=== PATIENT | female | born 1935 | race Hispanic/Latino ===

== ENCOUNTER 2017-01-29 15:10 | Inpatient (IN) | payer MEDICARE, MEDICAID ==
[2017-01-29 15:16] VITALS: BMI 22.9
--- NOTE | 2017-01-29 16:17 | ED PDOC ---
HPI: Seizure Time Seen by Provider: 01/29/17 15:24 Chief Complaint (Nursing): Altered Mental Status Chief Complaint (Provider): Altered Mental Status History Per: Family (Daughter) History/Exam Limitations: no limitations Additional Complaint(s): 81 y/o female with a past medical history of dementia and Alzheimer's who presents to the emergency department accompanied by daughter with a complaint of seizure like activity described as shaking, unresponsive, and incontinence of urine that lasted less than a minute according to granddaughter half an hour prior to arrival. As per history from daughter, patient was at a normal state of health walking, laughing, eating, and sitting at the table. Patient is currently back to baseline and states that she is hungry. Denies headache, weakness, numbness, or tingling. PMD: Dr. Slim Marino MD NIHSS Stroke Scale - How Severe is the Stroke Level of Consciousness: 0=Alert Best Gaze: 0=Normal Visual: 0=No visual loss Facial: 0=Normal Motor Arm - Left: 0=No drift Motor Arm - Right: 0=No drift Motor Leg - Left: 0=No drift Motor Leg - Right: 0=No drift Limb Ataxia: 0=Absent Sensory: 0=Normal Best Language: 0=No aphasia Dysarthia: 0=Normal articulation Extinction & Inattention (Neglect): 0=Normal, no object Past Medical History Reviewed: Historical Data, Nursing Documentation, Vital Signs Vital Signs: Last Vital Signs Temp 98.2 F 01/29/17 15:13 Pulse 64 01/29/17 15:37 Resp 16 01/29/17 15:37 BP 162/53 H 01/29/17 15:37 Pulse Ox 100 01/29/17 16:35 - Medical History PMH: Anemia, Arthritis, Asthma, CAD (with stents), CHF, Dementia, Depression, Diabetes, HTN, Hypercholesterolemia, Peripheral Edema, Pneumonia, Pulmonary Embolism, Chronic Kidney Disease Denies: HIV - Surgical History Surgical History: Appendectomy, Cholecystectomy, Coronary Stent (7 stents as per the daughter) Other surgeries: cataract surgery - Family History Family History: States: Unknown Family Hx - Social History Current smoker - smoking cessation education provided: No Alcohol: None Drugs: Denies - Home Medications Home Medications: Ambulatory Orders Medication Instructions Recorded Atorvastatin [Lipitor] 1 tab PO HS 07/26/16 Carvedilol [Coreg] 1 tab PO HS 07/26/16 Clopidogrel [Plavix] 1 tab PO DAILY 07/26/16 Dicyclomine [Bentyl] 1 tab PO DAILY 07/26/16 Donepezil HCl [Aricept] 1 tab PO HS 07/26/16 Famotidine [Pepcid] 1 tab PO DAILY 07/26/16 Furosemide [Lasix] 1 tab PO DAILY 07/26/16 Glimepiride 1 tab PO DAILY 07/26/16 Lubiprostone [Amitiza] 1 tab PO DAILY 07/26/16 Memantine [Namenda] 1 tab PO DAILY 07/26/16 Montelukast [Singulair] 1 tab PO HS 07/26/16 Ranolazine [Ranexa] 1 tab PO Q12 07/26/16 Divalproex [Depakote DR(*BID*)] 500 mg PO BID 01/29/17 Valsartan [Diovan] 320 mg PO DAILY 01/29/17 amLODIPine [Norvasc] 10 mg PO DAILY 01/29/17 - Allergies Allergies/Adverse Reactions: Allergies Allergy/AdvReac Type Severity Reaction Status Date / Time No Known Allergies Allergy Verified 07/26/16 18:17 Review of Systems ROS Statement: Except As Marked, All Systems Reviewed And Found Negative Constitutional: Positive for: Other (Shaking and unresponsiveness (had resolved since)). Negative for: Weakness Genitourinary Female: Positive for: Incontinence Neurological: Negative for: Numbness, Headache, Other (tingling) Physical Exam - Reviewed Nursing Documentation Reviewed: Yes Vital Signs Reviewed: Yes - Physical Exam Appears: Positive for: Non-toxic, No Acute Distress Head Exam: Positive for: ATRAUMATIC, NORMOCEPHALIC Skin: Positive for: Normal Color, Warm, Dry Eye Exam: Negative for: Normal appearance (Left pupil is pinpoint. Right pupil is scarred by cataract surgery) ENT: Positive for: Normal ENT Inspection. Negative for: Pharyngeal Erythema Neck: Positive for: Normal, Supple Cardiovascular/Chest: Positive for: Regular Rate, Rhythm. Negative for: Murmur Respiratory: Positive for: Normal Breath Sounds. Negative for: Respiratory Distress Gastrointestinal/Abdominal: Positive for: Normal Exam, Soft. Negative for: Tenderness Extremity: Positive for: Normal ROM. Negative for: Tenderness, Pedal Edema Neurologic/Psych: Positive for: Alert, methods and procedures analyst II-XII, Oriented. Negative for: Motor/Sensory Deficits, Mood/Affect, Cerebellar Tests, Gait, Aphasia, Facial Droop - Laboratory Results Result Diagrams: 01/29/17 16:28 01/29/17 16:28 - ECG O2 Sat by Pulse Oximetry: 100 (RA) Pulse Ox Interpretation: Normal Medical Decision Making Medical Decision Making: Time: 15:24 Initial impression: First time Seizure Initial plan: --Head w/o contrast CT --Electrocardiogram Stat --Alcohol Serum Stat --Basic Metabolic Panel --Drug Screen, Urine --Lact Acid, Plasma --Troponin I stat --ED Urine Dipstick (POC) --EKD-ED (EDNURTX) Stat --CBC w/ differential --Chest One View (RAD) --Urinalysis Stat --Revaluation 6PM: PT. seen and evaluated by Dr. Stokes of neurology, recommendations made. Will admit for seizure workup. Pt. remains alert, no seizure activity in E.D. Scribe Attestation: Documented by Ghazala Santamaria, acting as a scribe for Andrew Delacruz MD. Provider Scribe Attestation: All medical record entries made by the Scribe were at my direction and personally dictated by me. I have reviewed the chart and agree that the record accurately reflects my personal performance of the history, physical exam, medical decision making, and the department course for this patient. I have also personally directed, reviewed, and agree with the discharge instructions and disposition. Disposition - Clinical Impression Clinical Impression: Seizure - Patient ED Disposition Is Patient to be Admitted: Yes - Disposition Disposition Time: 18:00 Condition: STABLE
[2017-01-29 16:36] LABS: BASO # 0.1 K/uL (0.0-0.2); BASO % 1.2 % (0.0-2.0); EOS # 0.1 K/uL (0.0-0.7); EOS % 1.1 % (0.0-4.0); HEMATOCRIT 30.4 % (34.0-47.0); LYMPH # 1.3 K/uL (1.0-4.3); LYMPH % 17.3 % (20.0-40.0); MEAN CELL VOLUME 103.3 fl (81.0-99.0); MEAN CORPUSCULAR HEMOGLOBIN 33.7 pg (27.0-31.0); MEAN CORPUSCULAR HGB CONC 32.6 g/dL (33.0-37.0); MEAN PLATELET VOLUME 10.1 fl (7.2-11.7); MONO # 0.6 K/uL (0.0-0.8); MONO % 8.5 % (0.0-10.0); NEUT # 5.4 K/uL (1.8-7.0); NEUT % 71.9 % (50.0-75.0); RED CELL DISTRIBUTION WIDTH 13.6 % (11.5-14.5); WHITE BLOOD COUNT 7.6 K/uL (4.8-10.8)
[2017-01-29 16:41] LABS: ALCOHOL SERUM < 10 mg/dl (0-10); BLOOD UREA NITROGEN 21 mg/dl (7-17); CALCIUM 8.3 mg/dL (8.4-10.2); CARBON DIOXIDE 27 mmol/L (22-30); CHLORIDE 105 mmol/L (98-107); GFR AFRICAN-AMERICAN 52; GLUCOSE,RANDOM 191 mg/dL (65-105); POTASSIUM 4.4 MMOL/L (3.6-5.0); SODIUM 142 mmol/l (132-148)
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
--- NOTE | 2017-01-29 17:15 | CT ---
PROCEDURE: CT HEAD WITHOUT CONTRAST. HISTORY: seizure COMPARISON: 03/24/2016. TECHNIQUE: Axial computed tomography images were obtained through the head/brain without intravenous contrast. Coronal and sagittal reconstructed images. Radiation dose: Total exam DLP = 825.86 mGy-cm. This CT exam was performed using one or more of the following dose reduction techniques: Automated exposure control, adjustment of the mA and/or kV according to patient size, and/or use of iterative reconstruction technique. FINDINGS: HEMORRHAGE: No intracranial hemorrhage. BRAIN: No mass effect or edema. Cortical atrophy, periventricular small vessel disease VENTRICLES: Unremarkable. No hydrocephalus. CALVARIUM: Unremarkable. PARANASAL SINUSES: Unremarkable as visualized. No significant inflammatory changes. MASTOID AIR CELLS: Chronic right mastoid air cell disease. OTHER FINDINGS: None. IMPRESSION: No acute intracranial abnormalities. No significant findings to account for the clinical presentation. No significant interval change compared to the prior examination(s).
--- NOTE | 2017-01-29 17:22 | RAD ---
PROCEDURE: CHEST RADIOGRAPH, 1 VIEW. Portable study 16:37. HISTORY: SEIZURE COMPARISON: 07/28/2016. FINDINGS: LUNGS: Clear. PLEURA: No pneumothorax or pleural fluid seen. CARDIOVASCULAR: Normal. OSSEOUS STRUCTURES: No significant abnormalities. VISUALIZED UPPER ABDOMEN: Normal. OTHER FINDINGS: None. IMPRESSION: No active disease. No acute/significant interval changes.
[2017-01-29 18:13] LABS: URINE BACTERIA RARE (<OCC); URINE BILIRUBIN NEGATIVE (NEGATIVE); URINE BLOOD NEGATIVE (NEGATIVE); URINE COLOR STRAW (YELLOW); URINE GLUCOSE (UA) NEG (Normal); URINE KETONE NEGATIVE (NEGATIVE); URINE LEUKOCYTE ESTERASE NEG Leu/uL (Negative); URINE PROTEIN 30 mg/dL (NEGATIVE); URINE UROBILINOGEN 0.2-1.0 mg/dL (0.2-1.0); WBC URINE 1 /hpf (0-5)
--- NOTE | 2017-01-29 19:48 | CP.PCM.HP ---
History of Present Illness - History of Present Illness History of Present Illness: 81 yo female with history of DMII, HTN, HLD, Ischemic Bowel x 2 (2006, 2007), CAD, Dementia and Valvular Heart Disease brought in after she was witnessed with generalized convulsions associated with urinary incontinence followed with LOC for about 10 minutes. Patient was known to take Depakote but family didn't know what it was for. Patient chest pain, SOB. Present on Admission - Present on Admission Any Indicators Present on Admission: No History of DVT/PE: No History of Uncontrolled Diabetes: No Urinary Catheter: No Decubitus Ulcer Present: No Review of Systems - Review of Systems Systems not reviewed;Unavailable: Dementia Past Patient History - Infectious Disease Hx of Infectious Diseases: None - Tetanus Immunizations Tetanus Immunization: Unknown - Past Medical History & Family History Past Medical History?: Yes - Past Social History Smoking Status: Never Smoked Chewing Tobacco Use: No Cigar Use: No Alcohol: None Drugs: Denies - CARDIAC Hx Congestive Heart Failure: Yes Hx Hypercholesterolemia: Yes Hx Hypertension: Yes Hx Peripheral Edema: Yes Other/Comment: Valvular Heart Disease - PULMONARY Hx Asthma: Yes Hx Pneumonia: Yes - NEUROLOGICAL Hx Dementia: Yes - HEENT Hx HEENT Problems: Yes Hx Glaucoma: Yes - RENAL Hx Chronic Kidney Disease: Yes - ENDOCRINE/METABOLIC Hx Endocrine Disorders: Yes Hx Diabetes Mellitus Type 2: Yes - HEMATOLOGICAL/ONCOLOGICAL Hx Anemia: Yes Hx Human Immunodeficiency Virus (HIV): No - INTEGUMENTARY Hx Dermatological Problems: No - MUSCULOSKELETAL/RHEUMATOLOGICAL Hx Arthritis: Yes - GASTROINTESTINAL Hx Gastrointestinal Disorders: Yes 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, 2006 and 2007) Hx Constipation: Yes Other/Comment: Ventral hernia - GENITOURINARY/GYNECOLOGICAL Hx Genitourinary Disorders: No - PSYCHIATRIC Hx Depression: Yes - SURGICAL HISTORY Hx Appendectomy: Yes Hx Cholecystectomy: Yes Hx Coronary Stent: Yes (7 stents as per the daughter) - ANESTHESIA Hx Anesthesia: Yes Hx Anesthesia Reactions: Yes (hard to wake up) Hx Malignant Hyperthermia: No Meds Allergies/Adverse Reactions: Allergies Allergy/AdvReac Type Severity Reaction Status Date / Time No Known Allergies Allergy Verified 07/26/16 18:17 Physical Exam - Constitutional Appears: No Acute Distress - Head Exam Head Exam: ATRAUMATIC - Eye Exam Eye Exam: absent: PERRL (right pupil distorted and barely reactive to light ( post cataract surgery)) - ENT Exam ENT Exam: Mucous Membranes Moist - Neck Exam Neck exam: Negative for: Meningismus - Respiratory Exam Respiratory Exam: absent: Rhonchi, Wheezes, Respiratory Distress - Cardiovascular Exam Cardiovascular Exam: REGULAR RHYTHM, +S1, +S2 - GI/Abdominal Exam GI & Abdominal Exam: Soft. absent: Tenderness - Rectal Exam Rectal Exam: Deferred - Extremities Exam Extremities exam: Negative for: pedal edema - Neurological Exam Neurological exam: Altered - Psychiatric Exam Psychiatric exam: Flat Affect - Skin Skin Exam: Dry, Intact Results - Vital Signs Recent Vital Signs: Last Vital Signs Temp 98.2 F 01/29/17 15:13 Pulse 64 01/29/17 15:37 Resp 16 01/29/17 15:37 BP 162/53 H 01/29/17 15:37 Pulse Ox 100 01/29/17 16:35 - Labs Result Diagrams: 01/29/17 16:28 01/29/17 16:28 Assessment & Plan (1) Seizure Status: Acute Priority: High Comment: place on observation in Telemetry. MRI of brain without contrast. EEG. neuro consult with Dr Stokes. Depakote 500mg PO BID (2) Coronary artery disease Status: Chronic Priority: Medium Comment: denied chest pain or SOB. continue Lipitor, Coreg, Plavix, ASA, Ranexa (3) Hypertension Status: Acute Comment: BP slightly elevated. continue Coreg, Valsartan, Amlodipine and Lasix (4) DMII (diabetes mellitus, type 2) Status: Acute Comment: BS relatively controlled. continue Glimepiride (5) DVT prophylaxis Status: Acute Comment: venodyne boots while in bed. high risk to anti-coagulate because of seizure
[2017-01-29] MEDS ORDERED: RANOLAZINE PO SCH (21:00)
[2017-01-30 05:17] LABS: BASO # 0.1 K/uL (0.0-0.2); BASO % 1.4 % (0.0-2.0); EOS # 0.1 K/uL (0.0-0.7); EOS % 1.5 % (0.0-4.0); HEMATOCRIT 29.8 % (34.0-47.0); LYMPH # 1.6 K/uL (1.0-4.3); LYMPH % 20.2 % (20.0-40.0); MEAN CORPUSCULAR HEMOGLOBIN 34.7 pg (27.0-31.0); MEAN CORPUSCULAR HGB CONC 33.6 g/dL (33.0-37.0); MEAN PLATELET VOLUME 10.1 fl (7.2-11.7); MONO # 0.9 K/uL (0.0-0.8); MONO % 11.4 % (0.0-10.0); NEUT # 5.3 K/uL (1.8-7.0); NEUT % 65.5 % (50.0-75.0); RED CELL DISTRIBUTION WIDTH 14.1 % (11.5-14.5)
[2017-01-30 05:25] LABS: CALCIUM 8.5 mg/dL (8.4-10.2); POTASSIUM 3.8 MMOL/L (3.6-5.0)
[2017-01-30] MEDS ORDERED: GLIMEPIRIDE PO SCH (09:00)
[2017-01-30] MEDS ORDERED: LUBIPROSTONE PO SCH (09:00)
[2017-01-30] MEDS: Divalproex 500 mg DR(BID formulation) PO SCH ×2 (10:07→17:23)
[2017-01-30] MEDS: GlipiZIDE 5 mg SR Tab PO SCH (10:08)
[2017-01-30] MEDS: Pantoprazole 40 mg EC Tab PO SCH (10:08)
--- NOTE | 2017-01-30 14:20 | MRI ---
PROCEDURE: MRI BRAIN WITHOUT CONTRAST HISTORY: seizure COMPARISON: Comparison is made to the previous study dated 03/25/2016 TECHNIQUE: Multiplanar, multisequence MR images of the brain were obtained without intravenous contrast enhancement. FINDINGS: HEMORRHAGE: None DWI: No evidence of an acute or early subacute infarction. BRAIN PARENCHYMA: No mass effect or edema. Again seen is mild atrophy and mild chronic microvascular white matter ischemic disease. VENTRICLES: Unremarkable. No hydrocephalus. CRANIUM: Unremarkable. ORBITS: Grossly unremarkable. PARANASAL SINUSES/MASTOIDS: Partial opacification of the right mastoid is again noted. No evidence of acute sinusitis. VASCULAR SYSTEM: Skull base flow voids intact. OTHER FINDINGS: None. IMPRESSION: No evidence of acute pathology. No significant interval change since the previous exam. Mild atrophy and mild chronic microvascular ischemic disease. Partial opacification of the right mastoid again noted.
--- NOTE | 2017-01-30 16:05 | CARD ---
APPROVED REPORT EKG Measurement Heart [id number] MD [id number] <Conclusion> Normal sinus rhythm Nonspecific T wave abnormality Abnormal ECG
--- NOTE | 2017-01-30 19:16 | CP.PCM.PCO ---
Physician Communication Note - Physician Communication Note Physician Communication Note: Dr Marino now back from vacation,office notified regarding pt's admission
[2017-01-30] MEDS ORDERED: guaiFENesin DM 200 mg-20 mg/10 ml UD PO PRN (22:17)
[2017-01-30] MEDS ORDERED: Albuterol 0.083% Inhal Sol (2.5 mg/3 mL) UD INH PRN (22:30)
[2017-01-31 07:45] LABS: BASO # 0.1 K/uL (0.0-0.2); BASO % 1.2 % (0.0-2.0); EOS # 0.2 K/uL (0.0-0.7); EOS % 2.7 % (0.0-4.0); HEMATOCRIT 31.5 % (34.0-47.0); LYMPH # 2.2 K/uL (1.0-4.3); MEAN CELL VOLUME 102.9 fl (81.0-99.0); MEAN CORPUSCULAR HEMOGLOBIN 34.2 pg (27.0-31.0); MEAN CORPUSCULAR HGB CONC 33.2 g/dL (33.0-37.0); MONO # 0.8 K/uL (0.0-0.8); NEUT # 3.3 K/uL (1.8-7.0); NEUT % 51.1 % (50.0-75.0); NRBC % 0.1 % (0.0-0.0); RED CELL DISTRIBUTION WIDTH 13.5 % (11.5-14.5); WHITE BLOOD COUNT 6.5 K/uL (4.8-10.8)
[2017-01-31 07:53] LABS: ALB/GLOB RATIO 0.8 (1.0-2.1); BILIRUBIN,TOTAL 0.3 mg/dl (0.2-1.3); CALCIUM 8.7 mg/dL (8.4-10.2); POTASSIUM 3.6 MMOL/L (3.6-5.0); TOTAL PROTEIN 6.3 G/DL (6.3-8.2)
[2017-01-31 08:22] LABS: THYROID STIMULATING HORMONE 1.55 mIU/ML (0.46-4.68)
--- NOTE | 2017-01-31 08:44 | PQF CHF ---
This form is a permanent part of the medical record 01/31/17 Dr. Marino, Would you please clarify the TYPE of CHF under the physician response on this sheet or in the EMR in your progress note. Documentation of a history of CHF in the ER MD note. Treated with Coreg and Lasix. Echocardiogram from last year March 2016 with an EF of 60-65% . Clarification of your documentation is requested to better reflect the severity of illness and intensity of treatment of your patient. Indicators present [x] Diagnosis of history of CHF [x] BNP > 200 [] Imaging Finding of Pulmonary Edema /Pleural Effusions [] Fluid/Volume Overload [] Pitting edema [] Ejection Fraction < 40% (Indicative of Systolic Heart Failure) [x] Ejection Fraction > 40% (Indicative of Diastolic Heart Failure) OLD ECHO March 2016 in EMR [] Dyspnea / Orthopenea / Paroxysmal Nocturnal Dyspnea [] Other: Location in the medical record that reflects the above clinical findings: [] Treatment Provided: [] PHYSICIAN'S RESPONSE Based on your medical judgment of the clinical indicators outlined above, are you treating this patient for a known or suspected: [] Acute CHF [] Systolic [] Diastolic [] Combined [] Chronic CHF [] Systolic [] Diastolic [] Combined [] Acute on Chronic CHF []Systolic [] Diastolic [] Combined [] CHF due hypertension [] Acute systolic []Chronic systolic [] Acute/ chronic systolic [] Other, please indicate: [] [] If Unable to Determine, please check the box, sign and date. Present On Admission (POA) Indicator: [] Present at the time of admission [] Not present at the time of admission [] Clinically Undetermined In responding to this query, please exercise your independent professional judgment. The fact that a question is asked does not imply that any particular answer is desired or expected. Thank you for your clarification on this documentation. If you have any questions please call:[phone] * Thank you, Ann-Marie Hart RN, CD[facility]
[2017-01-31] MEDS: Divalproex 500 mg DR(BID formulation) PO SCH ×2 (09:12→16:45)
[2017-01-31] MEDS: GlipiZIDE 5 mg SR Tab PO SCH (09:12)
[2017-01-31] MEDS: Pantoprazole 40 mg EC Tab PO SCH (09:13)
--- NOTE | 2017-01-31 11:00 | PN ---
DATE: 01/30/2017 HISTORY OF PRESENT ILLNESS: The patient was admitted 01/30/2016, yesterday from the Emergency Room b ecmelany the patient was diminish with dementia and CHF and CAD and the COPD. The patient was brought to the Emergency Room because the patient had a seizure-like activity like the patient was shaking an d also had urinary incontinence. So, the patient was evaluated in the Emergency Room and was admitte d. Now, the patient was scheduled to my service today. This patient is under my service for many yea rs and, so, for patient circumstance of preceding the seizure-like symptoms activity and ____. Now, the patient is complaining of some congestive cough and had been having some palpitations at times, b ut denied any chest pain. PHYSICAL EXAMINATION: VITAL SIGNS: The patient's blood pressure is 147/68, pulse 64, respirations 18, temperature 98.7. NECK: Normocephalic. LUNGS: There are some rales bilaterally. HEART: Regular rate and rhythm but, also, there is a aortic area. ABDOMEN: Soft and nontender. No palpable mass. EXTREMITY: There is no edema noted. LABORATORY DATA: The patient's blood work done today was wbc 8, hemoglobin 10, hematocrit 29.8 and p latelet is 184. Chemistry: Sodium is 143, potassium 3.8, chloride 103, bicarbonate 27, BUN 22, crea tinine 1.4 and the glucose was 41. Lactic acid is 1 and calcium 8.5. IMPRESSION: The patient was admitted with a diagnosis of seizure and the patient has also chronic ob structive pulmonary disease, coronary artery disease, congestive heart failure, aortic stenosis, sol ntia. PLAN: So, the patient had a neurologic consult and also patient will have a cardiology consult with . Today, the patient had MRI of the brain that has shown no evidence of acute pathology and the patient has never changed since the previous exam. There is mild atrophy and moderate chronic microvascular ischemic disease. So, lab is ordered for tomorrow. 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 Slim Marino MD cc: [id number] TT: 01/31/2017 00:31:47 Confirmation # [id number] Dictation # [id number] mn 01/31/2017 09:59:37
[2017-02-01 06:53] LABS: BASO # 0.1 K/uL (0.0-0.2); EOS # 0.2 K/uL (0.0-0.7); EOS % 2.6 % (0.0-4.0); HEMATOCRIT 30.4 % (34.0-47.0); LYMPH # 2.3 K/uL (1.0-4.3); LYMPH % 35.3 % (20.0-40.0); MEAN CELL VOLUME 102.7 fl (81.0-99.0); MEAN CORPUSCULAR HEMOGLOBIN 34.1 pg (27.0-31.0); MEAN CORPUSCULAR HGB CONC 33.2 g/dL (33.0-37.0); MEAN PLATELET VOLUME 10.1 fl (7.2-11.7); MONO # 0.8 K/uL (0.0-0.8); MONO % 11.3 % (0.0-10.0); NEUT # 3.3 K/uL (1.8-7.0); NEUT % 49.8 % (50.0-75.0); RED CELL DISTRIBUTION WIDTH 13.6 % (11.5-14.5); WHITE BLOOD COUNT 6.7 K/uL (4.8-10.8)
--- NOTE | 2017-02-01 06:57 | PN ---
DATE: 01/31/2017 SUBJECTIVE: Today, the patient is more alert and awake and complaining of some of the lower ex tremity when walking. PHYSICAL EXAMINATION: VITAL SIGNS: The patient has a blood pressure of 150/66, pulse 72, respirations 20, and blood pressure 166/69. NECK: Supple. No JVD. LUNGS: They have some rhonchi noted and also some rales at the bases. HEART: Tachycardic. ABDOMEN: Soft and nontender. No palpable mass. Positive bowel sounds. EXTREMITIES: There is no edema. There were unsteady gait. LABORATORY DATA: The blood work done today showed WBC 6.5, hemoglobin 10.5, hematocrit 31.5 and plat elet is 178. PLAN: We are going to continue the current treatment and consult with as ordered and, also , we are going to consider also physical therapy since she . Slim Marino MD cc: [id number] TT: 02/01/2017 01:55:04 Confirmation # [id number] Dictation # [id number] mn
[2017-02-01 07:03] LABS: ALB/GLOB RATIO 0.8 (1.0-2.1); BILIRUBIN,TOTAL 0.3 mg/dl (0.2-1.3); CALCIUM 8.4 mg/dL (8.4-10.2); POTASSIUM 3.8 MMOL/L (3.6-5.0); TOTAL PROTEIN 6.1 G/DL (6.3-8.2)
[2017-02-01] MEDS: GlipiZIDE 5 mg SR Tab PO SCH (09:36)
[2017-02-01] MEDS: Divalproex 500 mg DR(BID formulation) PO SCH ×2 (09:36→17:03)
[2017-02-01] MEDS: Pantoprazole 40 mg EC Tab PO SCH (09:37)
--- NOTE | 2017-02-01 19:57 | CP.PCM.CON ---
History of Present Illness - History of Present Illness History of Present Illness: CC: Syncope. HPI: This is a pleasant 81 year old female who is accompanied by her daughter who provides the history since the patient has dementia. The patient was in her usual state of health having dinner on the day of her admission when her family noted that she was not responding to verbal commands and slumpped over for several minutes. She suffered urinary and fecal incontinence and when she was arousable, the patient was not coherent and was confused for several minutes. The daughter denies any chest pain, dyspnea or palpitations. EMS was summoned and the patient was brought to [facility] for further evaluation. A blood glucose was 110 and an ECG did not reveal any acute findings. The daughter states that her mother had a poor appetite and her blood glucose at home was 70 and BP was in the low 100's. This was the patient's first seizure as per the daughter. A CT of the head and an MRI did not reveal any acute abnormalities, only atrophy. An ECG revealed NST, no acute abnormalities and a chest Xray was unremarkable. Review of Systems - Review of Systems Systems not reviewed;Unavailable: Dementia, Altered Mental Status - Constitutional Constitutional: Lethargy, Weakness - Cardiovascular Additional comments: Negative. - Respiratory Additional comments: Negative. - Gastrointestinal Additional comments: Negative. - Musculoskeletal Musculoskeletal: Muscle Weakness - Integumentary Integumentary: Swelling - Neurological Neurological: Confusion, Memory Loss Past Patient History - Infectious Disease Hx of Infectious Diseases: None - Tetanus Immunizations Tetanus Immunization: Unknown - Past Medical History & Family History Past Medical History?: Yes - Past Social History Smoking Status: Former Smoker Alcohol: None Home Situation {Lives}: With Family - CARDIAC Hx Cardiac Disorders: Yes Hx Circulatory Problems: Yes Hx Congestive Heart Failure: Yes Hx Hypercholesterolemia: Yes Hx Hypertension: Yes Hx Peripheral Edema: Yes Other/Comment: Valvular Heart Disease - PULMONARY Hx Respiratory Disorders: Yes Hx Asthma: Yes Hx Pneumonia: Yes - NEUROLOGICAL Hx Neurological Disorder: Yes Hx Alzheimer's Disease: Yes Hx Dementia: Yes - HEENT Hx HEENT Problems: Yes Hx Cataracts: Yes (surgery) - RENAL Hx Chronic Kidney Disease: Yes - ENDOCRINE/METABOLIC Hx Endocrine Disorders: Yes Hx Diabetes Mellitus Type 2: Yes - HEMATOLOGICAL/ONCOLOGICAL Hx Blood Disorders: Yes Hx Anemia: Yes Hx Human Immunodeficiency Virus (HIV): No - INTEGUMENTARY Hx Dermatological Problems: No - MUSCULOSKELETAL/RHEUMATOLOGICAL Hx Musculoskeletal Disorders: Yes Hx Arthritis: Yes Hx Falls: No - GASTROINTESTINAL Hx Gastrointestinal Disorders: Yes 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, 2006 and 2007) Hx Constipation: Yes Other/Comment: Ventral hernia - GENITOURINARY/GYNECOLOGICAL Hx Genitourinary Disorders: No - PSYCHIATRIC Hx Psychophysiologic Disorder: Yes Hx Depression: Yes Hx Substance Use: No - SURGICAL HISTORY Hx Surgeries: Yes Hx Appendectomy: Yes Hx Cataract Extraction: Yes Hx Cholecystectomy: Yes Hx Coronary Stent: Yes (7 stents as per the daughter) - ANESTHESIA Hx Anesthesia: Yes Hx Anesthesia Reactions: Yes (hard to wake up) Hx Malignant Hyperthermia: No Meds Allergies/Adverse Reactions: Allergies Allergy/AdvReac Type Severity Reaction Status Date / Time No Known Allergies Allergy Verified 07/26/16 18:17 - Medications Medications: Current Medications Albuterol Sulfate (Albuterol 0.083% Inhal Blessing (2.5 Mg/3 Ml) Ud) 2.5 mg INH RQ6 PRN PRN Reason: Shortness of Breath Atorvastatin Calcium (Lipitor) 10 mg PO HS [facility] Last Admin: 01/31/17 21:11 Dose: 10 mg Carvedilol (Coreg) 12.5 mg PO HS [facility] Last Admin: 01/31/17 21:11 Dose: 12.5 mg Clopidogrel Bisulfate (Plavix) 75 mg PO DAILY [facility] Last Admin: 02/01/17 09:36 Dose: 75 mg Dicyclomine HCl (Bentyl) 10 mg PO DAILY [facility] Last Admin: 02/01/17 09:36 Dose: 10 mg Divalproex Sodium (Depakote Dr(*Bid*)) 500 mg PO BID [facility] Last Admin: 02/01/17 17:03 Dose: 500 mg Donepezil HCl (Aricept) 5 mg PO HS [facility] Last Admin: 01/31/17 21:11 Dose: 5 mg Furosemide (Lasix) 20 mg PO DAILY [facility] Last Admin: 02/01/17 09:36 Dose: 20 mg Glipizide (Glucotrol Xl) 5 mg PO BRK [facility] Last Admin: 02/01/17 09:36 Dose: 5 mg Guaifenesin/Dextromethorphan (Robitussin Dm) 10 ml PO Q6 PRN PRN Reason: Cough Home Med (Lubiprostone [Amitiza]) 1 tab PO DAILY [facility] Home Med (Ranolazine [Ranexa]) 1 tab PO Q12 [facility] Memantine (Namenda) 5 mg PO DAILY [facility] Last Admin: 02/01/17 09:36 Dose: 5 mg Montelukast Sodium (Singulair) 10 mg PO HS [facility] Last Admin: 01/31/17 21:11 Dose: 10 mg Pantoprazole Sodium (Protonix Ec Tab) 40 mg PO DAILY [facility] Last Admin: 02/01/17 09:37 Dose: 40 mg Physical Exam - Constitutional Appears: Well, Non-toxic, No Acute Distress, Chronically Ill - Head Exam Head Exam: ATRAUMATIC, NORMAL INSPECTION - Eye Exam Eye Exam: Normal appearance Pupil Exam: PERRL - ENT Exam ENT Exam: Mucous Membranes Moist, Normal Exam - Neck Exam Neck exam: Positive for: Full Rom - Respiratory Exam Respiratory Exam: Clear to Auscultation Bilateral, NORMAL BREATHING PATTERN - Cardiovascular Exam Cardiovascular Exam: REGULAR RHYTHM, RRR, +S1, Systolic Murmur Additional comments: S2 markedly diminished. - GI/Abdominal Exam GI & Abdominal Exam: Soft - Rectal Exam Rectal Exam: Deferred - Extremities Exam Extremities exam: Positive for: normal inspection - Back Exam Back exam: NORMAL INSPECTION - Neurological Exam Neurological exam: Altered - Psychiatric Exam Psychiatric exam: Flat Affect - Skin Skin Exam: Dry, Normal Color, Warm Results - Vital Signs Recent Vital Signs: Last Vital Signs Temp 97.7 F 02/01/17 19:38 Pulse 95 H 02/01/17 19:38 Resp 18 02/01/17 19:38 BP 120/64 02/01/17 19:38 Pulse Ox 100 02/01/17 19:38 - Labs Result Diagrams: 02/01/17 04:45 02/01/17 04:45 Labs: Laboratory Results - last 24 hr 01/31/17 02/01/17 02/01/17 21:08 04:45 06:01 WBC 6.7 RBC 2.96 L Hgb 10.1 L Hct 30.4 L MCV 102.7 H MCH 34.1 H MCHC 33.2 RDW 13.6 Plt Count 177 MPV 10.1 Neut % (Auto) 49.8 L Lymph % (Auto) 35.3 [place] % (Auto) 11.3 H Eos % (Auto) 2.6 Baso % (Auto) 1.0 Neut # 3.3 Lymph # 2.3 [place] # 0.8 Eos # 0.2 Baso # 0.1 Sodium 143 Potassium 3.8 Chloride 103 Carbon Dioxide 29 Anion Gap 14 BUN 20 H Creatinine 1.4 H Est GFR ( Amer) 44 Est GFR (Non-Af Amer) 36 POC Glucose (mg/dL) 98 46 L Random Glucose 44 L Calcium 8.4 Total Bilirubin 0.3 AST 19 ALT 18 Alkaline Phosphatase 56 Total Protein 6.1 L Albumin 2.8 L Globulin 3.3 Albumin/Globulin Ratio 0.8 L Valproic Acid 65.7 02/01/17 02/01/17 02/01/17 06:36 07:06 09:20 WBC RBC Hgb Hct MCV MCH MCHC RDW Plt Count MPV Neut % (Auto) Lymph % (Auto) [place] % (Auto) Eos % (Auto) Baso % (Auto) Neut # Lymph # [place] # Eos # Baso # Sodium Potassium Chloride Carbon Dioxide Anion Gap BUN Creatinine Est GFR ( Amer) Est GFR (Non-Af Amer) POC Glucose (mg/dL) 62 L 89 145 H Random Glucose Calcium Total Bilirubin AST ALT Alkaline Phosphatase Total Protein Albumin Globulin Albumin/Globulin Ratio Valproic Acid 02/01/17 02/01/17 11:19 15:52 WBC RBC Hgb Hct MCV MCH MCHC RDW Plt Count MPV Neut % (Auto) Lymph % (Auto) [place] % (Auto) Eos % (Auto) Baso % (Auto) Neut # Lymph # [place] # Eos # Baso # Sodium Potassium Chloride Carbon Dioxide Anion Gap BUN Creatinine Est GFR ( Amer) Est GFR (Non-Af Amer) POC Glucose (mg/dL) 138 H 152 H Random Glucose Calcium Total Bilirubin AST ALT Alkaline Phosphatase Total Protein Albumin Globulin Albumin/Globulin Ratio Valproic Acid - EKG Data EKG Interpreted by: Myself EKG shows normal: Sinus rhythm - EKG Data EKG comments: 75 BPM, NSSTT Abn Assessment & Plan - Assessment and Plan (Free Text) Assessment: Seizure. Syncope. CAD, stable. CHF, stable. Hypertension. Diabetes. Dementia. Aortic stenosis. Plan: Monitor telemetry. Seizure precautions. Neurology follow up. Stable cardiology reddy, will follow up as an outpatient. Thank you. - Date & Time Date: 02/01/17 Time: 20:05
[2017-02-01 23:57] VITALS: RESP 20
--- NOTE | 2017-02-01 23:57 | PN ---
DATE: 02/01/2017 HISTORY OF PRESENT ILLNESS: Today, the patient is alert and awake, gets shortness of breath at rest, negative chest pain. PHYSICAL EXAMINATION: VITAL SIGNS: The patient has a blood pressure of 120/64, pulse of 95, respirations 18, temperature is 97.7. NECK: Supple and no JVD. LUNGS: There are some rales at the bases and some rhonchi noted. HEART: Regular rate and rhythm. Positive murmur. ABDOMEN: Soft, mildly obese. EXTREMITIES: There is no edema. LABORATORY DATA: Blood tests done. The WBC is 6.7, hemoglobin 10.1, hematocrit 30.4 and platelet is 177. The patient's chemistry showed the glucose is 167. ASSESSMENT AND PLAN: The patient has a consult with Dr. Pierre, who is the middle school special education teacher, and I feel the patient is now fairly stable cardiac-reddy and also the patient has no mass effect or edema and the patient had a seizure yesterday. the valproic acid is 65.7, which is normal. The plan i s that we are going to continue the physical therapy and possible discharge tomorrow in the morning. Slim Marino MD cc: [id number] TT: 02/01/2017 23:57:05 Confirmation # [id number] Dictation # [id number] ln
[2017-02-02 05:33] LABS: BASO # 0.1 K/uL (0.0-0.2); BASO % 1.1 % (0.0-2.0); EOS # 0.2 K/uL (0.0-0.7); EOS % 2.6 % (0.0-4.0); HEMATOCRIT 29.2 % (34.0-47.0); LYMPH # 2.6 K/uL (1.0-4.3); LYMPH % 32.9 % (20.0-40.0); MEAN CELL VOLUME 102.8 fl (81.0-99.0); MEAN CORPUSCULAR HEMOGLOBIN 33.5 pg (27.0-31.0); MEAN CORPUSCULAR HGB CONC 32.6 g/dL (33.0-37.0); MEAN PLATELET VOLUME 10.3 fl (7.2-11.7); MONO # 0.9 K/uL (0.0-0.8); MONO % 11.5 % (0.0-10.0); NEUT % 51.9 % (50.0-75.0); NRBC % 0.1 % (0.0-0.0); RED CELL DISTRIBUTION WIDTH 13.5 % (11.5-14.5); WHITE BLOOD COUNT 7.8 K/uL (4.8-10.8)
[2017-02-02 05:49] LABS: ALB/GLOB RATIO 0.8 (1.0-2.1); BILIRUBIN,TOTAL 0.2 mg/dl (0.2-1.3); CALCIUM 7.9 mg/dL (8.4-10.2)
--- NOTE | 2017-02-02 09:58 | PQF CHF ---
This form is a permanent part of the medical record 02/02/17 Dr. Pierre, Please specify the type and acuity of heart failure in your progress notes. Documentation of a history of CHF. Treated with Coreg and Lasix. Echocardiogram from last year March 2016 with an EF of 60-65% . Clarification of your documentation is requested to better reflect the severity of illness and intensity of treatment of your patient. Indicators present [x] Diagnosis of a history of CHF [x] BNP > 200 [] Imaging Finding of Pulmonary Edema /Pleural Effusions [] Fluid/Volume Overload [] Pitting edema [] Ejection Fraction < 40% (Indicative of Systolic Heart Failure) [x] Ejection Fraction > 40% (Indicative of Diastolic Heart Failure) Echo March 2016 in EMR [] Dyspnea / Orthopenea / Paroxysmal Nocturnal Dyspnea [] Other: Location in the medical record that reflects the above clinical findings: [] Treatment Provided: [x] PHYSICIAN'S RESPONSE Based on your medical judgment of the clinical indicators outlined above, are you treating this patient for a known or suspected: [] Acute CHF [] Systolic [] Diastolic [] Combined [] Chronic CHF [] Systolic [] Diastolic [] Combined [] Acute on Chronic CHF [] Systolic [] Diastolic [] Combined [] CHF due hypertension [] Acute systolic []Chronic systolic [] Acute/ chronic systolic [] Other, please indicate: [] [] If Unable to Determine, please check the box, sign and date. Present On Admission (POA) Indicator: [] Present at the time of admission [] Not present at the time of admission [] Clinically Undetermined In responding to this query, please exercise your independent professional judgment. The fact that a question is asked does not imply that any particular answer is desired or expected. Thank you for your clarification on this documentation. If you have any questions please call:extension [phone] * Thank you, Ann-Marie Hart RN CDMP MTDD
[2017-02-02] MEDS: Divalproex 500 mg DR(BID formulation) PO SCH (10:12)
[2017-02-02] MEDS: Pantoprazole 40 mg EC Tab PO SCH (10:13)
[2017-02-02] MEDS: GlipiZIDE 5 mg SR Tab PO SCH (10:15)
[2017-02-02 13:01] VITALS: BP 146/71; PULSE 65; TEMP 98; O2SAT 96
--- NOTE | 2017-02-06 05:50 | DS ---
Admit: 01/30/17 Discharge: 02/02/17 SUMMARY: The patient is an 81-year-old gentleman with history of diabetes, hypertension and a histor y of disease, coronary artery disease and also dementia and also aortic valve stenosis. The pat nikki was brought to the Emergency Room because the patient was found to have general with urina ry incontinence, followed by about 10 minutes. The patient was noted to be on Depakote. So, t he patient was admitted and had a neurology consult with and also Dr. Roni Stokes and also c ardiology. PHYSICAL EXAMINATION: LUNGS: Clear. HEART: Regular, but with murmur. LABORATORY DATA: The patient was found to have blood result was the . Also the patient h as tests done including MRI of the brain that showed no mass effect or edema and there is very mild a trophy and mild chronic microvascular ischemic disease and no evidence of acute active disease, no significant interval change since the patient was examined. PLAN: During the course of hospitalization, the patient was well, did not have any seizure and the p atient was cleared by a [employer] manager and neurologist for patient to be going home on medications and also will have a home health aide. Slim Marino MD cc: [id number] TT: 02/03/2017 01:18:06 nj 02/06/2017 04:50:00
--- NOTE | 2017-02-06 05:51 | PN ---
DATE: 02/02/2017 SUBJECTIVE: The patient was seen earlier this morning and the patient was alert and awake and denies any shortness of breath and is sitting in the chair. The patient denies any chest pain or palpitati ons. No . The patient has been having good bowel movements. PHYSICAL EXAMINATION: VITALS: The patient has blood pressure of 129/63, pulse 69, respirations 20, temperature 98.2. NECK : Supple. Positive JVD. LUNGS: There are some rales at the bases, which is chronic. HEART: Regular rate and rhythm. ABDOMEN: Soft and nontender. Positive bowel sounds. EXTREMITIES: There is no edema. LABORATORY DATA: The patient's blood work has shown that the WBC is 7.8, hemoglobin 9.5, hematocrit 29.2 and platelets is 164. Chemistry showed a sodium of 141, potassium , bicarb 28, BUN 36, cre atinine 1.3, glucose 103, albumin 2.6, 2.3. PLAN: The patient was seen by , who cleared the patient cardiology-reddy. . So, today , the patient may be able to be discharged home and will consider discharging patient home on Depakot e and other medications. Slim Marino MD cc: [id number] TT: 02/02/2017 23:31:10 Confirmation # [id number] Dictation # [id number] mn
--- NOTE | 2017-02-09 10:49 | EEG ---
DATE: 01/30/2017 The record is obtained for a history of seizure disorder with exacerbation of generalized tonic-cloni c seizures. The record was obtained while patient was awake. The record was symmetrically equal on both sides with velocity of 6 cycles per second. The waves were fairly formed, fairly organized with a posterior distribution, moderate in amplitude, reactive to eye opening by attenuation. There was cerebral dysrhythmia that was generalized and seen on different occasions, during which slowing up to 3 cycles per second was seen and this was followed by slow waves and this occurred a few times durin g the record and each time lasted a few seconds. The record did not show any periods of drowsiness o r any periods of sleep. There are eye movement effect artifact, electrode artifact, and muscle movem ent artifacts and EKG artifacts. Photic stimulation was performed and did not produce any changes. Hyperventilation was omitted. SUMMARY: This is an abnormal record, significant for generalized slowing and significant also for ge neralized cerebral dysrhythmia that was seen on different occasions. This might be consistent with a seizure disorder. Clinical correlation is recommended. Uriel Goldman MD cc: [id number] TT: 02/09/2017 08:01:56 Confirmation # [id number] Dictation # [id number]
== END 2017-02-02 15:10 | disposition home health service (06) | DRG 101 ==
LOC: H.ER 15:10 → SUPCPDRO 15:10 → H.ERHOLD 18:41 → H.TEL 21:58 → INTOOBSV 01-30 15:22 → OBSVTOIN 01-30 15:22 → H.TEL 01-31 21:11
PROVIDERS: ADMIT Specialist; ATTEND Specialist
DX: R56.9 Unspecified convulsions (principal); I13.0 Hypertensive heart and chronic kidney disease with heart failure and stage 1 through stage 4 chronic kidney disease, or unspecified chronic kidney disease; I50.32 Chronic diastolic (congestive) heart failure; E11.22 Type 2 diabetes mellitus with diabetic chronic kidney disease; G30.9 Alzheimer's disease, unspecified; F02.80 Dementia in other diseases classified elsewhere, unspecified severity, without behavioral disturbance, psychotic disturbance, mood disturbance, and anxiety; I35.0 Nonrheumatic aortic (valve) stenosis; I25.10 Atherosclerotic heart disease of native coronary artery without angina pectoris; N18.9 Chronic kidney disease, unspecified; E78.00 Pure hypercholesterolemia, unspecified; D64.9 Anemia, unspecified; M19.90 Unspecified osteoarthritis, unspecified site; J45.909 Unspecified asthma, uncomplicated; E78.5 Hyperlipidemia, unspecified; J44.9 Chronic obstructive pulmonary disease, unspecified; R32 Unspecified urinary incontinence; Z95.5 Presence of coronary angioplasty implant and graft; Z87.891 Personal history of nicotine dependence; Z86.711 Personal history of pulmonary embolism; Z87.01 Personal history of pneumonia (recurrent)

== ENCOUNTER 2017-04-30 15:13 | Inpatient (IN) | payer MEDICARE, MEDICAID ==
[2017-04-30 15:13] VITALS: BMI 22.9
[2017-04-30] MEDS ORDERED: Sodium Chloride 0.9% 500 ML IV STA (16:05)
--- NOTE | 2017-04-30 16:08 | ED PDOC ---
HPI: Seizure Time Seen by Provider: 04/30/17 15:19 Chief Complaint (Nursing): Weakness/Neurological Deficit Chief Complaint (Provider): Seizure History Per: Patient, Family (Daughter) History/Exam Limitations: no limitations Number Of Seizures: One Length Of Seizures (Duration): Minutes (2 minutes) Precipitating Factor(s): None Additional Complaint(s): 81 y/o female with a past medical history of seizure, alzheimer's disease, dementia, hypertension, diabetes, and hyperchloesterolemia who presents to the emergency department accompanied by daughter after experiencing a seizure episode just prior to arrival. Associated with a mild headache (not new) and generalized weakness. As per history from daughter, patient was eating lunch and began to shake which lasted about 2 minutes although patient was out for about 5 minutes. Denies head injury, nausea, vomiting, diarrhea, cough, numbness or tinging. No dyspnea. Did not fall and hit head. Of note, patient takes Divaplorex Acid for seizures and Plavix (blood thinner). PMD: Dr. Slim Marino MD Past Medical History Reviewed: Historical Data, Nursing Documentation, Vital Signs Vital Signs: Last Vital Signs Temp 98.2 F 04/30/17 15:14 Pulse 78 04/30/17 15:14 Resp 17 04/30/17 15:14 BP 118/52 L 04/30/17 15:14 Pulse Ox 97 04/30/17 17:21 - Medical History PMH: Alzheimer's Disease, Anemia, Arthritis, Asthma, CAD (stents x7), CHF, Dementia, Depression, Diabetes, HTN, Hypercholesterolemia, Peripheral Edema, Pneumonia, Chronic Kidney Disease, Seizures Denies: HIV - Surgical History Surgical History: Appendectomy, Cholecystectomy, Coronary Stent (7 stents as per the daughter) - Family History Family History: States: Unknown Family Hx - Living Arrangements Living Arrangements: With Family (Daughter (art teacher)) - Social History Current smoker - smoking cessation education provided: No Alcohol: None Drugs: Denies - Home Medications Home Medications: Ambulatory Orders Medication Instructions Recorded Atorvastatin [Lipitor] 1 tab PO HS 07/26/16 Carvedilol [Coreg] 1 tab PO HS 07/26/16 Clopidogrel [Plavix] 1 tab PO DAILY 07/26/16 Dicyclomine [Bentyl] 1 tab PO DAILY 07/26/16 Donepezil HCl [Aricept] 1 tab PO HS 07/26/16 Famotidine [Pepcid] 1 tab PO DAILY 07/26/16 Furosemide [Lasix] 1 tab PO DAILY 07/26/16 Glimepiride 1 tab PO DAILY 07/26/16 Lubiprostone [Amitiza] 1 tab PO DAILY 07/26/16 Memantine [Namenda] 1 tab PO DAILY 07/26/16 Montelukast [Singulair] 1 tab PO HS 07/26/16 Ranolazine [Ranexa] 1 tab PO Q12 07/26/16 Divalproex [Depakote DR(*BID*)] 500 mg PO BID 01/29/17 Valsartan [Diovan] 320 mg PO DAILY 01/29/17 amLODIPine [Norvasc] 10 mg PO DAILY 01/29/17 - Allergies Allergies/Adverse Reactions: Allergies Allergy/AdvReac Type Severity Reaction Status Date / Time No Known Allergies Allergy Verified 04/30/17 15:30 Review of Systems ROS Statement: Except As Marked, All Systems Reviewed And Found Negative Constitutional: Positive for: Weakness (Generalized) Respiratory: Negative for: Cough Gastrointestinal: Negative for: Nausea, Vomiting, Diarrhea Neurological: Positive for: Seizures (1 episode; lasted 2 minutes but was out for 5 minutes in total.), Headache (Mild (not new)). Negative for: Numbness ( tingling), Other (Head injury) Physical Exam - Reviewed Nursing Documentation Reviewed: Yes Vital Signs Reviewed: Yes - Physical Exam Appears: Positive for: Non-toxic, No Acute Distress Head Exam: Positive for: ATRAUMATIC, NORMAL INSPECTION, NORMOCEPHALIC Skin: Positive for: Normal Color, Warm, Dry Eye Exam: Positive for: EOMI, Other (Right amorphous pupil that is non reactive (not new). Left is normal. ). Negative for: Periorbital swelling ENT: Positive for: Normal ENT Inspection. Negative for: Pharyngeal Erythema Neck: Positive for: Normal, Supple, Trachea Midline Cardiovascular/Chest: Positive for: Regular Rate, Rhythm. Negative for: Murmur Respiratory: Positive for: Normal Breath Sounds. Negative for: Accessory Muscle Use, Respiratory Distress Gastrointestinal/Abdominal: Positive for: Normal Exam, Soft. Negative for: Tenderness Back: Positive for: Normal Inspection. Negative for: L CVA Tenderness, R CVA Tenderness Extremity: Positive for: Normal ROM. Negative for: Tenderness, Pedal Edema Neurologic/Psych: Positive for: Alert, courtesy driver II-XII, Oriented. Negative for: Motor/Sensory Deficits, Facial Droop - Laboratory Results Result Diagrams: 04/30/17 16:19 04/30/17 16:19 Interpretation Of Abn Labs: 30/1.6 worsening - ECG ECG: Positive for: Interpreted By Me, Viewed By Me ECG Rhythm: Positive for: Normal QRS, Sinus Rhythm, Nonspecific Changes (st) O2 Sat by Pulse Oximetry: 97 (RA) Pulse Ox Interpretation: Normal - Radiology X-Ray: Read By Radiologist X-Ray Interpretation: No Acute Disease - CT Scan/US ct head Other Rad Studies (CT/US): Read By Radiologist Other Rad Interpretation: no acute - Progress ED Course And Treament: 1821: Stable. AAOx3. Dr. Fairchild spoken to and will admit. Will give further orders when pt. reaches floor. Medical Decision Making Medical Decision Making: Time: 15:26 Initial impression: Seizure episode Initial plan: --Swallow Eval & Treamtent for post ictal and alzheimers --Head CT --EKG --COMP metabolic Panel --Troponin I --Valproic Acid --Urine DIP --CBC w/ differential --PTT --Prothrombin Time --Chest X-ray (RAD) --Sodium Chloride 500 ml IV 100 mls/hr --Reevaluation Time: 16:48 --Head CT FINDINGS: HEMORRHAGE: No intracranial hemorrhage. BRAIN: Diffuse atrophy with prominence of the ventricles and sulci noted. No mass effect or edema. Scattered periventricular and subcortical white matter hypodensities, which are nonspecific, but often seen with chronic microvascular ischemic disease. Please note that MRI with diffusion imaging is more sensitive in the detection of acute ischemic event. 4 mm hyperdensity is re-identified along the left posterior falx. VENTRICLES: No hydrocephalus. CALVARIUM: Unremarkable. PARANASAL SINUSES: Unremarkable as visualized. No significant inflammatory changes. MASTOID AIR CELLS: Partial opacification of the right mastoid air cells. The left mastoid air cells appear clear. OTHER FINDINGS: None. IMPRESSION: Generalized atrophy. Nonspecific white matter changes. Again seen is partial opacification of the right mastoid air cells. Correlate clinically for possibility of mastoiditis. Time: 17:10 --Chest X-ray FINDINGS: Examination limited by habitus. LUNGS: No focal consolidation. Please note that chest x-ray has limited sensitivity for the detection of pulmonary masses. PLEURA: No significant pleural effusion identified. No definite pneumothorax . CARDIOVASCULAR: Heart size appears within normal limits. Atherosclerotic calcifications of the aorta. OSSEOUS STRUCTURES: Degenerative changes. VISUALIZED UPPER ABDOMEN: Unremarkable. OTHER FINDINGS: None. IMPRESSION: No focal consolidation, significant pleural effusion, or definite pneumothorax identified. Scribe Attestation: Documented by Ghazala Santamaria, acting as a scribe for Ramirez White MD. Provider Scribe Attestation: All medical record entries made by the Scribe were at my direction and personally dictated by me. I have reviewed the chart and agree that the record accurately reflects my personal performance of the history, physical exam, medical decision making, and the department course for this patient. I have also personally directed, reviewed, and agree with the discharge instructions and disposition. Disposition - Clinical Impression Clinical Impression: Seizure, Acute on chronic renal insufficiency - Patient ED Disposition Is Patient to be Admitted: Yes Counseled Patient/Family Regarding: Studies Performed, Diagnosis - Disposition Disposition Time: 18:25 Condition: FAIR - Pt Status Changed To: Hospital Disposition Of: Observation - POA Present On Arrival: None
[2017-04-30 16:43] LABS: BASO # 0.1 K/uL (0.0-0.2); BASO % 0.7 % (0.0-2.0); EOS # 0.1 K/uL (0.0-0.7); EOS % 0.7 % (0.0-4.0); HEMOGLOBIN 10.7 g/dL (12.0-16.0); LYMPH # 2.3 K/uL (1.0-4.3); LYMPH % 27.1 % (20.0-40.0); MEAN CORPUSCULAR HEMOGLOBIN 35.1 pg (27.0-31.0); MEAN CORPUSCULAR HGB CONC 33.1 g/dL (33.0-37.0); MEAN PLATELET VOLUME 10.8 fl (7.2-11.7); MONO # 0.8 K/uL (0.0-0.8); MONO % 9.6 % (0.0-10.0); NEUT # 5.2 K/uL (1.8-7.0); NEUT % 61.9 % (50.0-75.0); RBC 3.05 Mil/uL (3.80-5.20); RED CELL DISTRIBUTION WIDTH 13.8 % (11.5-14.5); WHITE BLOOD COUNT 8.4 K/uL (4.8-10.8)
[2017-04-30 16:51] LABS: ALB/GLOB RATIO 0.8 (1.0-2.1); ALBUMIN 3.2 g/dL (3.5-5.0); ALT/SGPT 19 U/L (9-52); AST/SGOT 24 U/L (14-36); BLOOD UREA NITROGEN 30 mg/dl (7-17); CALCIUM 8.6 mg/dL (8.4-10.2); GFR AFRICAN-AMERICAN 37; GFR NON-AFRICAN AMERICAN 31
--- NOTE | 2017-04-30 17:02 | CT ---
PROCEDURE: CT HEAD WITHOUT CONTRAST. HISTORY: headache COMPARISON: CT head without contrast performed 01/29/17, MR brain without contrast performed 01/30/17 TECHNIQUE: Axial computed tomography images were obtained through the head/brain without intravenous contrast. Radiation dose: Total exam DLP = 914.42 mGy-cm. This CT exam was performed using one or more of the following dose reduction techniques: Automated exposure control, adjustment of the mA and/or kV according to patient size, and/or use of iterative reconstruction technique. FINDINGS: HEMORRHAGE: No intracranial hemorrhage. BRAIN: Diffuse atrophy with prominence of the ventricles and sulci noted. No mass effect or edema. Scattered periventricular and subcortical white matter hypodensities, which are nonspecific, but often seen with chronic microvascular ischemic disease. Please note that MRI with diffusion imaging is more sensitive in the detection of acute ischemic event. 4 mm hyperdensity is re-identified along the left posterior falx. VENTRICLES: No hydrocephalus. CALVARIUM: Unremarkable. PARANASAL SINUSES: Unremarkable as visualized. No significant inflammatory changes. MASTOID AIR CELLS: Partial opacification of the right mastoid air cells. The left mastoid air cells appear clear. OTHER FINDINGS: None. IMPRESSION: Generalized atrophy. Nonspecific white matter changes. Again seen is partial opacification of the right mastoid air cells. Correlate clinically for possibility of mastoiditis.
--- NOTE | 2017-04-30 17:12 | RAD ---
HISTORY: seizure COMPARISON: Chest x-ray performed 01/29/17 TECHNIQUE: Chest, one view. FINDINGS: Examination limited by habitus. LUNGS: No focal consolidation. Please note that chest x-ray has limited sensitivity for the detection of pulmonary masses. PLEURA: No significant pleural effusion identified. No definite pneumothorax . CARDIOVASCULAR: Heart size appears within normal limits. Atherosclerotic calcifications of the aorta. OSSEOUS STRUCTURES: Degenerative changes. VISUALIZED UPPER ABDOMEN: Unremarkable. OTHER FINDINGS: None. IMPRESSION: No focal consolidation, significant pleural effusion, or definite pneumothorax identified.
[2017-04-30 17:25] LABS: PROTHROMBIN TIME 11.8 Seconds (9.8-13.1)
[2017-05-01] MEDS: Divalproex 500 mg DR(BID formulation) PO SCH ×2 (08:09→17:57)
[2017-05-01] MEDS: Enoxaparin 30 mg Syringe SC SCH (08:12)
[2017-05-01] MEDS ORDERED: FAMOTIDINE PO SCH (09:00)
[2017-05-01] MEDS ORDERED: LUBIPROSTONE PO SCH (09:00)
[2017-05-01] MEDS ORDERED: GLIMEPIRIDE PO SCH (09:00)
[2017-05-01] MEDS ORDERED: RANOLAZINE PO SCH (09:00)
[2017-05-01] MEDS: GlipiZIDE 10 mg SR Tab PO SCH (12:37)
[2017-05-01] MEDS ORDERED: DONEPEZIL HCL PO SCH (22:00)
--- NOTE | 2017-05-01 23:39 | CARD ---
APPROVED REPORT EKG Measurement Heart [id number] <Conclusion> Normal sinus rhythm Nonspecific T wave abnormality Abnormal ECG
[2017-05-02] MEDS: Docusate-Senna 50 mg-8.6 mg Tab PO SCH ×3 (00:23→16:01)
--- NOTE | 2017-05-02 05:19 | HP ---
CHIEF COMPLAINT: Generalized weakness and seizures. HISTORY OF PRESENT ILLNESS: This is an 81-year-old female, known case of seizure disorder, dementia, hypertension, diabetes, elevated cholesterol, who had an episode of seizure associated with mild headache and altered mental status, followed by generalized weakness, so the patient's daughter brought the patient to the emergency room and was admitted for further monitoring. The patient herself is a very poor historian. PAST MEDICAL HISTORY: Significant for dementia, anemia, hypertension, seizure disorder, coronary artery disease, congestive heart failure, depression, hypertension, elevated cholesterol, renal insufficiency, and seizures. PAST SURGICAL HISTORY: Remarkable for cholecystectomy, coronary artery disease leading to 7 stents, and appendectomy. PERSONAL HISTORY: The patient is currently a nonsmoker and nondrinker. No substance abuse. MEDICATIONS: The patient is on multiple medications, which are as per reconciliation sheet, which was reviewed and ordered. Medications include Lipitor, Coreg, Plavix, Bentyl, Aricept, Pepcid, Lasix, Amaryl, Amitiza, Namenda, Singulair, Ranexa, Depakote, Diovan, and Norvasc. ALLERGIES: THE PATIENT IS NOT ALLERGIC TO ANY MEDICATION. FAMILY HISTORY: Noncontributory. REVIEW OF SYSTEMS: Positive for seizure, generalized weakness. Review of systems otherwise is negative for headache, dizziness, syncope, loss of consciousness, chest pain, shortness of breath, nausea, vomiting, diarrhea, constipation, any knee joint or extremity pain. Review of systems of all other organ systems is unremarkable. PHYSICAL EXAMINATION GENERAL: Well-developed, well-nourished, overweight female, in no acute distress. VITAL SIGNS: Temperature 98.7, pulse 73, respirations 20, and blood pressure 157/62. HEENT: Pupils are reacting to light. No nystagmus. Normocephalic and atraumatic scalp. NECK: No JVD. No thyromegaly. No lymphadenopathy. HEART: S1 and S2 normal and regular. No significant murmur, gallop, or rub is heard. LUNGS: Show good bilateral air entry. No rales or rhonchi. ABDOMEN: Soft and nontender. No organomegaly. No fluid. Bowel sounds are positive. EXTREMITIES: No edema. No calf swelling or tenderness. No acute ischemia. ENGINEER PROCESS: Essentially unchanged. DIAGNOSTIC DATA: Available diagnostic data reviewed. Telemetry monitoring does not reveal significant arrhythmias. WBC 8.4, hemoglobin 10.7, hematocrit 32.3, and platelets 156. Sodium 138, potassium 4.5, chloride 103, bicarbonate 24, BUN 30, and creatinine 1.6. SMA-12 is unremarkable. Accu-Chek are 192, 149, and 108. TSH level is 1.69. Vitamin B12 is 974. CAT scan of the head is unremarkable. Chest x-ray is clear. EKG shows normal sinus rhythm without any acute ST-T changes. Depakote level is 59.3. ADMITTING IMPRESSION: 1. Uncontrolled seizures. 2. Type 2 diabetes with hyperglycemia. 3. Hypertension. 4. Elevated cholesterol. 5. Dementia. 6. Renal insufficiency. 7. Dehydration. 8. Bronchial asthma. 9. Anemia. PLAN: As ordered. Case and plan were discussed with the patient. Akira Fairchild MD
[2017-05-02 06:55] LABS: ALB/GLOB RATIO 0.9 (1.0-2.1); ALBUMIN 2.9 g/dL (3.5-5.0); CALCIUM 8.4 mg/dL (8.4-10.2)
[2017-05-02 06:58] LABS: HEMOGLOBIN 10.6 g/dL (12.0-16.0); MEAN CELL VOLUME 106.4 fl (81.0-99.0); MEAN CORPUSCULAR HEMOGLOBIN 34.8 pg (27.0-31.0); MEAN CORPUSCULAR HGB CONC 32.7 g/dL (33.0-37.0); RBC 3.05 Mil/uL (3.80-5.20); RED CELL DISTRIBUTION WIDTH 13.8 % (11.5-14.5); WHITE BLOOD COUNT 9.9 K/uL (4.8-10.8)
--- NOTE | 2017-05-02 08:29 | CON ---
NEUROLOGY CONSULTATION DATE: 05/01/2017 CHIEF COMPLAINT: Seizures. HISTORY OF PRESENT ILLNESS: This is an 81-year-old woman with past medical history of Alzheimer's type dementia, seizure disorder on Depakote, hypertension, diabetes type-2, hypercholesterolemia presented for breakthrough seizure at the alf where her daughter was present. The patient was eating lunch, and she began to shake that lasted about 2 minutes and the postictal period for about 5 minutes. She was also dehydrated. No head injury, or nausea, vomiting. The patient is following simple commands. She is alert, oriented to person and place,not much on month or year. Recall is 0/3. She was recently here in January 2017 when she had MRI of the brain, which showed no acute intracranial abnormality. An EEG shows diffuse slowing throughout with no epileptiform activity. Currently, no further seizures while she stayed in hospital. Electrolytes have been currently managed. She had an elevated BUN and creatinine. She is on Plavix for stroke prevention and Aricept for cognitive impairment. PAST MEDICAL HISTORY: 1. History of Alzheimer's type dementia. 2. Hypertension. 3. Hypercholesterolemia. 4. Type 2 diabetes. 5. Seizures. MEDICATIONS: Medications reviewed by nurse practitioner. REVIEW OF SYSTEMS: A 14-point of review of systems negative except for HPI. ALLERGIES: NO KNOWN DRUG ALLERGIES. FAMILY HISTORY: Noncontributory. PHYSICAL EXAMINATION GENERAL: The patient is drowsy, no acute distress. VITAL SIGNS: Temperature 98.2, pulse rate 74, blood pressure 148/68, respiratory rate of 18, oxygen saturation 99% via nasal cannula. HEENT: Head is atraumatic and normocephalic. PERRLA. Extraocular muscles are intact. NECK: Supple. No JVD, no adenopathy. HEART: S1 and S2, normal rate and rhythm. No murmurs, rubs, or gallops. LUNGS: Clear to auscultation. No adventitious sounds. ABDOMEN: Soft, nontender, nondistended. Bowel sounds are present. EXTREMITIES: No clubbing, no cyanosis. Peripheral pulses are 2+ felt bilaterally. NEUROLOGICAL: The patient is alert and oriented to person and place, not much to month or year. Recall is -0/3. *------*. Cranial nerves II through XII intact. Motor exam *------*. Moves all extremities equally. No pronator drift seen. Sensory exam, withdraws *------* noxious stimulus. DTRs are 1+ throughout and absent in the ankles. Coordination and gait deferred for now. LABORATORY DATA: Sodium is 138, potassium 4.5, chloride of 102, carbon dioxide of 24, BUN of 30, creatinine 1.6, random glucose of 160. ASSESSMENT: This is an 81-year-old woman with history of type 2 diabetes, hypertension, dyslipidemia, Alzheimer's type dementia, she is on Depakote, had a breakthrough seizure, found to have elevated BUN and creatinine, *------* likely from the dehydration causing the breakthrough seizure. Her Depakote level is therapeutic. At this time, I recommend 1. To continue with her Depakote 500 mg p.o. b.i.d. for her seizure prophylaxis. 2. Continue with Namenda and Aricept for underlying congenitive impairment. 3. Continue with Plavix 75 mg and Lipitor one tablet p.o. daily for stroke prevention. 4. Continue with comprehensive medical management. She is neurologically stable from my standpoint. Thank you for this consult. Tomer De Anda MD
[2017-05-02] MEDS: Enoxaparin 30 mg Syringe SC SCH (09:46)
[2017-05-02] MEDS: GlipiZIDE 10 mg SR Tab PO SCH (09:46)
--- NOTE | 2017-05-02 13:32 | US ---
PROCEDURE: Carotid vertebral duplex sonography HISTORY: seizure COMPARISON: 09/06/2009. TECHNIQUE: Grayscale, color Doppler and spectral Doppler assessment of the carotid system bilaterally. This includes common carotid, internal carotid arteries Vertebral artery assessment with respect to direction of flow (antegrade or retrograde) FINDINGS: RIGHT carotid system: Assessment of plaque: Heterogeneous plaque formation. This is prominent in the carotid bulb region, calcified plaque noted. Peak systolic ICA velocity: 67 cm/sec End-diastolic velocity: 3.5 cm/sec ICA/CCA ratio: 1.3 Vertebral artery flow: Antegrade LEFT carotid system: Assessment of plaque: Heterogeneous plaque formation. tortuous ICA left ICA Peak systolic ICA velocity: 66 cm/sec End-diastolic velocity: 6.5 cm/sec ICA/CCA ratio: 1.3 Vertebral artery flow: Antegrade IMPRESSION: No significant interval change compared to the prior examination(s). Right ICA degree of stenosis: Less than 50% Left ICA degree of stenosis: Less than 50% Reference Internal Carotid Artery (ICA) Peak Systolic Velocity (PSV) for above: 1. Less than 50% stenosis less than 125 cm/s peak systolic velocity 2. 50-69% stenosis 125-230cm/s peak systolic velocity 3. Greater than 70% but less than near occlusion greater than 230 cm/s peak systolic velocity
[2017-05-02 18:36] VITALS: RESP 18
--- NOTE | 2017-05-03 00:53 | PN ---
SUBJECTIVE: Today, the patient was seen earlier and is more alert and awake and was still complaining of generalized weakness. The patient denied any chest pain or shortness of breath, no palpitations. The patient is complaining of anorexia. PHYSICAL EXAMINATION: VITAL SIGNS: Blood pressure 147/66, pulse 86, respirations 18, and temperature 98.9. NECK: Supple. No JVD. LUNGS: Clear. HEART: Regular rate and rhythm without murmur. ABDOMEN: Soft, nontender, no palpable mass. EXTREMITIES: No edema noted, and the muscles of the lower extremities are weak. LABORATORY DATA: The patient's blood work is showing that the WBC is 9.9, hemoglobin 10.6, hematocrit 32.4, and platelets are 163. Chemistry: Sodium 139, potassium 4.2, chloride 103, bicarb 26, BUN *------*, and creatinine 1.4, glucose 88, calcium is 8.4. The BNP is 3340 and total bilirubin 6.3, albumin 2.9, globulin 3.4. Today, tests are ordered including an EEG and also a swallowing evaluation is supposed to be done today. PLAN: The case was reviewed and discussed with the nurse practitioner earlier. The plan is that, we will going to restart the patient on physical therapy and possible discharge if the patient remains stable. Slim Marino MD
[2017-05-03 05:13] VITALS: O2SAT 98
[2017-05-03] MEDS ORDERED: Dextrose 50% SYRINGE Inj (50 ml) IVP ONE (05:57)
[2017-05-03 07:36] LABS: ALB/GLOB RATIO 0.9 (1.0-2.1); ALBUMIN 3.1 g/dL (3.5-5.0); CALCIUM 8.4 mg/dL (8.4-10.2)
--- NOTE | 2017-05-03 09:29 | PQF CHF ---
This form is a permanent part of the medical record 05/03/17 Dr. Marino, Please clarify the type of CHF in your notes. Documentation of a history of CHF.BNP 3340. CXR: No focal consolidation, significant pleural effusion, or definite pneumothorax identified. ECHO from : EF 60-65% , TR, Pulmonary HTN.(report in EMR). Medication includes: Lasix , Coreg, Diovan. Clarification of your documentation is requested to better reflect the severity of illness and intensity of treatment of your patient. Indicators present [x] Diagnosis of CHF and/or history of CHF [x] BNP > 200 [] Imaging Finding of Pulmonary Edema /Pleural Effusions [] Fluid/Volume Overload [] Pitting edema [] Ejection Fraction < 40% (Indicative of Systolic Heart Failure) [x] Ejection Fraction > 40% (Indicative of Diastolic Heart Failure) [] Dyspnea / Orthopenea / Paroxysmal Nocturnal Dyspnea [] Other: Location in the medical record that reflects the above clinical findings: [] Treatment Provided: [x] PHYSICIAN'S RESPONSE Based on your medical judgment of the clinical indicators outlined above, are you treating this patient for a known or suspected: [] Acute CHF [] Systolic [] Diastolic [] Combined [] Chronic CHF [] Systolic [] Diastolic [] Combined [] Acute on Chronic CHF []Systolic [] Diastolic [] Combined [] CHF due hypertension [] Acute systolic []Chronic systolic [] Acute/ chronic systolic [] Other, please indicate: [] [] If Unable to Determine, please check the box, sign and date. Present On Admission (POA) Indicator: [] Present at the time of admission [] Not present at the time of admission [] Clinically Undetermined In responding to this query, please exercise your independent professional judgment. The fact that a question is asked does not imply that any particular answer is desired or expected. Thank you for your clarification on this documentation. If you have any questions please call:[phone] * Thank you, Ann-Marie Hart RN CDMP [facility]
[2017-05-03] MEDS: Docusate-Senna 50 mg-8.6 mg Tab PO SCH (10:15)
[2017-05-03] MEDS: GlipiZIDE 10 mg SR Tab PO SCH (10:16)
[2017-05-03] MEDS: Enoxaparin 30 mg Syringe SC SCH (10:17)
--- NOTE | 2017-05-03 15:42 | CP.PCM.PCO ---
Assessment/Plan - Assessment/Plan Assessment (Free Text): I have evaluated mrs Ginette Man on 05/02/2017,. Due to patient's diagnosis of advanced congestive heart failure, severe aortic stenosis and seizure disorder patient requires the head of the bed to be elevated more than 30 degrees most of the time. Furthermore, patient requires positioning of the body in ways not feasible with an ordinary bed. - Problems Patient Problems: Problem List (Active/Current) Problem Status Onset Code Acute on chronic renal insufficiency Acute N28.9, N18.9 Seizure Acute R56.9
[2017-05-03 16:56] VITALS: BP 116/64; PULSE 64; TEMP 97.2
--- NOTE | 2017-05-04 00:31 | PN ---
DATE: 05/03/2017 SUBJECTIVE: Today the patient is alert and awake. Responding well to questions. Negative shortness of breath. Negative chest pain. However, the patient state he is weak. PHYSICAL EXAMINATION VITAL SIGNS: The patient has a blood pressure of 160/64, pulse is 64, respirations 18, temperature of 97.2. HEENT: The head is normocephalic. NECK: Supple. LUNGS: There are some rales at the bases which is *------*. HEART: Regular rate and rhythm. Positive murmur. ABDOMEN: Soft, nontender. No palpable mass. EXTREMITIES: There is no edema. There is less of muscle mass to the lower extremities. PLAN: The patient may be able to go home today and case was discussed with the nurse practitioner. Slim Marino MD
--- NOTE | 2017-05-04 11:23 | HP ---
HISTORY OF PRESENT ILLNESS: The patient is an 81-year-old female with history of CHF, coronary artery disease, aortic stenosis, hyperlipidemia, diabetes, dementia, and Alzheimer disease. The patient was brought to the emergency room because daughter found the patient was having an episode of seizure. The daughter described that the patient somewhat started shaking her head, plus progressively shaking the whole body, and became crispy. The patient also had urinary incontinence. At this time, the patient's daughter called the EMS and the patient came to the hospital. The daughter stated also that the patient had total loss of consciousness for about 5 minutes and progressively, the patient became more lethargic. ALLERGIES: THE PATIENT HAS NO KNOWN ALLERGIES. PAST MEDICAL HISTORY: As I mentioned, history of dementia, hypertension, diabetes, coronary artery disease, history of aortic stenosis, Alzheimer, chronic constipation, and GERD. SOCIAL HISTORY: The patient lives with daughter. No smoking or alcohol abuse. REVIEW OF SYSTEMS: CONSTITUTIONAL: The patient is not in distress. RESPIRATORY: No shortness of breath. CARDIOVASCULAR: There is no chest pain. GI: As per daughter, the patient has constipation. : There is some urinary incontinence at times. NEUROLOGIC: The patient is lethargic. In fact, as per daughter, the patient is most of the time sleeping, but at this point now, she is somewhat sleeping more and more lethargic. PHYSICAL EXAMINATION: GENERAL: The patient is easily arousable and responding to simple question. VITAL SIGNS: Blood pressure 122/69, pulse 69, respirations 20, temperature 98.1. HEENT: Head is normocephalic. NECK: Supple. HEART: Regular rate and rhythm, but there is a large murmur, more audible to the aortic side area. LUNGS: There is a poor inspiratory effort, but no rales noted. ABDOMEN: Soft and nontender. No palpable mass. EXTREMITIES: No edema; however, there is wasting of the muscle of the lower extremities. NEUROLOGIC: The patient is responding to questions, but is somewhat lethargic and is able to squeeze hand equally with both hands. LABORATORY DATA: The patient has some tests done in the emergency room. WBC 8.4, hemoglobin 10.7, hematocrit 32.3, and platelet is 166. Coagulation, PT is 11.8, INR is 1, PTT is 30. Chemistry, sodium is 138, potassium 4.5, chloride 103, bicarbonate 24, BUN 30, creatinine 1.6, glucose 149, calcium 8.6, AST 24, ALT 19, alkaline phosphatase 69, albumin 3.2, bilirubin 3.8, total protein 6.9. The vitamin B12 is 974 and TSH is 1.69. The valproic acid is 69.3. Also, the patient had a CT of the head done that showed no intracranial hemorrhage. A chest x-ray showed degenerative changes and no focal consolidation, significant pleural effusion, or definite pneumothorax identified. Also, the patient had an EKG done. The EKG showed normal sinus rhythm, but a nonspecific ST-T changes as far as read by Dr. Ramirez White. IMPRESSION: So the patient has been admitted with the diagnoses of: 1. Witnessed seizure. 2. Diabetes. 3. Slight dehydration. 4. Coronary artery disease. 5. Aortic stenosis. 6. Dementia, Alzheimer. 7. Debility. PLAN: The patient is admitted to Neurology. Neurology consult is ordered and also will have Cardiology consult with Dr. Huff. We are going to change some medications including the Depakote which will be replaced by the Topamax. For the chronic constipation, the patient will be on senna and Provigil will be also ordered because of the patient being lethargic most of the time, almost narcoleptic. Slim Marino MD
--- NOTE | 2017-05-04 11:39 | DS ---
The patient is an 82-year-old female with history of seizure, diabetes, hypertension, CHF, dementia, and Alzheimer. The patient was at home, and there could be some tonic seizure as per daughter and the patient had loss of consciousness for at least 5 minutes as per daughter, and the patient was brought to the emergency room and was evaluated. At that time, the patient was somewhat postictal for few hours and started waking up progressively. The patient was admitted to the telemetry and had a consult with Dr. De Anda, who is a neurologist. The patient pursued blood work, has shown that the valproic acid was therapeutic, 68 to 69, and also the WBC 8.4, hemoglobin 10.3, hematocrit 32.3 and platelet was 66. Sodium 138, potassium 4.5, chloride 103, bicarb 24, BUN 30 and creatinine 1.6 and glucose of 160. So, the patient was admitted with diagnoses of breakthrough seizure, dehydration, dementia, Alzheimer, hypertension and diabetes. Also, the patient has a history of CVA. The patient was somewhat lethargic, not easily arousable. The patient was put on the current medications and also was put on Provigil. The patient became more awake. Had no seizure. The patient was cleared by neurologist. So, the patient will be discharged to home on physical therapy and the case was discussed with the nurse practitioner. Slim Marino MD
== END 2017-05-03 16:20 | disposition home health service (06) | DRG 101 ==
LOC: H.ER 15:13 → H.ERHOLD 18:19 → H.TEL 21:14 → OBSVTOIN 05-02 00:20
PROVIDERS: ADMIT Specialist; ATTEND Specialist
DX: G40.802 Other epilepsy, not intractable, without status epilepticus (principal); I13.0 Hypertensive heart and chronic kidney disease with heart failure and stage 1 through stage 4 chronic kidney disease, or unspecified chronic kidney disease; I50.42 Chronic combined systolic (congestive) and diastolic (congestive) heart failure; E11.22 Type 2 diabetes mellitus with diabetic chronic kidney disease; E11.65 Type 2 diabetes mellitus with hyperglycemia; G30.9 Alzheimer's disease, unspecified; F02.80 Dementia in other diseases classified elsewhere, unspecified severity, without behavioral disturbance, psychotic disturbance, mood disturbance, and anxiety; E86.0 Dehydration; N18.9 Chronic kidney disease, unspecified; E78.5 Hyperlipidemia, unspecified; E78.00 Pure hypercholesterolemia, unspecified; I25.10 Atherosclerotic heart disease of native coronary artery without angina pectoris; D64.9 Anemia, unspecified; I35.0 Nonrheumatic aortic (valve) stenosis; J45.909 Unspecified asthma, uncomplicated; M19.90 Unspecified osteoarthritis, unspecified site; K21.9 Gastro-esophageal reflux disease without esophagitis; F32.9 Major depressive disorder, single episode, unspecified; Z95.5 Presence of coronary angioplasty implant and graft; Z86.73 Personal history of transient ischemic attack (TIA), and cerebral infarction without residual deficits

== ENCOUNTER 2017-08-04 16:52 | Inpatient (IN) | payer MEDICARE, MEDICAID ==
[2017-08-04 16:52] VITALS: BMI 22.9
[2017-08-04] MEDS ORDERED: Sodium Chloride 0.9% 250 ML IV STA (17:26)
[2017-08-04 17:43] LABS: BASO % 0.3 % (0.0-2.0); EOS # 0.1 K/uL (0.0-0.7); EOS % 1.3 % (0.0-4.0); HEMATOCRIT 35.2 % (34.0-47.0); MEAN CELL VOLUME 105.6 fl (81.0-99.0); MEAN CORPUSCULAR HEMOGLOBIN 34.5 pg (27.0-31.0); MEAN CORPUSCULAR HGB CONC 32.7 g/dL (33.0-37.0); MEAN PLATELET VOLUME 11.1 fl (7.2-11.7); MONO # 0.4 K/uL (0.0-0.8); MONO % 5.6 % (0.0-10.0); NEUT % 66.8 % (50.0-75.0); NRBC % 0.1 % (0.0-0.0); RED CELL DISTRIBUTION WIDTH 13.3 % (11.5-14.5); WHITE BLOOD COUNT 7.5 K/uL (4.8-10.8)
--- NOTE | 2017-08-04 17:58 | ED PDOC ---
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 History is given by her home health aid. She reports that the patient was sitting preparing to eat when the seizure occurred. This occurred while the home health aid was checking the patient's BP, which was low. Patient is complaint with her meds. Patient had a recent increase in Topamax for her seizures. Prior to seizure event the patient had a normal state of health. S/p seizure the patient complained of headache and neck pain, notes now being currently asymptomatic. No focal weakness, tongue bitting, urinary incontinence, or head injury. Patient notes having a hx of Alzheimer; hx taken from patient may be unreliable. PMD: Dr. Marino Past Medical History Reviewed: Historical Data, Nursing Documentation, Vital Signs Vital Signs: Last Vital Signs Temp 98.6 F 08/07/17 13:00 Pulse 73 08/07/17 13:00 Resp 20 08/07/17 13:00 BP 104/59 L 08/07/17 13:00 Pulse Ox 98 08/07/17 13:00 - Medical History PMH: Alzheimer's Disease, Anemia, Arthritis, Asthma, CAD (stents x7), CHF, Dementia, Depression, Diabetes, HTN, Hypercholesterolemia, Peripheral Edema, Pneumonia, Pulmonary Embolism, Chronic Kidney Disease, Seizures Denies: HIV - Surgical History Surgical History: Appendectomy, Cholecystectomy, Coronary Stent (7 stents as per the daughter) - Family History Family History: States: Unknown Family Hx - Home Medications Home Medications: Ambulatory Orders Medication Instructions Recorded Clopidogrel [Plavix] 75 mg PO DAILY 07/26/16 Famotidine [Pepcid] 40 mg PO DAILY 07/26/16 Lubiprostone [Amitiza] 24 mcg PO DAILY 07/26/16 Montelukast [Singulair] 10 mg PO HS 07/26/16 Ranolazine [Ranexa] 500 mg PO Q12 07/26/16 Atorvastatin [Lipitor] 20 mg PO HS 08/04/17 Carvedilol [Coreg] 6.25 mg PO HS 08/04/17 Glimepiride [amaRYL] 4 mg PO DAILY 08/04/17 Lidocaine 5% 1 appl TOP DAILY PRN 08/04/17 Memantine HCl/Donepezil HCl 1 cap PO QPM 08/04/17 [Namzaric 28 mg-10 mg Capsule] PrednisoLONE 1% [Pred Forte 1% 1 drop RIGHTEYE DAILY 08/04/17 Opht Susp] Valsartan [Diovan] 160 mg PO DAILY 08/04/17 amLODIPine [Norvasc] 5 mg PO DAILY 08/04/17 Ciprofloxacin [Cipro] 500 mg PO Q12 #14 tab 08/07/17 Topiramate [Topamax] 75 mg PO Q8 #90 tab 08/07/17 - Allergies Allergies/Adverse Reactions: Allergies Allergy/AdvReac Type Severity Reaction Status Date / Time No Known Allergies Allergy Verified 04/30/17 15:30 Review of Systems ROS Statement: Except As Marked, All Systems Reviewed And Found Negative Constitutional: Negative for: Other (head injury. Tongue bitting) Genitourinary Female: Negative for: Incontinence Musculoskeletal: Positive for: Neck Pain Neurological: Positive for: Seizures, Headache. Negative for: Weakness (Focal weakness) Physical Exam - Reviewed Nursing Documentation Reviewed: Yes Vital Signs Reviewed: Yes - Physical Exam Appears: Positive for: Non-toxic, No Acute Distress (but tired appearing) Head Exam: Positive for: ATRAUMATIC Skin: Positive for: Warm, Dry, Pallor Eye Exam: Positive for: EOMI (right postsurgical RIGHT pupil), PERRL ENT: Positive for: Pharynx Is (clear), Other (dry mucus membranes) Neck: Positive for: Painless ROM, Supple Cardiovascular/Chest: Positive for: Regular Rate, Rhythm. Negative for: Murmur Respiratory: Positive for: Normal Breath Sounds. Negative for: Respiratory Distress Gastrointestinal/Abdominal: Positive for: Soft. Negative for: Tenderness Back: Positive for: Normal Inspection. Negative for: Muscle Spasm Extremity: Positive for: Normal ROM. Negative for: Deformity Lymphatic: Negative for: Adenopathy Neurologic/Psych: Positive for: Alert, Oriented (x1). Negative for: Motor/ Sensory Deficits - Laboratory Results Result Diagrams: 08/07/17 04:10 08/07/17 04:10 - ECG O2 Sat by Pulse Oximetry: 98 (RA) Pulse Ox Interpretation: Normal Medical Decision Making Medical Decision Making: Impression: * Seizure, Hypotension Plans: * UA * IV fluids * Blood labs * CXR * EKG DDx: * break-through seizure vs electrolyte abnormality and dehydration vs subtherapeutic antiepileptic vs traumatic brain injury vs neck injury Accession No. : [id number] Patient Name / ID : ROCIO JOYCE / [id number] Exam Date : 08/04/2017 17:40:17 ( Approved ) Study Comment : Sex / Age : F / 81Y Creator : Chris Sanchez MD Dictator : Advertising Campaign Manager : Deputy Sheriff Generalist : Chris Sanchez MD Approver2 : Report Date : 08/04/2017 17:57:30 My Comment : PROCEDURE: CT scan of the brain dated 08/04/2017 HISTORY: headache post seizure COMPARISON: The comparison made with the CT scan brain dated 04/30/2017. TECHNIQUE: Axial computed tomography images were obtained through the head/brain without intravenous contrast. Radiation dose: Total exam DLP = 873.69 mGy-cm. This CT exam was performed using one or more of the following dose reduction techniques: Automated exposure control, adjustment of the mA and/or kV according to patient size, and/or use of iterative reconstruction technique. FINDINGS: HEMORRHAGE: No acute parenchymal, subarachnoid or extra-axial hemorrhage. . BRAIN: Mild diffuse/confluent chronic white matter ischemic changes seen extending peripherally into the deep and subcortical white matter both cerebral hemispheres. Additionally, there are a few scattered chronic bilateral basal nuclei lacunar type infarcts. Moderate generalized volume loss. Minor vascular calcifications both carotid siphons VENTRICLES: No obstructive hydrocephalus. CALVARIUM: No acute calvarial fractures. Re- demonstrated is what may represent a bony exostosis arising from the outer table of the left parasagittal mid-superior frontal calvarium PARANASAL SINUSES: Unremarkable as visualized. No significant inflammatory changes. MASTOID AIR CELLS: Re- demonstrated are opacification changes of multiple right-sided mastoid air cells. OTHER FINDINGS: Re- demonstrated are changes of right-sided cataract surgery. . IMPRESSION: No acute intracranial hemorrhage. Mild diffuse/confluent chronic white matter ischemic changes as above. Additionally, chronic appearing bilateral basal nuclei lacunar type infarcts also present. Moderate generalized volume loss. Scribe Attestation: Documented by Nabil silva, acting as a scribe for Deepthi Randolph MD Provider Scribe Attestation: All medical record entries made by the Scribe were at my direction and personally dictated by me. I have reviewed the chart and agree that the record accurately reflects my personal performance of the history, physical exam, medical decision making, and the department course for this patient. I have also personally directed, reviewed, and agree with the discharge instructions and disposition. Disposition - Clinical Impression Clinical Impression: Recurrent seizures, Hypotension Discussed With Dr.: Slim Marino Doctor Will See Patient In The: Hospital Counseled Patient/Family Regarding: Studies Performed, Diagnosis - Disposition Disposition Time: 20:00 Condition: FAIR - Pt Status Changed To: Hospital Disposition Of: Observation - POA Present On Arrival: Falls Or Trauma
--- NOTE | 2017-08-04 18:03 | RAD ---
HISTORY: Seizure. Portable study 17:43. COMPARISON: 04/30/2017 FINDINGS: LUNGS: No active pulmonary disease. PLEURA: No significant pleural effusion identified, no pneumothorax apparent. CARDIOVASCULAR: No radiographic findings to suggest acute or significant cardiovascular disease. OSSEOUS STRUCTURES: No significant abnormalities. VISUALIZED UPPER ABDOMEN: Normal. OTHER FINDINGS: None. IMPRESSION: No active disease. No significant interval change compared to the prior examination(s).
[2017-08-04 18:05] LABS: PARTIAL THROMBOPLASTIN TIME 31.1 Seconds (25.6-37.1)
[2017-08-04 19:18] LABS: VENOUS BLOOD GAS BASE EXCESS -4.2 mmol/L (0.0-2.0); VENOUS BLOOD GAS PCO2 47 mmHg (40-60); VENOUS BLOOD PH 7.29 (7.32-7.43)
[2017-08-04 19:26] LABS: ALKALINE PHOSPHATASE 90 U/L (38-126); ALT/SGPT 18 U/L (9-52); AST/SGOT 14 U/L (14-36); BILIRUBIN,TOTAL 0.2 mg/dl (0.2-1.3); BLOOD UREA NITROGEN 24 mg/dl (7-17); CALCIUM 9.2 mg/dL (8.4-10.2); CARBON DIOXIDE 21 mmol/L (22-30); CHLORIDE 110 mmol/L (98-107); GFR AFRICAN-AMERICAN 35; GLUCOSE,RANDOM 162 mg/dL (65-105); MAGNESIUM 2.2 MG/DL (1.6-2.3); PHOSPHOROUS 3.9 mg/dl (2.5-4.5); POTASSIUM 4.2 MMOL/L (3.6-5.0); SODIUM 143 mmol/l (132-148)
[2017-08-04 20:36] LABS: URINE BACTERIA OCC (<OCC); URINE BILIRUBIN NEGATIVE (NEGATIVE); URINE BLOOD NEGATIVE (NEGATIVE); URINE COLOR YELLOW (YELLOW); URINE GLUCOSE (UA) NEG (Normal); URINE KETONE NEGATIVE (NEGATIVE); URINE LEUKOCYTE ESTERASE MOD Leu/uL (Negative); URINE PROTEIN 30 mg/dL (NEGATIVE); URINE UROBILINOGEN 0.2-1.0 mg/dL (0.2-1.0); WBC URINE 52 /hpf (0-5)
[2017-08-04 20:37] LABS: RBC URINE 3 /hpf (0-3)
[2017-08-04] MEDS ORDERED: cefTRIAXone IV 1 gm in Dextros 50 ML IVPB STA (21:18)
[2017-08-04] MEDS ORDERED: cefTRIAXone IV 1 gm in Dextros 50 ML IVPB ONE (21:20)
[2017-08-05] MEDS ORDERED: Lidocaine 2.5% OINTMENT TOP PRN (06:11)
[2017-08-05] MEDS: Insulin Lispro (humaLOG) 100 Units/ml Inj SC SCH ×4 (06:56→22:05)
[2017-08-05 09:43] LABS: HEMATOCRIT 31.2 % (34.0-47.0); MEAN CELL VOLUME 104.8 fl (81.0-99.0); MEAN CORPUSCULAR HEMOGLOBIN 34.5 pg (27.0-31.0); MEAN CORPUSCULAR HGB CONC 32.9 g/dL (33.0-37.0); RED CELL DISTRIBUTION WIDTH 12.8 % (11.5-14.5); WHITE BLOOD COUNT 6.7 K/uL (4.8-10.8)
[2017-08-05] MEDS: GlipiZIDE 10 mg SR Tab PO SCH (09:51)
[2017-08-05] MEDS: PrednisoLONE 1% OPTH SUSP OU SCH (09:52)
[2017-08-05 09:55] LABS: BILIRUBIN,TOTAL 0.3 mg/dl (0.2-1.3); CALCIUM 8.6 mg/dL (8.4-10.2); POTASSIUM 4.1 MMOL/L (3.6-5.0); TOTAL PROTEIN 6.7 G/DL (6.3-8.2)
[2017-08-05 10:26] LABS: THYROID STIMULATING HORMONE 0.82 mIU/ML (0.46-4.68)
--- NOTE | 2017-08-05 11:54 | CARD ---
APPROVED REPORT EKG Measurement Heart [id number] <Conclusion> Normal sinus rhythm Minimal voltage criteria for LVH, may be normal variant Nonspecific T wave abnormality Abnormal ECG
[2017-08-05] MEDS ORDERED: Promethazine DM 6.25 mg-15 mg/5 ml Syrup PO PRN (15:27)
[2017-08-05] MEDS ORDERED: Albuterol 0.083% Inhal Sol (2.5 mg/3 mL) UD INH PRN (15:30)
--- NOTE | 2017-08-05 17:41 | HP ---
HISTORY OF PRESENT ILLNESS: The patient is an 81-year-old female with history of seizure disorder, CAD, cardiomyopathy, aortic stenosis, COPD. The patient was brought to the emergency room because as per daughter the patient had 2 episodes of seizures of about 2-minute duration. The patient was somewhat postictal, so the daughter has called EMS and came to the emergency room for evaluation. At that time also of the seizure, the patient was found to have a low blood pressure. In the emergency room, the patient was completely awake and has blood pressure in the range of 110 to 118 systolic as per medical attending in the ER. ALLERGY: THE PATIENT HAS NO KNOWN ALLERGY. PAST MEDICAL HISTORY: History of anemia, arthritis, asthma, CAD, and received stents, CHF, depression, diabetes, hypertension, hyperlipidemia, and history of aortic stenosis, and Alzheimer. PAST SURGICAL HISTORY: The patient had appendectomy, cholecystectomy, and an echo and a stent as per the daughter. FAMILY HISTORY: No hereditary disease. SOCIAL HISTORY: The patient lives with her daughter at home. No smoking or alcohol abuse. REVIEW OF SYSTEMS: The patient is not able to give too much information regarding the review of systems, but the patient does not have any stress and denied any chest pain. PHYSICAL EXAMINATION GENERAL: The patient feels weak. VITAL SIGNS: The patient has a blood pressure now is 124/63, pulse 62, respirations 18, temperature 98 degrees Fahrenheit. HEENT: The head is normocephalic. NECK: Supple. LUNGS: Have some rhonchi noted. HEART: Regular rate and rhythm with murmur aortic area. ABDOMEN: Soft. Positive bowel sounds. Positive mild tenderness in the epigastric area. EXTREMITIES: No unsteady gait. No erythema. NEUROLOGIC: The patient has no seizure at this point. LABORATORY DATA: The tests done for this patient showed WBC 7.5, hemoglobin 11.5, hematocrit 35.2, and platelets are 232. Chemistry: Sodium 143, potassium 4.1, chloride 109, bicarb 25, BUN 23, creatinine 1.7 and glucose 166, random glucose 995 and total bilirubin 0.3, AST 22, ALT 21, alkaline phosphatase 73, albumin 3.3 and total protein 6.7, triglyceride is low 73 and cholesterol is 147, LDL is 79 and TSH is 0.82. Also, the patient had a CAT scan in the emergency room, showed no acute parenchymal, subarachnoid or intra-axial hemorrhage. There is mild diffuse confluent chronic white matter ischemic changes seen. The EKG shows normal sinus rhythm and there is minimal evidence of criteria for LVH and nonspecific ST-T changes. Chest x-ray showed no evidence of pleural effusion identified. No pneumothorax apparent. The lungs showed no active pulmonary disease. IMPRESSION: The patient is admitted with the episodes of recurrent seizure, hypertension, diabetes, dementia, arthritis, and eye disturbance. Slim Marino MD
[2017-08-05] MEDS: Patient's Own Med (Memantine Hcl/Donepezil Hcl [Namzaric 28 Mg-10 Mg Capsule] 1 CAP) PO SCH (18:07)
[2017-08-06] MEDS: PrednisoLONE 1% OPTH SUSP OU SCH (09:34)
[2017-08-06] MEDS: GlipiZIDE 10 mg SR Tab PO SCH (09:34)
[2017-08-06] MEDS: Insulin Lispro (humaLOG) 100 Units/ml Inj SC SCH ×4 (09:35→22:46)
--- NOTE | 2017-08-06 12:30 | CON ---
NEUROLOGY CONSULTATION REPORT DATE: REASON FOR CONSULTATION: Seizure. HISTORY OF PRESENT ILLNESS: The patient is an 81-year-old female, who has been asked for evaluation of seizure. The patient has known history of seizures. She was brought to the emergency room after she had 2 episodes of seizure, each lasting about 2 minutes. The patient was slightly confused after the seizure and EMS was called. The patient was also found to have low blood pressure. Since the patient is admitted last night, no further seizures. The patient denies any other complaints. REVIEW OF SYSTEMS: Denies any headache, dizziness, chest pain, shortness of breath, abdominal pain, constipation, diarrhea, dysuria, cough, or sputum production. PAST MEDICAL HISTORY: Includes asthma, arthritis, anemia, coronary artery disease, seizure disorder, depression, diabetes mellitus, hypertension, hyperlipidemia, Alzheimer disease. PAST SURGICAL HISTORY: Includes appendectomy and cholecystectomy. MEDICATIONS: At home include, Namzaric, Coreg, atorvastatin, Norvasc, Diovan, Topamax 50 mg every 12 hours, Singulair, Ranexa, Amitiza, Amaryl, Pepcid, and Plavix. ALLERGIES: NO KNOWN DRUG ALLERGIES. SOCIAL HISTORY: The patient denies smoking, use of alcohol, or illicit drugs. FAMILY HISTORY: Reviewed and noncontributory to the case. PHYSICAL EXAMINATION: GENERAL: The patient is an elderly female, lying on the bed in no acute distress. VITAL SIGNS: Her blood pressure is 145/73, heart rate is 67 per minute, breathing at the rate 16 per minute, and temperature 98.8 degrees Fahrenheit. HEENT: Head is normocephalic and atraumatic. NECK: Supple. There are no carotid bruits. LUNGS: Clear. CARDIOVASCULAR: S1 and S2 audible. No murmurs. ABDOMEN: Soft and nontender. Bowel sounds present. NEUROLOGIC: The patient is awake and alert, oriented to place. She does not know the month or year. She follows simple commands. Cranial nerve examination; pupils are 3 mm bilaterally, reactive to light. Visual khan are full. Extraocular movements are intact. There is no facial asymmetry. Palate is upgoing bilaterally and tongue is midline. Motor examination; tone is normal, power is 4-5/5 bilaterally in all extremities. Reflexes are +1 in the upper extremities and absent in the lower extremities. Plantars are downgoing bilaterally. Sensory examination is intact to soft touch and pinprick. There is decreased vibration in the feet. Gait is deferred at the moment. LABORATORY DATA: Reviewed, shows WBC of 6.7, hemoglobin of 10.3, hematocrit 31.2, and platelets of 190. Sodium is 143, potassium 4.1, chloride 109, carbon dioxide 25, BUN of 23, creatinine 1.7, and glucose of 95. The patient had a CT scan of the head done, which showed no acute intracranial hemorrhage. Mild diffuse confluent chronic white matter ischemic changes. Chronic appearing bilateral basal nuclei lacunar type infarcts also present. IMPRESSION: 1. Breakthrough seizure with history of seizure of disorder. 2. Cerebrovascular disease. 3. Urinary tract infection. RECOMMENDATIONS: 1. The patient's dose of Topamax was increased from 50 mg every 12 hours to 75 mg every 12 hours, to which I agree with. 2. The patient had no further episode of seizure. 3. The patient is on Plavix for her underlying cerebrovascular disease. 4. The patient also on Namzaric for her underlying dementia of Alzheimer's type. 5. The patient's TSH is within normal limits. 6. The patient continue to be on antibiotics for underlying urinary tract infection. 7. Please continue other treatment and supportive care. Thank you for the opportunity to participate in the care of this patient. Edson Gamboa MD
--- NOTE | 2017-08-06 13:16 | CP.PCM.CON ---
History of Present Illness - History of Present Illness History of Present Illness: 81 y/o female is brought in for two, 2 min seizures that occurred [employer]EL [employer]. History is given by her home health aid. She reports that the patient was sitting preparing to eat when the seizure occurred. This occurred while the home health aid was checking the patient's BP, which was low. Patient is complaint with her meds. Patient had a recent increase in Topamax for her seizures. Prior to seizure event the patient had a normal state of health. S/p seizure the patient complained of headache and neck pain, notes now being currently asymptomatic. No focal weakness, tongue bitting, urinary incontinence, or head injury. Patient notes having a hx of Alzheimer; hx taken from patient may be unreliable. ID consulted for recurent UTI - Medical History PMH: Alzheimer's Disease, Anemia, Arthritis, Asthma, CAD (stents x7), CHF, Dementia, Depression, Diabetes, HTN, Hypercholesterolemia, Peripheral Edema, Pneumonia, Pulmonary Embolism, Chronic Kidney Disease, Seizures Denies: HIV Review of Systems - Constitutional Constitutional: As Per HPI - EENT Eyes: absent: As Per HPI, Blind Spots, Blurred Vision, Change in Vision, Decreased Night Vision, Diplopia, Discharge, Dry Eye, Exophthalmos, Floaters, Irritation, Itchy Eyes, Loss of Peripheral Vision, Pain, Photophobia, Requires Corrective Lenses, Sees Flashes, Spots in Vision, Tunnel Vision, Other Visual Disturbances, Loss of Vision, Other Ears: absent: As Per HPI, Decreased Hearing, Ear Discharge, Ear Pain, Tinnitus, Abnormal Hearing, Disequilibrium, Dizziness, Other Nose/Mouth/Throat: absent: As Per HPI, Epistaxis, Nasal Congestion, Nasal Discharge, Nasal Obstruction, Nasal Trauma, Nose Pain, Post Nasal Drip, Sinus Pain, Sinus Pressure, Bleeding Gums, Change in Voice, Dental Pain, Dry Mouth, Dysphagia, Halitosis, Hoarsness, Lip Swelling, Mouth Lesions, Mouth Pain, Odynophagia, Sore Throat, Throat Swelling, Tongue Swelling, Facial Pain, Neck Pain, Neck Mass, Other - Breasts Breasts: absent: As Per HPI, Change in Shape, Mass, Pain, Nipple Discharge, Nipple Inversion, Skin Changes, Swelling, Other - Cardiovascular Cardiovascular: absent: As Per HPI, Acrocyanosis, Chest Pain, Chest Pain at Rest , Chest Pain with Activity, Claudication, Diaphoresis, Dyspnea, Dyspnea on Exertion, Edema, Irregular Heart Rhythm, Pain Radiating to Arm/Neck/Jaw, Leg Edema, Leg Ulcers, Lightheadedness, Orthopnea, Palpitations, Paroxysmal Nocturnal Dyspnea, Pedal Edema, Radiating Pain, Rapid Heart Rate, Slow Heart Rate, Syncope, Other - Respiratory Respiratory: absent: As Per HPI, Cough, Dyspnea, Hemoptysis, Dyspnea on Exertion , Wheezing, Snoring, Stridor, Pain on Inspiration, Chest Congestion, Excessive Mucous Production, Change in Mucous Color, Pain with Coughing, Other - Gastrointestinal Gastrointestinal: absent: As Per HPI, Abdominal Pain, Belching, Bloating, Change in Bowel Habits, Change in Stool Character, Coffee Ground Emesis, Constipation, Cramping, Diarrhea, Dyspepsia, Dysphagia, Early Satiety, Excessive Flatus, Fecal Incontinence, Heartburn, Hematemesis, Hematochezia, Loose Stools, Melena, Nausea, Odynophagia, Temesmus, Vomiting, Other - Genitourinary Genitourinary: As Per HPI - Reproductive: Female Reproductive:Female: absent: As Per HPI, Amenorrhea, Amenorrhea/ Control, Currently Menstual, Cycle <21 Days, Cycle >35 Days, Cycle Variable, Menses 1-7 Days, Menses >/= 8 Days, Menses Variable, Cycle > 4 Weeks Between, No Menses for 6 Months, Heavy Menses, Light Menses, Normal Menses, Spotting Between Cycles , S/P Hysterectomy, Menopausal, Post Menopausal, Premenarche, Abnormal Vaginal Bleeding, Dysmenorrhea, Dyspareunia, Genital Lesions, Genital Pruritis, Pelvic Pain, Prolapse Symptoms, Sexual Dysfunction, Vaginal Discharge, Vaginal Dryness , Vaginal Odor, Vaginal Pruritis, Other - Menstruation Menstruation: absent: As Per HPI, Amenorrhea, Amenorrhea/ Control, Currently Menstual, Cycle <21 Days, Cycle >35 Days, Cycle Variable, Menses 1-7 Days, Menses >/= 8 Days, Menses Variable, Cycle > 4 Weeks Between, No Menses for 6 Months, Heavy Menses, Light Menses, Normal Menses, Spotting Between Cycles , S/P Hysterectomy, Menopausal, Post Menopausal, Premenarche, Abnormal Vaginal Bleeding, Dysmenorrhea, Other - Musculoskeletal Musculoskeletal: As Per HPI - Integumentary Integumentary: absent: As Per HPI, Acne, Alopecia, Bleeding Lesions, Change in Hair, Change in Nails, Change in Pigmentation, Changing Lesions, Dry Skin, Erythema, Furuncle, Hirsutism, Lesions, New Lesions, Non-Healing Lesions, Photosensitivity, Pruritus, Rash, Skin Pain, Skin Ulcer, Sores, Striae, Swelling , Unusual Bruising, Wounds, Jaundice, Other - Neurological Neurological: absent: As Per HPI, Abnormal Gait, Abnormal Hearing, Abnormal Movements, Abnormal Speech, Behavioral Changes, Burning Sensations, Confusion, Convulsions, Disequilibrium, Dizziness, Numbness, Focal Weakness, Frequent Falls , Headaches, Lack of Coordination, Loss of Vision, Memory Loss, Paresthesias, Radicular Pain, Restless Legs, Sensory Deficit, Syncope, Tingling, Tremor, Vertigo, Weakness, Other Visual Disturbances, Other - Psychiatric Psychiatric: absent: As Per HPI, Abnormal Sleep Pattern, Anhedonia, Anxiety, Auditory Hallucinations, Behavioral Changes, Change in Appetite, Change in Libido, Confusion, Depression, Difficulty Concentrating, Hallucinations, Homicidal Ideation, Hopelessness, Irritability, Memory Loss, Mood Swings, Panic Attacks, Paranoia, Suicidal Ideation, Visual Hallucinations, Tactile Hallucinations, Other - Endocrine Endocrine: absent: As Per HPI, Change in Body Appearance, Change in Libido, Cold Intolorance, Deepening of Voice, Excessive Sweating, Fatigue, Flushing, Heat Intolorance, Increase in Ring/Shoe/Hat Size, Palpitations, Polydipsia, Polyphagia, Polyuria, Other - Hematologic/Lymphatic Hematologic: absent: As Per HPI, Easy Bleeding, Easy Bruising, Lymphadenopathy, Other Past Patient History - Infectious Disease Hx of Infectious Diseases: None - Tetanus Immunizations Tetanus Immunization: Unknown - Past Medical History & Family History Past Medical History?: Yes - Past Social History Smoking Status: Former Smoker - CARDIAC Hx Cardiac Disorders: Yes Hx Hypertension: Yes Other/Comment: Aortic stenosis - PULMONARY Hx Respiratory Disorders: Yes Hx Asthma: Yes Hx Pneumonia: Yes Hx Pulmonary Embolism: Yes - NEUROLOGICAL Hx Neurological Disorder: Yes Hx Dementia: Yes - HEENT Hx HEENT Problems: Yes Hx Cataracts: Yes (surgery) - RENAL Hx Chronic Kidney Disease: Yes Other/Comment: Renal Insufficiency - ENDOCRINE/METABOLIC Hx Endocrine Disorders: Yes Hx Diabetes Mellitus Type 2: Yes - HEMATOLOGICAL/ONCOLOGICAL Hx Blood Disorders: Yes Hx Anemia: Yes Hx Human Immunodeficiency Virus (HIV): No - INTEGUMENTARY Hx Dermatological Problems: No - MUSCULOSKELETAL/RHEUMATOLOGICAL Hx Musculoskeletal Disorders: No Hx Falls: No - GASTROINTESTINAL Hx Gastrointestinal Disorders: Yes 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, 2006 and 2007) Hx Constipation: Yes Other/Comment: Ventral hernia - GENITOURINARY/GYNECOLOGICAL Hx Genitourinary Disorders: No - PSYCHIATRIC Hx Psychophysiologic Disorder: No Hx Substance Use: No - SURGICAL HISTORY Hx Surgeries: Yes Hx Appendectomy: Yes Hx Cholecystectomy: Yes Hx Coronary Stent: Yes (7 stents as per the daughter) - ANESTHESIA Hx Anesthesia: Yes Hx Anesthesia Reactions: Yes (hard to wake up) Hx Malignant Hyperthermia: No Meds Allergies/Adverse Reactions: Allergies Allergy/AdvReac Type Severity Reaction Status Date / Time No Known Allergies Allergy Verified 04/30/17 15:30 - Medications Medications: Current Medications Albuterol Sulfate (Albuterol 0.083% Inhal Blessing (2.5 Mg/3 Ml) Ud) 2.5 mg INH RQ6 PRN PRN Reason: Shortness of Breath Amlodipine Besylate (Norvasc) 5 mg PO DAILY [facility] Last Admin: 08/06/17 09:37 Dose: 5 mg Atorvastatin Calcium (Lipitor) 20 mg PO HS [facility] Last Admin: 08/05/17 21:37 Dose: 20 mg Carvedilol (Coreg) 6.25 mg PO HS [facility] Last Admin: 08/05/17 21:37 Dose: 6.25 mg Clopidogrel Bisulfate (Plavix) 75 mg PO DAILY [facility] Last Admin: 08/06/17 09:34 Dose: 75 mg Famotidine (Pepcid) 40 mg PO DAILY [facility] Last Admin: 08/06/17 09:37 Dose: 40 mg Glipizide (Glucotrol Xl) 10 mg PO DAILY [facility] Last Admin: 08/06/17 09:34 Dose: 10 mg Heparin Sodium (Porcine) (Heparin) 5,000 units SC Q12 [facility] PRN Reason: Protocol Last Admin: 08/06/17 09:35 Dose: 5,000 units Home Med (Lubiprostone [Amitiza]) 24 mcg PO DAILY [facility] Last Admin: 08/06/17 10:46 Dose: 24 mcg Home Med (Memantine Hcl/Donepezil Hcl [Namzaric 28 Mg-10 Mg Capsule]) 1 cap PO QPM [facility] Last Admin: 08/05/17 18:07 Dose: 1 cap Home Med (Ranolazine [Ranexa]) 500 mg PO Q12 [facility] Last Admin: 08/06/17 09:36 Dose: 500 mg Ceftriaxone Sodium 1 gm/ (Sodium Chloride) 100 mls @ 100 mls/hr IVPB DAILY [facility] PRN Reason: Protocol Last Admin: 08/06/17 10:45 Dose: 100 mls/hr Insulin Human Lispro (Humalog) 0 units SC ACHS [facility] PRN Reason: Protocol Last Admin: 08/06/17 13:15 Dose: Not Given Lidocaine (Xylocaine 2.5%) 1 applic TOP DAILY PRN PRN Reason: Pain, Mild (1-3) Montelukast Sodium (Singulair) 10 mg PO HS [facility] Last Admin: 08/05/17 21:37 Dose: 10 mg Prednisolone Acetate (Pred Forte 1% Opht Susp) 1 drop OU DAILY [facility] Last Admin: 08/06/17 09:34 Dose: 1 drop Promethazine HCl/Dextromethorphan (Phenergan Dm Syrup) 5 ml PO Q8 PRN PRN Reason: Cough and congestion Topiramate (Topamax) 75 mg PO Q12H [facility] Last Admin: 08/06/17 06:04 Dose: 75 mg Valsartan (Diovan) 160 mg PO DAILY [facility] Last Admin: 08/06/17 09:34 Dose: 160 mg Physical Exam - Constitutional Appears: Non-toxic, Cachectic, Chronically Ill - Head Exam Head Exam: ATRAUMATIC, NORMAL INSPECTION, NORMOCEPHALIC - Eye Exam Eye Exam: absent: Scleral icterus - ENT Exam ENT Exam: Mucous Membranes Dry, Normal External Ear Exam - Neck Exam Neck exam: Negative for: Lymphadenopathy - Respiratory Exam Respiratory Exam: Decreased Breath Sounds, Rhonchi - Cardiovascular Exam Cardiovascular Exam: REGULAR RHYTHM, +S1, +S2 - GI/Abdominal Exam GI & Abdominal Exam: Diminished Bowel Sounds, Soft. absent: Tenderness - Rectal Exam Rectal Exam: Deferred - Exam Exam: NORMAL INSPECTION - Extremities Exam Extremities exam: Negative for: calf tenderness, pedal edema - Back Exam Back exam: absent: CVA tenderness (L), CVA tenderness (R), paraspinal tenderness - Neurological Exam Neurological exam: Alert, Altered, CN II-XII Intact - Psychiatric Exam Psychiatric exam: Depressed - Skin Skin Exam: Dry, Intact Results - Vital Signs Recent Vital Signs: Last Vital Signs Temp 98.1 F 08/06/17 12:25 Pulse 64 08/06/17 12:25 Resp 18 08/06/17 12:25 BP 158/52 H 08/06/17 12:25 Pulse Ox 100 08/06/17 12:25 - Labs Result Diagrams: 08/05/17 09:30 08/05/17 09:30 Labs: Laboratory Results - last 24 hr 08/05/17 08/05/17 08/06/17 16:23 21:05 04:47 POC Glucose (mg/dL) 125 H 146 H 78 08/06/17 06:10 POC Glucose (mg/dL) 126 H Assessment & Plan (1) UTI (urinary tract infection) Status: Acute (2) UTI (urinary tract infection) Status: Acute (3) Acute on chronic renal insufficiency Status: Acute (4) CAD (coronary artery disease) Status: Acute (5) CHF (congestive heart failure) Status: Acute Priority: High (6) Dementia Status: Acute (7) Leukocytosis Status: Acute - Assessment and Plan (Free Text) Assessment: cont rx as per dr Ned meraz cultures
[2017-08-06] MEDS: Patient's Own Med (Memantine Hcl/Donepezil Hcl [Namzaric 28 Mg-10 Mg Capsule] 1 CAP) PO SCH (17:53)
--- NOTE | 2017-08-06 19:46 | PN ---
DATE: SUBJECTIVE: Today, patient is alert and awake, out of bed to chair. No seizure noted and does complain of constipation as per nurse. PHYSICAL EXAMINATION VITAL SIGNS: Patient has a blood pressure of 123/67, pulse 81, respiration is 18, temperature 98.4. NECK: Supple. LUNGS: Clear. HEART: Regular rate and rhythm. Positive murmur. ABDOMEN: Soft, mild epigastric tenderness. EXTREMITIES: There is no edema. LABORATORY DATA: Showed a WBC of 6.7, hemoglobin 10.3, hematocrit 31.2, and platelet 190. Chemistry showed the sodium of 143, potassium 4.1, chloride 109, bicarb 25, BUN 23, creatinine 1.7, blood glucose is 95, albumin 3.3. The TSH is 0.82, HDL 36, LDL 79. PLAN: I am going to add at night and we are going there for tomorrow and we are going to have a Neuro consult by Dr. Gamboa. Neuro consult was done and the troponin was increased as he said and as per Dr. Edson Gamboa, we have to continue the treatment and supportive care. Slim Marino MD
[2017-08-06] MEDS ORDERED: Docusate-Senna 50 mg-8.6 mg Tab PO SCH (22:00)
--- NOTE | 2017-08-07 00:10 | PN ---
DATE: NEUROLOGY PROGRESS NOTE PHYSICAL EXAMINATION: GENERAL: The patient is lying on the bed, in no acute distress. VITAL SIGNS: Her blood pressure is 160/55, heart rate is 69 per minute, breathing at a rate of 16 per minute, and temperature 98.6 degrees Fahrenheit. HEENT: Normocephalic and atraumatic. NECK: Supple. There are no carotid bruits. LUNGS: Clear. CVS: S1 and S2 audible. No murmurs. ABDOMEN: Soft and nontender. Bowel sounds are present. NEUROLOGIC: Mental status: The patient is awake, alert and oriented to place. She follows simple commands. Cranial nerve: Pupils are 3 mm bilaterally, reactive to light. Visual khan are full. Extraocular movements are intact. There is no fascial asymmetry. She is moving all 4 extremities. Power appears to be 4 to 5/5 all over. Plantars downgoing bilaterally. IMPRESSION: 1. Status post breakthrough seizure with history of seizure disorder. 2. Cerebrovascular accident. 3. Urinary tract infection. RECOMMENDATIONS: 1. The patient had no further seizures. 2. The patient to be continued on Topamax 75 mg every 8 hours. 3. The patient also to be continued on Plavix for underlying cerebrovascular disease. 4. The patient is on Namzaric, which is to be continued. 5. The patient is on antibiotics for urinary tract infection. 6. Please continue all the treatments and supportive care. Thank you for the opportunity to participate in the care of this patient. Edson Gamboa MD
[2017-08-07 05:40] LABS: BASO # 0.1 K/uL (0.0-0.2); BASO % 1.2 % (0.0-2.0); EOS # 0.2 K/uL (0.0-0.7); EOS % 2.2 % (0.0-4.0); HEMATOCRIT 31.6 % (34.0-47.0); LYMPH # 2.7 K/uL (1.0-4.3); LYMPH % 31.8 % (20.0-40.0); MEAN CELL VOLUME 106.1 fl (81.0-99.0); MEAN CORPUSCULAR HEMOGLOBIN 35.2 pg (27.0-31.0); MEAN CORPUSCULAR HGB CONC 33.2 g/dL (33.0-37.0); MEAN PLATELET VOLUME 10.5 fl (7.2-11.7); MONO # 0.7 K/uL (0.0-0.8); MONO % 8.7 % (0.0-10.0); NEUT # 4.8 K/uL (1.8-7.0); NEUT % 56.1 % (50.0-75.0); NRBC % 0.1 % (0.0-0.0); RED CELL DISTRIBUTION WIDTH 12.9 % (11.5-14.5); WHITE BLOOD COUNT 8.6 K/uL (4.8-10.8)
[2017-08-07 05:41] LABS: ALB/GLOB RATIO 0.9 (1.0-2.1); BILIRUBIN,TOTAL 0.4 mg/dl (0.2-1.3); CALCIUM 8.7 mg/dL (8.4-10.2); TOTAL PROTEIN 6.7 G/DL (6.3-8.2)
[2017-08-07] MEDS: Insulin Lispro (humaLOG) 100 Units/ml Inj SC SCH ×2 (09:17→12:38)
[2017-08-07] MEDS: GlipiZIDE 10 mg SR Tab PO SCH (09:17)
[2017-08-07] MEDS: PrednisoLONE 1% OPTH SUSP OU SCH (09:17)
--- NOTE | 2017-08-07 12:00 | CP.PCM.PN ---
Subjective - Date & Time of Evaluation Date of Evaluation: 08/07/17 Time of Evaluation: 09:00 - Subjective Subjective: cultures noted switch to cipro Objective - Vital Signs/Intake and Output Vital Signs (last 24 hours): Temp Pulse Resp BP Pulse Ox 98.2 F 67 18 145/67 100 08/07/17 08:28 08/07/17 09:16 08/07/17 08:28 08/07/17 09:16 08/07/17 08:28 - Medications Medications: Current Medications Albuterol Sulfate (Albuterol 0.083% Inhal Blessing (2.5 Mg/3 Ml) Ud) 2.5 mg INH RQ6 PRN PRN Reason: Shortness of Breath Amlodipine Besylate (Norvasc) 5 mg PO DAILY [facility] Last Admin: 08/07/17 09:16 Dose: 5 mg Atorvastatin Calcium (Lipitor) 20 mg PO HS [facility] Last Admin: 08/06/17 21:24 Dose: 20 mg Carvedilol (Coreg) 6.25 mg PO HS [facility] Last Admin: 08/06/17 21:25 Dose: 6.25 mg Clopidogrel Bisulfate (Plavix) 75 mg PO DAILY [facility] Last Admin: 08/07/17 09:16 Dose: 75 mg Famotidine (Pepcid) 40 mg PO DAILY [facility] Last Admin: 08/07/17 09:14 Dose: 40 mg Glipizide (Glucotrol Xl) 10 mg PO DAILY [facility] Last Admin: 08/07/17 09:17 Dose: 10 mg Heparin Sodium (Porcine) (Heparin) 5,000 units SC Q12 [facility] PRN Reason: Protocol Last Admin: 08/07/17 09:16 Dose: 5,000 units Home Med (Lubiprostone [Amitiza]) 24 mcg PO DAILY [facility] Last Admin: 08/07/17 09:15 Dose: 24 mcg Home Med (Memantine Hcl/Donepezil Hcl [Namzaric 28 Mg-10 Mg Capsule]) 1 cap PO QPM [facility] Last Admin: 08/06/17 17:53 Dose: 1 cap Home Med (Ranolazine [Ranexa]) 500 mg PO Q12 [facility] Last Admin: 08/07/17 09:16 Dose: 500 mg Ceftriaxone Sodium 1 gm/ (Sodium Chloride) 100 mls @ 100 mls/hr IVPB DAILY [facility] PRN Reason: Protocol Last Admin: 08/07/17 09:18 Dose: 100 mls/hr Insulin Human Lispro (Humalog) 0 units SC ACHS [facility] PRN Reason: Protocol Last Admin: 08/07/17 09:17 Dose: Not Given Lidocaine (Xylocaine 2.5%) 1 applic TOP DAILY [facility] PRN Reason: Pain, Mild (1-3) Montelukast Sodium (Singulair) 10 mg PO HS [facility] Last Admin: 08/06/17 21:25 Dose: 10 mg Prednisolone Acetate (Pred Forte 1% Opht Susp) 1 drop OU DAILY [facility] Last Admin: 08/07/17 09:17 Dose: 1 drop Promethazine HCl/Dextromethorphan (Phenergan Dm Syrup) 5 ml PO Q8 [facility] PRN Reason: Cough and congestion Senna/Docusate Sodium (Senokot S 50 Mg-8.6 Mg) 1 tab PO HS [facility] Last Admin: 08/06/17 21:30 Dose: Not Given Topiramate (Topamax) 75 mg PO Q12H [facility] Last Admin: 08/07/17 06:07 Dose: 75 mg Valsartan (Diovan) 160 mg PO DAILY [facility] Last Admin: 08/07/17 09:18 Dose: 160 mg - Labs Labs: 08/07/17 04:10 08/07/17 04:10 PT 11.8 Seconds (9.8-13.1) 08/04/17 17:30 INR 1.0 (0.9-1.2) 08/04/17 17:30 APTT 31.1 Seconds (25.6-37.1) 08/05/17 08:40 Assessment and Plan (1) UTI (urinary tract infection) Status: Acute (2) UTI (urinary tract infection) Status: Acute (3) Acute on chronic renal insufficiency Status: Acute (4) CAD (coronary artery disease) Status: Acute (5) CHF (congestive heart failure) Status: Acute (6) Dementia Status: Acute (7) Leukocytosis Status: Acute
[2017-08-07 12:39] VITALS: BP 104/59; PULSE 73; RESP 20; TEMP 98.6; O2SAT 98
--- NOTE | 2017-08-07 13:17 | PQF CHF ---
This form is a permanent part of the medical record 08/07/17 Dr. Marino, Please clarify the type of CHF if known. Admitted for breakthrough seizure. Documentation of a history of CHF. Medication includes: Coreg and Diovan. Echo from 2016: Systolic function normal, EF 60-65%, severe aortic stenosis, pulmonary HTN ( see full report in EMR) Clarification of your documentation is requested to better reflect the severity of illness and intensity of treatment of your patient. Indicators present [x] Diagnosis of CHF and/or history of CHF [x] BNP > 200 [] Imaging Finding of Pulmonary Edema /Pleural Effusions [] Fluid/Volume Overload [] Pitting edema [] Ejection Fraction < 40% (Indicative of Systolic Heart Failure) [x] Ejection Fraction > 40% (Indicative of Diastolic Heart Failure) ECHO 2016 [] Dyspnea / Orthopenea / Paroxysmal Nocturnal Dyspnea [] Other: Location in the medical record that reflects the above clinical findings: [] Treatment Provided: [x] PHYSICIAN'S RESPONSE Based on your medical judgment of the clinical indicators outlined above, are you treating this patient for a known or suspected: [] Acute CHF [] Systolic [] Diastolic [] Combined [] Chronic CHF [] Systolic [] Diastolic [] Combined [] Acute on Chronic CHF []Systolic [] Diastolic [] Combined [] CHF due hypertension [] Acute systolic []Chronic systolic [] Acute/ chronic systolic [] Other, please indicate: [] [] If Unable to Determine, please check the box, sign and date. Present On Admission (POA) Indicator: [] Present at the time of admission [] Not present at the time of admission [] Clinically Undetermined In responding to this query, please exercise your independent professional judgment. The fact that a question is asked does not imply that any particular answer is desired or expected. Thank you for your clarification on this documentation. If you have any questions please call:[phone] * Thank you, Ann-Marie Hart RN CDMP [facility]
--- NOTE | 2017-08-07 22:20 | PN ---
DATE: SUBJECTIVE: Today, the patient is alert and awake. Denies any abdominal pain. No chest pain, no dizziness, and the patient is weak. PHYSICAL EXAMINATION: VITAL SIGNS: The patient has a blood pressure of 104/69, pulse is 73, respirations 20, temperature is 98.6. HEENT: Head is normocephalic. LUNGS: There are some fine rales at the bases, which is old. HEART: Regular rate and rhythm. Positive murmur, which is old. ABDOMEN: Soft. Positive bowel sounds. Nontender, no palpable mass. EXTREMITIES: There is no edema. LABORATORY DATA: WBC is 8.6, hemoglobin 10.5, hematocrit 31.6, and platelet is 171. Chemistry; sodium 144, potassium 5, chloride 104, bicarb 21, BUN 22, creatinine 1.6, and glucose 83. The pro-BNP is 1880 and . Microbiology showed that the patient has E. coli and the patient was placed on medications. Case was discussed with . The Topamax was increased to 75 mg twice a day and also the patient has seen Dr. Fuentes. The patient was put on antibiotics of ceftriaxone, but now the patient will be discharged home when cleared by Dr. Fuentes. Case was discussed with nurse practitioner. Slim Marino MD
== END 2017-08-07 15:00 | disposition home or self-care (01) | DRG 101 ==
LOC: H.ER 16:52 → H.ERHOLD 21:50 → H.TEL 23:04 → OBSVTOIN 08-06 03:42
PROVIDERS: ADMIT Specialist; ATTEND Specialist
DX: G40.909 Epilepsy, unspecified, not intractable, without status epilepticus (principal); I95.9 Hypotension, unspecified; I13.0 Hypertensive heart and chronic kidney disease with heart failure and stage 1 through stage 4 chronic kidney disease, or unspecified chronic kidney disease; I50.32 Chronic diastolic (congestive) heart failure; I42.9 Cardiomyopathy, unspecified; E11.22 Type 2 diabetes mellitus with diabetic chronic kidney disease; N39.0 Urinary tract infection, site not specified; G30.9 Alzheimer's disease, unspecified; F02.80 Dementia in other diseases classified elsewhere, unspecified severity, without behavioral disturbance, psychotic disturbance, mood disturbance, and anxiety; E78.00 Pure hypercholesterolemia, unspecified; Z87.01 Personal history of pneumonia (recurrent); R60.0 Localized edema; E78.5 Hyperlipidemia, unspecified; I25.10 Atherosclerotic heart disease of native coronary artery without angina pectoris; I27.20 Pulmonary hypertension, unspecified; I35.0 Nonrheumatic aortic (valve) stenosis; J44.9 Chronic obstructive pulmonary disease, unspecified; M19.90 Unspecified osteoarthritis, unspecified site; N18.9 Chronic kidney disease, unspecified; Z79.02 Long term (current) use of antithrombotics/antiplatelets; Z79.899 Other long term (current) drug therapy; Z86.711 Personal history of pulmonary embolism; Z87.891 Personal history of nicotine dependence; Z90.49 Acquired absence of other specified parts of digestive tract; Z95.5 Presence of coronary angioplasty implant and graft; D64.9 Anemia, unspecified; F32.9 Major depressive disorder, single episode, unspecified; H26.9 Unspecified cataract; K43.9 Ventral hernia without obstruction or gangrene; K59.00 Constipation, unspecified; Z79.84 Long term (current) use of oral hypoglycemic drugs; M54.2 Cervicalgia; I67.9 Cerebrovascular disease, unspecified

== ENCOUNTER 2017-11-04 16:59 | Inpatient (IN) | payer MEDICARE, MEDICAID ==
[2017-11-04 17:00] VITALS: BMI 22.9
--- NOTE | 2017-11-04 17:40 | ED PDOC ---
HPI: Seizure Time Seen by Provider: 11/04/17 17:17 Chief Complaint (Nursing): Seizure Chief Complaint (Provider): Seizure History Per: EMS, Family (Daughter) Recent Seizure Activity Began: Just Before Arrival Length Of Seizures (Duration): Minutes (x3) Quality Of Seizure: Generalized Additional Complaint(s): 82 year old female with past medical history of seizure disorder was brought to the emergency department by EMS for a witnessed generalized tonic-clonic seizure. Followed by urinary incontinence during postictal period. As per daughter, the seizure lasted for approximately 3 minutes while in bed. Temperature on arrival noted to be 103. No vomiting or diarrhea. Patient had a cough last week, but nothing recent. PMD: Slim Marino Past Medical History Reviewed: Historical Data, Nursing Documentation, Vital Signs Vital Signs: Last Vital Signs Temp 99.4 F 11/05/17 08:11 Pulse 73 11/05/17 08:11 Resp 18 11/05/17 08:11 BP 126/56 L 11/05/17 08:11 Pulse Ox 100 11/05/17 08:11 - Medical History PMH: Alzheimer's Disease, Anemia, Arthritis, Asthma, CAD (stents x7), CHF, Dementia, Depression, Diabetes, HTN, Hypercholesterolemia, Peripheral Edema, Pneumonia, Pulmonary Embolism, Chronic Kidney Disease, Seizures Denies: HIV - Surgical History Surgical History: Appendectomy, Cholecystectomy, Coronary Stent (7 stents as per the daughter) - Family History Family History: States: Unknown Family Hx - Home Medications Home Medications: Ambulatory Orders Medication Instructions Recorded Clopidogrel [Plavix] 75 mg PO DAILY 07/26/16 Famotidine [Pepcid] 40 mg PO DAILY 07/26/16 Lubiprostone [Amitiza] 24 mcg PO DAILY 07/26/16 Montelukast [Singulair] 10 mg PO HS 07/26/16 Ranolazine [Ranexa] 500 mg PO Q12 07/26/16 Atorvastatin [Lipitor] 20 mg PO HS 08/04/17 Carvedilol [Coreg] 6.25 mg PO HS 08/04/17 Glimepiride [amaRYL] 4 mg PO DAILY 08/04/17 Lidocaine 5% 1 appl TOP DAILY PRN 08/04/17 Memantine HCl/Donepezil HCl 1 cap PO QPM 10/20/17 [Namzaric 28 mg-10 mg Capsule] PrednisoLONE 1% [Pred Forte 1% 1 drop RIGHTEYE DAILY 08/04/17 Opht Susp] Valsartan [Diovan] 160 mg PO DAILY 08/04/17 amLODIPine [Norvasc] 5 mg PO DAILY 08/04/17 Ciprofloxacin [Cipro] 500 mg PO Q12 #14 tab 08/07/17 Topiramate [Topamax] 75 mg PO Q8 #90 tab 08/07/17 - Allergies Allergies/Adverse Reactions: Allergies Allergy/AdvReac Type Severity Reaction Status Date / Time No Known Allergies Allergy Verified 04/30/17 15:30 Review of Systems ROS Statement: Except As Marked, All Systems Reviewed And Found Negative Constitutional: Positive for: Fever Respiratory: Positive for: Cough (Last week but nothing recent) Gastrointestinal: Negative for: Vomiting, Diarrhea Neurological: Positive for: Seizures Physical Exam - Reviewed Nursing Documentation Reviewed: Yes Vital Signs Reviewed: Yes - Physical Exam Appears: Positive for: Non-toxic, No Acute Distress Head Exam: Positive for: ATRAUMATIC, NORMOCEPHALIC Skin: Positive for: Normal Color, Warm, Dry Eye Exam: Positive for: EOMI, Normal appearance, PERRL Neck: Positive for: Normal, Painless ROM, Supple Cardiovascular/Chest: Positive for: Regular Rate, Rhythm. Negative for: Murmur Respiratory: Positive for: Rhonchi (bronchiated bilaterally ). Negative for: Wheezing, Respiratory Distress Gastrointestinal/Abdominal: Positive for: Normal Exam, Bowel Sounds, Soft Back: Positive for: Normal Inspection Extremity: Positive for: Normal ROM. Negative for: Pedal Edema, Calf Tenderness , Swelling Neurologic/Psych: Positive for: Alert (awake, responds to painful stimuli). Negative for: Motor/Sensory Deficits - Laboratory Results Result Diagrams: 11/05/17 06:02 11/05/17 06:02 - ECG O2 Sat by Pulse Oximetry: 99 (RA) Pulse Ox Interpretation: Normal Medical Decision Making Medical Decision Making: Time: 17:24 Initial Plan: VBG Shock Panel EKG CMP CBC with Differential Chest X-Ray Tylenol 650 mg PO Blood Culture Urine Culture Urinalysis Scribe Attestation: Documented by Milagros Song, acting as a scribe for Junaid Capone MD Provider Scribe Attestation: All medical record entries made by the Scribe were at my direction and personally dictated by me. I have reviewed the chart and agree that the record accurately reflects my personal performance of the history, physical exam, medical decision making, and the department course for this patient. I have also personally directed, reviewed, and agree with the discharge instructions and disposition. Disposition - Clinical Impression Clinical Impression: Sepsis, UTI (urinary tract infection), Seizure - Patient ED Disposition Is Patient to be Admitted: Transfer of Care - Disposition Disposition: Transfer of Care Disposition Time: 19:00 Condition: GUARDED Patient Signed Over To: Andrew Delacruz
[2017-11-04 18:05] LABS: BASO # 0.1 K/uL (0.0-0.2); BASO % 0.4 % (0.0-2.0); EOS % 0.1 % (0.0-4.0); HEMOGLOBIN 11.7 g/dL (12.0-16.0); LYMPH # 0.4 K/uL (1.0-4.3); LYMPH % 2.7 % (20.0-40.0); MEAN CELL VOLUME 103.3 fl (81.0-99.0); MEAN CORPUSCULAR HEMOGLOBIN 33.7 pg (27.0-31.0); MEAN CORPUSCULAR HGB CONC 32.6 g/dL (33.0-37.0); MEAN PLATELET VOLUME 10.7 fl (7.2-11.7); MONO # 0.7 K/uL (0.0-0.8); MONO % 5.6 % (0.0-10.0); NEUT # 12.1 K/uL (1.8-7.0); NEUT % 91.2 % (50.0-75.0); PLATELET COUNT 221 K/uL (130-400); RBC 3.47 Mil/uL (3.80-5.20); RED CELL DISTRIBUTION WIDTH 14.1 % (11.5-14.5); WHITE BLOOD COUNT 13.2 K/uL (4.8-10.8)
[2017-11-04 18:17] LABS: CALCIUM 9.3 mg/dL (8.4-10.2)
[2017-11-04 18:20] LABS: ALBUMIN 4.3 g/dL (3.5-5.0)
[2017-11-04] MEDS ORDERED: Sodium Chloride 0.9% 1,000 ML IV STA (19:09)
--- NOTE | 2017-11-04 19:29 | ED PDOC ---
- Laboratory Results Result Diagrams: 11/04/17 17:56 11/04/17 17:56 - ECG O2 Sat by Pulse Oximetry: 99 (RA) Pulse Ox Interpretation: Normal Medical Decision Making Medical Decision Making: Time: 19:00 Patient was endorsed to me at this time from Dr. Junaid Capone. Pending bloodwork, urinalysis, and reevaluation. Labs reviewed: Negative for flu. Urine significant for moderate bacteria. Time: 20:56 Patient will be admitted inpatient for sepsis, UTI, & seizure, under the care of Dr. Slim Marino Scribe Attestation: Documented by Alessandra Lou, acting as a scribe for Andrew Delacruz MD Provider Scribe Attestation: All medical record entries made by the Scribe were at my direction and personally dictated by me. I have reviewed the chart and agree that the record accurately reflects my personal performance of the history, physical exam, medical decision making, and the department course for this patient. I have also personally directed, reviewed, and agree with the discharge instructions and disposition. Disposition - Clinical Impression Clinical Impression: Sepsis, UTI (urinary tract infection), Seizure - POA Present On Arrival: None - Disposition Disposition: Admitted as In-Patient Disposition Time: 20:56 Condition: GUARDED
[2017-11-04] MEDS ORDERED: Vancomycin 1 g Inj ONE (19:30)
[2017-11-04 19:43] LABS: MONOCYTE 7 % (0-10); NEUTROPHIL 93 % (42-75); PLATELET ESTIMATE NORMAL (NORMAL); TOTAL CELLS COUNTED 100
[2017-11-04 19:44] LABS: ANISOCYTOSIS SLIGHT; STOMATOCYTES SLIGHT
[2017-11-04 19:44] LABS: VENOUS BLOOD GAS BASE EXCESS -2.3 mmol/L (0.0-2.0); VENOUS BLOOD GAS PCO2 33 mmHg (40-60); VENOUS BLOOD GAS PO2 56 mm/Hg (30-55); VENOUS BLOOD PH 7.42 (7.32-7.43)
[2017-11-04 19:45] LABS: LARGE PLATELETS PRESENT
[2017-11-04 19:50] LABS: LYMPHOCYTE 0 % (20-50)
[2017-11-04 20:20] LABS: SQUAMOUS EPITHIAL < 1 /hpf (0-5); URINE BACTERIA MOD (<OCC); URINE BILIRUBIN NEGATIVE (NEGATIVE); URINE BLOOD SMALL (NEGATIVE); URINE CLARITY SLIGHTY-CLOUDY (Clear); URINE COLOR YELLOW (YELLOW); URINE GLUCOSE (UA) NEG (Normal); URINE LEUKOCYTE ESTERASE TRACE Leu/uL (Negative); URINE NITRATE NEGATIVE (NEGATIVE); URINE PROTEIN 100 mg/dL (NEGATIVE); URINE UROBILINOGEN 0.2-1.0 mg/dL (0.2-1.0)
[2017-11-04 23:43] LABS: VENOUS BLOOD GAS BASE EXCESS -2.2 mmol/L (0.0-2.0); VENOUS BLOOD GAS PCO2 41 mmHg (40-60); VENOUS BLOOD GAS PO2 35 mm/Hg (30-55); VENOUS BLOOD PH 7.36 (7.32-7.43)
[2017-11-05 07:07] LABS: HEMOGLOBIN 10.4 g/dL (12.0-16.0); MEAN CELL VOLUME 103.5 fl (81.0-99.0); MEAN CORPUSCULAR HEMOGLOBIN 33.5 pg (27.0-31.0); MEAN CORPUSCULAR HGB CONC 32.4 g/dL (33.0-37.0); RBC 3.09 Mil/uL (3.80-5.20); RED CELL DISTRIBUTION WIDTH 13.7 % (11.5-14.5); WHITE BLOOD COUNT 8.8 K/uL (4.8-10.8)
[2017-11-05 07:12] LABS: ALBUMIN 3.5 g/dL (3.5-5.0); CALCIUM 8.8 mg/dL (8.4-10.2)
[2017-11-05] MEDS ORDERED: GlipiZIDE 10 mg SR Tab PO SCH (08:00)
--- NOTE | 2017-11-05 08:38 | RAD ---
HISTORY: cough COMPARISON: No prior. FINDINGS: LUNGS: Limited linear atelectasis in the middle of mid right lung zone laterally versus bony overlap related to the scapula and right ribs. Normal via lower infiltrate bilaterally. PLEURA: No significant pleural effusion identified, no pneumothorax apparent. CARDIOVASCULAR: Stable mild cardiomegaly. No pulmonary vascular derangement appreciated. OSSEOUS STRUCTURES: No significant abnormalities. VISUALIZED UPPER ABDOMEN: Normal. OTHER FINDINGS: None. IMPRESSION: Potential limited linear atelectasis mid right lung zone versus bony overlap as discussed above. No acute infiltrate pleural effusion or pneumothorax. Stable cardiomegaly noted.
[2017-11-05] MEDS ORDERED: Pantoprazole 40 mg EC Tab PO SCH (12:00)
--- NOTE | 2017-11-05 14:08 | CP.PCM.CON ---
History of Present Illness - History of Present Illness History of Present Illness: 82 year old female with past medical history of seizure disorder was brought to the emergency department by EMS for a witnessed generalized tonic-clonic seizure. Followed by urinary incontinence during postictal period. As per daughter, the seizure lasted for approximately 3 minutes while in bed. Temperature on arrival noted to be 103. No vomiting or diarrhea. Patient had a cough last week, but nothing recent. Being treated for possible pneumonia and sepsis IV antibotics ordered - Medical History PMH: Alzheimer's Disease, Anemia, Arthritis, Asthma, CAD (stents x7), CHF, Dementia, Depression, Diabetes, HTN, Hypercholesterolemia, Peripheral Edema, Pneumonia, Pulmonary Embolism, Chronic Kidney Disease, Seizures Denies: HIV Review of Systems - Constitutional Constitutional: As Per HPI, Anorexia, Fever, Malaise - EENT Eyes: absent: As Per HPI, Blind Spots, Blurred Vision, Change in Vision, Decreased Night Vision, Diplopia, Discharge, Dry Eye, Exophthalmos, Floaters, Irritation, Itchy Eyes, Loss of Peripheral Vision, Pain, Photophobia, Requires Corrective Lenses, Sees Flashes, Spots in Vision, Tunnel Vision, Other Visual Disturbances, Loss of Vision, Other Ears: absent: As Per HPI, Decreased Hearing, Ear Discharge, Ear Pain, Tinnitus, Abnormal Hearing, Disequilibrium, Dizziness, Other Nose/Mouth/Throat: absent: As Per HPI, Epistaxis, Nasal Congestion, Nasal Discharge, Nasal Obstruction, Nasal Trauma, Nose Pain, Post Nasal Drip, Sinus Pain, Sinus Pressure, Bleeding Gums, Change in Voice, Dental Pain, Dry Mouth, Dysphagia, Halitosis, Hoarsness, Lip Swelling, Mouth Lesions, Mouth Pain, Odynophagia, Sore Throat, Throat Swelling, Tongue Swelling, Facial Pain, Neck Pain, Neck Mass, Other - Breasts Breasts: absent: As Per HPI, Change in Shape, Mass, Pain, Nipple Discharge, Nipple Inversion, Skin Changes, Swelling, Other - Cardiovascular Cardiovascular: As Per HPI - Respiratory Respiratory: As Per HPI, Cough - Genitourinary Genitourinary: absent: As Per HPI, Change in Urinary Stream, Difficulty Urinating, Dysuria, Flank Pain, Hematuria, Pyuria, Nocturia, Urinary Incontinence, Urinary Frequency, Urinary Hesitance, Urinary Urgency, Voiding Freq/Small Amts, Freq UTI, Hx Renal/Bladder Calculi, Hx /Renal Surgery, Bladder Distension, Other - Reproductive: Female Reproductive:Female: absent: As Per HPI, Amenorrhea, Amenorrhea/ Control, Currently Menstual, Cycle <21 Days, Cycle >35 Days, Cycle Variable, Menses 1-7 Days, Menses >/= 8 Days, Menses Variable, Cycle > 4 Weeks Between, No Menses for 6 Months, Heavy Menses, Light Menses, Normal Menses, Spotting Between Cycles , S/P Hysterectomy, Menopausal, Post Menopausal, Premenarche, Abnormal Vaginal Bleeding, Dysmenorrhea, Dyspareunia, Genital Lesions, Genital Pruritis, Pelvic Pain, Prolapse Symptoms, Sexual Dysfunction, Vaginal Discharge, Vaginal Dryness , Vaginal Odor, Vaginal Pruritis, Other - Menstruation Menstruation: absent: As Per HPI, Amenorrhea, Amenorrhea/ Control, Currently Menstual, Cycle <21 Days, Cycle >35 Days, Cycle Variable, Menses 1-7 Days, Menses >/= 8 Days, Menses Variable, Cycle > 4 Weeks Between, No Menses for 6 Months, Heavy Menses, Light Menses, Normal Menses, Spotting Between Cycles , S/P Hysterectomy, Menopausal, Post Menopausal, Premenarche, Abnormal Vaginal Bleeding, Dysmenorrhea, Other - Musculoskeletal Musculoskeletal: As Per HPI - Integumentary Integumentary: As Per HPI - Neurological Neurological: As Per HPI - Psychiatric Psychiatric: absent: As Per HPI, Abnormal Sleep Pattern, Anhedonia, Anxiety, Auditory Hallucinations, Behavioral Changes, Change in Appetite, Change in Libido, Confusion, Depression, Difficulty Concentrating, Hallucinations, Homicidal Ideation, Hopelessness, Irritability, Memory Loss, Mood Swings, Panic Attacks, Paranoia, Suicidal Ideation, Visual Hallucinations, Tactile Hallucinations, Other - Endocrine Endocrine: absent: As Per HPI, Change in Body Appearance, Change in Libido, Cold Intolorance, Deepening of Voice, Excessive Sweating, Fatigue, Flushing, Heat Intolorance, Increase in Ring/Shoe/Hat Size, Palpitations, Polydipsia, Polyphagia, Polyuria, Other - Hematologic/Lymphatic Hematologic: absent: As Per HPI, Easy Bleeding, Easy Bruising, Lymphadenopathy, Other Past Patient History - Infectious Disease Hx of Infectious Diseases: None - Tetanus Immunizations Tetanus Immunization: Unknown - Past Medical History & Family History Past Medical History?: Yes - Past Social History Smoking Status: Former Smoker - CARDIAC Hx Congestive Heart Failure: Yes Hx Hypercholesterolemia: Yes Hx Hypertension: Yes Hx Peripheral Edema: Yes - PULMONARY Hx Asthma: Yes Hx Pneumonia: Yes Hx Pulmonary Embolism: Yes - NEUROLOGICAL Hx Alzheimer's Disease: Yes Hx Dementia: Yes Hx Seizures: Yes - HEENT Hx HEENT Problems: No - RENAL Hx Chronic Kidney Disease: Yes - ENDOCRINE/METABOLIC Hx Endocrine Disorders: Yes Hx Diabetes Mellitus Type 2: Yes - HEMATOLOGICAL/ONCOLOGICAL Hx Anemia: Yes Hx Human Immunodeficiency Virus (HIV): No - INTEGUMENTARY Hx Dermatological Problems: No - MUSCULOSKELETAL/RHEUMATOLOGICAL Hx Arthritis: Yes - GASTROINTESTINAL Hx Gastrointestinal Disorders: Yes 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, 2006 and 2007) Hx Constipation: Yes Other/Comment: Ventral hernia - GENITOURINARY/GYNECOLOGICAL Hx Genitourinary Disorders: No - PSYCHIATRIC Hx Depression: Yes - SURGICAL HISTORY Hx Appendectomy: Yes Hx Cholecystectomy: Yes Hx Coronary Stent: Yes (7 stents as per the daughter) - ANESTHESIA Hx Anesthesia: Yes Hx Anesthesia Reactions: Yes (hard to wake up) Hx Malignant Hyperthermia: No Meds Allergies/Adverse Reactions: Allergies Allergy/AdvReac Type Severity Reaction Status Date / Time No Known Allergies Allergy Verified 04/30/17 15:30 - Medications Medications: Current Medications Acetaminophen (Tylenol 325mg Tab) 650 mg PO Q8 PRN PRN Reason: Fever 101.0 and above Last Admin: 11/05/17 13:11 Dose: 650 mg Atorvastatin Calcium (Lipitor) 20 mg PO HS [facility] Clopidogrel Bisulfate (Plavix) 75 mg PO DAILY [facility] Last Admin: 11/05/17 09:04 Dose: 75 mg Donepezil HCl (Aricept) 10 mg PO HS [facility] Furosemide (Lasix) 20 mg IVP Q12@0100,1300 [facility] Last Admin: 11/05/17 12:33 Dose: 20 mg Glipizide (Glucotrol Xl) 10 mg PO BRK [facility] Last Admin: 11/05/17 09:04 Dose: 10 mg Heparin Sodium (Porcine) (Heparin) 5,000 units SC Q12@0100,1300 [facility] PRN Reason: Protocol Last Admin: 11/05/17 12:31 Dose: 5,000 units Home Med (Lubiprostone [Amitiza]) 24 mcg PO DAILY [facility] Piperacillin Sod/Tazobactam (Sod 2.25 gm/ Sodium Chloride) 100 mls @ 100 mls/ hr IVPB Q8@0400,1200,2000 [facility] PRN Reason: Protocol Last Admin: 11/05/17 12:29 Dose: 100 mls/hr Memantine (Namenda) 5 mg PO DAILY [facility] Last Admin: 11/05/17 09:04 Dose: 5 mg Montelukast Sodium (Singulair) 10 mg PO [facility] Pantoprazole Sodium (Protonix Ec Tab) 40 mg PO DAILY@1200 [facility] Last Admin: 11/05/17 12:30 Dose: 40 mg Topiramate (Topamax) 75 mg PO BID [facility] Last Admin: 11/05/17 09:04 Dose: 75 mg Valsartan (Diovan) 80 mg PO BID [facility] Last Admin: 11/05/17 09:06 Dose: 80 mg Physical Exam - Constitutional Appears: Non-toxic, Cachectic, Chronically Ill - Head Exam Head Exam: ATRAUMATIC, NORMAL INSPECTION, NORMOCEPHALIC - Eye Exam Eye Exam: PERRL. absent: Scleral icterus - ENT Exam ENT Exam: Mucous Membranes Dry, Normal External Ear Exam, Normal Oropharynx - Neck Exam Neck exam: Negative for: Lymphadenopathy, Thyromegaly - Respiratory Exam Respiratory Exam: Decreased Breath Sounds, Prolonged Expiratory Phase, Rhonchi - Cardiovascular Exam Cardiovascular Exam: REGULAR RHYTHM, +S1, +S2 - GI/Abdominal Exam GI & Abdominal Exam: Diminished Bowel Sounds, Soft. absent: Tenderness - Rectal Exam Rectal Exam: Deferred - Exam Exam: NORMAL INSPECTION - Extremities Exam Extremities exam: Positive for: pedal pulses present. Negative for: calf tenderness, pedal edema, tenderness - Back Exam Back exam: absent: CVA tenderness (L), CVA tenderness (R) - Neurological Exam Neurological exam: Alert, CN II-XII Intact, Oriented x3, Reflexes Normal - Psychiatric Exam Psychiatric exam: Depressed - Skin Skin Exam: Dry Results - Vital Signs Recent Vital Signs: Last Vital Signs Temp 101.0 F H 11/05/17 13:11 Pulse 76 11/05/17 13:03 Resp 20 11/05/17 13:03 BP 125/57 L 11/05/17 13:03 Pulse Ox 99 11/05/17 13:03 - Labs Result Diagrams: 11/05/17 06:02 11/05/17 06:02 Labs: Laboratory Results - last 24 hr 11/04/17 11/04/17 11/04/17 17:30 17:56 17:56 WBC 13.2 H D RBC 3.47 L Hgb 11.7 L Hct 35.8 MCV 103.3 H D MCH 33.7 H MCHC 32.6 L RDW 14.1 Plt Count 221 MPV 10.7 Neut % (Auto) 91.2 H Lymph % (Auto) 2.7 L [place] % (Auto) 5.6 Eos % (Auto) 0.1 Baso % (Auto) 0.4 Neut # 12.1 H Lymph # 0.4 L [place] # 0.7 Eos # 0.0 Baso # 0.1 Neutrophils % (Manual) 93 H Lymphocytes % (Manual) 0 L Monocytes % (Manual) 7 Platelet Estimate Normal Large Platelets Present Anisocytosis (manual) Slight Stomatocytes Slight APTT pO2 56 H VBG pH 7.42 VBG pCO2 33 L VBG HCO3 22.9 VBG Total CO2 22.4 VBG O2 Sat (Calc) 95.7 H VBG Base Excess -2.3 L VBG Potassium 3.8 Sodium 137.0 141 Chloride 111.0 H 109 H Glucose 158 H Lactate 1.0 FiO2 21.0 Potassium 5.3 H Carbon Dioxide 19 L Anion Gap 18 BUN 21 H Creatinine 1.4 H Est GFR ( Amer) 43 Est GFR (Non-Af Amer) 36 POC Glucose (mg/dL) Random Glucose 161 H Calcium 9.3 Total Bilirubin 1.3 AST 32 ALT 16 Alkaline Phosphatase 86 NT-Pro-B Natriuret Pep Total Protein 8.5 H Albumin 4.3 Globulin 4.2 H Albumin/Globulin Ratio 1.0 Triglycerides Cholesterol LDL Cholesterol Direct HDL Cholesterol TSH 3rd Generation Venous Blood Potassium 3.8 Urine Color Urine Clarity Urine pH Ur Specific [place] Urine Protein Urine Glucose (UA) Urine Ketones Urine Blood Urine Nitrate Urine Bilirubin Urine Urobilinogen Ur Leukocyte Esterase Urine RBC (Auto) Urine Microscopic WBC Ur Squamous Epith Cells Urine Bacteria Influenza Typ A,B (EIA) 11/04/17 11/04/17 11/04/17 18:00 19:00 20:00 WBC RBC Hgb Hct MCV MCH MCHC RDW Plt Count MPV Neut % (Auto) Lymph % (Auto) [place] % (Auto) Eos % (Auto) Baso % (Auto) Neut # Lymph # [place] # Eos # Baso # Neutrophils % (Manual) Lymphocytes % (Manual) Monocytes % (Manual) Platelet Estimate Large Platelets Anisocytosis (manual) Stomatocytes APTT pO2 VBG pH VBG pCO2 VBG HCO3 VBG Total CO2 VBG O2 Sat (Calc) VBG Base Excess VBG Potassium Sodium Chloride Glucose Lactate FiO2 Potassium Carbon Dioxide Anion Gap BUN Creatinine Est GFR ( Amer) Est GFR (Non-Af Amer) POC Glucose (mg/dL) 150 H Random Glucose Calcium Total Bilirubin AST ALT Alkaline Phosphatase NT-Pro-B Natriuret Pep Total Protein Albumin Globulin Albumin/Globulin Ratio Triglycerides Cholesterol LDL Cholesterol Direct HDL Cholesterol TSH 3rd Generation Venous Blood Potassium Urine Color Yellow Urine Clarity Slighty-cloudy Urine pH 6.0 Ur Specific [place] 1.011 Urine Protein 100 Urine Glucose (UA) Neg Urine Ketones Negative Urine Blood Small Urine Nitrate Negative Urine Bilirubin Negative Urine Urobilinogen 0.2-1.0 Ur Leukocyte Esterase Trace Urine RBC (Auto) 2 Urine Microscopic WBC 11 H Ur Squamous Epith Cells < 1 Urine Bacteria Mod H Influenza Typ A,B (EIA) Negative for flu a/b 11/04/17 11/05/17 11/05/17 23:35 05:30 06:02 WBC RBC Hgb Hct MCV MCH MCHC RDW Plt Count MPV Neut % (Auto) Lymph % (Auto) [place] % (Auto) Eos % (Auto) Baso % (Auto) Neut # Lymph # [place] # Eos # Baso # Neutrophils % (Manual) Lymphocytes % (Manual) Monocytes % (Manual) Platelet Estimate Large Platelets Anisocytosis (manual) Stomatocytes APTT 33.7 pO2 35 VBG pH 7.36 VBG pCO2 41 VBG HCO3 22.3 VBG Total CO2 24.5 VBG O2 Sat (Calc) 69.7 H VBG Base Excess -2.2 L VBG Potassium 3.1 L Sodium 136.0 Chloride 108.0 H Glucose 124 H Lactate 0.6 L FiO2 21.0 Potassium Carbon Dioxide Anion Gap BUN Creatinine Est GFR ( Amer) Est GFR (Non-Af Amer) POC Glucose (mg/dL) 88 Random Glucose Calcium Total Bilirubin AST ALT Alkaline Phosphatase NT-Pro-B Natriuret Pep Total Protein Albumin Globulin Albumin/Globulin Ratio Triglycerides Cholesterol LDL Cholesterol Direct HDL Cholesterol TSH 3rd Generation Venous Blood Potassium 3.1 L Urine Color Urine Clarity Urine pH Ur Specific [place] Urine Protein Urine Glucose (UA) Urine Ketones Urine Blood Urine Nitrate Urine Bilirubin Urine Urobilinogen Ur Leukocyte Esterase Urine RBC (Auto) Urine Microscopic WBC Ur Squamous Epith Cells Urine Bacteria Influenza Typ A,B (EIA) 11/05/17 11/05/17 11/05/17 06:02 06:02 11:32 WBC 8.8 RBC 3.09 L Hgb 10.4 L Hct 32.0 L MCV 103.5 H MCH 33.5 H MCHC 32.4 L RDW 13.7 Plt Count 171 MPV Neut % (Auto) Lymph % (Auto) [place] % (Auto) Eos % (Auto) Baso % (Auto) Neut # Lymph # [place] # Eos # Baso # Neutrophils % (Manual) Lymphocytes % (Manual) Monocytes % (Manual) Platelet Estimate Large Platelets Anisocytosis (manual) Stomatocytes APTT pO2 VBG pH VBG pCO2 VBG HCO3 VBG Total CO2 VBG O2 Sat (Calc) VBG Base Excess VBG Potassium Sodium 144 Chloride 109 H Glucose Lactate FiO2 Potassium 3.4 L Carbon Dioxide 24 Anion Gap 14 BUN 21 H Creatinine 1.6 H Est GFR ( Amer) 37 Est GFR (Non-Af Amer) 31 POC Glucose (mg/dL) 139 H Random Glucose 97 Calcium 8.8 Total Bilirubin 0.5 AST 18 ALT 24 Alkaline Phosphatase 73 NT-Pro-B Natriuret Pep 21213 H Total Protein 7.0 Albumin 3.5 Globulin 3.5 Albumin/Globulin Ratio 1.0 Triglycerides 39 D Cholesterol 120 LDL Cholesterol Direct 57 HDL Cholesterol 40 TSH 3rd Generation 0.57 Venous Blood Potassium Urine Color Urine Clarity Urine pH Ur Specific [place] Urine Protein Urine Glucose (UA) Urine Ketones Urine Blood Urine Nitrate Urine Bilirubin Urine Urobilinogen Ur Leukocyte Esterase Urine RBC (Auto) Urine Microscopic WBC Ur Squamous Epith Cells Urine Bacteria Influenza Typ A,B (EIA) Assessment & Plan (1) Seizure Status: Acute (2) Sepsis Status: Acute (3) UTI (urinary tract infection) Status: Acute (4) Acute bronchitis Status: Acute Priority: High (5) Acute on chronic renal insufficiency Status: Acute (6) Anemia Status: Acute Priority: Medium (7) CAD (coronary artery disease) Status: Acute (8) CHF (congestive heart failure) Status: Acute Priority: High (9) DMII (diabetes mellitus, type 2) Status: Acute (10) Dementia Status: Acute - Assessment and Plan (Free Text) Assessment: blood c/s so far negative CXR - ? early infiltrate await cultures cont IV antibotics
[2017-11-05] MEDS ORDERED: Albuterol 0.083% Inhal Sol (2.5 mg/3 mL) UD INH PRN (15:02)
--- NOTE | 2017-11-05 17:21 | CARD ---
APPROVED REPORT EKG Measurement Heart [id number] <Conclusion> Sinus tachycardia Nonspecific ST and T wave abnormality Abnormal ECG
--- NOTE | 2017-11-05 19:54 | CP.PCM.CON ---
History of Present Illness - History of Present Illness History of Present Illness: diabetes mellitus Past Patient History - Infectious Disease Hx of Infectious Diseases: None - Tetanus Immunizations Tetanus Immunization: Unknown - Past Medical History & Family History Past Medical History?: Yes - Past Social History Smoking Status: Former Smoker - CARDIAC Hx Congestive Heart Failure: Yes Hx Hypercholesterolemia: Yes Hx Hypertension: Yes Hx Peripheral Edema: Yes - PULMONARY Hx Asthma: Yes Hx Pneumonia: Yes Hx Pulmonary Embolism: Yes - NEUROLOGICAL Hx Alzheimer's Disease: Yes Hx Dementia: Yes Hx Seizures: Yes - HEENT Hx HEENT Problems: No - RENAL Hx Chronic Kidney Disease: Yes - ENDOCRINE/METABOLIC Hx Endocrine Disorders: Yes Hx Diabetes Mellitus Type 2: Yes - HEMATOLOGICAL/ONCOLOGICAL Hx Anemia: Yes Hx Human Immunodeficiency Virus (HIV): No - INTEGUMENTARY Hx Dermatological Problems: No - MUSCULOSKELETAL/RHEUMATOLOGICAL Hx Arthritis: Yes - GASTROINTESTINAL Hx Gastrointestinal Disorders: Yes 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, 2006 and 2007) Hx Constipation: Yes Other/Comment: Ventral hernia - GENITOURINARY/GYNECOLOGICAL Hx Genitourinary Disorders: No - PSYCHIATRIC Hx Depression: Yes - SURGICAL HISTORY Hx Appendectomy: Yes Hx Cholecystectomy: Yes Hx Coronary Stent: Yes (7 stents as per the daughter) - ANESTHESIA Hx Anesthesia: Yes Hx Anesthesia Reactions: Yes (hard to wake up) Hx Malignant Hyperthermia: No Meds Allergies/Adverse Reactions: Allergies Allergy/AdvReac Type Severity Reaction Status Date / Time No Known Allergies Allergy Verified 04/30/17 15:30 - Medications Medications: Current Medications Acetaminophen (Tylenol 325mg Tab) 650 mg PO Q8 PRN PRN Reason: Fever 101.0 and above Last Admin: 11/05/17 13:11 Dose: 650 mg Albuterol Sulfate (Albuterol 0.083% Inhal Blessing (2.5 Mg/3 Ml) Ud) 2.5 mg INH RQ6 PRN PRN Reason: Shortness of Breath Atorvastatin Calcium (Lipitor) 20 mg PO HS [facility] Clopidogrel Bisulfate (Plavix) 75 mg PO DAILY [facility] Last Admin: 11/05/17 09:04 Dose: 75 mg Donepezil HCl (Aricept) 10 mg PO HS [facility] Furosemide (Lasix) 20 mg IVP Q12@0100,1300 [facility] Last Admin: 11/05/17 12:33 Dose: 20 mg Glipizide (Glucotrol Xl) 10 mg PO BRK [facility] Last Admin: 11/05/17 09:04 Dose: 10 mg Heparin Sodium (Porcine) (Heparin) 5,000 units SC Q12@0100,1300 [facility] PRN Reason: Protocol Last Admin: 11/05/17 12:31 Dose: 5,000 units Home Med (Lubiprostone [Amitiza]) 24 mcg PO DAILY [facility] Piperacillin Sod/Tazobactam (Sod 2.25 gm/ Sodium Chloride) 100 mls @ 100 mls/ hr IVPB Q8@0400,1200,2000 [facility] PRN Reason: Protocol Last Admin: 11/05/17 12:29 Dose: 100 mls/hr Memantine (Namenda) 5 mg PO DAILY [facility] Last Admin: 11/05/17 09:04 Dose: 5 mg Montelukast Sodium (Singulair) 10 mg PO HS [facility] Pantoprazole Sodium (Protonix Ec Tab) 40 mg PO DAILY@1200 [facility] Last Admin: 11/05/17 12:30 Dose: 40 mg Topiramate (Topamax) 100 mg PO BID [facility] Last Admin: 11/05/17 17:32 Dose: 100 mg Valsartan (Diovan) 80 mg PO BID [facility] Last Admin: 11/05/17 17:31 Dose: 80 mg Results - Vital Signs Recent Vital Signs: Last Vital Signs Temp 98.5 F 11/05/17 19:23 Pulse 72 11/05/17 19:23 Resp 16 11/05/17 19:23 BP 131/52 L 11/05/17 19:23 Pulse Ox 100 11/05/17 19:23 - Labs Result Diagrams: 11/05/17 06:02 11/05/17 06:02 Labs: Laboratory Results - last 24 hr 11/04/17 11/04/17 11/05/17 20:00 23:35 05:30 WBC RBC Hgb Hct MCV MCH MCHC RDW Plt Count APTT pO2 35 VBG pH 7.36 VBG pCO2 41 VBG HCO3 22.3 VBG Total CO2 24.5 VBG O2 Sat (Calc) 69.7 H VBG Base Excess -2.2 L VBG Potassium 3.1 L Sodium 136.0 Chloride 108.0 H Glucose 124 H Lactate 0.6 L FiO2 21.0 Potassium Carbon Dioxide Anion Gap BUN Creatinine Est GFR ( Amer) Est GFR (Non-Af Amer) POC Glucose (mg/dL) 88 Random Glucose Calcium Total Bilirubin AST ALT Alkaline Phosphatase NT-Pro-B Natriuret Pep Total Protein Albumin Globulin Albumin/Globulin Ratio Triglycerides Cholesterol LDL Cholesterol Direct HDL Cholesterol TSH 3rd Generation Venous Blood Potassium 3.1 L Urine Color Yellow Urine Clarity Slighty-cloudy Urine pH 6.0 Ur Specific Nixon 1.011 Urine Protein 100 Urine Glucose (UA) Neg Urine Ketones Negative Urine Blood Small Urine Nitrate Negative Urine Bilirubin Negative Urine Urobilinogen 0.2-1.0 Ur Leukocyte Esterase Trace Urine RBC (Auto) 2 Urine Microscopic WBC 11 H Ur Squamous Epith Cells < 1 Urine Bacteria Mod H 11/05/17 11/05/17 11/05/17 06:02 06:02 06:02 WBC 8.8 RBC 3.09 L Hgb 10.4 L Hct 32.0 L MCV 103.5 H MCH 33.5 H MCHC 32.4 L RDW 13.7 Plt Count 171 APTT 33.7 pO2 VBG pH VBG pCO2 VBG HCO3 VBG Total CO2 VBG O2 Sat (Calc) VBG Base Excess VBG Potassium Sodium 144 Chloride 109 H Glucose Lactate FiO2 Potassium 3.4 L Carbon Dioxide 24 Anion Gap 14 BUN 21 H Creatinine 1.6 H Est GFR ( Amer) 37 Est GFR (Non-Af Amer) 31 POC Glucose (mg/dL) Random Glucose 97 Calcium 8.8 Total Bilirubin 0.5 AST 18 ALT 24 Alkaline Phosphatase 73 NT-Pro-B Natriuret Pep 52736 H Total Protein 7.0 Albumin 3.5 Globulin 3.5 Albumin/Globulin Ratio 1.0 Triglycerides 39 D Cholesterol 120 LDL Cholesterol Direct 57 HDL Cholesterol 40 TSH 3rd Generation 0.57 Venous Blood Potassium Urine Color Urine Clarity Urine pH Ur Specific Nixon Urine Protein Urine Glucose (UA) Urine Ketones Urine Blood Urine Nitrate Urine Bilirubin Urine Urobilinogen Ur Leukocyte Esterase Urine RBC (Auto) Urine Microscopic WBC Ur Squamous Epith Cells Urine Bacteria 11/05/17 11/05/17 11/05/17 11:32 15:43 18:02 WBC RBC Hgb Hct MCV MCH MCHC RDW Plt Count APTT pO2 VBG pH VBG pCO2 VBG HCO3 VBG Total CO2 VBG O2 Sat (Calc) VBG Base Excess VBG Potassium Sodium Chloride Glucose Lactate FiO2 Potassium Carbon Dioxide Anion Gap BUN Creatinine Est GFR ( Amer) Est GFR (Non-Af Amer) POC Glucose (mg/dL) 139 H 68 66 Random Glucose Calcium Total Bilirubin AST ALT Alkaline Phosphatase NT-Pro-B Natriuret Pep Total Protein Albumin Globulin Albumin/Globulin Ratio Triglycerides Cholesterol LDL Cholesterol Direct HDL Cholesterol TSH 3rd Generation Venous Blood Potassium Urine Color Urine Clarity Urine pH Ur Specific Nixon Urine Protein Urine Glucose (UA) Urine Ketones Urine Blood Urine Nitrate Urine Bilirubin Urine Urobilinogen Ur Leukocyte Esterase Urine RBC (Auto) Urine Microscopic WBC Ur Squamous Epith Cells Urine Bacteria 11/05/17 18:29 WBC RBC Hgb Hct MCV MCH MCHC RDW Plt Count APTT pO2 VBG pH VBG pCO2 VBG HCO3 VBG Total CO2 VBG O2 Sat (Calc) VBG Base Excess VBG Potassium Sodium Chloride Glucose Lactate FiO2 Potassium Carbon Dioxide Anion Gap BUN Creatinine Est GFR ( Amer) Est GFR (Non-Af Amer) POC Glucose (mg/dL) 68 Random Glucose Calcium Total Bilirubin AST ALT Alkaline Phosphatase NT-Pro-B Natriuret Pep Total Protein Albumin Globulin Albumin/Globulin Ratio Triglycerides Cholesterol LDL Cholesterol Direct HDL Cholesterol TSH 3rd Generation Venous Blood Potassium Urine Color Urine Clarity Urine pH Ur Specific Nixon Urine Protein Urine Glucose (UA) Urine Ketones Urine Blood Urine Nitrate Urine Bilirubin Urine Urobilinogen Ur Leukocyte Esterase Urine RBC (Auto) Urine Microscopic WBC Ur Squamous Epith Cells Urine Bacteria Assessment & Plan (1) Hypoglycemia associated with type 2 diabetes mellitus Assessment and Plan: Endocrine consult reason for consult: uncontrolled diabetes Source: chart review Ms. Parker is 82 y/o admitted for seziure /pneumonia /sepsis , fever 103 on antibiotics pt currentely on glipizide xl 10 mg qd , blood glucose log : 130-150 , last glucose 68 Allergy NKDA Past medical history:Dementia , asthma , anemia , CAD , HTN ,hyperlipidemia , pulmonary embolism Past surgical history: cholecystectomy, appendectomy , cadiac cath s/p stents Psychiatry history: (+) psychiatry disorder Social history : no smoking , ETOH use , illicit drug use Family history : irrelevant ROS: Constitutional: (+) fever, tiredness/weakness. HEENT: no earache, change in voice .Respiratory: no cough, sob . CVS :no chest pain, no palpitations . Abdomen: no abdominal pain, no nausea /vomiting, no change bowel movement. 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 Extremities: no edema, no tremors. Skin: no itching, no rash Physical exam Well-developed Aawake & alet to self , frail ,NAD VSS HEENT: norm cephalic, atraumatic, no lid lag , no exophthalmos NECK: supple, no palpable lymphadenopathy THYROID: no palpable thyromegaly, not tender CHEST: fair air entry, bilateral, CVS: S1,S2 ABDOMEN: bowel sound present, benign, obese, no wide purple striae , no bruises EXTREMITIES: no edema, clubbing or cyanosis, no palpable hand tremors Skin: acanthosis nigricans lab: tsh 0.54 , NT-pro RETURN AGENT 51263, tg 39 , ldl 57 , h/h 10.4/32.0 , cr 1.6 , gfr 31 , U/A (+) blood, leukocyte Assessment hypoglycemia uncontrolled DM acute on chronic renal insufficiency /CHF sezuire UTI Dementia plan stop Glipzide start Novoloin R low dose coverage, no 3 am coverage f/u a1c Thank you for allowing me to participate in the care of the patient, we will follow with you. Status: Acute (2) Seizure Status: Acute (3) DMII (diabetes mellitus, type 2) Status: Acute (4) Acute on chronic renal insufficiency Status: Acute (5) UTI (urinary tract infection) Status: Acute (6) Dementia Status: Acute
[2017-11-05] MEDS: Insulin Regular 100 units/ml SC SCH (21:37)
[2017-11-06] MEDS ORDERED: Glucagon Recombinant 1 mg Inj IM PRN (00:55)
--- NOTE | 2017-11-06 00:55 | CP.PCM.PCO ---
Physician Communication Note - Physician Communication Note Physician Communication Note: Pt examined and asymptoatic despite hypoglycemia. Tolerating PO, Alert
[2017-11-06] MEDS: Dextrose 50% SYRINGE Inj (50 ml) IV PRN ×2 (06:09→21:25)
[2017-11-06] MEDS: Insulin Regular 100 units/ml SC SCH ×4 (06:45→21:33)
[2017-11-06] MEDS: Pantoprazole 40 mg EC Tab PO SCH (09:33)
--- NOTE | 2017-11-06 10:05 | HP ---
HISTORY OF PRESENT ILLNESS: This is an 82-year-old with history of Alzheimer's, dementia, diabetes, hypertension, CHF, COPD, and the patient because the patient was noted to have a seizure as per the daughter, and also the patient was found to have a fever of 103, so patient was brought to the emergency room and patient was admitted. ALLERGIES: THE PATIENT HAS NO KNOWN ALLERGIES. PAST MEDICAL HISTORY: As I mentioned, history of hypertension, diabetes, seizure, CHF, aortic stenosis, and CKD. SOCIAL HISTORY: No smoking or alcohol abuse. Patient is living with the daughter. FAMILY HISTORY: No hereditary disease. REVIEW OF SYSTEMS: RESPIRATORY: Congested cough. CARDIOVASCULAR: Patient does not have any chest pain at this time. GI: No nausea or vomiting. No diarrhea or constipation. : No dysuria, but occasional . NEUROLOGIC: Patient is weak. PSYCHIATRIC: Patient is forgetful. PHYSICAL EXAMINATION: GENERAL: Patient is alert and very forgetful. VITAL SIGNS: Blood pressure is 125/67, pulse is 76, respirations 20, temperature is 101 degrees Fahrenheit now. NECK: Supple. LUNGS: There are some rales at the bases. HEART: Regular rate and rhythm. Positive murmur. ABDOMEN: Soft, positive umbilical epigastric hernia and positive bowel sounds. No tenderness noted. EXTREMITIES: There is no edema. LABORATORY DATA: Chest x-ray done in the emergency room showed limited lung atelectasis in the middle of the lung zone bilaterally and no acute infiltrate, pleural effusion, or pneumothorax. The labs showed WBC on admission was 13.2, hemoglobin 11.7, hematocrit 35.8, and platelet is 221. Chemistry showed sodium 144, potassium 3.4, chloride 109, bicarb 24, BUN 21, creatinine 1.6, glucose 139, and calcium 8.8. The proBNP tested 13,300, cholesterol leve is 120, LDL of 67, HDL is 40, and TSH is 0.57. The urine showed that bacteria is moderate and wbc is 11. IMPRESSION: 1. Seizure. 2. Urosepsis. 3. Cardiomyopathy. 4. Congestive heart failure. 5. Chronic obstructive pulmonary disease. 6. Alzheimer's. 7. Diabetes. 8. Chronic kidney disease. PLAN: So patient will have a consult with Dr. Fuentes, ID; also will have a consult with Dr. Sami Goldman. Slim Marino MD
--- NOTE | 2017-11-06 12:51 | CP.PCM.PN ---
Subjective - Date & Time of Evaluation Date of Evaluation: 11/06/17 Time of Evaluation: 08:00 - Subjective Subjective: low grade temps NAD Objective - Vital Signs/Intake and Output Vital Signs (last 24 hours): Temp Pulse Resp BP Pulse Ox 100.1 F H 83 18 118/64 99 11/06/17 08:21 11/06/17 08:21 11/06/17 08:21 11/06/17 08:21 11/06/17 08:21 - Medications Medications: Current Medications Acetaminophen (Tylenol 325mg Tab) 650 mg PO Q8 PRN PRN Reason: Fever 101.0 and above Last Admin: 11/05/17 13:11 Dose: 650 mg Albuterol Sulfate (Albuterol 0.083% Inhal Blessing (2.5 Mg/3 Ml) Ud) 2.5 mg INH RQ6 PRN PRN Reason: Shortness of Breath Atorvastatin Calcium (Lipitor) 20 mg PO HS [facility] Last Admin: 11/05/17 21:36 Dose: 20 mg Clopidogrel Bisulfate (Plavix) 75 mg PO DAILY [facility] Last Admin: 11/06/17 09:35 Dose: 75 mg Dextrose (Dextrose 50% Inj) 0 ml IV STAT PRN; Protocol PRN Reason: Hypoglycemia Protocol Last Admin: 11/06/17 06:09 Dose: 50 ml Dextrose (Glutose 15) 0 gm PO ONCE PRN; Protocol PRN Reason: Hypoglycemia Protocol Last Admin: 11/06/17 01:21 Dose: 15 gm Donepezil HCl (Aricept) 10 mg PO HS [facility] Last Admin: 11/05/17 21:36 Dose: 10 mg Furosemide (Lasix) 20 mg IVP Q12@0100,1300 [facility] Last Admin: 11/06/17 01:18 Dose: 20 mg Glucagon (Glucagen Diagnostic Kit) 0 mg IM STAT PRN; Protocol PRN Reason: Hypoglycemia Protocol Heparin Sodium (Porcine) (Heparin) 5,000 units SC Q12@0100,1300 [facility] PRN Reason: Protocol Last Admin: 11/06/17 01:20 Dose: 5,000 units Home Med (Lubiprostone [Amitiza]) 24 mcg PO DAILY [facility] Piperacillin Sod/Tazobactam (Sod 2.25 gm/ Sodium Chloride) 100 mls @ 100 mls/ hr IVPB Q8@0400,1200,2000 [facility] PRN Reason: Protocol Last Admin: 11/06/17 03:44 Dose: 100 mls/hr Insulin Human Regular (Humulin R) 0 units SC ACHS [facility] PRN Reason: Protocol Last Admin: 11/06/17 06:45 Dose: Not Given Memantine (Namenda) 5 mg PO DAILY [facility] Last Admin: 11/06/17 09:35 Dose: 5 mg Montelukast Sodium (Singulair) 10 mg PO HS [facility] Last Admin: 11/05/17 21:36 Dose: 10 mg Pantoprazole Sodium (Protonix Ec Tab) 40 mg PO DAILY [facility] Last Admin: 11/06/17 09:33 Dose: 40 mg Topiramate (Topamax) 100 mg PO BID [facility] Last Admin: 11/06/17 09:35 Dose: 100 mg Valsartan (Diovan) 80 mg PO BID [facility] Last Admin: 11/06/17 09:34 Dose: 80 mg - Labs Labs: 11/05/17 06:02 11/05/17 06:02 APTT 33.7 Seconds (25.6-37.1) 11/05/17 06:02 - Constitutional Appears: Non-toxic, Chronically Ill - Head Exam Head Exam: NORMOCEPHALIC - Eye Exam Eye Exam: PERRL - ENT Exam ENT Exam: Mucous Membranes Dry - Neck Exam Neck Exam: absent: Lymphadenopathy - Respiratory Exam Respiratory Exam: Decreased Breath Sounds - Cardiovascular Exam Cardiovascular Exam: REGULAR RHYTHM - GI/Abdominal Exam GI & Abdominal Exam: Distended, Soft Assessment and Plan (1) Seizure Status: Acute (2) Sepsis Status: Deleted (3) UTI (urinary tract infection) Status: Acute (4) Acute bronchitis Status: Acute (5) Acute on chronic renal insufficiency Status: Acute (6) Anemia Status: Acute (7) CAD (coronary artery disease) Status: Acute (8) CHF (congestive heart failure) Status: Acute (9) DMII (diabetes mellitus, type 2) Status: Acute (10) Dementia Status: Acute
--- NOTE | 2017-11-06 22:03 | CP.PCM.PN ---
Subjective - Date & Time of Evaluation Date of Evaluation: 11/06/17 Time of Evaluation: 22:00 - Subjective Subjective: diabetes Objective - Vital Signs/Intake and Output Vital Signs (last 24 hours): Temp Pulse Resp BP Pulse Ox 99 F 77 14 155/64 H 99 11/06/17 20:53 11/06/17 20:53 11/06/17 20:53 11/06/17 20:53 11/06/17 20:53 - Medications Medications: Current Medications Acetaminophen (Tylenol 325mg Tab) 650 mg PO Q8 PRN PRN Reason: Fever 101.0 and above Last Admin: 11/05/17 13:11 Dose: 650 mg Albuterol Sulfate (Albuterol 0.083% Inhal Blessing (2.5 Mg/3 Ml) Ud) 2.5 mg INH RQ6 PRN PRN Reason: Shortness of Breath Atorvastatin Calcium (Lipitor) 20 mg PO HS [facility] Last Admin: 11/06/17 21:31 Dose: 20 mg Clopidogrel Bisulfate (Plavix) 75 mg PO DAILY [facility] Last Admin: 11/06/17 09:35 Dose: 75 mg Dextrose (Dextrose 50% Inj) 0 ml IV STAT PRN; Protocol PRN Reason: Hypoglycemia Protocol Last Admin: 11/06/17 21:25 Dose: 50 ml Dextrose (Glutose 15) 0 gm PO ONCE PRN; Protocol PRN Reason: Hypoglycemia Protocol Last Admin: 11/06/17 01:21 Dose: 15 gm Donepezil HCl (Aricept) 10 mg PO HS [facility] Last Admin: 11/06/17 21:31 Dose: 10 mg Furosemide (Lasix) 20 mg IVP Q12@0100,1300 [facility] Last Admin: 11/06/17 14:40 Dose: 20 mg Glucagon (Glucagen Diagnostic Kit) 0 mg IM STAT PRN; Protocol PRN Reason: Hypoglycemia Protocol Heparin Sodium (Porcine) (Heparin) 5,000 units SC Q12@0100,1300 [facility] PRN Reason: Protocol Last Admin: 11/06/17 13:35 Dose: 5,000 units Home Med (Lubiprostone [Amitiza]) 24 mcg PO DAILY [facility] Piperacillin Sod/Tazobactam (Sod 2.25 gm/ Sodium Chloride) 100 mls @ 100 mls/ hr IVPB Q8@0400,1200,2000 [facility] PRN Reason: Protocol Last Admin: 11/06/17 20:24 Dose: 100 mls/hr Insulin Human Regular (Humulin R) 0 units SC ACHS [facility] PRN Reason: Protocol Last Admin: 11/06/17 21:33 Dose: Not Given Memantine (Namenda) 5 mg PO DAILY [facility] Last Admin: 11/06/17 09:35 Dose: 5 mg Montelukast Sodium (Singulair) 10 mg PO HS [facility] Last Admin: 11/06/17 21:31 Dose: 10 mg Pantoprazole Sodium (Protonix Ec Tab) 40 mg PO DAILY [facility] Last Admin: 11/06/17 09:33 Dose: 40 mg Topiramate (Topamax) 100 mg PO BID [facility] Last Admin: 11/06/17 16:30 Dose: 100 mg Valsartan (Diovan) 80 mg PO BID [facility] Last Admin: 11/06/17 19:06 Dose: 80 mg - Labs Labs: 11/05/17 06:02 11/05/17 06:02 APTT 33.7 Seconds (25.6-37.1) 11/05/17 06:02 Assessment and Plan (1) Hypoglycemia associated with type 2 diabetes mellitus Assessment & Plan: 1) Hypoglycemia associated with type 2 diabetes mellitus Assessment and Plan: Endocrine consult reason for consult: uncontrolled diabetes Source: chart review Ms. Parker is 82 y/o admitted for seziure /pneumonia /sepsis , fever 103 on antibiotics pt currentely on glipizide xl 10 mg qd , blood glucose log : 50-60 's on D5 prn , last glucose 31 atfer D5 up to 170 ! Allergy NKDA Past medical history:Dementia , asthma , anemia , CAD , HTN ,hyperlipidemia , pulmonary embolism Past surgical history: cholecystectomy, appendectomy , cadiac cath s/p stents Psychiatry history: (+) psychiatry disorder Social history : no smoking , ETOH use , illicit drug use Family history : irrelevant ROS: Constitutional: (+) fever, tiredness/weakness. HEENT: no earache, change in voice .Respiratory: no cough, sob . CVS :no chest pain, no palpitations . Abdomen: no abdominal pain, no nausea /vomiting, no change bowel movement. 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 Extremities: no edema, no tremors. Skin: no itching, no rash Physical exam Well-developed Aawake & alet to self , frail ,NAD VSS HEENT: norm cephalic, atraumatic, no lid lag , no exophthalmos NECK: supple, no palpable lymphadenopathy THYROID: no palpable thyromegaly, not tender CHEST: fair air entry, bilateral, CVS: S1,S2 ABDOMEN: bowel sound present, benign, obese, no wide purple striae , no bruises EXTREMITIES: no edema, clubbing or cyanosis, no palpable hand tremors Skin: acanthosis nigricans lab: tsh 0.54 , NT-pro [employer]MBRELL[employer] TIPPER MACHINE [address], tg 39 , ldl 57 , h/h 10.4/32.0 , cr 1.6 , gfr 31 , U/A (+) blood, leukocyte Assessment sever hypoglycemia , pt. with seizure ! uncontrolled DM acute on chronic renal insufficiency /CHF sezuire UTI Dementia plan stop insulin coverage off Glipzide strat D 10 @ 80 cc /h f/u a1c plan communicated with nurse in charge Thank you for allowing me to participate in the care of the patient, we will follow with you. Status: Acute (2) Seizure Status: Acute (3) DMII (diabetes mellitus, type 2) Status: Acute (4) Acute on chronic renal insufficiency Status: Acute (5) UTI (urinary tract infection) Status: Acute (6) Dementia Status: Acute
--- NOTE | 2017-11-07 00:23 | PN ---
DATE: 11/06/2017 SUBJECTIVE: Today, patient is alert and awake, but forgetful and at times confused. Denied any abdominal pain. No chest pain. No palpitation. PHYSICAL EXAMINATION: VITAL SIGNS: Patient has blood pressure of 155/64, pulse is 77, respirations 18, temperature 99 degrees Fahrenheit. NECK: Supple. LUNGS: There are some rales bilaterally at the bases. HEART: Regular rate and rhythm. Positive murmur. ABDOMEN: Soft. Positive umbilical and epigastric hernia. No tenderness, however. EXTREMITIES: There is no edema. No tenderness. LABORATORY DATA: Patient has some tests done. Patient's microbiology of urine showed that Gram-negative rods; the sensitivity is pending. Labs showed WBC 8.8, hemoglobin is 10.4, hematocrit 32, and platelet is 171. Chemistry showed that the sugar is low at 65, 57. PLAN: We are going to continue with the antibiotic therapy, and continue the current medications. We will order labs for tomorrow. We are waiting for the sensitivity of the urine culture. Slim Marino MD
[2017-11-07 06:19] LABS: ALB/GLOB RATIO 0.8 (1.0-2.1); CALCIUM 8.5 mg/dL (8.4-10.2)
[2017-11-07 06:26] LABS: BASO % 0.7 % (0.0-2.0); EOS # 0.1 K/uL (0.0-0.7); EOS % 2.6 % (0.0-4.0); LYMPH # 1.2 K/uL (1.0-4.3); LYMPH % 26.2 % (20.0-40.0); MEAN CELL VOLUME 101.7 fl (81.0-99.0); MEAN CORPUSCULAR HEMOGLOBIN 34.4 pg (27.0-31.0); MEAN CORPUSCULAR HGB CONC 33.8 g/dL (33.0-37.0); MEAN PLATELET VOLUME 10.8 fl (7.2-11.7); MONO # 0.4 K/uL (0.0-0.8); NEUT # 2.9 K/uL (1.8-7.0); NEUT % 62.5 % (50.0-75.0); NRBC % 0.1 % (0.0-0.0); RBC 2.91 Mil/uL (3.80-5.20); RED CELL DISTRIBUTION WIDTH 13.5 % (11.5-14.5); WHITE BLOOD COUNT 4.7 K/uL (4.8-10.8)
[2017-11-07] MEDS: Dextrose 50% SYRINGE Inj (50 ml) IV PRN (06:43)
[2017-11-07] MEDS: Pantoprazole 40 mg EC Tab PO SCH (09:23)
--- NOTE | 2017-11-07 10:40 | PQF CHF ---
This form is a permanent part of the medical record 11/07/17 Dr. Marino, Please clarify the Type and Acuity of CHF in your notes. Documentation that the patient has a history of CHF. BNP 13,000. Medication includes Lasix IV . + rales on physical exam. Echocardiogram from March 2016: EF 60-65%, grade II pseudonormal filling dynamics , severe , mild TR, moderate Pulmonary HTN. Clarification of your documentation is requested to better reflect the severity of illness and intensity of treatment of your patient. Indicators present [x] Diagnosis of CHF and/or history of CHF [x] BNP > 200 [] Imaging Finding of Pulmonary Edema /Pleural Effusions [] Fluid/Volume Overload [] Pitting edema [] Ejection Fraction < 40% (Indicative of Systolic Heart Failure) [x] Ejection Fraction > 40% (Indicative of Diastolic Heart Failure) [] Dyspnea / Orthopenea / Paroxysmal Nocturnal Dyspnea [] Other: Location in the medical record that reflects the above clinical findings: [] Treatment Provided: [] PHYSICIAN'S RESPONSE Based on your medical judgment of the clinical indicators outlined above, are you treating this patient for a known or suspected: [] Acute CHF [] Systolic [] Diastolic [] Combined [] Chronic CHF [] Systolic [] Diastolic [] Combined [] Acute on Chronic CHF []Systolic [] Diastolic [] Combined [] CHF due hypertension [] Acute systolic []Chronic systolic [] Acute/ chronic systolic [] Other, please indicate: [] [] If Unable to Determine, please check the box, sign and date. Present On Admission (POA) Indicator: [] Present at the time of admission [] Not present at the time of admission [] Clinically Undetermined In responding to this query, please exercise your independent professional judgment. The fact that a question is asked does not imply that any particular answer is desired or expected. Thank you for your clarification on this documentation. If you have any questions please call:[phone] * Thank you, Ann-Marie Hart RN, CDMP [facility]
--- NOTE | 2017-11-07 10:46 | CP.PCM.PN ---
Subjective - Date & Time of Evaluation Date of Evaluation: 11/07/17 Time of Evaluation: 09:00 - Subjective Subjective: low plts noted ESBL urine IV rx in progress added Cipro Objective - Vital Signs/Intake and Output Vital Signs (last 24 hours): Temp Pulse Resp BP Pulse Ox 97.2 F L 67 18 127/45 L 99 11/07/17 07:58 11/07/17 07:58 11/07/17 07:58 11/07/17 07:58 11/07/17 07:58 - Medications Medications: Current Medications Acetaminophen (Tylenol 325mg Tab) 650 mg PO Q8 PRN PRN Reason: Fever 101.0 and above Last Admin: 11/05/17 13:11 Dose: 650 mg Albuterol Sulfate (Albuterol 0.083% Inhal Blessing (2.5 Mg/3 Ml) Ud) 2.5 mg INH RQ6 PRN PRN Reason: Shortness of Breath Atorvastatin Calcium (Lipitor) 20 mg PO HS [facility] Last Admin: 11/06/17 21:31 Dose: 20 mg Clopidogrel Bisulfate (Plavix) 75 mg PO DAILY [facility] Last Admin: 11/07/17 09:19 Dose: 75 mg Dextrose (Dextrose 50% Inj) 0 ml IV STAT PRN; Protocol PRN Reason: Hypoglycemia Protocol Last Admin: 11/07/17 06:43 Dose: 50 ml Dextrose (Glutose 15) 0 gm PO ONCE PRN; Protocol PRN Reason: Hypoglycemia Protocol Last Admin: 11/06/17 01:21 Dose: 15 gm Donepezil HCl (Aricept) 10 mg PO HS [facility] Last Admin: 11/06/17 21:31 Dose: 10 mg Furosemide (Lasix) 20 mg IVP Q12@0100,1300 [facility] Last Admin: 11/07/17 00:54 Dose: 20 mg Glucagon (Glucagen Diagnostic Kit) 0 mg IM STAT PRN; Protocol PRN Reason: Hypoglycemia Protocol Heparin Sodium (Porcine) (Heparin) 5,000 units SC Q12@0100,1300 [facility] PRN Reason: Protocol Last Admin: 11/07/17 00:48 Dose: 5,000 units Home Med (Lubiprostone [Amitiza]) 24 mcg PO DAILY [facility] Dextrose (Dextrose 10% In Water) 1,000 mls @ 80 mls/hr IV .[id number] [facility] Stop: 11/07/17 22:09 Last Admin: 11/06/17 22:15 Dose: 80 mls/hr Ciprofloxacin (Cipro 200mg/100ml D5w) 100 mls @ 100 mls/hr IVPB Q12 [facility] Memantine (Namenda) 5 mg PO DAILY [facility] Last Admin: 11/07/17 09:23 Dose: 5 mg Montelukast Sodium (Singulair) 10 mg PO HS [facility] Last Admin: 11/06/17 21:31 Dose: 10 mg Pantoprazole Sodium (Protonix Ec Tab) 40 mg PO DAILY [facility] Last Admin: 11/07/17 09:23 Dose: 40 mg Topiramate (Topamax) 100 mg PO BID [facility] Last Admin: 11/07/17 09:22 Dose: 100 mg Valsartan (Diovan) 80 mg PO BID [facility] Last Admin: 11/07/17 09:19 Dose: 80 mg - Labs Labs: 11/07/17 04:25 11/07/17 04:25 APTT 33.7 Seconds (25.6-37.1) 11/05/17 06:02 - Constitutional Appears: Non-toxic, Chronically Ill - Head Exam Head Exam: NORMOCEPHALIC - Eye Exam Eye Exam: PERRL - ENT Exam ENT Exam: Mucous Membranes Dry - Neck Exam Neck Exam: absent: Lymphadenopathy - Respiratory Exam Respiratory Exam: Decreased Breath Sounds - Cardiovascular Exam Cardiovascular Exam: REGULAR RHYTHM - GI/Abdominal Exam GI & Abdominal Exam: Distended - Rectal Exam Rectal Exam: Deferred Assessment and Plan (1) Seizure Status: Acute (2) Sepsis Status: Deleted (3) UTI (urinary tract infection) Status: Acute (4) Acute bronchitis Status: Acute (5) Acute on chronic renal insufficiency Status: Acute (6) Anemia Status: Acute (7) CAD (coronary artery disease) Status: Acute (8) CHF (congestive heart failure) Status: Acute (9) DMII (diabetes mellitus, type 2) Status: Acute (10) Dementia Status: Acute
--- NOTE | 2017-11-07 10:54 | PQF GENQUE ---
This form is a permanent part of the medical record 11/07/17 Dr. Marino, Please clarify the stage of Chronic Kidney Disease. BUN 21, 21, 23 Creatinine 1.4, 1.6, 2.0 GFR ( Non ) 36, 31, 24, GFR ( ) 43, 37, 29 Clarification of your documentation is requested to better reflect the severity of illness and intensity of treatment of your patient. Indicators present [] Specify: [] [] Specify: [] [] Specify: [] [] Specify: [] Location in the medical record that reflects the above clinical findings: [] Treatment Provided: [] PHYSICIAN'S RESPONSE Stages of Chronic Kidney Disease: [] Stage 1 GFR >90 ml/min [] Stage 2 (mild) GFR 60-89 ml/min [] Stage 3 (moderate) GFR 30-59 ml/min [] Stage 4 (severe) GFR 15-29 ml/min [] Stage 5 / ESRD GFR <15 ml/min [] Other (please specify) [] Clinically unable to determine [] Unknown Based on your medical judgment of the clinical indicators outlined above please clarify the following: [] Practitioner response [] If unable to determine, please check the box, sign and date. Present On Admission (POA) Indicator: [] Present at the time of admission [] Not present at the time of admission [] Clinically Undetermined In responding to this query, please exercise your independent professional judgment. The fact that a question is asked does not imply that any particular answer is desired or expected. Thank you for your clarification on this documentation. If you have any questions please call:extension [phone] * Thank you, Ann-Mraie Hart RN CDMP MTDD
--- NOTE | 2017-11-07 11:12 | PQF GENQUE ---
This form is a permanent part of the medical record 11/07/17 Dr. Marino, Please clarify the specific condition indicated by the term " Urosepsis ". There is no ICD-10 code for Urosepsis. ER MD: DX: Sepsis, UTI ID: Dx: Sepsis, UTI Admitted with a witnessed generalized tonic -clonic seizure and a temperature of 103. Had a cough last week. HR 115, WBC 13.2 with a Left shift. Urine CS: Klebsiella Pneumoniae + ESBL. Treated with IVAB. Clarification of your documentation is requested to better reflect the severity of illness and intensity of treatment of your patient. Indicators present [] Specify: [] [] Specify: [] [] Specify: [] [] Specify: [] Location in the medical record that reflects the above clinical findings: [] Treatment Provided: [] PHYSICIAN'S RESPONSE Please specify the condition indicated by the term "Urosepsis". [] Bacteruria [] UTI [] Sepsis due to UTI [] Other ( please specify ) [] Clinically Unable to determine [] Unknown Based on your medical judgment of the clinical indicators outlined above please clarify the following: [] Practitioner response [] If unable to determine, please check the box, sign and date. Present On Admission (POA) Indicator: [] Present at the time of admission [] Not present at the time of admission [] Clinically Undetermined In responding to this query, please exercise your independent professional judgment. The fact that a question is asked does not imply that any particular answer is desired or expected. Thank you for your clarification on this documentation. If you have any questions please call:ext [phone] * Thank you, Ann-Marie Hart RN [facility]
[2017-11-07] MEDS: Ciprofloxacin 200mg/100ml D5W 100 ML IVPB SCH ×2 (12:24→21:53)
--- NOTE | 2017-11-07 15:49 | RAD ---
HISTORY: cough COMPARISON: Chest radiograph dated 11/04/2017. FINDINGS: LUNGS: No active pulmonary disease. PLEURA: No significant pleural effusion identified, no pneumothorax apparent. CARDIOVASCULAR: Atherosclerotic aortic calcifications. Cardiomediastinal silhouette unchanged. OSSEOUS STRUCTURES: Unchanged. VISUALIZED UPPER ABDOMEN: Normal. OTHER FINDINGS: None. IMPRESSION: No active disease.
--- NOTE | 2017-11-07 22:54 | CP.PCM.PN ---
Subjective - Date & Time of Evaluation Date of Evaluation: 11/07/17 Time of Evaluation: 08:15 - Subjective Subjective: uncontrolled DM with hypoglycemia Objective - Vital Signs/Intake and Output Vital Signs (last 24 hours): Temp Pulse Resp BP Pulse Ox 98.8 F 73 14 139/53 L 98 11/07/17 20:24 11/07/17 20:24 11/07/17 20:24 11/07/17 20:24 11/07/17 20:24 - Medications Medications: Current Medications Acetaminophen (Tylenol 325mg Tab) 650 mg PO Q8 PRN PRN Reason: Fever 101.0 and above Last Admin: 11/05/17 13:11 Dose: 650 mg Albuterol Sulfate (Albuterol 0.083% Inhal Blessing (2.5 Mg/3 Ml) Ud) 2.5 mg INH RQ6 PRN PRN Reason: Shortness of Breath Atorvastatin Calcium (Lipitor) 20 mg PO HS [facility] Last Admin: 11/07/17 21:53 Dose: 20 mg Clopidogrel Bisulfate (Plavix) 75 mg PO DAILY [facility] Last Admin: 11/07/17 09:19 Dose: 75 mg Dextrose (Dextrose 50% Inj) 0 ml IV STAT PRN; Protocol PRN Reason: Hypoglycemia Protocol Last Admin: 11/07/17 06:43 Dose: 50 ml Dextrose (Glutose 15) 0 gm PO ONCE PRN; Protocol PRN Reason: Hypoglycemia Protocol Last Admin: 11/06/17 01:21 Dose: 15 gm Donepezil HCl (Aricept) 10 mg PO HS [facility] Last Admin: 11/07/17 21:54 Dose: 10 mg Furosemide (Lasix) 20 mg IVP Q12@0100,1300 [facility] Last Admin: 11/07/17 13:32 Dose: 20 mg Glucagon (Glucagen Diagnostic Kit) 0 mg IM STAT PRN; Protocol PRN Reason: Hypoglycemia Protocol Heparin Sodium (Porcine) (Heparin) 5,000 units SC Q12@0100,1300 [facility] PRN Reason: Protocol Last Admin: 11/07/17 14:26 Dose: 5,000 units Home Med (Lubiprostone [Amitiza]) 24 mcg PO DAILY [facility] Last Admin: 11/07/17 14:26 Dose: 24 mcg Ciprofloxacin (Cipro 200mg/100ml D5w) 100 mls @ 100 mls/hr IVPB Q12 [facility] Last Admin: 11/07/17 21:53 Dose: 100 mls/hr Memantine (Namenda) 5 mg PO DAILY [facility] Last Admin: 11/07/17 09:23 Dose: 5 mg Montelukast Sodium (Singulair) 10 mg PO HS [facility] Last Admin: 11/07/17 21:53 Dose: 10 mg Pantoprazole Sodium (Protonix Ec Tab) 40 mg PO DAILY [facility] Last Admin: 11/07/17 09:23 Dose: 40 mg Topiramate (Topamax) 100 mg PO BID [facility] Last Admin: 11/07/17 18:20 Dose: 100 mg Valsartan (Diovan) 80 mg PO BID [facility] Last Admin: 11/07/17 18:20 Dose: 80 mg - Labs Labs: 11/07/17 04:25 11/07/17 04:25 APTT 33.7 Seconds (25.6-37.1) 11/05/17 06:02 Assessment and Plan (1) Hypoglycemia associated with type 2 diabetes mellitus Assessment & Plan: Endocrine consult reason for consult: uncontrolled diabetes Source: chart review Ms. Parker is 82 y/o admitted for seziure /pneumonia /sepsis , fever 103 on antibiotics blood glucose log : 70's one 31 -140-160 off D 10 for avoiding fluid overload , eating almost 100 % & started on Insure Allergy NKDA Past medical history:Dementia , asthma , anemia , CAD , HTN ,hyperlipidemia , pulmonary embolism Past surgical history: cholecystectomy, appendectomy , cadiac cath s/p stents Psychiatry history: (+) psychiatry disorder Social history : no smoking , ETOH use , illicit drug use Family history : irrelevant ROS: Constitutional: (+) fever, tiredness/weakness. HEENT: no earache, change in voice .Respiratory: no cough, sob . CVS :no chest pain, no palpitations . Abdomen: no abdominal pain, no nausea /vomiting, no change bowel movement. 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 Extremities: no edema, no tremors. 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 with seizure ! uncontrolled DM acute on chronic renal insufficiency /CHF sezuire UTI Dementia plan off insulin coverage off Glipzide s/p D 10 @ 80 cc /h on hypoglycemia protocol plan communicated with nurse in charge we will follow with you. Status: Acute (2) Seizure Status: Acute (3) DMII (diabetes mellitus, type 2) Status: Acute (4) Acute on chronic renal insufficiency Status: Acute (5) UTI (urinary tract infection) Status: Acute (6) Dementia Status: Acute
[2017-11-08 00:06] VITALS: RESP 18
--- NOTE | 2017-11-08 00:27 | PN ---
DATE: 11/07/2017 SUBJECTIVE: Today the patient is alert and awake, but forgetful and confused at time, but also denies any abdominal pain. No chest pain. No palpitation. PHYSICAL EXAMINATION: GENERAL: The patient has a blood pressure of 142/50, pulse is 75, respiration is 16, temperature 98.2. NECK: Supple. No JVD. LUNGS: There are some rales bilaterally. HEART: Regular rate and rhythm. Positive murmur. Positive extrasystole. ABDOMEN: Soft. Positive epigastric hernia. . Positive bowel sounds. EXTREMITIES: There is no edema noted, but some chronic changes of the skin of the lower extremities. LABORATORY DATA: Blood test done to the patient now shows WBC is 4.7, hemoglobin 10, hematocrit 29.6, and platelet is 167. Chemistry showed sodium is 144, potassium is 3.4, chloride 107, bicarb 26, BUN 23, creatinine is 2, and calcium is 8.5. AST is 18 and ALT is 16. Alkaline phosphatase is 52, albumin is 3, globulin 3.5. The chest x-ray done today showed no active pulmonary disease. The patient also had urine culture, showed Klebsiella pneumoniae, sensitive to Zosyn (piperacillin-tazobactam). ASSESSMENT AND PLAN: We will continue with the antibiotic therapy. ID consult was appreciated. Also, the patient was found to be hypoglycemic. We discussed the diabetic diet, and we asked the patient to get Ensure and also heart-healthy diet with no limitation for carbohydrate. Case was discussed with the nurse this morning. Slim Marino MD
[2017-11-08 06:09] LABS: HEMOGLOBIN 10.4 g/dL (12.0-16.0); MEAN CELL VOLUME 102.8 fl (81.0-99.0); MEAN CORPUSCULAR HEMOGLOBIN 33.5 pg (27.0-31.0); MEAN CORPUSCULAR HGB CONC 32.6 g/dL (33.0-37.0); RBC 3.1 Mil/uL (3.80-5.20); RED CELL DISTRIBUTION WIDTH 13.6 % (11.5-14.5); WHITE BLOOD COUNT 4.8 K/uL (4.8-10.8)
[2017-11-08 06:30] LABS: CALCIUM 8.5 mg/dL (8.4-10.2)
[2017-11-08] MEDS: Ciprofloxacin 200mg/100ml D5W 100 ML IVPB SCH (08:44)
[2017-11-08] MEDS: Pantoprazole 40 mg EC Tab PO SCH (08:53)
[2017-11-08 12:41] VITALS: BP 163/52; PULSE 67; TEMP 97.4; O2SAT 99
--- NOTE | 2017-11-09 09:02 | PN ---
DATE: SUBJECTIVE: Patient was seen early this morning and resting in bed. No shortness of breath. No dizziness. Patient's state is somewhat weak, but no palpitation, no abdominal pain. PHYSICAL EXAMINATION: VITAL SIGNS: Patient had blood pressure of 162/52, pulse 67, respirations 18, temperature . NECK: Supple. No JVD. LUNGS: Have some rales at the bases, which is chronic. HEART: Regular rate and rhythm, positive extra systole, positive murmur. ABDOMEN: Soft, nontender. No palpable mass. EXTREMITIES: There is no edema. No tenderness in the calves. LABORATORY DATA: Patient had blood test done, WBC is 4.8, hemoglobin 10.5, hematocrit 31.8, platelet is 174. Chemistry, sodium 142, potassium 3.7, chloride 105, bicarb 25, BUN 24, creatinine 1.8, glucose of 110, and calcium 8.5. PLAN: Patient is comfortable. We are going to consider discharging the patient either home or TCU. The case was discussed with the nurse practitioner at [facility]. Slim Marino MD
--- NOTE | 2017-11-10 09:13 | DS ---
This patient is an 82-year-old female with history of Alzheimer dementia, diabetes, hypertension, CHF, CAD, COPD and aortic insufficiency. The patient was brought to the emergency room because as per the nurse, the patient had an episode of seizure and also, short of breath and also, the patient had a temperature of 103. The patient was admitted to telemetry and had a consult with Dr. Fuentes, ID. Potassium is somewhat 3.7. BUN was 24, creatinine was 0.8. The patient had urine culture. Urine culture was positive for Klebsiella pneumoniae and it was sensitive to Zosyn and Cipro. The patient was receiving Zosyn IV for three days, then it was switched by Dr. Fuentes to Cipro. At this point, the patient may be able to go home. We have suggested the patient to go to physical therapy, but the family preferred the patient to go home, so we discharged the patient home today. The case was discussed with nurse practitioner. Slim Marino MD
== END 2017-11-08 18:12 | disposition home or self-care (01) | DRG 872 ==
LOC: H.ER 16:59 → H.ERHOLD 20:56 → H.TEL 23:51
PROVIDERS: ADMIT Specialist; ATTEND Specialist
DX: A41.9 Sepsis, unspecified organism (principal); E11.22 Type 2 diabetes mellitus with diabetic chronic kidney disease; E11.649 Type 2 diabetes mellitus with hypoglycemia without coma; I13.0 Hypertensive heart and chronic kidney disease with heart failure and stage 1 through stage 4 chronic kidney disease, or unspecified chronic kidney disease; I42.9 Cardiomyopathy, unspecified; N39.0 Urinary tract infection, site not specified; J44.0 Chronic obstructive pulmonary disease with (acute) lower respiratory infection; I50.42 Chronic combined systolic (congestive) and diastolic (congestive) heart failure; G40.409 Other generalized epilepsy and epileptic syndromes, not intractable, without status epilepticus; E11.65 Type 2 diabetes mellitus with hyperglycemia; E78.00 Pure hypercholesterolemia, unspecified; F02.80 Dementia in other diseases classified elsewhere, unspecified severity, without behavioral disturbance, psychotic disturbance, mood disturbance, and anxiety; G30.9 Alzheimer's disease, unspecified; I25.10 Atherosclerotic heart disease of native coronary artery without angina pectoris; Z95.5 Presence of coronary angioplasty implant and graft; F32.9 Major depressive disorder, single episode, unspecified; I35.0 Nonrheumatic aortic (valve) stenosis; R32 Unspecified urinary incontinence; J45.909 Unspecified asthma, uncomplicated; M19.90 Unspecified osteoarthritis, unspecified site; J20.9 Acute bronchitis, unspecified; D64.9 Anemia, unspecified; N18.3 Chronic kidney disease, stage 3 (moderate)

== ENCOUNTER 2018-08-09 15:16 | Inpatient (IN) | payer MEDICARE, MEDICAID ==
[2018-08-09 15:16] VITALS: BMI 22.9
--- NOTE | 2018-08-09 15:35 | ED PDOC ---
HPI: Altered Mental Status Time Seen by Provider: 08/09/18 15:20 Chief Complaint (Nursing): Altered Mental Status Chief Complaint (Provider): Generalized weakness History Per: Family History/Exam Limitations: Clinical Condition, Other (Dementia) Additional Complaint(s): Daughter states patient appears weak since yesterday @ 9 AM, decreased talking, cough and congestion, decreased appetite. Denies fever. Pt demented at baseline and walks minimally with cane but has not been out of bed yesterday. Past Medical History Reviewed: Nursing Documentation, Vital Signs Vital Signs: Last Vital Signs Temp Pulse 86 08/09/18 15:24 Resp 18 08/09/18 15:24 BP 175/56 H 08/09/18 15:24 Pulse Ox 98 08/09/18 15:24 - Medical History PMH: Alzheimer's Disease, Anemia, Arthritis, Asthma, CAD (stents x7), CHF, Dementia, Depression, Diabetes, HTN, Hypercholesterolemia, Peripheral Edema, Pneumonia, Pulmonary Embolism, Chronic Kidney Disease, Seizures Denies: HIV - Surgical History Surgical History: Appendectomy, Cholecystectomy, Coronary Stent (7 stents as per the daughter) - Family History Family History: States: Unknown Family Hx - Social History Current smoker - smoking cessation education provided: No - Home Medications Home Medications: Ambulatory Orders Medication Instructions Recorded Clopidogrel [Plavix] 75 mg PO DAILY 07/26/16 Lubiprostone [Amitiza] 24 mcg PO DAILY 07/26/16 Montelukast [Singulair] 10 mg PO HS 07/26/16 Atorvastatin [Lipitor] 20 mg PO HS 08/04/17 Carvedilol [Coreg] 6.25 mg PO BID 08/04/17 Carvedilol [Coreg] 3.125 mg PO QPM 08/09/18 Donepezil [Aricept] 5 mg PO HS 08/09/18 Famotidine [Pepcid] 20 mg PO BID 08/09/18 Ferrous Sulfate [Feosol] 325 mg PO DAILY 08/09/18 Folic Acid 1 mg PO DAILY 08/09/18 Furosemide [Lasix] 20 mg PO DAILY 08/09/18 Losartan [Cozaar] 100 mg PO DAILY 08/09/18 Multivitamin [Multi-Vitamin Daily] 1 tab PO DAILY 08/09/18 Spironolactone [Aldactone] 25 mg PO DAILY 08/09/18 Topiramate [Topamax] 50 mg PO Q12 08/09/18 - Allergies Allergies/Adverse Reactions: Allergies Allergy/AdvReac Type Severity Reaction Status Date / Time No Known Allergies Allergy Verified 08/09/18 15:22 Review of Systems Review Of Systems: ROS cannot be obtained secondary to pt's inabilty to answer questions. Physical Exam - Reviewed Nursing Documentation Reviewed: Yes Vital Signs Reviewed: Yes - Physical Exam Appears: Positive for: No Acute Distress Skin: Positive for: Normal Color, Warm, Dry Eye Exam: Positive for: Other (OD: abnormal pupil, OS: constricted) Cardiovascular/Chest: Positive for: Regular Rate, Rhythm Respiratory: Positive for: Rales (Bibasilar). 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 Negative for: Alert, Oriented, Facial Droop - Laboratory Results Result Diagrams: 08/09/18 12:35 08/09/18 12:35 - ECG Interpretation Of ECG: NSR @ 79, TWI laterally. O2 Sat by Pulse Oximetry: 98 Pulse Ox Interpretation: Normal - Core Measure Core Measure Indicators: Pneumonia - Critical Care Total Time (In Min): 45 Medical Decision Making Medical Decision Makin yo female with generalized weakness and cough. - labs - EKG - CXR - CT head 16:[address] FINDINGS: HEMORRHAGE: No intracranial hemorrhage. BRAIN: There is a new focal hypodensity at the white matter of the right posterior parietal region suspicious for possible vasogenic edema versus less likely encephalomalacia. Mild atrophy and cjou-fk-lyuiyzxo chronic microvascular white matter ischemic changes are again noted. Again noted is sub centimeter encephalomalacia at the anterior limb of the left internal capsule suggestive of old lacunar infarct. VENTRICLES: Unremarkable. No hydrocephalus. CALVARIUM: Unremarkable. PARANASAL SINUSES: Unremarkable as visualized. No significant inflammatory changes. MASTOID AIR CELLS: Unremarkable as visualized. No inflammatory changes. OTHER FINDINGS: None. IMPRESSION: New focal hypodensity at the white matter of the posterior right parietal lobe best seen on image 33 series 4, may represent vasogenic edema versus less likely encephalomalacia due to old infarct. If clinically warranted and if not contraindicated further assessment by MRI is suggested. No evidence of acute intracranial hemorrhage. 18:[address] Calle, recommends MRI, will consult. MRI: Pending. 19:[address] Marino, agrees with Lasix 40 mg, IVF @ 80 cc/hr, Dr. Huff for Cardio, Dr. Fuentes for ID, admit to tele. Disposition - Clinical Impression Clinical Impression: Dehydration, CHF (congestive heart failure), Pneumonia, UTI (urinary tract infection) - Patient ED Disposition Is Patient to be Admitted: Yes - Disposition Disposition Time: 19:07 Condition: GUARDED Forms: Oink (Libyan) - Pt Status Changed To: Hospital Disposition Of: Inpatient - Admit Certification Admit to Inpatient:: After my assessment, the patient will require hospitalization for at least two midnights. This is because of the severity of symptoms shown, intensity of services needed, and/or the medical risk in this patient being treated as an outpatient. - POA Present On Arrival: Poor Glycemic Control
[2018-08-09 15:47] LABS: VENOUS BLOOD GAS BASE EXCESS -14.9 mmol/L (0.0-2.0); VENOUS BLOOD GAS PCO2 60 mmHg (40-60); VENOUS BLOOD GAS PO2 74 mm/Hg (30-55); VENOUS BLOOD PH 7.04 (7.32-7.43)
[2018-08-09 16:06] LABS: INR 1.3; PROTHROMBIN TIME 15.3 Seconds (9.8-13.1)
[2018-08-09 16:09] LABS: PARTIAL THROMBOPLASTIN TIME 30.3 Seconds (25.6-37.1)
[2018-08-09 16:11] LABS: BASO # 0.1 K/uL (0.0-0.2); BASO % 0.7 % (0.0-2.0); LYMPH # 0.7 K/uL (1.0-4.3); LYMPH % 7.2 % (20.0-40.0); MEAN CORPUSCULAR HEMOGLOBIN 34.7 pg (27.0-31.0); MEAN CORPUSCULAR HGB CONC 32.4 g/dL (33.0-37.0); MEAN PLATELET VOLUME 11.3 fl (7.2-11.7); MONO # 0.6 K/uL (0.0-0.8); MONO % 6.4 % (0.0-10.0); NEUT # 7.9 K/uL (1.8-7.0); NEUT % 85.7 % (50.0-75.0); NRBC % 0.2 % (0.0-0.0); PLATELET COUNT 158 K/uL (130-400); RBC 3.76 Mil/uL (3.80-5.20); RED CELL DISTRIBUTION WIDTH 16.8 % (11.5-14.5); WHITE BLOOD COUNT 9.3 K/uL (4.8-10.8)
[2018-08-09 16:12] LABS: ALB/GLOB RATIO 0.9 (1.0-2.1); ALBUMIN 3.2 g/dL (3.5-5.0)
[2018-08-09 16:24] LABS: TROPONIN I 0.081 ng/mL (0.00-0.120)
--- NOTE | 2018-08-09 16:40 | CT ---
Date of service: 08/09/2018 PROCEDURE: CT HEAD WITHOUT CONTRAST. HISTORY: Generalized weakness COMPARISON: Comparison is made with the previous study dated 08/04/2017 TECHNIQUE: Axial computed tomography images were obtained through the head/brain without intravenous contrast. Radiation dose: Total exam DLP = 788.89 mGy-cm. This CT exam was performed using one or more of the following dose reduction techniques: Automated exposure control, adjustment of the mA and/or kV according to patient size, and/or use of iterative reconstruction technique. FINDINGS: HEMORRHAGE: No intracranial hemorrhage. BRAIN: There is a new focal hypodensity at the white matter of the right posterior parietal region suspicious for possible vasogenic edema versus less likely encephalomalacia. Mild atrophy and [id number] chronic microvascular white matter ischemic changes are again noted. Again noted is sub centimeter encephalomalacia at the anterior limb of the left internal capsule suggestive of old lacunar infarct. VENTRICLES: Unremarkable. No hydrocephalus. CALVARIUM: Unremarkable. PARANASAL SINUSES: Unremarkable as visualized. No significant inflammatory changes. MASTOID AIR CELLS: Unremarkable as visualized. No inflammatory changes. OTHER FINDINGS: None. IMPRESSION: New focal hypodensity at the white matter of the posterior right parietal lobe best seen on image 33 series 4, may represent vasogenic edema versus less likely encephalomalacia due to old infarct. If clinically warranted and if not contraindicated further assessment by MRI is suggested. No evidence of acute intracranial hemorrhage.
[2018-08-09 17:39] LABS: URINE AMORPHOUS SEDIMENT MODERATE /ul (<OCC); URINE BACTERIA MANY (<OCC); URINE BILIRUBIN NEGATIVE (NEGATIVE); URINE BLOOD SMALL (NEGATIVE); URINE CLARITY CLOUDY (Clear); URINE COLOR AMBER (YELLOW); URINE GLUCOSE (UA) NEG (Normal); URINE HYALINE CAST >20 /hpf (0-2); URINE LEUKOCYTE ESTERASE TRACE Leu/uL (Negative); WBC CLUMPS OCC /hpf
[2018-08-09 17:44] LABS: BANDS 2 % (0-2); LYMPHOCYTE 9 % (20-50); MONOCYTE 7 % (0-10); NEUTROPHIL 81 % (42-75); REACTIVE LYMPHOCYTES 1 % (0-0); TOTAL CELLS COUNTED 100
[2018-08-09 17:45] LABS: PLATELET ESTIMATE NORMAL (NORMAL); TOXIC GRANULATION PRESENT
[2018-08-09 17:47] LABS: URINE PROTEIN >=300 mg/dL (NEGATIVE)
[2018-08-09] MEDS ORDERED: Azithromycin 500 MG in Sodium Chloride 0.9% 250 ML IV STA (17:59)
--- NOTE | 2018-08-09 18:55 | RAD ---
HISTORY: Sepsis Patient COMPARISON: Chest x-ray performed 11/07/17 TECHNIQUE: Chest, one view. FINDINGS: LUNGS: Moderate pulmonary venous congestion. Right hilar/infrahilar opacity may reflect consolidation. Probable small iega-dvzvegv-gtxr-right pleural effusions. No definite pneumothorax. Please note that chest x-ray has limited sensitivity for the detection of pulmonary masses. CARDIOVASCULAR: Severe enlargement of the cardiac silhouette. Dense atherosclerotic calcification present. OSSEOUS STRUCTURES: Osseous demineralization. Degenerative changes. VISUALIZED UPPER ABDOMEN: Unremarkable. OTHER FINDINGS: None. IMPRESSION: Moderate pulmonary venous congestion. Right hilar/infrahilar opacity may reflect consolidation. Probable small ojjr-uugltpa-ljog-right pleural effusions. Severe enlargement of the cardiac silhouette; appears increased since prior study performed 11/07/17.
[2018-08-09] MEDS ORDERED: Sodium Chloride 0.9% 1,000 ML IV STA (19:05)
[2018-08-09] MEDS ORDERED: cefTRIAXone (Rocephin) 1 gm Inj ONE (19:18)
[2018-08-09] MEDS ORDERED: Azithromycin 500 MG IV IVPB ONE (20:41)
[2018-08-09 21:25] LABS: VENOUS BLOOD GAS BASE EXCESS -1.7 mmol/L (0.0-2.0); VENOUS BLOOD GAS PCO2 45 mmHg (40-60); VENOUS BLOOD GAS PO2 34 mm/Hg (30-55); VENOUS BLOOD PH 7.34 (7.32-7.43)
[2018-08-10] MEDS: levoFLOXacin 500 mg in D5W 500 MG/100 ML BAG IVPB SCH (09:05)
[2018-08-10] MEDS ORDERED: Azithromycin 500 MG in Sodium Chloride 0.9% 250 ML IVPB SCH (10:45)
[2018-08-10] MEDS: Multivitamin With Minerals Tab PO SCH (11:03)
[2018-08-10] MEDS: guaiFENesin DM 100 mg-10 mg/5 ml UD PO SCH ×3 (11:04→16:16)
--- NOTE | 2018-08-10 11:40 | CARD ---
APPROVED REPORT Date of service: 08/09/2018 EKG Measurement Heart [id number] CT [id number] <Conclusion> Normal sinus rhythm Nonspecific ST changes Abnormal ECG
--- NOTE | 2018-08-10 11:54 | MRI ---
Date of service: 08/09/2018 PROCEDURE: MRI BRAIN WITHOUT CONTRAST HISTORY: Hypodensity on CT COMPARISON: None available. TECHNIQUE: Multiplanar, multisequence MR images of the brain were obtained without intravenous contrast enhancement. FINDINGS: HEMORRHAGE: Signal dephasing is seen in the serpiginous fashion suggestive of cortical hemorrhage at the right parietal lobe local edema at subcortical and deep white matter parenchyma related. Limited intraparenchymal hemorrhage is not excluded. The pattern also involves limited portion of the posterior right temporal lobe and superolateral right occipital lobe. There is borderline loss of sulcation here. DWI: Limited ischemia is difficult to completely exclude at the right temporooccipital distribution affected by apparent cortical hemorrhage or subarachnoid hemorrhage noted above. BRAIN PARENCHYMA: Diffuse cerebral atrophy and chronic microangiopathy are reiterated exclusive of the aforementioned findings the right temporal parietal and occipital lobes. Chronic lacunes are reiterated at the left basal ganglia superiorly with the cerebellum stable unremarkable but limited chronic microangiopathy is seen at the shruthi. VENTRICLES: Unremarkable. No hydrocephalus. CRANIUM: Unremarkable. ORBITS: Grossly unremarkable. PARANASAL SINUSES/MASTOIDS: Clear VASCULAR SYSTEM: Skull base flow voids intact. OTHER FINDINGS: None. IMPRESSION: 1. Cortical hemorrhage is seen at the right parietal lobe with limited involvement of the posterior right temporal and lateral right occipital lobes with related edema as discussed above and borderline mass effect. Potential for local subcortical ischemia is not excluded though diffusion-weighted signal changes deep to the cortex may be artifactual related to hemosiderin. Accordingly, it is possible that there is hemorrhagic conversion of pre-existing ischemic infarct though this is not definite. No suspicious finding at the affected distribution in prior brain MRI 2017. 2. Otherwise stable brain imaging. Findings discussed with Dr. Cheng with written down and read back verification 08/10/2018 11:45 a.m.. Discordant preliminary report from [facility] (Impression No. 1), 08/09/2018.
[2018-08-10] MEDS: Albuterol 0.083% Inhal Sol (2.5 mg/3 mL) UD INH SCH ×2 (13:12→19:33)
--- NOTE | 2018-08-10 13:36 | CP.PCM.CON ---
History of Present Illness - History of Present Illness History of Present Illness: 82 year old female with past medical history of seizure disorder was brought to the emergency department by daughter due to altered mental status and pneumonia Patient has hx of UTI with ESBL + E Coli in the past Patient cant provde details - Medical History PMH: Alzheimer's Disease, Anemia, Arthritis, Asthma, CAD (stents x7), CHF, Dementia, Depression, Diabetes, HTN, Hypercholesterolemia, Peripheral Edema, Pneumonia, Pulmonary Embolism, Chronic Kidney Disease, Seizures Denies: HIV Review of Systems - Constitutional Constitutional: As Per HPI, Anorexia, Fever, Malaise - EENT Eyes: absent: As Per HPI, Blind Spots, Blurred Vision, Change in Vision, Decreased Night Vision, Diplopia, Discharge, Dry Eye, Exophthalmos, Floaters, Irritation, Itchy Eyes, Loss of Peripheral Vision, Pain, Photophobia, Requires Corrective Lenses, Sees Flashes, Spots in Vision, Tunnel Vision, Other Visual Disturbances, Loss of Vision, Other Ears: absent: As Per HPI, Decreased Hearing, Ear Discharge, Ear Pain, Tinnitus, Abnormal Hearing, Disequilibrium, Dizziness, Other Nose/Mouth/Throat: absent: As Per HPI, Epistaxis, Nasal Congestion, Nasal Disc harge, Nasal Obstruction, Nasal Trauma, Nose Pain, Post Nasal Drip, Sinus Pain, Sinus Pressure, Bleeding Gums, Change in Voice, Dental Pain, Dry Mouth, Dysphagia, Halitosis, Hoarsness, Lip Swelling, Mouth Lesions, Mouth Pain, Odynophagia, Sore Throat, Throat Swelling, Tongue Swelling, Facial Pain, Neck Pain, Neck Mass, Other - Breasts Breasts: absent: As Per HPI, Change in Shape, Mass, Pain, Nipple Discharge, Nipple Inversion, Skin Changes, Swelling, Other - Cardiovascular Cardiovascular: As Per HPI - Respiratory Respiratory: As Per HPI, Cough - Genitourinary Genitourinary: absent: As Per HPI, Change in Urinary Stream, Difficulty Urinat ing, Dysuria, Flank Pain, Hematuria, Pyuria, Nocturia, Urinary Incontinence, Urinary Frequency, Urinary Hesitance, Urinary Urgency, Voiding Freq/Small Amts, Freq UTI, Hx Renal/Bladder Calculi, Hx /Renal Surgery, Bladder Distension, Other - Reproductive: Female Reproductive:Female: absent: As Per HPI, Amenorrhea, Amenorrhea/ Control, Currently Menstual, Cycle <21 Days, Cycle >35 Days, Cycle Variable, Menses 1-7 Days, Menses >/= 8 Days, Menses Variable, Cycle > 4 Weeks Between, No Menses for 6 Months, Heavy Menses, Light Menses, Normal Menses, Spotting Between Cycles, S/P Hysterectomy, Menopausal, Post Menopausal, Premenarche, Abnormal Vaginal Bleeding, Dysmenorrhea, Dyspareunia, Genital Lesions, Genital Pruritis, Pelvic Pain, Prolapse Symptoms, Sexual Dysfunction, Vaginal Discharge, Vaginal Dryness, Vaginal Odor, Vaginal Pruritis, Other - Menstruation Menstruation: absent: As Per HPI, Amenorrhea, Amenorrhea/ Control, Currently Menstual, Cycle <21 Days, Cycle >35 Days, Cycle Variable, Menses 1-7 D ays, Menses >/= 8 Days, Menses Variable, Cycle > 4 Weeks Between, No Menses for 6 Months, Heavy Menses, Light Menses, Normal Menses, Spotting Between Cycles, S/P Hysterectomy, Menopausal, Post Menopausal, Premenarche, Abnormal Vaginal Bleeding, Dysmenorrhea, Other - Musculoskeletal Musculoskeletal: As Per HPI - Integumentary Integumentary: As Per HPI - Neurological Neurological: As Per HPI - Psychiatric Psychiatric: absent: As Per HPI, Abnormal Sleep Pattern, Anhedonia, Anxiety, Auditory Hallucinations, Behavioral Changes, Change in Appetite, Change in Libido, Confusion, Depression, Difficulty Concentrating, Hallucinations, Homicidal Ideation, Hopelessness, Irritability, Memory Loss, Mood Swings, Panic Attacks, Paranoia, Suicidal Ideation, Visual Hallucinations, Tactile Hallucinations, Other - Endocrine Endocrine: absent: As Per HPI, Change in Body Appearance, Change in Libido, Cold Intolorance, Deepening of Voice, Excessive Sweating, Fatigue, Flushing, Heat Intolorance, Increase in Ring/Shoe/Hat Size, Palpitations, Polydipsia, Polyphagia, Polyuria, Other - Hematologic/Lymphatic Hematologic: absent: As Per HPI, Easy Bleeding, Easy Bruising, Lymphadenopathy, Other Past Patient History - Infectious Disease Hx of Infectious Diseases: None - Tetanus Immunizations Tetanus Immunization: Unknown - Past Medical History & Family History Past Medical History?: Yes - Past Social History Smoking Status: Former Smoker - CARDIAC Hx Cardiac Disorders: Yes Hx Congestive Heart Failure: Yes Hx Hypercholesterolemia: Yes Hx Hypertension: Yes Hx Peripheral Edema: Yes - PULMONARY Hx Respiratory Disorders: Yes Hx Asthma: Yes Hx Pneumonia: Yes Hx Pulmonary Embolism: Yes - NEUROLOGICAL Hx Neurological Disorder: Yes Hx Alzheimer's Disease: Yes Hx Dementia: Yes Hx Seizures: Yes - HEENT Hx HEENT Problems: No - RENAL Hx Chronic Kidney Disease: Yes - ENDOCRINE/METABOLIC Hx Endocrine Disorders: Yes Hx Diabetes Mellitus Type 2: Yes - HEMATOLOGICAL/ONCOLOGICAL Hx Blood Disorders: Yes Hx Anemia: Yes Hx Human Immunodeficiency Virus (HIV): No - INTEGUMENTARY Hx Dermatological Problems: No - MUSCULOSKELETAL/RHEUMATOLOGICAL Hx Musculoskeletal Disorders: Yes Hx Arthritis: Yes Hx Falls: Yes - GASTROINTESTINAL Hx Gastrointestinal Disorders: Yes 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, 2006 and 2007) Hx Constipation: Yes Other/Comment: Ventral hernia - GENITOURINARY/GYNECOLOGICAL Hx Genitourinary Disorders: No - PSYCHIATRIC Hx Psychophysiologic Disorder: Yes Hx Depression: Yes Hx Substance Use: No - SURGICAL HISTORY Hx Surgeries: Yes Hx Appendectomy: Yes Hx Cholecystectomy: Yes Hx Coronary Stent: Yes (7 stents as per the daughter) - ANESTHESIA Hx Anesthesia: Yes Hx Anesthesia Reactions: Yes (hard to wake up) Hx Malignant Hyperthermia: No Meds Allergies/Adverse Reactions: Allergies Allergy/AdvReac Type Severity Reaction Status Date / Time No Known Allergies Allergy Verified 08/09/18 15:22 - Medications Medications: Current Medications Albuterol Sulfate (Albuterol 0.083% Inhal Blessing (2.5 Mg/3 Ml) Ud) 2.5 mg INH RQ6 [facility] Last Admin: 08/10/18 13:12 Dose: 2.5 mg Atorvastatin Calcium (Lipitor) 20 mg PO HS [facility] Carvedilol (Coreg) 3.125 mg PO Q12 [facility] Last Admin: 08/10/18 11:02 Dose: 3.125 mg Donepezil HCl (Aricept) 5 mg PO HS [facility] Famotidine (Pepcid) 20 mg PO BID [facility] Last Admin: 08/10/18 11:01 Dose: 20 mg Ferrous Sulfate (Feosol) 325 mg PO DAILY [facility] Last Admin: 08/10/18 11:01 Dose: 325 mg Folic Acid (Folic Acid) 1 mg PO DAILY [facility] Last Admin: 08/10/18 11:02 Dose: 1 mg Furosemide (Lasix) 20 mg IVP DAILY [facility] Last Admin: 08/10/18 09:17 Dose: 20 mg Guaifenesin/Dextromethorphan (Robitussin Dm) 5 ml PO TID [facility] Last Admin: 08/10/18 11:04 Dose: 5 ml Home Med (Lubiprostone [Amitiza]) 24 mcg PO DAILY [facility] Levofloxacin/Dextrose (Levaquin 500mg) 500 mg in 100 mls @ 100 mls/hr IVPB DAILY [facility]; Protocol Last Admin: 08/10/18 09:05 Dose: 100 mls/hr Ceftriaxone Sodium 1 gm/ (Sodium Chloride) 100 mls @ 100 mls/hr IVPB DAILY [facility]; Protocol Last Admin: 08/10/18 09:05 Dose: 100 mls/hr Losartan Potassium (Cozaar) 100 mg PO DAILY [facility] Last Admin: 08/10/18 11:02 Dose: 100 mg Megestrol Acetate (Megace) 400 mg PO DAILY [facility] Modafinil (Provigil) 100 mg PO DAILY [facility] Montelukast Sodium (Singulair) 10 mg PO HS [facility] Multivitamins/Minerals (Therapeutic-M Tab) 1 tab PO DAILY [facility] Last Admin: 08/10/18 11:03 Dose: 1 tab Topiramate (Topamax) 50 mg PO Q12 [facility] Last Admin: 08/10/18 11:02 Dose: 50 mg Physical Exam - Constitutional Appears: Confused, Cachectic, Chronically Ill - Head Exam Head Exam: ATRAUMATIC, NORMOCEPHALIC - Eye Exam Eye Exam: PERRL. absent: Scleral icterus - ENT Exam ENT Exam: Mucous Membranes Dry - Neck Exam Neck exam: Negative for: Lymphadenopathy - Respiratory Exam Respiratory Exam: Decreased Breath Sounds, Rhonchi - Cardiovascular Exam Cardiovascular Exam: REGULAR RHYTHM, +S1, +S2 - GI/Abdominal Exam GI & Abdominal Exam: Diminished Bowel Sounds, Soft. absent: Tenderness - Rectal Exam Rectal Exam: Deferred - Exam Exam: NORMAL INSPECTION - Extremities Exam Extremities exam: Negative for: pedal edema - Back Exam Back exam: absent: CVA tenderness (L), CVA tenderness (R) - Neurological Exam Neurological exam: Alert, Altered, CN II-XII Intact - Psychiatric Exam Psychiatric exam: Depressed - Skin Skin Exam: Dry Results - Vital Signs Recent Vital Signs: Last Vital Signs Temp 98.3 F 08/10/18 12:25 Pulse 73 08/10/18 13:12 Resp 18 10/26/18 12:25 BP 159/52 H 10/26/18 12:25 Pulse Ox 100 08/10/18 12:25 - Labs Result Diagrams: 08/09/18 12:35 08/09/18 12:35 Labs: Laboratory Results - last 24 hr 08/09/18 08/09/18 08/09/18 12:35 12:35 12:35 WBC 9.3 D RBC 3.76 L Hgb 13.0 D Hct 40.2 MCV 107.0 H D MCH 34.7 H MCHC 32.4 L RDW 16.8 H Plt Count 158 MPV 11.3 Neut % (Auto) 85.7 H Lymph % (Auto) 7.[address] [place] % (Auto) 6.4 Eos % (Auto) 0.0 Baso % (Auto) 0.7 Neut # (Auto) 7.9 H Lymph # (Auto) 0.[address] [place] # (Auto) 0.6 Eos # (Auto) 0.0 Baso # (Auto) 0.1 Neutrophils % (Manual) 81 H Band Neutrophils % 2 Lymphocytes % (Manual) 9 L Reactive Lymphs % 1 H Monocytes % (Manual) 7 Toxic Granulation Present Platelet Estimate Normal Macrocytosis (manual) Slight PT 15.3 H INR 1.3 APTT 30.3 pO2 VBG pH VBG pCO2 VBG HCO3 VBG Total CO2 VBG O2 Sat (Calc) VBG Base Excess VBG Potassium Glucose Lactate FiO2 Blood Gas Comments Crit Value Called To Crit Value Called By Crit Value Read Back Blood Gas Notified Time Sodium 141 Potassium 4.8 Chloride 108 H Carbon Dioxide 19 L Anion Gap 19 BUN 27 H Creatinine 1.4 H Est GFR ( Amer) 43 Est GFR (Non-Af Amer) 36 POC Glucose (mg/dL) Random Glucose 260 H Calcium 9.0 Phosphorus 4.2 Magnesium 1.9 Total Bilirubin 1.0 AST 54 H D ALT 43 Alkaline Phosphatase 101 Troponin I 0.0810 NT-Pro-B Natriuret Pep 689780 H Total Protein 6.7 Albumin 3.2 L Globulin 3.5 Albumin/Globulin Ratio 0.9 L Venous Blood Potassium Urine Color Urine Clarity Urine pH Ur Specific Warren Urine Protein Urine Glucose (UA) Urine Ketones Urine Blood Urine Nitrate Urine Bilirubin Urine Urobilinogen Ur Leukocyte Esterase Urine RBC (Auto) Urine WBC Clumps (Auto) Urine Microscopic WBC Amorphous Sediment Urine Bacteria Hyaline Casts 08/09/18 08/09/18 08/09/18 15:19 15:41 17:10 WBC RBC Hgb Hct MCV MCH MCHC RDW Plt Count MPV Neut % (Auto) Lymph % (Auto) [place] % (Auto) Eos % (Auto) Baso % (Auto) Neut # (Auto) Lymph # (Auto) [facility] # (Auto) Eos # (Auto) Baso # (Auto) Neutrophils % (Manual) Band Neutrophils % Lymphocytes % (Manual) Reactive Lymphs % Monocytes % (Manual) Toxic Granulation Platelet Estimate Macrocytosis (manual) PT INR APTT pO2 74 H VBG pH 7.04 L* VBG pCO2 60 VBG HCO3 13.0 VBG Total CO2 18.0 L VBG O2 Sat (Calc) 92.2 H VBG Base Excess -14.9 L VBG Potassium Glucose 269 H Lactate 2.0 FiO2 21.0 Blood Gas Comments Lac=2.0 Crit Value Called To mir Caldwell Crit Value Called By 22 Crit Value Read Back Y Blood Gas Notified Time 1547 Sodium 118.0 L* Potassium Chloride 100.0 Carbon Dioxide Anion Gap BUN Creatinine Est GFR ( Amer) Est GFR (Non-Af Amer) POC Glucose (mg/dL) 241 H Random Glucose Calcium Phosphorus Magnesium Total Bilirubin AST ALT Alkaline Phosphatase Troponin I NT-Pro-B Natriuret Pep Total Protein Albumin Globulin Albumin/Globulin Ratio Venous Blood Potassium Urine Color Carmen Urine Clarity Cloudy Urine pH 5.0 Ur Specific Warren 1.028 Urine Protein >=300 Urine Glucose (UA) Neg Urine Ketones Negative Urine Blood Small Urine Nitrate Negative Urine Bilirubin Negative Urine Urobilinogen 4.0 H Ur Leukocyte Esterase Trace Urine RBC (Auto) 7 H Urine WBC Clumps (Auto) Occ H Urine Microscopic WBC 18 H Amorphous Sediment Moderate H Urine Bacteria Many H Hyaline Casts >20 H 08/09/18 08/09/18 08/10/18 21:20 22:06 05:07 WBC RBC Hgb Hct MCV MCH MCHC RDW Plt Count MPV Neut % (Auto) Lymph % (Auto) [facility] % (Auto) Eos % (Auto) Baso % (Auto) Neut # (Auto) Lymph # (Auto) [facility] # (Auto) Eos # (Auto) Baso # (Auto) Neutrophils % (Manual) Band Neutrophils % Lymphocytes % (Manual) Reactive Lymphs % Monocytes % (Manual) Toxic Granulation Platelet Estimate Macrocytosis (manual) PT INR APTT pO2 34 VBG pH 7.34 VBG pCO2 45 VBG HCO3 22.6 VBG Total CO2 25.7 VBG O2 Sat (Calc) 64.8 VBG Base Excess -1.7 L VBG Potassium 4.3 Glucose 256 H Lactate 2.2 H FiO2 21.0 Blood Gas Comments Lac=2.2 Crit Value Called To mir Caldwell Crit Value Called By 22 Crit Value Read Back Y Blood Gas Notified Time 2124 Sodium 138.0 Potassium Chloride 106.0 Carbon Dioxide Anion Gap BUN Creatinine Est GFR ( Amer) Est GFR (Non-Af Amer) POC Glucose (mg/dL) 228 H 198 H Random Glucose Calcium Phosphorus Magnesium Total Bilirubin AST ALT Alkaline Phosphatase Troponin I NT-Pro-B Natriuret Pep Total Protein Albumin Globulin Albumin/Globulin Ratio Venous Blood Potassium 4.3 Urine Color Urine Clarity Urine pH Ur Specific Warren Urine Protein Urine Glucose (UA) Urine Ketones Urine Blood Urine Nitrate Urine Bilirubin Urine Urobilinogen Ur Leukocyte Esterase Urine RBC (Auto) Urine WBC Clumps (Auto) Urine Microscopic WBC Amorphous Sediment Urine Bacteria Hyaline Casts 08/10/18 11:12 WBC RBC Hgb Hct MCV MCH MCHC RDW Plt Count MPV Neut % (Auto) Lymph % (Auto) [facility] % (Auto) Eos % (Auto) Baso % (Auto) Neut # (Auto) Lymph # (Auto) [facility] # (Auto) Eos # (Auto) Baso # (Auto) Neutrophils % (Manual) Band Neutrophils % Lymphocytes % (Manual) Reactive Lymphs % Monocytes % (Manual) Toxic Granulation Platelet Estimate Macrocytosis (manual) PT INR APTT pO2 VBG pH VBG pCO2 VBG HCO3 VBG Total CO2 VBG O2 Sat (Calc) VBG Base Excess VBG Potassium Glucose Lactate FiO2 Blood Gas Comments Crit Value Called To Crit Value Called By Crit Value Read Back Blood Gas Notified Time Sodium Potassium Chloride Carbon Dioxide Anion Gap BUN Creatinine Est GFR ( Amer) Est GFR (Non-Af Amer) POC Glucose (mg/dL) 200 H Random Glucose Calcium Phosphorus Magnesium Total Bilirubin AST ALT Alkaline Phosphatase Troponin I NT-Pro-B Natriuret Pep Total Protein Albumin Globulin Albumin/Globulin Ratio Venous Blood Potassium Urine Color Urine Clarity Urine pH Ur Specific Warren Urine Protein Urine Glucose (UA) Urine Ketones Urine Blood Urine Nitrate Urine Bilirubin Urine Urobilinogen Ur Leukocyte Esterase Urine RBC (Auto) Urine WBC Clumps (Auto) Urine Microscopic WBC Amorphous Sediment Urine Bacteria Hyaline Casts Assessment & Plan (1) CHF (congestive heart failure) Status: Acute Priority: High (2) Dehydration Status: Acute (3) Pneumonia Status: Acute (4) UTI (urinary tract infection) Status: Acute - Assessment and Plan (Free Text) Assessment: Hx ESBL UTI in past d/c rocephin add merrem await cultures
--- NOTE | 2018-08-10 15:22 | CP.PCM.PCO ---
Assessment/Plan - Assessment/Plan Assessment (Free Text): Patient seen and examined this afternoon. VSS, more awake this afternoon, eating with daughter at bedside. Denies chest pain, shortness of breath nausea or vomiting. Labs reviewed, MRI reviewed, + hemorrhagic infarct. Discussed with Dr Calle: plavix , heparin on hold. Echo ordered, pt,ot eval ordered. Cont iv abx for pneumonia, continue iv lasix. All discussed with Dr Marino. - Problems Patient Problems: Problem List (Active/Current) Problem Status Onset Code CHF (congestive heart failure) Acute I50.9 Dehydration Acute E86.0 Pneumonia Acute J18.9 UTI (urinary tract infection) Acute N39.0
--- NOTE | 2018-08-10 16:06 | CARD ---
APPROVED REPORT Date of service: 08/10/2018 EXAM: Two-dimensional and M-mode echocardiogram with Doppler and color Doppler. Other Information Quality : GoodRhythm : NSR INDICATION CVA/TIA 2D DIMENSIONS IVSd1.88 (0.7-1.1cm)LVDd3.64 (3.9-5.9cm) LVOT Diameter1.95 (1.8-2.4cm)PWd1.20 (0.7-1.1cm) IVSs1.56 (0.8-1.2cm)LVDs3.64 (2.5-4.0cm) FS (%) 0.2 %PWs1.44 (0.8-1.2cm) M-Mode DIMENSIONS Left Atrium (MM)5.36 (2.5-4.0cm)IVSd1.65 (0.7-1.1cm) Aortic Root2.98 (2.2-3.7cm)LVDd4.50 (4.0-5.6cm) PWd0.93 (0.7-1.1cm)IVSs1.85 cm FS (%) 19 %LVDs3.64 (2.0-3.8cm) PWs1.32 cm Aortic Valve AoV Peak Rlrurlmf001.9cm/sAoV VTI66.6cmAO Peak GR.39mmHg LVOT Peak Rqtttxbz04.0cm/sLVOT VTI15.80cmAO Mean GR.22mmHg DEVIN (VMAX)0.72np3OWW (VTI)0.95ql9AS P 1/2 [id number] Mitral Valve E/A ratio0.0 TDI E/Lateral E'0.0E/Medial E'0.0 Pulmonary Valve PV Peak Ucuxvbck26.0cm/s Tricuspid Valve TR Peak [id number]/sRAP [id number] Peak Gr.58mmHg [id number] LEFT VENTRICLE The left ventricle is normal size. There is borderline to mild concentric left ventricular hypertrophy. The systolic function is moderately impaired. The estimated ejection fraction is 35-40% There is global hypokinesis of the left ventricle. Transmitral Doppler flow pattern is Grade II diastolic dysfunction. No left ventricle thrombus noted on this study. There is no ventricular septal defect visualized. There is no left ventricular aneurysm. There is no mass noted in the left ventricle. RIGHT VENTRICLE The right ventricle is normal size. There is normal right ventricular wall thickness. The right ventricular systolic function is normal. ATRIA The left atrium is severely dilated. The right atrium size is normal. The interatrial septum is intact with no evidence for an atrial septal defect. AORTIC VALVE The aortic valve is calcified with restricted motion. Moderate to severe aortic regurgitation is present. PHT is < 250 ms, consistent with severe AI. There is moderate to severe aortic valvular stenosis. Peak AV velocity is 3.2 m/sec with mean gradient of 24 mm Hg . Calculated DEVIN is 0.6 cm2. There is no aortic valvular vegetation. MITRAL VALVE The mitral valve is normal in structure. There is no evidence of mitral valve prolapse. There is no mitral valve stenosis. There is mild to moderate mitral valve regurgitation noted. TRICUSPID VALVE The tricuspid valve is normal in structure. There is moderate to severe tricuspid valve regurgitation noted. RVSP is calculated at 73 mm Hg, consistent with severe pulmonary hypertention. There is no tricuspid valve prolapse or vegetation. There is no tricuspid valve stenosis. PULMONIC VALVE The pulmonary valve is normal in structure. There is mild pulmonic valvular regurgitation. There is no pulmonic valvular stenosis. GREAT VESSELS The aortic root is normal in size. The ascending aorta is normal in size. The pulmonary artery is normal. The IVC is normal in size and collapses >50% with inspiration. PERICARDIAL EFFUSION There is no pericardial effusion. There is no pleural effusion. <Conclusion> There is borderline to mild concentric left ventricular hypertrophy. The systolic function is moderately impaired. The estimated ejection fraction is 35-40% Transmitral Doppler flow pattern is Grade II diastolic dysfunction. The left atrium is severely dilated. The aortic valve is calcified with restricted motion. Moderate to severe aortic regurgitation is present. PHT is < 250 ms, consistent with severe AI. There is moderate to severe aortic valvular stenosis. Peak AV velocity is 3.2 m/sec with mean gradient of 24 mm Hg . Calculated DEVIN is 0.6 cm2. There is mild to moderate mitral valve regurgitation noted. There is moderate to severe tricuspid valve regurgitation noted. RVSP is calculated at 73 mm Hg, consistent with severe pulmonary hypertention. Moderate to large left pleural effusion
[2018-08-10] MEDS: Meropenem 500 MG in Sodium Chloride 0.9% 100 ML IVPB SCH (16:15)
--- NOTE | 2018-08-10 22:54 | CP.PCM.CON ---
History of Present Illness - History of Present Illness History of Present Illness: Neurology consult dictated. Miss Man is an 82 yr old woman who has a history of epilepsy and presents with confusion. SHe was found to have what appears to be vasogenic edema in the right parieto occipital lobe, and possibel hemorrhage in the same area. I am quite concerned about an underlying lesion Plan: 1. MRI BRain with alexa 2. Load with keppra 1000 mg IV 3. EEG in am Jeremias levine Past Patient History - Infectious Disease Hx of Infectious Diseases: None - Tetanus Immunizations Tetanus Immunization: Unknown - Past Medical History & Family History Past Medical History?: Yes - Past Social History Smoking Status: Former Smoker - CARDIAC Hx Cardiac Disorders: Yes Hx Congestive Heart Failure: Yes Hx Hypercholesterolemia: Yes Hx Hypertension: Yes Hx Peripheral Edema: Yes - PULMONARY Hx Respiratory Disorders: Yes Hx Asthma: Yes Hx Pneumonia: Yes Hx Pulmonary Embolism: Yes - NEUROLOGICAL Hx Neurological Disorder: Yes Hx Alzheimer's Disease: Yes Hx Dementia: Yes Hx Seizures: Yes - HEENT Hx HEENT Problems: No - RENAL Hx Chronic Kidney Disease: Yes - ENDOCRINE/METABOLIC Hx Endocrine Disorders: Yes Hx Diabetes Mellitus Type 2: Yes - HEMATOLOGICAL/ONCOLOGICAL Hx Blood Disorders: Yes Hx Anemia: Yes Hx Human Immunodeficiency Virus (HIV): No - INTEGUMENTARY Hx Dermatological Problems: No - MUSCULOSKELETAL/RHEUMATOLOGICAL Hx Musculoskeletal Disorders: Yes Hx Arthritis: Yes Hx Falls: Yes - GASTROINTESTINAL Hx Gastrointestinal Disorders: Yes 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, 2006 and 2007) Hx Constipation: Yes Other/Comment: Ventral hernia - GENITOURINARY/GYNECOLOGICAL Hx Genitourinary Disorders: No - PSYCHIATRIC Hx Psychophysiologic Disorder: Yes Hx Depression: Yes Hx Substance Use: No - SURGICAL HISTORY Hx Surgeries: Yes Hx Appendectomy: Yes Hx Cholecystectomy: Yes Hx Coronary Stent: Yes (7 stents as per the daughter) - ANESTHESIA Hx Anesthesia: Yes Hx Anesthesia Reactions: Yes (hard to wake up) Hx Malignant Hyperthermia: No Meds Allergies/Adverse Reactions: Allergies Allergy/AdvReac Type Severity Reaction Status Date / Time No Known Allergies Allergy Verified 08/09/18 15:22 - Medications Medications: Current Medications Albuterol Sulfate (Albuterol 0.083% Inhal Blessing (2.5 Mg/3 Ml) Ud) 2.5 mg INH RQ6 [facility] Last Admin: 08/10/18 19:33 Dose: 2.5 mg Atorvastatin Calcium (Lipitor) 20 mg PO HS [facility] Last Admin: 08/10/18 22:07 Dose: 20 mg Carvedilol (Coreg) 3.125 mg PO Q12 [facility] Last Admin: 08/10/18 20:20 Dose: 3.125 mg Donepezil HCl (Aricept) 5 mg PO HS [facility] Last Admin: 08/10/18 22:08 Dose: 5 mg Famotidine (Pepcid) 20 mg PO BID [facility] Last Admin: 08/10/18 16:16 Dose: 20 mg Ferrous Sulfate (Feosol) 325 mg PO DAILY [facility] Last Admin: 08/10/18 11:01 Dose: 325 mg Folic Acid (Folic Acid) 1 mg PO DAILY [facility] Last Admin: 08/10/18 11:02 Dose: 1 mg Furosemide (Lasix) 20 mg IVP DAILY [facility] Last Admin: 08/10/18 09:17 Dose: 20 mg Guaifenesin/Dextromethorphan (Robitussin Dm) 5 ml PO TID [facility] Last Admin: 08/10/18 16:16 Dose: Not Given Home Med (Lubiprostone [Amitiza]) 24 mcg PO DAILY [facility] Levofloxacin/Dextrose (Levaquin 500mg) 500 mg in 100 mls @ 100 mls/hr IVPB DAILY [facility]; Protocol Last Admin: 08/10/18 09:05 Dose: 100 mls/hr Meropenem 500 mg/ Sodium (Chloride) 100 mls @ 100 mls/hr IVPB Q8 [facility]; Protocol Last Admin: 08/10/18 16:15 Dose: 100 mls/hr Losartan Potassium (Cozaar) 100 mg PO DAILY [facility] Last Admin: 08/10/18 11:02 Dose: 100 mg Megestrol Acetate (Megace) 400 mg PO DAILY [facility] Modafinil (Provigil) 100 mg PO DAILY [facility] Montelukast Sodium (Singulair) 10 mg PO HS [facility] Last Admin: 08/10/18 22:31 Dose: 10 mg Multivitamins/Minerals (Therapeutic-M Tab) 1 tab PO DAILY [facility] Last Admin: 08/10/18 11:03 Dose: 1 tab Topiramate (Topamax) 50 mg PO Q12 [facility] Last Admin: 08/10/18 20:20 Dose: 50 mg Results - Vital Signs Recent Vital Signs: Last Vital Signs Temp 97.5 F L 08/10/18 20:06 Pulse 77 08/10/18 20:20 Resp 20 08/10/18 20:06 BP 149/55 L 08/10/18 20:20 Pulse Ox 100 08/10/18 20:06 - Labs Result Diagrams: 08/09/18 12:35 08/09/18 12:35 Labs: Laboratory Results - last 24 hr 08/10/18 08/10/18 08/10/18 05:07 11:12 15:46 POC Glucose (mg/dL) 198 H 200 H 255 H
[2018-08-11] MEDS: Meropenem 500 MG in Sodium Chloride 0.9% 100 ML IVPB SCH ×3 (00:40→16:38)
[2018-08-11] MEDS: Albuterol 0.083% Inhal Sol (2.5 mg/3 mL) UD INH SCH ×4 (02:46→19:34)
[2018-08-11 08:07] LABS: ALB/GLOB RATIO 0.9 (1.0-2.1); ALBUMIN 2.9 g/dL (3.5-5.0); CALCIUM 8.9 mg/dL (8.4-10.2)
[2018-08-11] MEDS: levoFLOXacin 500 mg in D5W 500 MG/100 ML BAG IVPB SCH (08:31)
[2018-08-11] MEDS: guaiFENesin DM 100 mg-10 mg/5 ml UD PO SCH ×2 (08:39→16:39)
[2018-08-11] MEDS: Multivitamin With Minerals Tab PO SCH (08:39)
--- NOTE | 2018-08-11 17:27 | CT ---
Date of service: 08/11/2018 PROCEDURE: CT HEAD WITHOUT CONTRAST. HISTORY: stroke COMPARISON: CT head and MRI brain performed 08/09/2018 TECHNIQUE: Axial computed tomography images were obtained through the head/brain without intravenous contrast. Radiation dose: Total exam DLP = 908.72 mGy-cm. This CT exam was performed using one or more of the following dose reduction techniques: Automated exposure control, adjustment of the mA and/or kV according to patient size, and/or use of iterative reconstruction technique. FINDINGS: HEMORRHAGE: Faint cortical hyperdensity is again seen in the posterior right parietal lobe compatible with known cortical hemorrhage. BRAIN: Mild edema in the posterior right parieto-occipital region. Atrophy. Chronic microvascular ischemic changes. Left basal ganglia lacunar infarction redemonstrated. VENTRICLES: Unremarkable. No hydrocephalus. CALVARIUM: Unremarkable. PARANASAL SINUSES: Unremarkable as visualized. No significant inflammatory changes. MASTOID AIR CELLS: Unremarkable as visualized. No inflammatory changes. OTHER FINDINGS: None. IMPRESSION: Stable appearance of posterior right parietal cortical hemorrhage. No other significant interval change.
--- NOTE | 2018-08-11 19:23 | CP.PCM.CON ---
History of Present Illness - History of Present Illness History of Present Illness: Attending: Slim Marino MD Reason for Consult: Critical Care management Chief Complaint: Intracraneal bleed The patient was seen and examined on the Telemetry Unit HPI: The hx was obtained from the family and after review of the medical records. This is an 82 years old female who is demented at base line and walks minimally with cane, has hx of Alzheimer's Disease, CAD DM and CHF who was admitted 0n 08/09/18 with weakness, decreased talking, coughing and congestion. Pro BMP: 106,000 with chest X Ray showing bilateral Pleural effusion with Right infiltrate. MRI on 08/09/18 showed Right Parietal, Posterior right Temporal and lateral right Occipital lobe with hemorrhage and related edema. The patient was initially admitted to Telemetry but now is being transferred to ICU for closer monitoring. PMH: Alzheimer's Disease, Anemia, Arthritis, Asthma, CAD (stents x7), CHF, Depression, Diabetes, HTN, HLD, Peripheral Edema, Pneumonia, PE, CKD, Seizures PSH: Appendectomy, Cholecystectomy, Coronary Stent (7 stents as per the daughter) SH: Former smoker, No illegal drug use; No Alcohol FH: States: Unknown Family Hx Allergies: NKDA Medication: Reviewed Review of Systems - Review of Systems Systems not reviewed;Unavailable: Respiratory Distress, Dementia Review of Systems: Review os system is limited because of the patient's respiratory distress and dementia. Past Patient History - Infectious Disease Hx of Infectious Diseases: None - Tetanus Immunizations Tetanus Immunization: Unknown - Past Medical History & Family History Past Medical History?: Yes - Past Social History Smoking Status: Former Smoker Chewing Tobacco Use: No Cigar Use: No Alcohol: None Drugs: Denies Home Situation {Lives}: With Family - CARDIAC Hx Cardiac Disorders: Yes Hx Congestive Heart Failure: Yes Hx Hypercholesterolemia: Yes Hx Hypertension: Yes Hx Peripheral Edema: Yes - PULMONARY Hx Respiratory Disorders: Yes Hx Asthma: Yes Hx Pneumonia: Yes Hx Pulmonary Embolism: Yes - NEUROLOGICAL Hx Neurological Disorder: Yes Hx Alzheimer's Disease: Yes Hx Dementia: Yes Hx Seizures: Yes - HEENT Hx HEENT Problems: No - RENAL Hx Chronic Kidney Disease: Yes - ENDOCRINE/METABOLIC Hx Endocrine Disorders: Yes Hx Diabetes Mellitus Type 2: Yes - HEMATOLOGICAL/ONCOLOGICAL Hx Blood Disorders: Yes Hx Anemia: Yes Hx Human Immunodeficiency Virus (HIV): No - INTEGUMENTARY Hx Dermatological Problems: No - MUSCULOSKELETAL/RHEUMATOLOGICAL Hx Musculoskeletal Disorders: Yes Hx Arthritis: Yes Hx Falls: Yes - GASTROINTESTINAL Hx Gastrointestinal Disorders: Yes 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, 2006 and 2007) Hx Constipation: Yes Other/Comment: Ventral hernia - GENITOURINARY/GYNECOLOGICAL Hx Genitourinary Disorders: No - PSYCHIATRIC Hx Psychophysiologic Disorder: Yes Hx Depression: Yes Hx Substance Use: No - SURGICAL HISTORY Hx Surgeries: Yes Hx Appendectomy: Yes Hx Cholecystectomy: Yes Hx Coronary Stent: Yes (7 stents as per the daughter) - ANESTHESIA Hx Anesthesia: Yes Hx Anesthesia Reactions: Yes (hard to wake up) Hx Malignant Hyperthermia: No Meds Allergies/Adverse Reactions: Allergies Allergy/AdvReac Type Severity Reaction Status Date / Time No Known Allergies Allergy Verified 08/09/18 15:22 - Medications Medications: Current Medications Albuterol Sulfate (Albuterol 0.083% Inhal Blessing (2.5 Mg/3 Ml) Ud) 2.5 mg INH RQ6 [facility] Last Admin: 08/11/18 13:23 Dose: 2.5 mg Atorvastatin Calcium (Lipitor) 20 mg PO HS [facility] Last Admin: 08/10/18 22:07 Dose: 20 mg Carvedilol (Coreg) 3.125 mg PO Q12 [facility] Last Admin: 08/11/18 08:33 Dose: 3.125 mg Donepezil HCl (Aricept) 5 mg PO HS [facility] Last Admin: 08/10/18 22:08 Dose: 5 mg Famotidine (Pepcid) 20 mg PO BID [facility] Last Admin: 08/11/18 16:38 Dose: 20 mg Ferrous Sulfate (Feosol) 325 mg PO DAILY [facility] Last Admin: 08/11/18 08:34 Dose: 325 mg Folic Acid (Folic Acid) 1 mg PO DAILY [facility] Last Admin: 08/11/18 08:33 Dose: 1 mg Furosemide (Lasix) 20 mg IVP DAILY [facility] Last Admin: 08/11/18 08:34 Dose: 20 mg Guaifenesin/Dextromethorphan (Robitussin Dm) 5 ml PO TID [facility] Last Admin: 08/11/18 16:39 Dose: Not Given Home Med (Lubiprostone [Amitiza]) 24 mcg PO DAILY [facility] Levofloxacin/Dextrose (Levaquin 500mg) 500 mg in 100 mls @ 100 mls/hr IVPB DAILY [facility]; Protocol Last Admin: 08/11/18 08:31 Dose: 100 mls/hr Meropenem 500 mg/ Sodium (Chloride) 100 mls @ 100 mls/hr IVPB Q8 [facility]; Protocol Last Admin: 08/11/18 16:38 Dose: 100 mls/hr Levetiracetam (Keppra) 500 mg PO BID [facility] Last Admin: 08/11/18 16:38 Dose: 500 mg Losartan Potassium (Cozaar) 100 mg PO DAILY [facility] Last Admin: 08/11/18 08:33 Dose: 100 mg Megestrol Acetate (Megace) 400 mg PO DAILY [facility] Modafinil (Provigil) 100 mg PO DAILY [facility] Last Admin: 08/11/18 17:49 Dose: Not Given Montelukast Sodium (Singulair) 10 mg PO HS [facility] Last Admin: 08/10/18 22:31 Dose: 10 mg Multivitamins/Minerals (Therapeutic-M Tab) 1 tab PO DAILY [facility] Last Admin: 08/11/18 08:39 Dose: 1 tab Topiramate (Topamax) 50 mg PO Q12 [facility] Last Admin: 08/11/18 08:40 Dose: 50 mg Physical Exam - Constitutional Additional comments: In Respiratory distress, receiving bronchodilator. - Head Exam Head Exam: ATRAUMATIC, NORMAL INSPECTION, NORMOCEPHALIC - Eye Exam Eye Exam: Normal appearance Additional comments: Eyes closed resisting opening. Pupils appear to be equal - ENT Exam ENT Exam: Mucous Membranes Dry, Normal Exam, Normal External Ear Exam - Neck Exam Neck exam: Positive for: Normal Inspection (Decrease breath sound at the bases L>R). Negative for: Lymphadenopathy, Tenderness - Respiratory Exam Respiratory Exam: absent: Rales, Rhonchi, Wheezes Additional comments: Decreased breath sounds at the base, left > right - Cardiovascular Exam Cardiovascular Exam: REGULAR RHYTHM, RRR, +S1, +S2. absent: Gallop - GI/Abdominal Exam GI & Abdominal Exam: Normal Bowel Sounds, Soft. absent: Mass, Organomegaly, Tenderness - Rectal Exam Rectal Exam: Deferred - Extremities Exam Extremities exam: Positive for: normal inspection. Negative for: joint swelling, pedal edema - Back Exam Back exam: NORMAL INSPECTION. absent: CVA tenderness (L), CVA tenderness (R) - Neurological Exam Additional comments: Lethargic but responds to painful stimuli, no facial droop, moves both upper extremities, good motor tons - Psychiatric Exam Psychiatric exam: Flat Affect - Skin Skin Exam: Dry, Normal Color, Warm Results - Vital Signs Recent Vital Signs: Last Vital Signs Temp 97.4 F L 08/11/18 15:53 Pulse 76 08/11/18 15:53 Resp 16 08/11/18 15:53 BP 148/62 08/11/18 15:53 Pulse Ox 100 08/11/18 15:53 - Labs Result Diagrams: 08/09/18 12:35 08/11/18 05:40 Labs: Laboratory Results - last 24 hr 08/11/18 05:40 Sodium 142 Potassium 4.8 Chloride 109 H Carbon Dioxide 23 Anion Gap 15 BUN 41 H Creatinine 2.2 H Est GFR ( Amer) 26 Est GFR (Non-Af Amer) 21 Random Glucose 232 H Calcium 8.9 Phosphorus 4.5 Magnesium 1.7 Total Bilirubin 0.4 AST 61 H ALT 81 H D Alkaline Phosphatase 127 H D NT-Pro-B Natriuret Pep 51577 H Total Protein 6.2 L Albumin 2.9 L Globulin 3.3 Albumin/Globulin Ratio 0.9 L - Impressions Impression: NSR 79/min - Imaging and Cardiology Chest x-ray Status: Image reviewed by me, Report reviewed by me Additional comment: 08/09/18 Bilateral Pleural Effusion Right hilar and infrahilar infiltrate MRI - head Status: Image reviewed by me, Report reviewed by me Additional comment: 08/09/18 Right Parietal Cortical Hemorrhage with posterior right temporal and lateral right occipital lobe with related edema and baseline mass effect Possible hemorrhage conversion of pre existing ischemic infarct CT scan - head Status: Image reviewed by me, Report reviewed by me Additional comment: 08/11/18 Stable upper posterior right Parietal cortical hemorrhage Assessment & Plan - Assessment and Plan (Free Text) Assessment: #. Intracraneal hemorrhage #. Acute on chronic CHF #. E. coli UTI #. Azotemia #. Seizure #. DM #. Alzheimer's Disease Plan: 82 years old female who is demented at base line and walks minimally with cane, has hx of Alzheimer's Disease, CAD DM and CHF who was admitted 0n 08/09/18 with weakness, decreased talking, coughing and congestion. Pro BMP: 106,000 with chest X Ray showing bilateral Pleural effusion with Right infiltrate. MRI on 08/09/18 showed Right Parietal, Posterior right Temporal and lateral right Occipital lobe with hemorrhage and related edema. The patient was initially admitted to Telemetry but now is being transferred to ICU for closer monitoring. #. Intracraneal hemorrhage - Consult Dr Calle Neurology - Consult Dr Vizcaino Neurosurgery - Hold Plavix - Patient now transferred to ICU - Neurochecks Q2 - Control blood pressure - Swallow Evaluation - OT/PT #. Acute on chronic CHF - IV lasix/ Coreg/ - Hold Losartan because of worsening renal function and increasing of Potassium #. E. coli UTI - Meropenem - Levofloxacin #. Azotemia - follow Renal labs #. Seizure - For EEG as per Neurop - Keopalra #. DM II - Will start Lispro Insulin sliding scale according to accucheck - HbA1c #. Asthma - Albuterol nebulizer #. Alzheimer's Disease - Aricept #. DVT prophylaxis with SCD #. Code Status: Full - Date & Time Date: 08/11/18 Time: 19:23
[2018-08-12] MEDS: Meropenem 500 MG in Sodium Chloride 0.9% 100 ML IVPB SCH (00:17)
[2018-08-12] MEDS ORDERED: Meropenem 500 MG in Sodium Chloride 0.9% 100 ML IVPB SCH ×2 (01:00→05:00)
[2018-08-12] MEDS: Albuterol 0.083% Inhal Sol (2.5 mg/3 mL) UD INH SCH ×5 (01:02→19:15)
[2018-08-12] MEDS ORDERED: Albuterol 0.083% Inhal Sol (2.5 mg/3 mL) UD INH STA (04:53)
[2018-08-12 06:28] LABS: BASO % 0.6 % (0.0-2.0); EOS % 0.3 % (0.0-4.0); HEMOGLOBIN 12.7 g/dL (12.0-16.0); LYMPH # 0.8 K/uL (1.0-4.3); LYMPH % 10.5 % (20.0-40.0); MEAN CELL VOLUME 107.2 fl (81.0-99.0); MEAN CORPUSCULAR HEMOGLOBIN 34.3 pg (27.0-31.0); MEAN PLATELET VOLUME 11.4 fl (7.2-11.7); MONO # 0.8 K/uL (0.0-0.8); MONO % 11.5 % (0.0-10.0); NEUT # 5.5 K/uL (1.8-7.0); NEUT % 77.1 % (50.0-75.0); NRBC % 1.7 % (0.0-0.0); RBC 3.69 Mil/uL (3.80-5.20); RED CELL DISTRIBUTION WIDTH 16.4 % (11.5-14.5); WHITE BLOOD COUNT 7.2 K/uL (4.8-10.8)
[2018-08-12 06:36] LABS: ALB/GLOB RATIO 0.9 (1.0-2.1); ALBUMIN 2.8 g/dL (3.5-5.0); CALCIUM 8.8 mg/dL (8.4-10.2)
[2018-08-12] MEDS: Insulin Lispro (humaLOG) 100 Units/ml Inj SC SCH ×4 (08:24→22:23)
[2018-08-12] MEDS: levoFLOXacin 500 mg in D5W 500 MG/100 ML BAG IVPB SCH (08:26)
[2018-08-12] MEDS: Megestrol Acetate 40 mg/ml Cup PO SCH ×2 (08:27→10:49)
[2018-08-12] MEDS: Multivitamin With Minerals Tab PO SCH (08:31)
[2018-08-12] MEDS: guaiFENesin DM 100 mg-10 mg/5 ml UD PO SCH ×3 (08:31→16:42)
[2018-08-12] MEDS ORDERED: Megestrol Acetate 40 mg/ml Cup PO SCH (09:00)
[2018-08-12] MEDS ORDERED: Chlorhexidine Gluconate 1 APPL/PKT TP ONE (09:57)
[2018-08-12] MEDS: levETIRAcetam 500 MG in Sodium Chloride 0.9% 100 ML IVPB SCH ×2 (10:42→22:21)
--- NOTE | 2018-08-12 12:32 | CP.PCM.PN ---
Subjective - Date & Time of Evaluation Date of Evaluation: 08/12/18 Time of Evaluation: 07:00 - Subjective Subjective: lethargic NGT in place NAD Objective - Vital Signs/Intake and Output Vital Signs (last 24 hours): Temp Pulse Resp BP Pulse Ox 98.1 F 70 24 144/50 L 96 08/12/18 12:00 08/12/18 12:00 08/12/18 12:00 08/12/18 12:00 08/12/18 12:00 Intake and Output: 08/12/18 08/12/18 06:59 18:59 Intake Total 112 300 Balance 112 300 - Medications Medications: Current Medications Albuterol Sulfate (Albuterol 0.083% Inhal Blessing (2.5 Mg/3 Ml) Ud) 2.5 mg INH RQ6 [facility] Last Admin: 08/12/18 07:30 Dose: Not Given Atorvastatin Calcium (Lipitor) 20 mg PO HS [facility] Budesonide (Pulmicort Respules) 0.25 mg INH RBID [facility] Carvedilol (Coreg) 3.125 mg PO Q12 [facility] Last Admin: 08/12/18 10:47 Dose: 3.125 mg Donepezil HCl (Aricept) 5 mg PO HS [facility] Famotidine (Pepcid) 20 mg IVP DAILY [facility] Last Admin: 08/12/18 10:43 Dose: 20 mg Ferrous Sulfate (Feosol) 325 mg PO DAILY [facility] Last Admin: 08/12/18 10:48 Dose: 325 mg Folic Acid (Folic Acid) 1 mg PO DAILY [facility] Last Admin: 08/12/18 10:49 Dose: 1 mg Furosemide (Lasix) 20 mg IVP DAILY [facility] Last Admin: 08/12/18 08:26 Dose: 20 mg Guaifenesin/Dextromethorphan (Robitussin Dm) 5 ml PO TID [facility] Last Admin: 08/12/18 10:51 Dose: 5 ml Home Med (Lubiprostone [Amitiza]) 24 mcg PO DAILY [facility] Hydralazine HCl (Apresoline) 25 mg PO TID [facility] Last Admin: 08/12/18 10:47 Dose: 25 mg Levofloxacin/Dextrose (Levaquin 500mg) 500 mg in 100 mls @ 100 mls/hr IVPB DAILY [facility]; Protocol Last Admin: 08/12/18 08:26 Dose: 100 mls/hr Meropenem 500 mg/ Sodium (Chloride) 100 mls @ 100 mls/hr IVPB Q12H [facility]; Protocol Last Admin: 08/12/18 08:30 Dose: 100 mls/hr Levetiracetam 500 mg/ Sodium (Chloride) 105 mls @ 210 mls/hr IVPB Q12 [facility] Last Admin: 08/12/18 10:42 Dose: 210 mls/hr Insulin Human Lispro (Humalog) 0 units SC ACHS [facility]; Protocol Last Admin: 08/12/18 12:00 Dose: Not Given Megestrol Acetate (Megace) 400 mg PO DAILY [facility] Last Admin: 08/12/18 10:49 Dose: 400 mg Modafinil (Provigil) 100 mg PO DAILY [facility] Last Admin: 08/12/18 08:31 Dose: Not Given Montelukast Sodium (Singulair) 10 mg PO HS [facility] Multivitamins/Minerals (Therapeutic-M Tab) 1 tab PO DAILY [facility] Last Admin: 08/12/18 08:31 Dose: Not Given Topiramate (Topamax) 50 mg PO Q12 [facility] Last Admin: 08/12/18 10:50 Dose: 50 mg - Labs Labs: 08/12/18 05:30 08/12/18 05:30 PT 15.3 Seconds (9.8-13.1) H 08/09/18 12:35 INR 1.3 08/09/18 12:35 APTT 30.3 Seconds (25.6-37.1) 08/09/18 12:35 - Constitutional Appears: Confused, Cachectic, Chronically Ill - Head Exam Head Exam: NORMOCEPHALIC - Eye Exam Eye Exam: PERRL. absent: Scleral icterus - ENT Exam ENT Exam: Mucous Membranes Dry - Neck Exam Neck Exam: absent: Lymphadenopathy - Respiratory Exam Respiratory Exam: Decreased Breath Sounds, Rhonchi - Cardiovascular Exam Cardiovascular Exam: REGULAR RHYTHM - GI/Abdominal Exam GI & Abdominal Exam: Distended, Soft, Diminished Bowel Sounds Additional comments: + Hernia reducible - Rectal Exam Rectal Exam: Deferred - Exam Exam: NORMAL INSPECTION - Extremities Exam Extremities Exam: absent: Pedal Edema - Back Exam Back Exam: absent: CVA tenderness (L), CVA tenderness (R) - Neurological Exam Neurological Exam: Altered. absent: Awake - Psychiatric Exam Psychiatric exam: Depressed - Skin Skin Exam: Dry Assessment and Plan (1) CHF (congestive heart failure) Status: Acute (2) Dehydration Status: Acute (3) Pneumonia Status: Acute (4) UTI (urinary tract infection) Status: Acute (5) CVA (cerebral vascular accident) Status: Acute - Assessment and Plan (Free Text) Assessment: cont IV rx for UTI
[2018-08-12] MEDS: cefTRIAXone 2 GM in Sodium Chloride 0.9% 100 ML IVPB SCH (16:38)
--- NOTE | 2018-08-12 19:07 | CP.PCM.CON ---
History of Present Illness - History of Present Illness History of Present Illness: questionable area of inc hyperdenity R post frontal region in area of encephalomalacia unchanged over several days of scans - of no clinical import no NRS involvement indicated Past Patient History - Infectious Disease Hx of Infectious Diseases: None - Tetanus Immunizations Tetanus Immunization: Unknown - Past Medical History & Family History Past Medical History?: Yes - Past Social History Smoking Status: Former Smoker Chewing Tobacco Use: No Cigar Use: No Alcohol: None Drugs: Denies Home Situation {Lives}: With Family - CARDIAC Hx Cardiac Disorders: Yes Hx Congestive Heart Failure: Yes Hx Hypercholesterolemia: Yes Hx Hypertension: Yes Hx Peripheral Edema: Yes - PULMONARY Hx Respiratory Disorders: Yes Hx Asthma: Yes Hx Pneumonia: Yes Hx Pulmonary Embolism: Yes - NEUROLOGICAL Hx Neurological Disorder: Yes Hx Alzheimer's Disease: Yes Hx Dementia: Yes Hx Seizures: Yes - HEENT Hx HEENT Problems: No - RENAL Hx Chronic Kidney Disease: Yes - ENDOCRINE/METABOLIC Hx Endocrine Disorders: Yes Hx Diabetes Mellitus Type 2: Yes - HEMATOLOGICAL/ONCOLOGICAL Hx Blood Disorders: Yes Hx Anemia: Yes Hx Human Immunodeficiency Virus (HIV): No - INTEGUMENTARY Hx Dermatological Problems: No - MUSCULOSKELETAL/RHEUMATOLOGICAL Hx Musculoskeletal Disorders: Yes Hx Arthritis: Yes Hx Falls: Yes - GASTROINTESTINAL Hx Gastrointestinal Disorders: Yes 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, 2006 and 2007) Hx Constipation: Yes Other/Comment: Ventral hernia - GENITOURINARY/GYNECOLOGICAL Hx Genitourinary Disorders: No - PSYCHIATRIC Hx Psychophysiologic Disorder: Yes Hx Depression: Yes Hx Substance Use: No - SURGICAL HISTORY Hx Surgeries: Yes Hx Appendectomy: Yes Hx Cholecystectomy: Yes Hx Coronary Stent: Yes (7 stents as per the daughter) - ANESTHESIA Hx Anesthesia: Yes Hx Anesthesia Reactions: Yes (hard to wake up) Hx Malignant Hyperthermia: No Meds Allergies/Adverse Reactions: Allergies Allergy/AdvReac Type Severity Reaction Status Date / Time No Known Allergies Allergy Verified 08/09/18 15:22 - Medications Medications: Current Medications Albuterol Sulfate (Albuterol 0.083% Inhal Blessing (2.5 Mg/3 Ml) Ud) 2.5 mg INH RQ6 NICKOLAS Last Admin: 08/12/18 13:16 Dose: 2.5 mg Atorvastatin Calcium (Lipitor) 20 mg PO HS NICKOLAS Budesonide (Pulmicort Respules) 0.25 mg INH RBID NICKOLAS Carvedilol (Coreg) 3.125 mg PO Q12 COUNT INCLUDES THE [facility] Last Admin: 08/12/18 10:47 Dose: 3.125 mg Donepezil HCl (Aricept) 5 mg PO HS COUNT INCLUDES THE [facility] Famotidine (Pepcid) 20 mg IVP DAILY COUNT INCLUDES THE [facility] Last Admin: 08/12/18 10:43 Dose: 20 mg Ferrous Sulfate (Feosol) 325 mg PO DAILY COUNT INCLUDES THE [facility] Last Admin: 08/12/18 10:48 Dose: 325 mg Folic Acid (Folic Acid) 1 mg PO DAILY COUNT INCLUDES THE [facility] Last Admin: 08/12/18 10:49 Dose: 1 mg Furosemide (Lasix) 20 mg IVP DAILY COUNT INCLUDES THE [facility] Last Admin: 08/12/18 08:26 Dose: 20 mg Guaifenesin/Dextromethorphan (Robitussin Dm) 5 ml PO TID COUNT INCLUDES THE [facility] Last Admin: 08/12/18 16:42 Dose: 5 ml Home Med (Lubiprostone [Amitiza]) 24 mcg PO DAILY COUNT INCLUDES THE [facility] Hydralazine HCl (Apresoline) 25 mg PO TID COUNT INCLUDES THE [facility] Last Admin: 08/12/18 16:44 Dose: 25 mg Levofloxacin/Dextrose (Levaquin 500mg) 500 mg in 100 mls @ 100 mls/hr IVPB MATHIEU LY COUNT INCLUDES THE [facility]; Protocol Last Admin: 08/12/18 08:26 Dose: 100 mls/hr Levetiracetam 500 mg/ Sodium (Chloride) 105 mls @ 210 mls/hr IVPB Q12 COUNT INCLUDES THE [facility] Last Admin: 08/12/18 10:42 Dose: 210 mls/hr Ceftriaxone Sodium 2 gm/ (Sodium Chloride) 100 mls @ 100 mls/hr IVPB DAILY COUNT INCLUDES THE [facility]; Protocol Last Admin: 08/12/18 16:38 Dose: 100 mls/hr Insulin Human Lispro (Humalog) 0 units SC ACHS COUNT INCLUDES THE [facility]; Protocol Last Admin: 08/12/18 16:41 Dose: Not Given Megestrol Acetate (Megace) 400 mg PO DAILY COUNT INCLUDES THE [facility] Last Admin: 08/12/18 10:49 Dose: 400 mg Modafinil (Provigil) 100 mg PO DAILY COUNT INCLUDES THE [facility] Last Admin: 08/12/18 08:31 Dose: Not Given Montelukast Sodium (Singulair) 10 mg PO [facility] Multivitamins/Minerals (Therapeutic-M Tab) 1 tab PO DAILY COUNT INCLUDES THE [facility] Last Admin: 08/12/18 08:31 Dose: Not Given Topiramate (Topamax) 50 mg PO Q12 NICKOLAS Last Admin: 08/12/18 10:50 Dose: 50 mg Results - Vital Signs Recent Vital Signs: Last Vital Signs Temp 98.3 F 08/12/18 15:41 Pulse 66 08/12/18 18:00 Resp 10 L 08/12/18 18:00 BP 160/47 H 08/12/18 18:00 Pulse Ox 94 L 08/12/18 18:00 - Labs Result Diagrams: 08/12/18 05:30 08/12/18 05:30 Labs: Laboratory Results - last 24 hr 08/12/18 08/12/18 05:30 05:30 WBC 7.2 RBC 3.69 L Hgb 12.7 Hct 39.6 MCV 107.2 H MCH 34.3 H MCHC 32.0 L RDW 16.4 H Plt Count 170 MPV 11.4 Neut % (Auto) 77.1 H Lymph % (Auto) 10.5 L Mcdonald % (Auto) 11.5 H Eos % (Auto) 0.3 Baso % (Auto) 0.6 Neut # (Auto) 5.5 Lymph # (Auto) 0.8 L Mcdonald # (Auto) 0.8 Eos # (Auto) 0.0 Baso # (Auto) 0.0 Sodium 141 Potassium 4.3 Chloride 112 H Carbon Dioxide 21 L Anion Gap 12 BUN 45 H Creatinine 2.1 H Est GFR ( Amer) 27 Est GFR (Non-Af Amer) 22 Random Glucose 177 H Calcium 8.8 Phosphorus 3.9 Magnesium 1.9 Total Bilirubin 0.3 AST 51 H ALT 77 H Alkaline Phosphatase 120 NT-Pro-B Natriuret Pep 43447 H Total Protein 6.0 L Albumin 2.8 L Globulin 3.2 Albumin/Globulin Ratio 0.9 L
[2018-08-12] MEDS: Budesonide 0.25 mg/2 ml Inhal Susp UD INH SCH (19:15)
[2018-08-13] MEDS: Albuterol 0.083% Inhal Sol (2.5 mg/3 mL) UD INH SCH ×4 (01:03→19:24)
--- NOTE | 2018-08-13 04:24 | PN ---
DATE: 08/12/2018 CRITICAL CARE PROGRESS NOTE LOCATION: The patient is in ICU, bed 425. TIME SPENT: 45 minutes. The patient is seen and evaluated at the bedside. Past medical, surgical, family, and social history reviewed. SUBJECTIVE: An 82-year-old female with medical history significant for advanced Alzheimer's dementia, anemia, arthritis, chronic asthma, coronary artery disease, status post stent, moderate systolic heart failure with EF 35-40%, depression, diabetes, hypertension, hyperlipidemia, peripheral edema, chronic kidney disease, and seizure disorder, admitted with shortness of breath and change in the mental status. CT head and MRI showed right parietal cortical hemorrhage, seen by neurology consult, suspected mass underlying the hemorrhage. Repeat CAT scan showed same stable hemorrhage. Overnight, normotensive and afebrile. Telemetry, sinus rhythm. This morning; alert, eyes open. Does not follow commands. Failed swallow evaluation. No cough noted. PHYSICAL EXAMINATION: VITAL SIGNS: Temperature 97.1, heart rate 60 and regular, blood pressure 142/43, oxygen saturation 100% on 2 L nasal cannula. Intake 662, output not documented, balance 662. Weight 122 pounds. HEAD, EYES, EARS, NOSE, AND THROAT: Pupils 2-3 mm midline, reactive. No gaze preference. No nystagmus. Corneal reflex present. Conjunctival reflex present. Cough reflex present. NECK: Supple. No jugular venous distention. CHEST: Bilateral breath sounds. Mild wheezing. Breath sounds diminished, left more than right. HEART: Rhythm regular. S1, S2 normal intensity. ABDOMEN: Bowel sounds are present. Soft. RECTAL: Deferred. EXTREMITIES: No pedal edema. NEUROLOGIC: Alert, awake. Opens eyes. Responds to pain. No facial droop. Moves both upper and lower extremities. Plantar flexor. SKIN: Without rash. LABORATORY DATA: WBC 7.2, hemoglobin 12.7, hematocrit 37.6, platelet count 170. Neutrophils 77.1, lymphocytes 10.5, monocytes 11.5. PT 15.2, INR 1.3, PTT 30.3. ABG; pH 7.34, pCO2 of 34, and pO2 of 45. Lactate 2.2, done on 08/09/2018. SMA-7; sodium 141, potassium 4.3, chloride 112, CO2 of 21, blood urea nitrogen 45, creatinine 2.1, random glucose 177, calcium 8.8, phosphorus 3.9, magnesium 1.9, total bilirubin 0.3, AST 51, ALT 77, alkaline phosphatase 120. ProBNP 69,400, albumin 2.8. Urine; urobilinogen of 4, rbc 7, wbc occasionally. Urine; microscopic wbc 18, urine bacteria many, hyaline cast more than 20. Microbiology; urine culture positive for Escherichia coli. Blood culture; no growth reported. Head CT repeated on 08/11/2018 shows stable appearance of posterior right parietal cortical hemorrhage. No other significant interval change compared to head CT on 08/09/2018. MRI on 08/09/2018, cortical hemorrhage at the right parietal lobe with limited involvement of the posterior right temporal and lateral right occipital lobes with related edema and borderline mass effect, potential for subcortical ischemia. IMPRESSION: 1. Neurologic: Altered mental status, underlying advanced Alzheimer's dementia, admitted with right parietal cortical hemorrhage. No change since admission. History of seizure disorder, on Topamax. Seen by neurology consult. On Keppra 500 mg every 12 hours. Monitor for further seizure; no seizure since admission. Neurosurgery consulted for right parietal cortical hemorrhage, awaiting for evaluation. 2. Pulmonary: History of chronic asthma, currently on albuterol nebulizer every 6 hours along with Pulmicort 0.25 mg every 12 hours. Pleural effusion, more on the right than left. 3. Cardiac: Chronic systolic heart failure with ejection fraction reported in 35-40 range. Hypertension, currently on Coreg 3.125 mg every 12 hours and Lasix 20 mg IV daily. 4. Hematology: No leukocytosis. Hemoglobin/hematocrit stable. Stable platelet count. 5. Renal. Chronic renal insufficiency. Stable BUN and creatinine. No electrolyte abnormalities. 6. Gastrointestinal: Mildly elevated liver enzymes along with increased alkaline phosphatase, suspect passive hepatic congestion from ongoing hepatic failure. 7. Endocrinology: No history of thyroid disease. Blood sugar elevated on AccuChek with regular insulin coverage. Maintain sugar below 180. 8. Infectious Disease: Urinary tract infection with Escherichia coli, on levofloxacin and meropenem. Advanced dementia with difficulty swallow, risk for aspiration. Nasogastric tube placed to facilitate administration of p.o. medications. Consider percutaneous endoscopic gastrostomy insertion for from feeding and adequate nutrition to avoid risk of aspiration pneumonia. Russ Darren, MD [facility] # [id number]
[2018-08-13] MEDS ORDERED: Albuterol 0.083% Inhal Sol (2.5 mg/3 mL) UD ONE (04:48)
[2018-08-13] MEDS ORDERED: Albuterol 0.083% Inhal Sol (2.5 mg/3 mL) UD INH STA (04:50)
[2018-08-13] MEDS ORDERED: Chlorhexidine Gluconate 1 APPL/PKT TP ONE (04:51)
[2018-08-13 05:36] LABS: INR 1.5; PROTHROMBIN TIME 16.7 Seconds (9.8-13.1)
[2018-08-13 05:39] LABS: PARTIAL THROMBOPLASTIN TIME 28.1 Seconds (25.6-37.1)
[2018-08-13 05:49] LABS: ALB/GLOB RATIO 0.8 (1.0-2.1); ALBUMIN 2.6 g/dL (3.5-5.0); CALCIUM 8.7 mg/dL (8.4-10.2)
[2018-08-13 06:43] LABS: HEMOGLOBIN 13.4 g/dL (12.0-16.0); MEAN CELL VOLUME 105.2 fl (81.0-99.0); MEAN CORPUSCULAR HEMOGLOBIN 35.3 pg (27.0-31.0); MEAN CORPUSCULAR HGB CONC 33.6 g/dL (33.0-37.0); RBC 3.8 Mil/uL (3.80-5.20); RED CELL DISTRIBUTION WIDTH 16.1 % (11.5-14.5); WHITE BLOOD COUNT 8.5 K/uL (4.8-10.8)
[2018-08-13] MEDS: Insulin Lispro (humaLOG) 100 Units/ml Inj SC SCH ×4 (07:33→21:22)
--- NOTE | 2018-08-13 07:45 | CP.CCUPN ---
CCU Subjective - Physician Review Subjective (Free Text): 08/13/18 17:24 The patient was Seen/interviewed and examined by me at the bedside during ICU round, Medical records reviewed and Management issues were discussed and formulated with the house staff. Events reviewed 82 Years old Female with PMHx of HTN, HLD, Diabetes, CHF, CAD (stents x7), Asthma, Pneumonia, PE, CKD, Anemia, Arthritis, Depression, Peripheral Edema, Seizures and Alzheimer's Disease Who was admitted 0n 08/09/18 with weakness, decreased talking, coughing and congestion. MRI on 08/09/18 showed Right Parietal, Posterior right Temporal and lateral right Occipital lobe with hemorrhage and related edema. The patient was initially admitted to Telemetry but was transferred to ICU for closer monitoring on 08/11. Doing better today More awake, periods of increased concussion, fallows some simple commands. Saturating well on nasal cannula Comfortable, NAD Pt denies having any chest pain, SOB or cough. Last 24H I&O 660/550 Passed swallow evaluation and was started on Puree diet This morning labs revealed Improved Leukocytosis and improvement in renal function BUN/Cr down to 44/1.8 CXR on admission shows possible RLL pneumonia Afebrile Blood C/S negative and Urine C/S positive for Amezquita sensitive E Coli Will continue IV Ceftriaxone and discontinue Levofloxacin CCU Objective - Vital Signs / Intake & Output Vital Signs (Last 4 hours): Vital Signs Temp Pulse Resp BP Pulse Ox 08/13/18 06:00 75 25 H 143/48 L 23 L 08/13/18 05:16 76 25 H 132/36 L 98 08/13/18 05:03 144/54 L 08/13/18 04:40 49 L 12 132/86 64 L 08/13/18 04:00 98.4 F 70 12 138/39 L 100 Intake and Output (Last 8hrs): Intake & Output 08/12/18 08/13/18 08/13/18 22:59 06:59 14:59 Intake Total 320 40 Output Total 400 150 Balance -80 -110 Weight 134 lb Intake: IV 110 40 Intake, Piggyback 110 Free Water Flush 100 Output: Urine 400 150 Urine, Voided 400 150 Other: # Bowel Movements 0 - Physical Exam Physical Exam Limitations: Positive for: Altered Mental Status, Clinical Condition Head: Positive for: Atraumatic, Normocephalic. Negative for: Tenderness, Contusion Pupils: Positive for: PERRL Extroacular Muscles: Positive for: EOMI Conjunctiva: Positive for: Normal. Negative for: Injected, Icteric Ears: Positive for: Normal Mouth: Positive for: Moist Mucous Membranes Neck: Positive for: Normal Range of Motion, Trachea Midline. Negative for: JVD, Lymphadenopathy Respiratory/Chest: Positive for: Clear to Auscultation, Good Air Exchange. Negative for: Respiratory Distress, Accessory Muscle Use, Rales, Rhonchi, Tachypneic Cardiovascular: Positive for: Regular Rate and Rhythm, Normal S1, S2, Peripheal Pulses Present. Negative for: Murmurs Abdomen: Positive for: Normal Bowel Sounds. Negative for: Tenderness, Distention Upper Extremity: Positive for: Edema (RUE, no erythema, no tenderness ) Lower Extremity: Positive for: NORMAL PULSES. Negative for: Edema, CALF TENDERNESS - Medications Active Medications: Active Medications Generic Name Dose Route Start Last Admin Trade Name Freq PRN Reason Stop Dose Admin Albuterol Sulfate 2.5 mg 08/12/18 02:00 08/13/18 01:03 Albuterol 0.083% Inhal Blessing (2.5 Mg/3 Ml) Ud INH 2.5 mg RQ6 NICKOLAS Administration Atorvastatin Calcium 20 mg 08/12/18 22:00 08/12/18 22:20 Lipitor PO 20 mg HS NICKOLAS Administration Budesonide 0.25 mg 08/12/18 20:00 08/12/18 19:15 Pulmicort Respules INH 0.25 mg RBID NICKOLAS Administration Carvedilol 3.125 mg 08/12/18 09:00 08/12/18 22:20 Coreg PO 3.125 mg Q12 NICKOLAS Administration Donepezil HCl 5 mg 08/12/18 22:00 08/12/18 22:19 Aricept PO 5 mg HS NICKOLAS Administration Famotidine 20 mg 08/12/18 10:00 08/12/18 10:43 Pepcid IVP 20 mg DAILY NICKOLAS Administration Ferrous Sulfate 325 mg 08/12/18 09:00 08/12/18 10:48 Feosol PO 325 mg DAILY NICKOLAS Administration Folic Acid 1 mg 08/12/18 09:00 08/12/18 10:49 Folic Acid PO 1 mg DAILY NICKOLAS Administration Furosemide 20 mg 08/12/18 09:00 08/12/18 08:26 Lasix IVP 20 mg DAILY NICKOLAS Administration Guaifenesin/Dextromethorphan 5 ml 08/12/18 09:00 08/12/18 16:42 Robitussin Dm PO 5 ml TID NICKOLAS Administration Home Med 24 mcg 08/12/18 09:00 Lubiprostone [Amitiza] PO DAILY NICKOLAS Hydralazine HCl 25 mg 08/12/18 09:00 08/12/18 16:44 Apresoline PO 25 mg TID NICKOLAS Administration Levofloxacin/Dextrose 500 mg in 100 mls @ 100 mls/hr 08/12/18 09:00 08/12/18 08:26 Levaquin 500mg IVPB 100 mls/hr DAILY NICKOLAS Administration Protocol Levetiracetam 500 mg/ Sodium 105 mls @ 210 mls/hr 08/12/18 10:00 08/12/18 22:21 Chloride IVPB 210 mls/hr Q12 NICKOLAS Administration Ceftriaxone Sodium 2 gm/ 100 mls @ 100 mls/hr 08/12/18 13:15 08/12/18 16:38 Sodium Chloride IVPB 100 mls/hr DAILY NICKOLAS Administration Protocol Insulin Human Lispro 0 units 08/12/18 07:30 08/13/18 07:33 Humalog SC Not Given ACHS [facility] Protocol Megestrol Acetate 400 mg 08/12/18 09:00 08/12/18 10:49 Megace PO 400 mg DAILY NICKOLAS Administration Modafinil 100 mg 08/12/18 09:00 08/12/18 08:31 Provigil PO Not Given DAILY NICKOLAS Montelukast Sodium 10 mg 08/12/18 22:00 08/12/18 22:20 Singulair PO 10 mg HS NICKOLAS Administration Multivitamins/Minerals 1 tab 08/12/18 09:00 08/12/18 08:31 Therapeutic-M Tab PO Not Given DAILY NICKOLAS Topiramate 50 mg 08/12/18 09:00 08/12/18 22:23 Topamax PO 50 mg Q12 NICKOLAS Administration - Patient Studies Lab Studies: Microbiology Studies 08/09/18 19:00 Blood Culture - Preliminary Blood NO GROWTH AFTER 3 DAYS 08/09/18 12:35 Blood Culture - Preliminary Blood NO GROWTH AFTER 3 DAYS Lab Studies 08/13/18 08/13/18 08/13/18 Range/Units 04:35 04:35 04:35 WBC 8.5 (4.8-10.8) K/uL RBC 3.80 (3.80-5.20) Mil/uL Hgb 13.4 (12.0-16.0) g/dL Hct 40.0 (34.0-47.0) % MCV 105.2 H D (81.0-99.0) fl MCH 35.3 H (27.0-31.0) pg MCHC 33.6 (33.0-37.0) g/dL RDW 16.1 H (11.5-14.5) % Plt Count 160 (130-400) K/uL PT 16.7 H (9.8-13.1) Seconds INR 1.5 APTT 28.1 (25.6-37.1) Seconds Sodium 140 (132-148) mmol/l Potassium 4.4 (3.6-5.0) MMOL/L Chloride 113 H (98-107) mmol/L Carbon Dioxide 21 L (22-30) mmol/L Anion Gap 10 (10-20) BUN 44 H (7-17) mg/dl Creatinine 1.8 H (0.7-1.2) mg/dl Est GFR ( Amer) 33 Est GFR (Non-Af Amer) 27 Random Glucose 122 H (65-105) mg/dL Calcium 8.7 (8.4-10.2) mg/dL Phosphorus 3.5 (2.5-4.5) mg/dl Magnesium 1.9 (1.6-2.3) MG/DL Total Bilirubin 0.4 (0.2-1.3) mg/dl AST 55 H (14-36) U/L ALT 67 H (9-52) U/L Alkaline Phosphatase 100 (38-126) U/L Total Protein 5.7 L (6.3-8.2) G/DL Albumin 2.6 L (3.5-5.0) g/dL Globulin 3.1 (2.2-3.9) gm/dL Albumin/Globulin Ratio 0.8 L (1.0-2.1) Triglycerides 69 D (0-149) mg/DL Cholesterol 82 (0-199) mg/dL LDL Cholesterol Direct 56 (0-129) mg/dL HDL Cholesterol 22 L (30-70) MG/DL Laboratory Results - last 24 hr 08/13/18 08/13/18 08/13/18 04:35 04:35 04:35 WBC 8.5 RBC 3.80 Hgb 13.4 Hct 40.0 MCV 105.2 H D MCH 35.3 H MCHC 33.6 RDW 16.1 H Plt Count 160 PT 16.7 H INR 1.5 APTT 28.1 Sodium 140 Potassium 4.4 Chloride 113 H Carbon Dioxide 21 L Anion Gap 10 BUN 44 H Creatinine 1.8 H Est GFR ( Amer) 33 Est GFR (Non-Af Amer) 27 Random Glucose 122 H Calcium 8.7 Phosphorus 3.5 Magnesium 1.9 Total Bilirubin 0.4 AST 55 H ALT 67 H Alkaline Phosphatase 100 Total Protein 5.7 L Albumin 2.6 L Globulin 3.1 Albumin/Globulin Ratio 0.8 L Triglycerides 69 D Cholesterol 82 LDL Cholesterol Direct 56 HDL Cholesterol 22 L Fingerstick Blood Sugar Results: 124 Review of Systems - Review of Systems Systems not reviewed;Unavailable: Altered Mental Status - Constitutional Constitutional: UN Critical Care Progress Note - Extremities/Vascular Does the Patient have a Central Venous Catheter?: No Does the Patient need a Central Venous Catheter?: No Does the Patient have a [place] Catheter?: No Does the Patient need a [place] Catheter?: No - Nutrition Nutrition: Nutrition Category Date Time Status NPO Diet [DIET] Diets 08/12/18 Breakfast Active Assessment/Plan (1) Intracranial hemorrhage Current Visit: Yes Status: Acute Priority: High Comment: questionable area of hyperdenity R post frontal region in area of encephalomalacia With mass effects and midline shift Evaluated by neurosurgery No NRS involvement indicated (2) CVA (cerebral vascular accident) Current Visit: Yes Status: Acute Priority: High (3) CHF (congestive heart failure) Current Visit: Yes Status: Acute Priority: High (4) Pneumonia Current Visit: Yes Status: Acute Priority: High Comment: CXR on admission shows possible RLL pneumonia Improved Leukocytosis Oxygen via nasal canula CXR on admission shows possible RLL pneumonia Afebrile Blood C/S negative and Urine C/S positive for Amezquita sensitive E Coli Will continue IV Ceftriaxone and discontinue Levofloxacin (5) Acute on chronic renal insufficiency Current Visit: Yes Status: Acute Priority: High Comment: This morning labs revealed improvement in renal function BUN/Cr down to 44/1.8 (6) UTI (urinary tract infection) Current Visit: Yes Status: Acute Priority: High Comment: Blood C/S negative and Urine C/S positive for Amezquita sensitive E Coli Will continue IV Ceftriaxone and discontinue Levofloxacin (7) Dementia Current Visit: Yes Status: Chronic Priority: Medium Comment: Continue aricept 5 mg PO HS - Assessment and Plan (Free Text) Assessment: # Stress Ulcer prophylaxis Not currently indicated. # DVT prophylaxis with SCD # Code Status: Full code Total critical care time 38 minutes
[2018-08-13] MEDS: Budesonide 0.25 mg/2 ml Inhal Susp UD INH SCH ×2 (08:16→19:24)
--- NOTE | 2018-08-13 08:33 | PN ---
DATE: 08/12/2018 SUBJECTIVE: Today, the patient is awake and appeared weak. No apparent shortness of breath. PHYSICAL EXAMINATION VITAL SIGNS: The patient has a blood pressure of 160/47, pulse 62, repeat exam is . HEENT: Head is normocephalic. NECK: Supple. LUNGS: There are some rales, but clear bilaterally. HEART: Regular rate and rhythm. ABDOMEN: Soft, with epigastric hernia. EXTREMITIES: No edema. The patient has CT abdomen and showed E. coli. The E. coli is sensitive to piperacillin-tazobactam. ASSESSMENT AND PLAN: The plan is that we are going to continue the optimal therapy to give appreciated and the consult for appreciated. . So we are going to continue him on . Slim Marino MD
--- NOTE | 2018-08-13 08:39 | HP ---
HISTORY OF PRESENT ILLNESS: The patient is an 82-year-old female with history of hypertension, aortic stenosis, arthritis, asthma, CAD, dementia, depression, and the patient was brought to the emergency room by EMS, because the patient was found to be in altered mental status and generalized weakness. The daughter has called here, who stated that the patient was murmuring and not speaking full sentence and was weak and sleepy. So I have asked the daughter to send the patient to the hospital which the daughter has done the same day. The patient was evaluated in the emergency room and was found that the patient to be somewhat dehydrated and septic due to pneumonia and UTI. So, the patient was admitted at my service and also the patient was found to have a CHF. PAST MEDICAL HISTORY: As I mentioned, history of Alzheimer disease, anemia, arthritis, asthma, CAD and got stents , dementia, CHF, depression, diabetes, hypertension, hyperlipidemia, pneumonia, history of pulmonary embolism, chronic kidney disease, and also history of seizure. SOCIAL HISTORY: The patient is living with daughter. FAMILY HISTORY: No inherited disease. REVIEW OF SYSTEMS: RESPIRATORY SYSTEM: There is no apparent shortness of breath. CARDIOVASCULAR: The patient is not able to give much of information. PHYSICAL EXAMINATION: GENERAL: The patient is awake, but obviously confused and mucosa dry. VITAL SIGNS: The patient has blood pressure of 135/51, but today's blood pressure was 148/55, the pulse is 77, respirations are 20, and temperature 97.5. HEENT: As I said, the lips are dry, and the skin is like a dry ashy. NECK: Supple. LUNGS: There are some rales bilaterally, more on the left than the right. HEART: Regular rate and rhythm, but there was a systolic murmur. ABDOMEN: Soft. Nontender. No palpable mass. EXTREMITIES: There is no edema noted. NEUROLOGICAL: The patient is somewhat confused, hardly speaks, and speaks one or two words, and the patient is not ambulatory at this point. LABORATORY DATA: The patient had blood work. It showed WBC is 9.3, hemoglobin 13, hematocrit 40.2, and platelets 158. Chemistry showed that the glucose is 221, sodium 128, chloride 106, glucose 256, lactate is 2.2, and the urine showed that bacteria are many, more than 20, leucocyte estrace trace, rbc 7, and urine is cloudy with urine pH of 5. Also, the patient has a chest x-ray in the emergency room that has shown a moderate pulmonary venous congestion, right hilar opacity that may reflect consolidation. There is severe enlargement of the cardiac silhouette that is increased since the prior study therefore on 11/07/2017. The patient also had a head CT, and the head CT showed that new foci of hypodensity at the white matter though the posterior right parietal lobe . No evidence of acute intracranial hemorrhage as per the CAT scan, but the MRI of the brain was done also, and the MRI showed that subcutaneous fashion suggestive of cortical hemorrhage at the right parietal and focal and local edema, subcortical and deep white matter parenchyma related. Limited intraparenchymal hemorrhage is not excluded. IMPRESSION: 1. Pneumonia. 2. hemorrhage. 3. Urinary tract infection. 4. Hypertension. 5. Chronic kidney disease. 6. Dementia. 7. Aortic stenosis. 8. Peripheral vascular disease. 9. Debility. PLAN: The patient's medication is ordered, and the patient has a consult with Dr. Fuentes, ID; with Dr. Calle, Neuro; and Dr. Huff, Cardiology. Case was discussed with the nurses and managed with Dr. Marino. Orders are written. Slim Marino MD
--- NOTE | 2018-08-13 08:53 | CON ---
DATE: 08/09/2018 NEUROLOGY CONSULT SUBJECTIVE: Ms. Ginette Parker is an 82-year-old woman who presented to the emergency room at 9 a.m. with decreased speaking, cough, congestion, and decreased appetite. The patient was with her family, and she has severe dementia at baseline. She walks with a cane, but she has not been able to walk since yesterday. PAST MEDICAL HISTORY: Alzheimer's disease, anemia, arthritis, asthma, CAD, , CHF, depression, diabetes, high blood pressure, hypercholesterolemia, edema, pulmonary embolism, chronic kidney disease, and epilepsy. REVIEW OF SYSTEMS: Not active, the patient is not reporting anything. On my exam and history taking, the patient was not able to tell me any history. She was awake, she was alert but she was not answering questions. PAST SURGICAL HISTORY: Appendectomy, cholecystectomy, coronary artery stents. FAMILY HISTORY: There is no known family history. SOCIAL HISTORY: There is no tobacco. There is no alcohol. ALLERGIES: NO KNOWN ALLERGIES. MEDICATIONS: She is on Plavix, Singulair, Lipitor, Coreg, Aricept, Pepcid, Feosol, Lasix, Cozaar, multivitamin, Topamax. She was n.p.o. every 12 . PHYSICAL EXAMINATION: GENERAL: Alert, awake, and oriented x1. She mumbles her name. She believes . NEUROLOGIC: Cranial nerves II through XII normal. She . Her memory is very poor. She follows one step command. There is no facial droop. Motor: She is moving all extremities. She could not follow commands to assess strength, and she is not . Gait was not tested. Reflexes are +2 to lower and upper bilaterally. LABORATORY DATA: Labs are as follows: Hemoglobin 13, hematocrit 40.2, platelets 158. Sodium 141, potassium 4.8, bicarbonate 108, chloride 119, BUN 77, creatinine 1.4, glucose 260. EKG was normal, sinus at 79. MRI of the brain was done and it showed a new focal hypodensity right posterior parietal regions. The patient encephalomalacia, however, there was no sign of an acute stroke. It was thought that this was a possible hemorrhagic conversion, but the exact etiology was not known. ASSESSMENT AND PLAN: 1. Admit to telemetry. 2. Hold off Plavix and aspirin anticoagulant. 3. Order echo, physical therapy and occupational therapy evaluation. 4. MRI with gadolinium is required. 5. If the patient decompensates, please send her to ICU with neurochecks. Beto Calle MD
[2018-08-13] MEDS: Megestrol Acetate 40 mg/ml Cup PO SCH (08:57)
[2018-08-13] MEDS: Multivitamin With Minerals Tab PO SCH (09:00)
[2018-08-13] MEDS: cefTRIAXone 2 GM in Sodium Chloride 0.9% 100 ML IVPB SCH (09:01)
[2018-08-13] MEDS: levETIRAcetam 500 MG in Sodium Chloride 0.9% 100 ML IVPB SCH ×2 (09:01→21:24)
--- NOTE | 2018-08-13 09:01 | PN ---
DATE: 08/11/2018 SUBJECTIVE: Today, the patient is still awake, speaks in short sentence, as per daughter and no evidence of shortness of breath. The patient denied any chest pain. The patient is currently very weak. PHYSICAL EXAMINATION: VITAL SIGNS: Blood pressure of 168/52, pulse 78, respirations 20 and temperature 97.8. HEENT: Head is normocephalic. Mouth is moist, but is toothless. NECK: Supple. LUNGS: Had some fine rales at the bases. HEART: Regular rate and rhythm, but there is a large murmur mainly on the aortic area. ABDOMEN: Soft, large hernia in the epigastric area. EXTREMITIES: There is no edema. LABORATORY DATA: Labs done yesterday WBC 9.3. The patient had an MRI of the brain as I mentioned that showed signal at the right parietal lobe and local edema at subcortical and deep white matter parenchymal is not excluded. PLAN: Now, the plan is that we are going to continue to monitor this patient and consider slow rehydration. Neuro consult is appreciated. We are going to repeat the CAT scan on Monday. Case was discussed with the patient's family. Slim Marino MD
[2018-08-13] MEDS: levoFLOXacin 500 mg in D5W 500 MG/100 ML BAG IVPB SCH (09:12)
[2018-08-13] MEDS: guaiFENesin DM 100 mg-10 mg/5 ml UD PO SCH ×3 (09:13→16:48)
--- NOTE | 2018-08-13 11:02 | RAD ---
Date of service: 08/13/2018 HISTORY: Agonal Respiration/Hypoxemia COMPARISON: Portable chest 08/09/2018. FINDINGS: LUNGS: Pulmonary vascular congestion pattern may have increased somewhat in the interval but is not improved at a minimum. Underlying infiltrates are difficult to exclude at the right perihilar left basilar distributions. Mild left pleural effusion is likely present, trace at the right. No pneumothorax bilaterally. Prominent cardiac silhouette stable. NG tube is now placed coiled at the epigastric region in the abdomen. Calcific atherosclerotic changes are seen related to the thoracic aorta. OSSEOUS STRUCTURES: No significant abnormalities. VISUALIZED UPPER ABDOMEN: Normal. OTHER FINDINGS: None. IMPRESSION: Persistent pulmonary vascular congestion with underlying right perihilar and left basilar airspace disease not excluded. Mild left pleural effusion likely as well as trace right pleural effusion. Nasogastric tube in situ terminating at central epigastric region.
--- NOTE | 2018-08-13 11:02 | CP.PCM.PN ---
Subjective - Date & Time of Evaluation Date of Evaluation: 08/13/18 Time of Evaluation: 09:00 - Subjective Subjective: events noted Objective - Vital Signs/Intake and Output Vital Signs (last 24 hours): Temp Pulse Resp BP Pulse Ox 98.4 F 71 21 143/45 L 99 08/13/18 08:00 08/13/18 09:09 08/13/18 08:00 08/13/18 09:09 08/13/18 08:00 Intake and Output: 08/13/18 08/13/18 06:59 18:59 Intake Total 260 Output Total 150 Balance 110 - Medications Medications: Current Medications Albuterol Sulfate (Albuterol 0.083% Inhal Blessing (2.5 Mg/3 Ml) Ud) 2.5 mg INH RQ6 [facility] Last Admin: 08/13/18 08:16 Dose: 2.5 mg Atorvastatin Calcium (Lipitor) 20 mg PO HS [facility] Last Admin: 08/12/18 22:20 Dose: 20 mg Budesonide (Pulmicort Respules) 0.25 mg INH RBID [facility] Last Admin: 08/13/18 08:16 Dose: 0.25 mg Carvedilol (Coreg) 3.125 mg PO Q12 [facility] Last Admin: 08/13/18 08:58 Dose: 3.125 mg Donepezil HCl (Aricept) 5 mg PO HS [facility] Last Admin: 08/12/18 22:19 Dose: 5 mg Famotidine (Pepcid) 20 mg IVP DAILY [facility] Last Admin: 08/13/18 09:37 Dose: 20 mg Ferrous Sulfate (Feosol) 325 mg PO DAILY [facility] Last Admin: 08/13/18 08:57 Dose: 325 mg Folic Acid (Folic Acid) 1 mg PO DAILY [facility] Last Admin: 08/13/18 09:11 Dose: 1 mg Furosemide (Lasix) 20 mg IVP DAILY [facility] Last Admin: 08/13/18 08:56 Dose: 20 mg Guaifenesin/Dextromethorphan (Robitussin Dm) 5 ml PO TID [facility] Last Admin: 08/13/18 09:13 Dose: 5 ml Home Med (Lubiprostone [Amitiza]) 24 mcg PO DAILY [facility] Hydralazine HCl (Apresoline) 25 mg PO TID [facility] Last Admin: 08/13/18 09:09 Dose: 25 mg Levofloxacin/Dextrose (Levaquin 500mg) 500 mg in 100 mls @ 100 mls/hr IVPB DAILY [facility]; Protocol Last Admin: 08/13/18 09:12 Dose: 100 mls/hr Levetiracetam 500 mg/ Sodium (Chloride) 105 mls @ 210 mls/hr IVPB Q12 [facility] Last Admin: 08/13/18 09:01 Dose: 210 mls/hr Ceftriaxone Sodium 2 gm/ (Sodium Chloride) 100 mls @ 100 mls/hr IVPB DAILY [facility]; Protocol Last Admin: 08/13/18 09:01 Dose: 100 mls/hr Insulin Human Lispro (Humalog) 0 units SC ACHS [facility]; Protocol Last Admin: 08/13/18 07:33 Dose: Not Given Megestrol Acetate (Megace) 400 mg PO DAILY [facility] Last Admin: 08/13/18 08:57 Dose: 400 mg Modafinil (Provigil) 100 mg PO DAILY [facility] Last Admin: 08/13/18 09:38 Dose: 100 mg Montelukast Sodium (Singulair) 10 mg PO HS [facility] Last Admin: 08/12/18 22:20 Dose: 10 mg Multivitamins/Minerals (Therapeutic-M Tab) 1 tab PO DAILY [facility] Last Admin: 08/13/18 09:00 Dose: 1 tab Topiramate (Topamax) 50 mg PO Q12 [facility] Last Admin: 08/13/18 08:57 Dose: 50 mg - Labs Labs: 08/13/18 04:35 08/13/18 04:35 PT 16.7 Seconds (9.8-13.1) H 08/13/18 04:35 INR 1.5 08/13/18 04:35 APTT 28.1 Seconds (25.6-37.1) 08/13/18 04:35 Assessment and Plan (1) CHF (congestive heart failure) Status: Acute (2) Dehydration Status: Acute (3) Pneumonia Status: Acute (4) UTI (urinary tract infection) Status: Acute (5) CVA (cerebral vascular accident) Status: Acute
--- NOTE | 2018-08-13 15:31 | CP.PCM.PN ---
Subjective - Date & Time of Evaluation Date of Evaluation: 08/13/18 Time of Evaluation: 15:23 - Subjective Subjective: Mrs. Man was seen and examined today in the ICU. She continues to be confused, but is responsive and moves all extremities. Overnight, her saturations went down and she was bradycardic. Was placed on non-rebreather. Objective - Vital Signs/Intake and Output Vital Signs (last 24 hours): Temp Pulse Resp BP Pulse Ox 98.8 F 68 18 153/45 H 100 08/13/18 12:00 08/13/18 12:43 08/13/18 12:00 08/13/18 12:43 08/13/18 12:00 Intake and Output: 08/13/18 08/13/18 06:59 18:59 Intake Total 260 499 Output Total 150 300 Balance 110 199 - Medications Medications: Current Medications Albuterol Sulfate (Albuterol 0.083% Inhal Blessing (2.5 Mg/3 Ml) Ud) 2.5 mg INH RQ6 [facility] Last Admin: 08/13/18 13:28 Dose: 2.5 mg Atorvastatin Calcium (Lipitor) 20 mg PO HS [facility] Last Admin: 08/12/18 22:20 Dose: 20 mg Budesonide (Pulmicort Respules) 0.25 mg INH RBID [facility] Last Admin: 08/13/18 08:16 Dose: 0.25 mg Carvedilol (Coreg) 3.125 mg PO Q12 [facility] Last Admin: 08/13/18 08:58 Dose: 3.125 mg Donepezil HCl (Aricept) 5 mg PO HS [facility] Last Admin: 08/12/18 22:19 Dose: 5 mg Famotidine (Pepcid) 20 mg IVP DAILY [facility] Last Admin: 08/13/18 09:37 Dose: 20 mg Ferrous Sulfate (Feosol) 325 mg PO DAILY [facility] Last Admin: 08/13/18 08:57 Dose: 325 mg Folic Acid (Folic Acid) 1 mg PO DAILY [facility] Last Admin: 08/13/18 09:11 Dose: 1 mg Furosemide (Lasix) 20 mg IVP DAILY [facility] Last Admin: 08/13/18 08:56 Dose: 20 mg Guaifenesin/Dextromethorphan (Robitussin Dm) 5 ml PO TID [facility] Last Admin: 08/13/18 13:02 Dose: 5 ml Home Med (Lubiprostone [Amitiza]) 24 mcg PO DAILY [facility] Hydralazine HCl (Apresoline) 25 mg PO TID [facility] Last Admin: 08/13/18 12:43 Dose: 25 mg Levofloxacin/Dextrose (Levaquin 500mg) 500 mg in 100 mls @ 100 mls/hr IVPB DAILY [facility]; Protocol Last Admin: 08/13/18 09:12 Dose: 100 mls/hr Levetiracetam 500 mg/ Sodium (Chloride) 105 mls @ 210 mls/hr IVPB Q12 [facility] Last Admin: 08/13/18 09:01 Dose: 210 mls/hr Ceftriaxone Sodium 2 gm/ (Sodium Chloride) 100 mls @ 100 mls/hr IVPB DAILY [facility]; Protocol Last Admin: 08/13/18 09:01 Dose: 100 mls/hr Insulin Human Lispro (Humalog) 0 units SC ACHS [facility]; Protocol Last Admin: 08/13/18 12:00 Dose: Not Given Megestrol Acetate (Megace) 400 mg PO DAILY [facility] Last Admin: 08/13/18 08:57 Dose: 400 mg Modafinil (Provigil) 100 mg PO DAILY [facility] Last Admin: 08/13/18 09:38 Dose: 100 mg Montelukast Sodium (Singulair) 10 mg PO HS [facility] Last Admin: 08/12/18 22:20 Dose: 10 mg Multivitamins/Minerals (Therapeutic-M Tab) 1 tab PO DAILY [facility] Last Admin: 08/13/18 09:00 Dose: 1 tab Topiramate (Topamax) 50 mg PO Q12 [facility] Last Admin: 08/13/18 08:57 Dose: 50 mg - Labs Labs: 08/13/18 04:35 08/13/18 04:35 PT 16.7 Seconds (9.8-13.1) H 08/13/18 04:35 INR 1.5 08/13/18 04:35 APTT 28.1 Seconds (25.6-37.1) 08/13/18 04:35 - Constitutional Appears: No Acute Distress, Confused - Head Exam Head Exam: ATRAUMATIC, NORMAL INSPECTION, NORMOCEPHALIC - Eye Exam Eye Exam: EOMI, Normal appearance, PERRL - ENT Exam ENT Exam: Mucous Membranes Moist, Normal Exam - Neck Exam Neck Exam: Full ROM, Normal Inspection. absent: Lymphadenopathy - Respiratory Exam Respiratory Exam: Rales, Wheezes - Cardiovascular Exam Cardiovascular Exam: REGULAR RHYTHM, +S1, +S2. absent: Murmur - GI/Abdominal Exam GI & Abdominal Exam: Soft, Normal Bowel Sounds. 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 Does not appear to be a spontaneous bleed. May resume aspirin 81 mg, if cleared by primary team and cardiology. Status: Acute (2) Dementia Assessment & Plan: Continue current medications for prevention of worsening dementia. Status: Chronic
[2018-08-14] MEDS: Albuterol 0.083% Inhal Sol (2.5 mg/3 mL) UD INH SCH ×4 (01:03→19:11)
[2018-08-14 05:44] LABS: BASO % 0.5 % (0.0-2.0); EOS # 0.1 K/uL (0.0-0.7); EOS % 1.2 % (0.0-4.0); HEMOGLOBIN 13.2 g/dL (12.0-16.0); LYMPH # 0.7 K/uL (1.0-4.3); LYMPH % 7.2 % (20.0-40.0); MEAN CELL VOLUME 104.6 fl (81.0-99.0); MEAN CORPUSCULAR HEMOGLOBIN 34.4 pg (27.0-31.0); MEAN CORPUSCULAR HGB CONC 32.9 g/dL (33.0-37.0); MEAN PLATELET VOLUME 10.8 fl (7.2-11.7); MONO # 0.9 K/uL (0.0-0.8); NEUT # 8.4 K/uL (1.8-7.0); NEUT % 82.1 % (50.0-75.0); NRBC % 0.8 % (0.0-0.0); PLATELET COUNT 183 K/uL (130-400); RBC 3.83 Mil/uL (3.80-5.20); WHITE BLOOD COUNT 10.2 K/uL (4.8-10.8)
[2018-08-14 06:13] LABS: ALBUMIN 2.4 g/dL (3.5-5.0); CALCIUM 8.5 mg/dL (8.4-10.2)
[2018-08-14 06:14] LABS: ALB/GLOB RATIO 0.8 (1.0-2.1)
[2018-08-14] MEDS: Budesonide 0.25 mg/2 ml Inhal Susp UD INH SCH ×2 (07:23→19:11)
[2018-08-14] MEDS: Insulin Lispro (humaLOG) 100 Units/ml Inj SC SCH ×4 (07:30→21:46)
[2018-08-14] MEDS: levETIRAcetam 500 MG in Sodium Chloride 0.9% 100 ML IVPB SCH ×2 (08:25→21:45)
[2018-08-14] MEDS: cefTRIAXone 2 GM in Sodium Chloride 0.9% 100 ML IVPB SCH (08:30)
--- NOTE | 2018-08-14 08:31 | PN ---
DATE: 08/13/2018 SUBJECTIVE: Today, the patient was transferred to ICU for better monitoring. The patient was seen and examined in ICU. The patient was somewhat drowsy, but is arousable, and the patient hardly speaks, but was found to be on Ventimask, saturating 99%. The patient denied, however, any chest pain or palpitation. PHYSICAL EXAMINATION: VITAL SIGNS: The patient has the most recent blood pressure 130/39, but blood pressure 162/45, pulse rate 74, respirations 13. NECK: Supple. HEENT: Eyes, pupils are equal and reactive to light and accommodation. LUNGS: Poor inspiratory effort. HEART: Regular rate and rhythm. Positive murmur. ABDOMEN: Soft. EXTREMITIES: There is no edema. LABORATORY DATA: Blood work showed that WBC 8.5, hemoglobin 13.4, hematocrit 40, and platelet is 160. Chemistry showed that sodium 140, potassium 4.4, chloride 113, bicarb is 21, BUN 44, creatinine 1.8 improving. The GFR is 33. The glucose is 122, but AST is 65, ALT is 67, alkaline phosphatase is 100. So the patient had today a chest x-ray that showed pulmonary vascular congestion pattern may have increased somewhat. There is a mild left pleural effusion. So the patient had an NG tube in place. The patient had a swallow evaluation done earlier, that the patient passed the swallow evaluation. So now the patient will be on puree diet and we will continue to monitor the patient in ICU. Dr. Fuentes was appreciated. The case was discussed with the daughter at the bedside. Slim Marino MD
[2018-08-14] MEDS: guaiFENesin DM 100 mg-10 mg/5 ml UD PO SCH ×3 (08:35→17:57)
[2018-08-14] MEDS: Megestrol Acetate 40 mg/ml Cup PO SCH (08:35)
[2018-08-14] MEDS: Multivitamin With Minerals Tab PO SCH (08:37)
[2018-08-14 08:55] LABS: EOSINOPHIL 3 % (0-7); LYMPHOCYTE 7 % (20-50); MONOCYTE 8 % (0-10); NEUTROPHIL 82 % (42-75); TOTAL CELLS COUNTED 100
[2018-08-14 08:56] LABS: ANISOCYTOSIS SLIGHT; POLYCHROMIC SLIGHT
[2018-08-14 08:57] LABS: BURR CELLS SLIGHT
[2018-08-14 08:59] LABS: PLATELET ESTIMATE NORMAL (NORMAL)
--- NOTE | 2018-08-14 10:29 | CP.PCM.PN ---
Subjective - Date & Time of Evaluation Date of Evaluation: 08/14/18 Time of Evaluation: 08:00 - Subjective Subjective: confused NGT in place Objective - Vital Signs/Intake and Output Vital Signs (last 24 hours): Temp Pulse Resp BP Pulse Ox 98.6 F 74 17 152/45 H 100 08/14/18 08:00 08/14/18 08:37 08/14/18 08:00 08/14/18 08:40 08/14/18 08:00 Intake and Output: 08/14/18 08/14/18 06:59 18:59 Intake Total 118 0 Output Total 200 Balance -82 0 - Medications Medications: Current Medications Albuterol Sulfate (Albuterol 0.083% Inhal Blessing (2.5 Mg/3 Ml) Ud) 2.5 mg INH RQ6 [facility] Last Admin: 08/14/18 07:23 Dose: 2.5 mg Atorvastatin Calcium (Lipitor) 20 mg PO HS [facility] Last Admin: 08/13/18 21:22 Dose: 20 mg Budesonide (Pulmicort Respules) 0.25 mg INH RBID [facility] Last Admin: 08/14/18 07:23 Dose: 0.25 mg Carvedilol (Coreg) 3.125 mg PO Q12 [facility] Last Admin: 08/14/18 08:37 Dose: 3.125 mg Donepezil HCl (Aricept) 5 mg PO HS [facility] Last Admin: 08/13/18 21:22 Dose: 5 mg Famotidine (Pepcid) 20 mg IVP DAILY [facility] Last Admin: 08/14/18 08:44 Dose: 20 mg Ferrous Sulfate (Feosol) 325 mg PO DAILY [facility] Last Admin: 08/14/18 08:36 Dose: 325 mg Folic Acid (Folic Acid) 1 mg PO DAILY [facility] Last Admin: 08/14/18 08:38 Dose: 1 mg Furosemide (Lasix) 20 mg IVP DAILY [facility] Last Admin: 08/14/18 08:40 Dose: 20 mg Guaifenesin/Dextromethorphan (Robitussin Dm) 5 ml PO TID [facility] Last Admin: 08/14/18 08:35 Dose: 5 ml Home Med (Lubiprostone [Amitiza]) 24 mcg PO DAILY [facility] Hydralazine HCl (Apresoline) 25 mg PO TID [facility] Last Admin: 08/14/18 08:36 Dose: 25 mg Levetiracetam 500 mg/ Sodium (Chloride) 105 mls @ 210 mls/hr IVPB Q12 [facility] Last Admin: 08/14/18 08:25 Dose: 210 mls/hr Ceftriaxone Sodium 2 gm/ (Sodium Chloride) 100 mls @ 100 mls/hr IVPB DAILY [facility]; Protocol Last Admin: 08/14/18 08:30 Dose: 100 mls/hr Insulin Human Lispro (Humalog) 0 units SC ACHS [facility]; Protocol Last Admin: 08/14/18 07:30 Dose: Not Given Megestrol Acetate (Megace) 400 mg PO DAILY [facility] Last Admin: 08/14/18 08:35 Dose: 400 mg Modafinil (Provigil) 100 mg PO DAILY [facility] Last Admin: 08/14/18 08:45 Dose: 100 mg Montelukast Sodium (Singulair) 10 mg PO HS [facility] Last Admin: 08/13/18 21:23 Dose: 10 mg Multivitamins/Minerals (Therapeutic-M Tab) 1 tab PO DAILY [facility] Last Admin: 08/14/18 08:37 Dose: 1 tab Topiramate (Topamax) 50 mg PO Q12 [facility] Last Admin: 08/14/18 08:35 Dose: 50 mg - Labs Labs: 08/14/18 04:35 08/14/18 04:35 PT 16.7 Seconds (9.8-13.1) H 08/13/18 04:35 INR 1.5 08/13/18 04:35 APTT 28.1 Seconds (25.6-37.1) 08/13/18 04:35 - Constitutional Appears: Non-toxic, Cachectic, Chronically Ill - Head Exam Head Exam: NORMOCEPHALIC - Eye Exam Eye Exam: absent: Scleral icterus - ENT Exam ENT Exam: Mucous Membranes Dry - Neck Exam Neck Exam: absent: Lymphadenopathy - Respiratory Exam Respiratory Exam: Decreased Breath Sounds - Cardiovascular Exam Cardiovascular Exam: REGULAR RHYTHM - GI/Abdominal Exam GI & Abdominal Exam: Distended - Rectal Exam Rectal Exam: Deferred - Exam Exam: NORMAL INSPECTION - Extremities Exam Extremities Exam: absent: Pedal Edema Assessment and Plan (1) CHF (congestive heart failure) Status: Acute (2) Dehydration Status: Acute (3) Pneumonia Status: Acute (4) UTI (urinary tract infection) Status: Acute (5) CVA (cerebral vascular accident) Status: Acute - Assessment and Plan (Free Text) Assessment: cont IV antibiotics neuro folllow up noted supportive care
[2018-08-15] MEDS: Albuterol 0.083% Inhal Sol (2.5 mg/3 mL) UD INH SCH ×4 (01:08→19:17)
--- NOTE | 2018-08-15 04:02 | PN ---
DATE: 08/14/2018 CRITICAL CARE PROGRESS NOTE LOCATION: The patient in ICU, bed 425. TIME SPENT: 35 minutes. SUBJECTIVE: The patient is seen and evaluated at the bedside. Case discussed in multidisciplinary ICU rounds this morning. Past medical, surgical, social, and family history reviewed. HISTORY OF PRESENT ILLNESS: An 82-year-old female with medical history significant for advanced Alzheimer's disease, anemia of chronic disease, arthritis, chronic asthma, coronary artery disease, status post stent, moderate systolic heart failure with EF 35% to 40%, depression, diabetes, hypertension, hyperlipidemia, peripheral edema, chronic kidney disease, and seizure disorder; admitted with shortness of breath and change in mental status. CT of head and MRA showed right parietal occipital hemorrhage, seen by Neurology consult, suspected mass underlying the hemorrhage. CAT scan showed stable hemorrhage. No mass reported. Overnight normotensive, afebrile. Telemetry sinus rhythm, status post speech and swallow evaluation recommended with nectar thick liquid. However, the patient remains lethargic and pooling of food in the mouth, NG in place. PHYSICAL EXAMINATION: VITAL SIGNS: Temperature 98.6, heart rate 74 , blood pressure 152/45, respiratory rate 17, saturation 100% on oxygen 2 liters nasal cannula. Intake 1281, output 1000, positive balance 281. Weight 134 pounds. HEAD, EYES, EARS, NOSE, AND THROAT: Pupils are 2 to 3 mm and reactive. Corneal reflex present. Conjunctival reflex present. NECK: Slight stiffness from neck but supple. Trachea is central. CHEST: Bilateral breath sounds. No audible wheezing. Breath sounds diminished, left more than right. HEART: Rhythm regular. S1, S2, normal intensity. ABDOMEN: Bowel sounds present. Soft. Liver and spleen not palpable. Abdomen not distended. CURRENT MEDICATIONS: Include albuterol/Atrovent inhalation every 6 hours, aspirin 81 mg daily, Lipitor 20 mg daily, Pulmicort 0.25 mg via nebulizer every 12 hours, Coreg 3.125 mg every 12 hours, ceftriaxone 2 g IV daily, Colace 100 mg NG b.i.d., Aricept 5 mg at night, Pepcid 20 mg IV daily, ferrous sulfate 325 mg daily, folic acid 1 mg daily, Lasix 20 mg IV daily, hydralazine 25 mg three times daily, Humalog based on Accu-Chek, Keppra 500 mg IV every 12 hours, Megace 400 mg daily, Provigil 100 mg daily, Singulair 10 mg daily, multivitamin tablet daily, Topamax 50 mg p.o. every 12 hours. LABORATORY DATA: WBC 10.2, hemoglobin 13.2, hematocrit 40.1, MCV 104.6, platelet count 183. Neutrophils 82, lymphocytes 7.2, monocytes 9, PT 16.7, INR 1.5, PTT 28.1. SMA-7; sodium 141, potassium 4.1, chloride 110, CO2 of 23, blood urea nitrogen 43, creatinine 1.8, random glucose 127, calcium 8.5, phosphorus 3.1, magnesium 1.9, total bilirubin 0.2. AST 33, ALT 52, alkaline phosphatase 91. Total protein 5.3, albumin 2.4. AG ratio 0.8. HDL 22, LDL 56, cholesterol 82, triglycerides 69. Urinalysis, wbc microscopic 18. Microbiology: Urine culture positive for E. coli. Chest x-ray done on 08/13/2018 shows calcific atherosclerotic changes in thoracic aorta, persistent pulmonary vascular congestion with underlying right perihilar and left basilar airspace disease, mild left pleural effusion, right pleural effusion. Nasogastric tube in place terminating at the center epigastric region. IMPRESSION: 1. Neurology: Altered mental status, underlying advanced Alzheimer's dementia. Admitted with right parietal cortical hemorrhage. No change in the mental status since admission. History of seizure disorder, on Topamax and Keppra. No further seizure noted since admission. Appreciate neurology evaluation and recommendation. Neurosurgery consulted and recommendation noted. 2. Pulmonary: History of chronic intermittent asthma. Currently on albuterol nebulizer along with Pulmicort. Suspect aspiration, high risk for same due to the advanced dementia probably pleural effusion and pulmonary vascular congestion, could be related to recurrent ongoing aspiration. We will closely monitor. Continue current bronchodilator and Pulmicort. 3.. Cardiac: Chronic systolic heart failure with ejection fraction recorded in 35 to 40 range. Hypertension, currently on Coreg 3.125 mg every 12 hours, Lasix 20 mg IV daily. 4. Hematology: No leukocytosis. Hemoglobin and hematocrit are stable. Stable platelet count. 5. Renal: Chronic renal insufficiency. BUN and creatinine remained stable. No electrolyte abnormalities. 6: Gastrointestinal: Mildly elevated liver enzymes along with increased alkaline phosphatase, unchanged. 7. Endocrinology: No history of thyroid disease. Blood sugars remains elevated, and followed by Accu-chek with regular insulin coverage. 8 Infectious Disease: Urinary tract infection with E. coli, being followed by Infectious Disease consult. RECOMMENDATION: On ceftriaxone 2 g IV daily. Keep head of bed 30-degree up. Calorie count in progress. May benefit from PEG insertion for adequate nutrition and to minimize risk of aspiration. Called anticoagulation due to the intracerebellar hemorrhage. DVT prophylaxis with mechanical device. Aspirin initiated as per recommendation from Neurology. Russ Banks MD
[2018-08-15 05:40] LABS: BASO # 0.1 K/uL (0.0-0.2); BASO % 0.7 % (0.0-2.0); EOS # 0.1 K/uL (0.0-0.7); EOS % 1.6 % (0.0-4.0); HEMOGLOBIN 12.8 g/dL (12.0-16.0); LYMPH # 0.7 K/uL (1.0-4.3); LYMPH % 7.4 % (20.0-40.0); MEAN CELL VOLUME 105.6 fl (81.0-99.0); MEAN CORPUSCULAR HEMOGLOBIN 34.4 pg (27.0-31.0); MEAN CORPUSCULAR HGB CONC 32.5 g/dL (33.0-37.0); MEAN PLATELET VOLUME 10.7 fl (7.2-11.7); MONO # 0.9 K/uL (0.0-0.8); MONO % 9.5 % (0.0-10.0); NEUT # 7.7 K/uL (1.8-7.0); NEUT % 80.8 % (50.0-75.0); NRBC % 0.5 % (0.0-0.0); RBC 3.73 Mil/uL (3.80-5.20); RED CELL DISTRIBUTION WIDTH 15.9 % (11.5-14.5); WHITE BLOOD COUNT 9.5 K/uL (4.8-10.8)
[2018-08-15 05:52] LABS: ALB/GLOB RATIO 0.8 (1.0-2.1); ALBUMIN 2.3 g/dL (3.5-5.0); CALCIUM 8.5 mg/dL (8.4-10.2)
[2018-08-15] MEDS: Budesonide 0.25 mg/2 ml Inhal Susp UD INH SCH ×2 (07:47→19:17)
[2018-08-15] MEDS: Megestrol Acetate 40 mg/ml Cup PO SCH (08:39)
--- NOTE | 2018-08-15 08:40 | PN ---
DATE: 08/14/2018 SUBJECTIVE: Today, the patient is seen in ICU and is obviously very weak. He is somewhat aphasic but opens eyes to verbal stimuli and no apparent respiratory distress. PHYSICAL EXAMINATION: VITAL SIGNS: The patient has a blood pressure of 132/46, pulse is 72, respirations are 18, temperature 97.8. NECK: Supple. No JVD. LUNGS: Some fine rales at the bases. HEART: Regular rate and rhythm. Positive murmur. ABDOMEN: Soft and nontender. EXTREMITIES: There is no edema. LABORATORY DATA: Lab showed that WBC is 10.2, hemoglobin 13.2, hematocrit 40.1, platelet is 183. Chemistry showed a sodium of 141, potassium 4.1, chloride 110, BUN 43, creatinine 1.8, and glucose 127. Total protein 5.3 and albumin 2.4. ASSESSMENT AND PLAN: The plan is that we are going to continue the same and monitor vitals. Dr. Fuentes note is appreciated. The patient will remain in intensive care unit. Slim Marino MD
[2018-08-15] MEDS: Insulin Lispro (humaLOG) 100 Units/ml Inj SC SCH ×4 (08:41→21:38)
[2018-08-15] MEDS: cefTRIAXone 2 GM in Sodium Chloride 0.9% 100 ML IVPB SCH (08:41)
[2018-08-15] MEDS: levETIRAcetam 500 MG in Sodium Chloride 0.9% 100 ML IVPB SCH (08:42)
[2018-08-15] MEDS: guaiFENesin DM 100 mg-10 mg/5 ml UD PO SCH ×4 (08:42→16:27)
[2018-08-15] MEDS: Multivitamin With Minerals Tab PO SCH (08:42)
--- NOTE | 2018-08-15 13:23 | CP.PCM.PN ---
Subjective - Date & Time of Evaluation Date of Evaluation: 08/15/18 Time of Evaluation: 07:00 - Subjective Subjective: confused bedridden NAD Objective - Vital Signs/Intake and Output Vital Signs (last 24 hours): Temp Pulse Resp BP Pulse Ox 98.5 F 74 17 117/46 L 97 08/15/18 12:00 08/15/18 12:25 08/15/18 12:00 08/15/18 12:25 08/15/18 12:00 Intake and Output: 08/15/18 08/15/18 06:59 18:59 Intake Total 387 200 Output Total 225 Balance 162 200 - Medications Medications: Current Medications Albuterol Sulfate (Albuterol 0.083% Inhal Blessing (2.5 Mg/3 Ml) Ud) 2.5 mg INH RQ6 [facility] Last Admin: 08/15/18 07:47 Dose: 2.5 mg Aspirin (Aspirin Chewable) 81 mg PO DAILY [facility] Last Admin: 08/15/18 08:40 Dose: 81 mg Atorvastatin Calcium (Lipitor) 20 mg PO HS [facility] Last Admin: 08/14/18 21:45 Dose: 20 mg Budesonide (Pulmicort Respules) 0.25 mg INH RBID [facility] Last Admin: 08/15/18 07:47 Dose: 0.25 mg Carvedilol (Coreg) 3.125 mg PO Q12 [facility] Last Admin: 08/15/18 08:40 Dose: 3.125 mg Docusate Sodium (Colace Liquid) 100 mg NG BID [facility] Last Admin: 08/15/18 08:39 Dose: 100 mg Famotidine (Pepcid) 20 mg NG DAILY [facility] Ferrous Sulfate (Feosol Liq) 300 mg PO DAILY [facility] Folic Acid (Folic Acid) 1 mg PO DAILY [facility] Last Admin: 08/15/18 08:41 Dose: 1 mg Furosemide (Lasix) 20 mg IVP DAILY [facility] Last Admin: 08/15/18 08:39 Dose: 20 mg Guaifenesin/Dextromethorphan (Robitussin Dm) 5 ml PO TID [facility] Last Admin: 08/15/18 12:27 Dose: 5 ml Hydralazine HCl (Apresoline) 25 mg PO TID [facility] Last Admin: 08/15/18 12:25 Dose: Not Given Levetiracetam 500 mg/ Sodium (Chloride) 105 mls @ 210 mls/hr IVPB Q12 [facility] Last Admin: 08/15/18 08:42 Dose: 210 mls/hr Ceftriaxone Sodium 2 gm/ (Sodium Chloride) 100 mls @ 100 mls/hr IVPB DAILY [facility]; Protocol Last Admin: 08/15/18 08:41 Dose: 100 mls/hr Insulin Human Lispro (Humalog) 0 units SC ACHS [facility]; Protocol Last Admin: 08/15/18 12:26 Dose: Not Given Levetiracetam (Keppra) 500 mg NG BID [facility] Megestrol Acetate (Megace) 400 mg PO DAILY [facility] Last Admin: 08/15/18 08:39 Dose: 400 mg Modafinil (Provigil) 100 mg PO DAILY [facility] Last Admin: 08/15/18 08:39 Dose: 100 mg Montelukast Sodium (Singulair) 10 mg PO HS [facility] Last Admin: 08/14/18 21:44 Dose: 10 mg Multivitamins/Vitamin C (Multi-Delyn Liquid) 15 ml NG DAILY [facility] - Labs Labs: 08/15/18 04:35 08/15/18 04:35 PT 16.7 Seconds (9.8-13.1) H 08/13/18 04:35 INR 1.5 08/13/18 04:35 APTT 28.1 Seconds (25.6-37.1) 08/13/18 04:35 - Constitutional Appears: Non-toxic, Confused, Cachectic, Chronically Ill - Head Exam Head Exam: NORMOCEPHALIC - Eye Exam Eye Exam: absent: Scleral icterus - ENT Exam ENT Exam: Mucous Membranes Dry - Neck Exam Neck Exam: absent: Lymphadenopathy - Respiratory Exam Respiratory Exam: Decreased Breath Sounds - Cardiovascular Exam Cardiovascular Exam: REGULAR RHYTHM, +S1, +S2 - GI/Abdominal Exam GI & Abdominal Exam: Distended, Soft. absent: Tenderness - Rectal Exam Rectal Exam: Deferred - Exam Exam: NORMAL INSPECTION Assessment and Plan (1) CHF (congestive heart failure) Status: Acute (2) Dehydration Status: Acute (3) Pneumonia Status: Acute (4) UTI (urinary tract infection) Status: Acute (5) CVA (cerebral vascular accident) Status: Acute
[2018-08-15] MEDS: levETIRAcetam 100 mg/ml (5ml) Oral Syringe NG SCH (16:28)
--- NOTE | 2018-08-15 16:53 | CP.CCUPN ---
CCU Subjective - Physician Review Subjective (Free Text): Remains lethargic, overall no improvement in neuromental status since admission. She does not appear distressed. No fevers overnight, temps mostly 97 -98F, normotensive, Spo2 97% on NC. HR 74, BP 130/70s. Other vitals and I/O's reviewed. ROS: No other pertinent negs or positives on 10+ system review. PMSFH: All other Nursing and physician documentation reviewed to date; no new pertinent info noted relevant to current medical problems. EXAM- HEENT: no icterus, no gaze preference, Pupils 3 mm and reactive, absent gag. NECK: No JVD visible, supple, carotids equal upstroke bilat/no bruit CHEST: decreased bi-basilar BS , no wheezes audible HEART: regular, distant S1S2, no rubs ABD: soft, no focal tenderness, no guarding, no organomegaly, BS hypoactive. EXT: no calf tenderness or palpable cords, distal pulses intact and symmetrical. NEURO: minimally withdraws limbs to pain stimuli, GCS= 7 ( E2V1M4) SKIN: no rashes, warm and dry LABS: WBC= 9.5 HGB= 12.8 PLTs= 179K Na= 141 K= 4.2 WS=980 HCO3=25 BUN/Cr= 41/1.7 BS= 178 BNP = 23436 to [address] ECHO: 35-40% EF, DDysfx grade II, Increased LA size, Mod-severe AR/, +MR/TR IMPRESSION / MAJOR PROBLEMS NOW: 1. Embolic CVA with ICH conversion 2. Pulm Edema, 2 Neurogenic etiology post CVA, versus Cardiomyopathy 3. r/o underlying Pneumonia 2 Aspiration 4. Azotemia 2 Pre-Renal etiology vs Low CO state PLAN: 1. Ongoing Neurochecks, Seizure precautions, HOPB elevation. 2. Lasix PRN 3. May need further airway protection if lethargy worsens. No Advance Directives noted. Need discussion with family regarding this topic. 4. Stop PO feeds, use NGT for enteral nutritional support. Meds already being given via this route. 5. Resume ASA as per Neurology. 6. Low GCS, would start on stress ulcer prx.
[2018-08-15] MEDS ORDERED: Albuterol 0.083% Inhal Sol (2.5 mg/3 mL) UD INH ONE (17:29)
[2018-08-16] MEDS: Albuterol 0.083% Inhal Sol (2.5 mg/3 mL) UD INH SCH ×4 (01:05→19:57)
[2018-08-16] MEDS: Budesonide 0.25 mg/2 ml Inhal Susp UD INH SCH ×2 (07:48→19:57)
[2018-08-16] MEDS: Insulin Lispro (humaLOG) 100 Units/ml Inj SC SCH ×4 (08:16→22:43)
--- NOTE | 2018-08-16 08:33 | PN ---
DATE: 08/15/2018 SUBJECTIVE: Today, the patient is seen in the ICU. The patient is lethargic. No apparent distress. The patient is stalking food in the mouth. The patient had no fever. PHYSICAL EXAMINATION: VITAL SIGNS: Blood pressure 143/47, pulse 78, respirations 22, temperature 98.1. GENERAL: The patient is somewhat pale. NECK: Supple. LUNGS: Some rales bilaterally but poor inspiratory effort. HEART: Regular rate and rhythm. Positive loud murmur. ABDOMEN: Soft and nontender. No palpable mass. EXTREMITIES: There is no edema. The patient has NG tube inserted in place. LABORATORY DATA: Lab showed that WBC 9.5, hemoglobin 12.8, hematocrit 39.4, and platelets is 179. Chemistry showed sodium 141, potassium 4.2, chloride 110, bicarbonate 35, BUN 41, creatinine 1.7, and glucose is 178. ASSESSMENT AND PLAN: The plan is that we are going to stop the oral medication but started , and we are going to continue the antibiotic therapy. We will discuss the case with considering Do Not Resuscitate on it and lab will be ordered for to go. Slim Marino MD
--- NOTE | 2018-08-16 08:40 | RAD ---
Date of service: 08/16/2018 HISTORY: follow up COMPARISON: 08/13/2018 FINDINGS: LUNGS: There is severe pulmonary venous congestion. There is improved aeration in the lungs. PLEURA: Suspect small pleural effusions, larger on the left. No pneumothorax. CARDIOVASCULAR: There is moderate cardiomegaly and prominent central vasculature. Atherosclerotic aortic calcifications are present. OSSEOUS STRUCTURES: Within normal limits for the patient's age. VISUALIZED UPPER ABDOMEN: Normal. OTHER FINDINGS: The nasogastric tube terminates in the stomach. IMPRESSION: Findings are most compatible with congestive heart failure with interval mild improvement.
[2018-08-16 09:35] LABS: HEMOGLOBIN 12.2 g/dL (12.0-16.0); MEAN CELL VOLUME 104.5 fl (81.0-99.0); MEAN CORPUSCULAR HEMOGLOBIN 34.7 pg (27.0-31.0); MEAN CORPUSCULAR HGB CONC 33.2 g/dL (33.0-37.0); RBC 3.5 Mil/uL (3.80-5.20); RED CELL DISTRIBUTION WIDTH 16.3 % (11.5-14.5); WHITE BLOOD COUNT 9.8 K/uL (4.8-10.8)
[2018-08-16 09:48] LABS: CALCIUM 8.4 mg/dL (8.4-10.2)
[2018-08-16] MEDS: Multi Vitamins 15 mL UD Oral Solution NG SCH (10:07)
[2018-08-16] MEDS: levETIRAcetam 100 mg/ml (5ml) Oral Syringe NG SCH ×2 (10:07→16:31)
[2018-08-16] MEDS: guaiFENesin DM 100 mg-10 mg/5 ml UD PO SCH ×3 (10:07→16:31)
[2018-08-16] MEDS: Ferrous Sulfate 300 mg/5 mL Liq UD PO SCH (10:09)
[2018-08-16] MEDS: Megestrol Acetate 40 mg/ml Cup PO SCH (10:09)
[2018-08-16] MEDS: cefTRIAXone 2 GM in Sodium Chloride 0.9% 100 ML IVPB SCH (10:11)
[2018-08-16] MEDS: Famotidine 40 MG/5 ML NG SCH (14:51)
--- NOTE | 2018-08-16 22:40 | PQF ---
PROVIDER RESPONSE TEXT: Chronic Kidney disease Stage 3 REVIEWER QUERY TEXT: Kidney Disease, Chronic CKD Stage Chronic Kidney Disease (CKD) is documented in the Medical Record. Please specify the disease stage ( includes probable or suspected) Such as: -- Chronic kidney disease Stage 1 -- Chronic kidney disease Stage 2 -- Chronic kidney disease Stage 3 -- Chronic kidney disease Stage 4 -- Chronic kidney disease Stage 5 -- Chronic kidney disease Stage 5, requiring dialysis -- End Stage Renal Disease -- Other, please specify BUN: 27->41->45->44 Creatinine:1.4->2.2->2.1->1.8 Est GFR ( Amer): 43->26->27->33 Est GFR (Non Af Amer): 36->21->22->27 08/11 Hospitalist note; Hx. includes CKD Stages are defined by the [employer] as follows: CKD Stage I GFR >= 90 ml / min per 1.73 m2 and persistent albuminuria CKD Stage 2 GFR between 60 and 89 with persistent albuminuria CKD Stage 3 GFR between 30 and 59 CKD Stage 4 GFR between 15 and 29 CKD Stage 5 GFR between <15 or End Stage Renal Disease The patient's Clinical Indicators include: - Query created by: Asuncion Freitas on 08/13/2018 10:56 AM Electronically signed by: Slim Marino MD 08/16/2018 10:37 PM
--- NOTE | 2018-08-16 22:40 | PQF ---
PROVIDER RESPONSE TEXT: This is atypical pneumonia REVIEWER QUERY TEXT: Pneumonia Specificity Pneumonia is documented in the Medical Record. Please specify the type of pneumonia and the causative organism (includes probable or suspected) if known after the work up is completed Type: -- Aspiration pneumonia (please also specify the aspirate) - Please indicate if the aspiration is postprocedure -- Bacterial (please document suspected or probable organism) -- Bronchopneumonia (please document suspected or probable organism) -- Interstitial pneumonia -- Organizing pneumonia / BOOP -- Pneumonia with influenza, tatum flu, or H1N1 flu -- RSV -- Viral -- Other, please specify H and P: -- found to be in AMS:,generalized weakness--found somewhat dehydrated and septic due to pn eumonia and UTI; also the patient was found to have a CHF. PMH: Alzheimer disease, anemia, arthritis, asthma, CAD and got stents , dementia, CHF, depressio n, diabetes, HTN , hyperlipidemia, pneumonia, PE , CKD, seizure Imp: 1. Pneumonia. 2. hemorrhage. 3. Urinary tract infection. 4. Hypertension. 5. Chronic kidne y disease. 6. Dementia. 7. Aortic stenosis. 8. Peripheral vascular disease. 9. Debility. 08/13 [employer] note: (4) Pneumonia ;Current Visit: Yes Status: Acute Priority: High Comment: - CXR on admission shows possible RLL pneumonia - Leukocytosis - Repeat CXR, CBC - Continue Zosyn 2.25gm I V q6h - F/U BCx - oxygen via nasal canula 08/13 [employer]: Impaired swallowing, moderate oral dysphagia and suspected pharyngeal dysphagia The patient's Clinical Indicators include: - Query created by: Asuncion Freitas on 08/13/2018 10:51 AM Electronically signed by: Slim Marino MD 08/16/2018 10:37 PM
[2018-08-17] MEDS: Albuterol 0.083% Inhal Sol (2.5 mg/3 mL) UD INH SCH ×4 (01:02→19:11)
[2018-08-17 05:54] LABS: ALB/GLOB RATIO 0.8 (1.0-2.1); ALBUMIN 2.5 g/dL (3.5-5.0); CALCIUM 8.6 mg/dL (8.4-10.2)
[2018-08-17 06:00] LABS: BASO # 0.1 K/uL (0.0-0.2); BASO % 0.8 % (0.0-2.0); EOS # 0.2 K/uL (0.0-0.7); EOS % 1.7 % (0.0-4.0); HEMOGLOBIN 12.6 g/dL (12.0-16.0); LYMPH # 0.7 K/uL (1.0-4.3); LYMPH % 6.9 % (20.0-40.0); MEAN CELL VOLUME 104.7 fl (81.0-99.0); MEAN CORPUSCULAR HEMOGLOBIN 33.7 pg (27.0-31.0); MEAN CORPUSCULAR HGB CONC 32.2 g/dL (33.0-37.0); MEAN PLATELET VOLUME 10.8 fl (7.2-11.7); MONO # 0.8 K/uL (0.0-0.8); MONO % 8.6 % (0.0-10.0); NRBC % 0.2 % (0.0-0.0); RBC 3.73 Mil/uL (3.80-5.20); RED CELL DISTRIBUTION WIDTH 15.6 % (11.5-14.5); WHITE BLOOD COUNT 9.8 K/uL (4.8-10.8)
[2018-08-17] MEDS: Insulin Lispro (humaLOG) 100 Units/ml Inj SC SCH ×3 (06:57→21:38)
[2018-08-17] MEDS: Budesonide 0.25 mg/2 ml Inhal Susp UD INH SCH ×2 (08:16→19:11)
--- NOTE | 2018-08-17 08:20 | PN ---
DATE: 08/16/2018 SUBJECTIVE: The patient was seen earlier, and the patient was transferred today to telemetry. The patient is still somewhat sleepy, drowsy, and responds poorly to questions and has no apparent distress . PHYSICAL EXAMINATION: VITAL SIGNS: Blood pressure of 162/62, pulse 81, respirations 16, and temperature 98.4. NECK: Supple. HEENT: Head is up with NG tube in place, feeding. LUNGS: Some fine rales at the bases. HEART: Regular rate and rhythm, but there is large systolic murmur. ABDOMEN: Soft. Positive for epigastric hernia. EXTREMITIES: No edema. as I mentioned above. LABORATORY DATA: The patient's blood work today shows that WBC is 9.8, hemoglobin 12.2, hematocrit 36.6, and platelet is 188. Chemistry showed a sodium of 140, potassium 4.5, chloride 107, bicarb 25, BUN 37, creatinine 1.4, GFR is 43, glucose 160, and calcium 8.4. The case was discussed with the family, and the patient was put on antibiotics for pneumonia and also the patient has urinary tract infection. Apparently, this is atypical pneumonia, and we will treat with . Plan is that we are going to add Provigil 200 mg in the morning. Slim Marino MD
[2018-08-17] MEDS: levETIRAcetam 100 mg/ml (5ml) Oral Syringe NG SCH ×2 (09:00→16:57)
[2018-08-17] MEDS: Ferrous Sulfate 300 mg/5 mL Liq UD PO SCH (09:31)
[2018-08-17] MEDS: Multi Vitamins 15 mL UD Oral Solution NG SCH (09:34)
[2018-08-17] MEDS: Megestrol Acetate 40 mg/ml Cup PO SCH (09:34)
[2018-08-17] MEDS: guaiFENesin DM 100 mg-10 mg/5 ml UD PO SCH ×3 (09:35→16:58)
[2018-08-17] MEDS: Famotidine 40 MG/5 ML NG SCH (09:35)
[2018-08-17] MEDS: cefTRIAXone 2 GM in Sodium Chloride 0.9% 100 ML IVPB SCH (09:35)
--- NOTE | 2018-08-17 13:59 | CP.PCM.PN ---
Subjective - Date & Time of Evaluation Date of Evaluation: 08/17/18 Time of Evaluation: 07:00 - Subjective Subjective: LETHARGIC NAD NGT IN PROGRESS Objective - Vital Signs/Intake and Output Vital Signs (last 24 hours): Temp Pulse Resp BP Pulse Ox 98.6 F 84 20 143/68 100 08/17/18 11:53 08/17/18 11:53 08/17/18 11:53 08/17/18 11:53 08/17/18 11:53 Intake and Output: 08/17/18 08/17/18 06:59 18:59 Intake Total 840 Output Total 200 Balance 640 - Medications Medications: Current Medications Albuterol Sulfate (Albuterol 0.083% Inhal Blessing (2.5 Mg/3 Ml) Ud) 2.5 mg INH RQ6 [facility] Last Admin: 08/17/18 08:15 Dose: 2.5 mg Aspirin (Aspirin Chewable) 81 mg PO DAILY [facility] Last Admin: 08/17/18 09:30 Dose: 81 mg Atorvastatin Calcium (Lipitor) 20 mg PO HS [facility] Last Admin: 08/16/18 21:38 Dose: 20 mg Budesonide (Pulmicort Respules) 0.25 mg INH RBID [facility] Last Admin: 08/17/18 08:16 Dose: 0.25 mg Carvedilol (Coreg) 3.125 mg PO Q12 [facility] Last Admin: 08/17/18 09:30 Dose: 3.125 mg Docusate Sodium (Colace Liquid) 100 mg NG BID [facility] Last Admin: 08/17/18 09:30 Dose: 100 mg Famotidine (Pepcid) 20 mg NG DAILY [facility] Last Admin: 08/17/18 09:35 Dose: 20 mg Ferrous Sulfate (Feosol Liq) 300 mg PO DAILY [facility] Last Admin: 08/17/18 09:31 Dose: 300 mg Folic Acid (Folic Acid) 1 mg PO DAILY [facility] Last Admin: 08/17/18 09:31 Dose: 1 mg Furosemide (Lasix) 20 mg IVP DAILY [facility] Last Admin: 08/17/18 09:34 Dose: 20 mg Guaifenesin/Dextromethorphan (Robitussin Dm) 5 ml PO TID [facility] Last Admin: 08/17/18 09:35 Dose: 5 ml Hydralazine HCl (Apresoline) 25 mg PO TID [facility] Last Admin: 08/17/18 09:29 Dose: 25 mg Ceftriaxone Sodium 2 gm/ (Sodium Chloride) 100 mls @ 100 mls/hr IVPB DAILY [facility]; Protocol Last Admin: 08/17/18 09:35 Dose: 100 mls/hr Insulin Human Lispro (Humalog) 0 units SC ACHS [facility]; Protocol Last Admin: 08/17/18 06:57 Dose: Not Given Levetiracetam (Keppra) 500 mg NG BID [facility] Last Admin: 08/16/18 16:31 Dose: 500 mg Megestrol Acetate (Megace) 400 mg PO DAILY [facility] Last Admin: 08/17/18 09:34 Dose: 400 mg Modafinil (Provigil) 200 mg PO DAILY [facility] Last Admin: 08/17/18 11:00 Dose: 200 mg Montelukast Sodium (Singulair) 10 mg PO HS [facility] Last Admin: 08/16/18 21:38 Dose: 10 mg Multivitamins/Vitamin C (Multi-Delyn Liquid) 15 ml NG DAILY [facility] Last Admin: 08/17/18 09:34 Dose: 15 ml - Labs Labs: 08/17/18 04:25 08/17/18 04:25 PT 16.7 Seconds (9.8-13.1) H 08/13/18 04:35 INR 1.5 08/13/18 04:35 APTT 28.1 Seconds (25.6-37.1) 08/13/18 04:35 - Constitutional Appears: Non-toxic, Chronically Ill - Head Exam Head Exam: NORMOCEPHALIC - Eye Exam Eye Exam: absent: Scleral icterus - ENT Exam ENT Exam: Mucous Membranes Dry - Neck Exam Neck Exam: absent: Lymphadenopathy - Respiratory Exam Respiratory Exam: Decreased Breath Sounds - Cardiovascular Exam Cardiovascular Exam: REGULAR RHYTHM Assessment and Plan (1) CHF (congestive heart failure) Status: Acute (2) Dehydration Status: Acute (3) Pneumonia Status: Acute (4) UTI (urinary tract infection) Status: Acute (5) CVA (cerebral vascular accident) Status: Acute
[2018-08-18] MEDS: Albuterol 0.083% Inhal Sol (2.5 mg/3 mL) UD INH SCH ×4 (00:59→19:27)
[2018-08-18] MEDS: Budesonide 0.25 mg/2 ml Inhal Susp UD INH SCH ×2 (07:18→19:27)
[2018-08-18] MEDS: Insulin Lispro (humaLOG) 100 Units/ml Inj SC SCH ×4 (07:30→21:46)
[2018-08-18] MEDS: Ferrous Sulfate 300 mg/5 mL Liq UD PO SCH (09:14)
[2018-08-18] MEDS: Famotidine 40 MG/5 ML NG SCH (09:15)
[2018-08-18] MEDS: levETIRAcetam 100 mg/ml (5ml) Oral Syringe NG SCH ×2 (09:15→17:45)
[2018-08-18] MEDS: Multi Vitamins 15 mL UD Oral Solution NG SCH (09:15)
[2018-08-18] MEDS: cefTRIAXone 2 GM in Sodium Chloride 0.9% 100 ML IVPB SCH (09:16)
[2018-08-18] MEDS: guaiFENesin DM 100 mg-10 mg/5 ml UD PO SCH ×3 (09:19→17:45)
--- NOTE | 2018-08-18 16:35 | CP.PCM.CON ---
History of Present Illness - History of Present Illness History of Present Illness: Pulmonary consult for a 82 y/o F with PNA, associated to productive cough with yellowish sputum, non bloody. Worsening symptom: Unable to bring up phlegms. No fever/chills. 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 Aggravated Factor: No changes in medical condition. CXR today reviewed by me, Complete L lung opacification, R lung infiltrates. Review of Systems - Review of Systems Systems not reviewed;Unavailable: Acuity of Condition, Other (Lethargic, unable toanswer questions) Past Patient History - Infectious Disease Hx of Infectious Diseases: None - Tetanus Immunizations Tetanus Immunization: Unknown - Past Medical History & Family History Past Medical History?: Yes Pertinent Family History: Unknown - Past Social History Smoking Status: Former Smoker Chewing Tobacco Use: No Cigar Use: No Alcohol: None Drugs: Denies Home Situation {Lives}: With Family - CARDIAC Hx Cardiac Disorders: Yes Hx Congestive Heart Failure: Yes Hx Hypercholesterolemia: Yes Hx Hypertension: Yes Hx Peripheral Edema: Yes - PULMONARY Hx Respiratory Disorders: Yes Hx Asthma: Yes Hx Pneumonia: Yes Hx Pulmonary Embolism: Yes - NEUROLOGICAL Hx Neurological Disorder: Yes Hx Alzheimer's Disease: Yes Hx Dementia: Yes Hx Seizures: Yes - HEENT Hx HEENT Problems: No - RENAL Hx Chronic Kidney Disease: Yes - ENDOCRINE/METABOLIC Hx Endocrine Disorders: Yes Hx Diabetes Mellitus Type 2: Yes - HEMATOLOGICAL/ONCOLOGICAL Hx Blood Disorders: Yes Hx Anemia: Yes Hx Human Immunodeficiency Virus (HIV): No - INTEGUMENTARY Hx Dermatological Problems: No - MUSCULOSKELETAL/RHEUMATOLOGICAL Hx Musculoskeletal Disorders: Yes Hx Arthritis: Yes Hx Falls: Yes - GASTROINTESTINAL Hx Gastrointestinal Disorders: Yes 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, 2006 and 2007) Hx Constipation: Yes Other/Comment: Ventral hernia - GENITOURINARY/GYNECOLOGICAL Hx Genitourinary Disorders: No - PSYCHIATRIC Hx Psychophysiologic Disorder: Yes Hx Depression: Yes Hx Substance Use: No - SURGICAL HISTORY Hx Surgeries: Yes Hx Appendectomy: Yes Hx Cholecystectomy: Yes Hx Coronary Stent: Yes (7 stents as per the daughter) Other/Comment: Laparotomy (ischemic bowel), Glaucoma operetion R eye - ANESTHESIA Hx Anesthesia: Yes Hx Anesthesia Reactions: Yes (hard to wake up) Hx Malignant Hyperthermia: No Meds Allergies/Adverse Reactions: Allergies Allergy/AdvReac Type Severity Reaction Status Date / Time No Known Allergies Allergy Verified 08/09/18 15:22 - Medications Medications: Current Medications Acetylcysteine (Mucomyst 10% 30 Ml) 10 ml IH RQID [facility] Albuterol Sulfate (Albuterol 0.083% Inhal Blessing (2.5 Mg/3 Ml) Ud) 2.5 mg INH RQ6 [facility] Last Admin: 08/18/18 14:42 Dose: 2.5 mg Aspirin (Aspirin Chewable) 81 mg PO DAILY [facility] Last Admin: 08/18/18 09:15 Dose: 81 mg Atorvastatin Calcium (Lipitor) 20 mg PO HS [facility] Last Admin: 08/17/18 21:37 Dose: 20 mg Budesonide (Pulmicort Respules) 0.25 mg INH RBID [facility] Last Admin: 08/18/18 07:18 Dose: 0.25 mg Carvedilol (Coreg) 3.125 mg PO Q12 [facility] Last Admin: 08/18/18 09:15 Dose: 3.125 mg Docusate Sodium (Colace Liquid) 100 mg NG BID [facility] Last Admin: 08/18/18 09:14 Dose: 100 mg Famotidine (Pepcid) 20 mg NG DAILY [facility] Last Admin: 08/18/18 09:15 Dose: 20 mg Ferrous Sulfate (Feosol Liq) 300 mg PO DAILY [facility] Last Admin: 08/18/18 09:14 Dose: 300 mg Folic Acid (Folic Acid) 1 mg PO DAILY [facility] Last Admin: 08/18/18 09:15 Dose: 1 mg Furosemide (Lasix) 20 mg IVP DAILY [facility] Last Admin: 08/18/18 09:15 Dose: 20 mg Guaifenesin/Dextromethorphan (Robitussin Dm) 5 ml PO TID [facility] Last Admin: 08/18/18 12:32 Dose: 5 ml Hydralazine HCl (Apresoline) 25 mg PO TID [facility] Last Admin: 08/18/18 12:32 Dose: 25 mg Ceftriaxone Sodium 2 gm/ (Sodium Chloride) 100 mls @ 100 mls/hr IVPB DAILY [facility]; Protocol Last Admin: 08/18/18 09:16 Dose: 100 mls/hr Insulin Human Lispro (Humalog) 0 units SC ACHS [facility]; Protocol Last Admin: 08/18/18 11:45 Dose: 2 unit Ipratropium [place] (Atrovent) 0.5 mg IH RQ6 [facility] Levetiracetam (Keppra) 500 mg NG BID [facility] Last Admin: 08/18/18 09:15 Dose: 500 mg Modafinil (Provigil) 200 mg PO DAILY [facility] Last Admin: 08/18/18 09:38 Dose: 200 mg Montelukast Sodium (Singulair) 10 mg PO HS [facility] Last Admin: 08/17/18 21:37 Dose: 10 mg Multivitamins/Vitamin C (Multi-Delyn Liquid) 15 ml NG DAILY [facility] Last Admin: 08/18/18 09:15 Dose: 15 ml Physical Exam - Constitutional Appears: No Acute Distress, Chronically Ill - Head Exam Head Exam: NORMOCEPHALIC - Eye Exam Additional comments: R pupil irregular, L pupil response to light - ENT Exam Additional comments: NGT, O2 NC - Neck Exam Neck exam: Positive for: Normal Inspection - Respiratory Exam Respiratory Exam: Decreased Breath Sounds (b/l), Rhonchi (b/l) - Cardiovascular Exam Cardiovascular Exam: REGULAR RHYTHM, Systolic Murmur (2/6 LSB) - GI/Abdominal Exam GI & Abdominal Exam: Hernia, Normal Bowel Sounds, Soft Additional comments: midline healed surgical scar with abdominal wall hernia reductible - Exam Additional comments: Cath in place - Extremities Exam Extremities exam: Positive for: normal inspection - Neurological Exam Additional comments: Lethargic, unable to follows commands, generalized weakness. - Psychiatric Exam Additional comments: Lethargic. - Skin Skin Exam: Warm Results - Vital Signs Recent Vital Signs: Last Vital Signs Temp 97.9 F 08/18/18 16:06 Pulse 70 08/18/18 16:06 Resp 18 08/18/18 16:06 BP 146/56 L 08/18/18 16:06 Pulse Ox 98 08/18/18 16:06 reviewed Allie - Labs Result Diagrams: 08/17/18 04:25 08/17/18 04:25 Labs: Laboratory Results - last 24 hr 08/17/18 08/18/18 08/18/18 21:11 05:20 11:27 POC Glucose (mg/dL) 170 H 179 H 209 H reviewed J.P. - EKG Data EKG comments: reviewed J.P. - Impressions Impression: Echo: Reviewed J.P. - Imaging and Cardiology Chest x-ray Status: Report reviewed by me (Allie) MRI - head Status: Report reviewed by me (TriciaPGallo) CT scan - head Status: Report reviewed by me (TriciaPGallo) Assessment & Plan (1) Pneumonia Status: Acute Priority: High (2) COPD exacerbation Status: Acute (3) Respiratory distress Status: Acute (4) Opacity of lung on imaging study Assessment and Plan: PNA and or Effusion Status: Acute (5) CHF (congestive heart failure) Status: Acute Priority: High - Assessment and Plan (Free Text) Plan: F/U ABG, Sputum C-S, Chest CT, continue abx coverage as per ID travel sales consultant, continue Atrovent, Pulmicort, Robitussin DM and rest of Tx. - Date & Time Date: 08/18/18
--- NOTE | 2018-08-18 19:08 | RAD ---
Date of service: 08/18/2018 PROCEDURE: CHEST RADIOGRAPH, 1 VIEW HISTORY: pneumonia COMPARISON: 08/16/2018 FINDINGS: LUNGS: Complete left lung opacification consistent with effusion and/or consolidation. Interstitial infiltrate in the right lung. PLEURA: No pneumothorax or pleural fluid seen. CARDIOVASCULAR: Normal. OSSEOUS STRUCTURES: No significant abnormalities. VISUALIZED UPPER ABDOMEN: Normal. OTHER FINDINGS: NG tube below the diaphragm. IMPRESSION: Complete left lung opacification consistent with effusion and/or consolidation. Interstitial infiltrate in the right lung. Findings significantly worsened since prior exam.
[2018-08-18] MEDS: Acetylcysteine 10% 30 ML IH SCH (19:27)
[2018-08-18] MEDS: Ipratropium 0.02% Inhal Soln (0.5 mg/2.5 ml) UD IH SCH (19:27)
[2018-08-18 19:33] LABS: ABG ALLEN TEST YES; ARTERIAL BLOOD GAS HCO3 28.1 mmol/L (21-28); ARTERIAL BLOOD GAS HEMOGLOBIN 13.6 g/dL (11.7-17.4); ARTERIAL BLOOD GAS O2 CAPACITY 18.4 mL/dL (16-24); ARTERIAL BLOOD GAS O2 CONTENT 17.5 ML/dL (15-23); ARTERIAL BLOOD GAS O2 SAT 95.3 % (95-98); ARTERIAL BLOOD GAS PCO2 50 mm/Hg (35-45); ARTERIAL BLOOD GAS PH 7.39 (7.35-7.45); ARTERIAL BLOOD GAS PO2 66 mm/Hg (80-100); ARTERIAL BLOOD GAS TCO2 31.8 mmol/L (22-28)
[2018-08-18] MEDS ORDERED: Ipratropium 0.02% Inhal Soln (0.5 mg/2.5 ml) UD IH SCH (20:00)
[2018-08-19] MEDS: Ipratropium 0.02% Inhal Soln (0.5 mg/2.5 ml) UD IH SCH ×4 (01:05→19:00)
[2018-08-19] MEDS: Albuterol 0.083% Inhal Sol (2.5 mg/3 mL) UD INH SCH ×4 (01:05→19:00)
[2018-08-19] MEDS: Budesonide 0.25 mg/2 ml Inhal Susp UD INH SCH ×2 (08:17→19:00)
[2018-08-19] MEDS: Ferrous Sulfate 300 mg/5 mL Liq UD PO SCH (09:43)
[2018-08-19] MEDS: levETIRAcetam 100 mg/ml (5ml) Oral Syringe NG SCH ×2 (09:43→17:48)
[2018-08-19] MEDS: Multi Vitamins 15 mL UD Oral Solution NG SCH (09:44)
[2018-08-19] MEDS: Famotidine 40 MG/5 ML NG SCH (09:44)
[2018-08-19] MEDS: guaiFENesin DM 100 mg-10 mg/5 ml UD PO SCH ×3 (09:46→17:48)
[2018-08-19] MEDS: cefTRIAXone 2 GM in Sodium Chloride 0.9% 100 ML IVPB SCH (09:48)
[2018-08-19] MEDS: Insulin Lispro (humaLOG) 100 Units/ml Inj SC SCH ×4 (09:52→22:12)
[2018-08-19] MEDS: Acetylcysteine 10% 30 ML IH SCH ×2 (11:32→16:12)
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
--- NOTE | 2018-08-19 13:16 | CP.PCM.PN ---
Subjective - Date & Time of Evaluation Date of Evaluation: 08/19/18 Time of Evaluation: 08:00 - Subjective Subjective: afeb on IV antibiotics nad Objective - Vital Signs/Intake and Output Vital Signs (last 24 hours): Temp Pulse Resp BP Pulse Ox 98.5 F 77 18 127/47 L 99 08/19/18 12:43 08/19/18 12:44 08/19/18 12:43 08/19/18 12:44 08/19/18 12:43 - Medications Medications: Current Medications Acetylcysteine (Mucomyst 10% 30 Ml) 10 ml IH RQID [facility] Last Admin: 08/19/18 11:32 Dose: Not Given Albuterol Sulfate (Albuterol 0.083% Inhal Blessing (2.5 Mg/3 Ml) Ud) 2.5 mg INH RQ6 [facility] Last Admin: 08/19/18 13:02 Dose: 2.5 mg Aspirin (Aspirin Chewable) 81 mg PO DAILY [facility] Last Admin: 08/19/18 09:39 Dose: 81 mg Atorvastatin Calcium (Lipitor) 20 mg PO HS [facility] Last Admin: 08/18/18 21:45 Dose: 20 mg Budesonide (Pulmicort Respules) 0.25 mg INH RBID [facility] Last Admin: 08/19/18 08:17 Dose: 0.25 mg Carvedilol (Coreg) 3.125 mg PO Q12 [facility] Last Admin: 08/19/18 09:42 Dose: 3.125 mg Docusate Sodium (Colace Liquid) 100 mg NG BID [facility] Last Admin: 08/19/18 09:40 Dose: 100 mg Famotidine (Pepcid) 20 mg NG DAILY [facility] Last Admin: 08/19/18 09:44 Dose: 20 mg Ferrous Sulfate (Feosol Liq) 300 mg PO DAILY [facility] Last Admin: 08/19/18 09:43 Dose: 300 mg Folic Acid (Folic Acid) 1 mg PO DAILY [facility] Last Admin: 08/19/18 09:43 Dose: 1 mg Furosemide (Lasix) 20 mg IVP DAILY [facility] Last Admin: 08/19/18 09:44 Dose: 20 mg Guaifenesin/Dextromethorphan (Robitussin Dm) 5 ml PO TID [facility] Last Admin: 08/19/18 12:45 Dose: 5 ml Hydralazine HCl (Apresoline) 25 mg PO TID [facility] Last Admin: 08/19/18 12:44 Dose: 25 mg Ceftriaxone Sodium 2 gm/ (Sodium Chloride) 100 mls @ 100 mls/hr IVPB DAILY [facility]; Protocol Last Admin: 08/19/18 09:48 Dose: 100 mls/hr Insulin Human Lispro (Humalog) 0 units SC ACHS [facility]; Protocol Last Admin: 08/19/18 12:44 Dose: 1 unit Ipratropium [place] (Atrovent) 0.5 mg IH RQ6 [facility] Last Admin: 08/19/18 13:01 Dose: 0.5 mg Levetiracetam (Keppra) 500 mg NG BID [facility] Last Admin: 08/19/18 09:43 Dose: 500 mg Modafinil (Provigil) 200 mg PO DAILY [facility] Last Admin: 08/19/18 10:21 Dose: 200 mg Montelukast Sodium (Singulair) 10 mg PO HS [facility] Last Admin: 08/18/18 21:46 Dose: 10 mg Multivitamins/Vitamin C (Multi-Delyn Liquid) 15 ml NG DAILY [facility] Last Admin: 08/19/18 09:44 Dose: 15 ml - Labs Labs: 08/17/18 04:25 08/17/18 04:25 PT 16.7 Seconds (9.8-13.1) H 08/13/18 04:35 INR 1.5 08/13/18 04:35 APTT 28.1 Seconds (25.6-37.1) 08/13/18 04:35 - Constitutional Appears: Non-toxic, Confused, Chronically Ill - Head Exam Head Exam: NORMOCEPHALIC - Eye Exam Eye Exam: absent: Scleral icterus - ENT Exam ENT Exam: Mucous Membranes Dry - Neck Exam Neck Exam: absent: Lymphadenopathy - Respiratory Exam Respiratory Exam: Decreased Breath Sounds - Cardiovascular Exam Cardiovascular Exam: REGULAR RHYTHM - GI/Abdominal Exam GI & Abdominal Exam: Distended, Soft - Rectal Exam Rectal Exam: Deferred - Exam Exam: NORMAL INSPECTION - Extremities Exam Extremities Exam: absent: Pedal Edema - Back Exam Back Exam: absent: CVA tenderness (L), CVA tenderness (R) Assessment and Plan (1) CHF (congestive heart failure) Status: Acute (2) Dehydration Status: Acute (3) Pneumonia Status: Acute (4) UTI (urinary tract infection) Status: Acute (5) CVA (cerebral vascular accident) Status: Acute - Assessment and Plan (Free Text) Assessment: OK to d/c IV antibiotics
--- NOTE | 2018-08-19 13:27 | CP.PCM.PN ---
Subjective - Date & Time of Evaluation Date of Evaluation: 08/19/18 - Subjective Subjective: Patient open eyes to verbal stimuli, she is nonverbal, on mittens, she attempted to pulled out IV, high flow O2, NG tube Objective - Vital Signs/Intake and Output Vital Signs (last 24 hours): Temp Pulse Resp BP Pulse Ox 98.5 F 77 18 127/47 L 99 08/19/18 12:43 08/19/18 12:44 08/19/18 12:43 08/19/18 12:44 08/19/18 12:43 - Medications Medications: Current Medications Acetylcysteine (Mucomyst 10% 30 Ml) 10 ml IH RQID [facility] Last Admin: 08/19/18 11:32 Dose: Not Given Albuterol Sulfate (Albuterol 0.083% Inhal Blessing (2.5 Mg/3 Ml) Ud) 2.5 mg INH RQ6 [facility] Last Admin: 08/19/18 13:02 Dose: 2.5 mg Aspirin (Aspirin Chewable) 81 mg PO DAILY [facility] Last Admin: 08/19/18 09:39 Dose: 81 mg Atorvastatin Calcium (Lipitor) 20 mg PO HS [facility] Last Admin: 08/18/18 21:45 Dose: 20 mg Budesonide (Pulmicort Respules) 0.25 mg INH RBID [facility] Last Admin: 08/19/18 08:17 Dose: 0.25 mg Carvedilol (Coreg) 3.125 mg PO Q12 [facility] Last Admin: 08/19/18 09:42 Dose: 3.125 mg Docusate Sodium (Colace Liquid) 100 mg NG BID [facility] Last Admin: 08/19/18 09:40 Dose: 100 mg Famotidine (Pepcid) 20 mg NG DAILY [facility] Last Admin: 08/19/18 09:44 Dose: 20 mg Ferrous Sulfate (Feosol Liq) 300 mg PO DAILY [facility] Last Admin: 08/19/18 09:43 Dose: 300 mg Folic Acid (Folic Acid) 1 mg PO DAILY [facility] Last Admin: 08/19/18 09:43 Dose: 1 mg Furosemide (Lasix) 20 mg IVP DAILY [facility] Last Admin: 08/19/18 09:44 Dose: 20 mg Guaifenesin/Dextromethorphan (Robitussin Dm) 5 ml PO TID [facility] Last Admin: 11/04/18 12:45 Dose: 5 ml Hydralazine HCl (Apresoline) 25 mg PO TID [facility] Last Admin: 08/19/18 12:44 Dose: 25 mg Ceftriaxone Sodium 2 gm/ (Sodium Chloride) 100 mls @ 100 mls/hr IVPB DAILY [facility]; Protocol Last Admin: 08/19/18 09:48 Dose: 100 mls/hr Insulin Human Lispro (Humalog) 0 units SC ACHS [facility]; Protocol Last Admin: 08/19/18 12:44 Dose: 1 unit Ipratropium [place] (Atrovent) 0.5 mg IH RQ6 [facility] Last Admin: 08/19/18 13:01 Dose: 0.5 mg Levetiracetam (Keppra) 500 mg NG BID [facility] Last Admin: 08/19/18 09:43 Dose: 500 mg Modafinil (Provigil) 200 mg PO DAILY [facility] Last Admin: 08/19/18 10:21 Dose: 200 mg Montelukast Sodium (Singulair) 10 mg PO HS [facility] Last Admin: 08/18/18 21:46 Dose: 10 mg Multivitamins/Vitamin C (Multi-Delyn Liquid) 15 ml NG DAILY [facility] Last Admin: 08/19/18 09:44 Dose: 15 ml - Labs Labs: 08/17/18 04:25 08/17/18 04:25 PT 16.7 Seconds (9.8-13.1) H 08/13/18 04:35 INR 1.5 08/13/18 04:35 APTT 28.1 Seconds (25.6-37.1) 08/13/18 04:35 - Constitutional Appears: Chronically Ill - Head Exam Head Exam: NORMAL INSPECTION - Eye Exam Eye Exam: PERRL (left) Pupil Exam: Irregular (R pupil) - ENT Exam Additional comments: NG tube, high flow O2 - Neck Exam Neck Exam: Normal Inspection - Respiratory Exam Respiratory Exam: Decreased Breath Sounds (L>R), Rhonchi - Cardiovascular Exam Cardiovascular Exam: REGULAR RHYTHM, Murmur (2/6 LSB) - GI/Abdominal Exam GI & Abdominal Exam: Soft, Hernia, Normal Bowel Sounds Additional comments: midline healed surgical scar with reductible hernia - Extremities Exam Additional comments: edema U/E - Back Exam Back Exam: NORMAL INSPECTION - Neurological Exam Additional comments: open eyes to verbal stimuli, non verbal, generalized weakness - Skin Skin Exam: Warm Assessment and Plan (1) Pneumonia Status: Acute (2) COPD exacerbation Status: Acute (3) Respiratory distress Status: Acute (4) Opacity of lung on imaging study Status: Acute (5) CHF (congestive heart failure) Status: Acute - Assessment and Plan (Free Text) Plan: CT chest large left pleural effusion, left lung atelectasis, a small right effusion with small infiltrate right lower lobe. Patient to have IR consult for left thoracentesis in am, continue high flow O2, antibiotic coverage as per ID, follow-up CBC PT PTT INR CMP in a.m.
--- NOTE | 2018-08-19 14:58 | CT ---
Date of service: 08/19/2018 PROCEDURE: CT Chest without contrast HISTORY: Pneumonia COMPARISON: 11/02/2015 TECHNIQUE: Contiguous axial images were obtained through the chest without intravenous contrast enhancement. Sagittal and coronal reconstructions were performed. Radiation dose: Total exam DLP = 260.36 mGy-cm. This CT exam was performed using one or more of the following dose reduction techniques: Automated exposure control, adjustment of the mA and/or kV according to patient size, and/or use of iterative reconstruction technique. FINDINGS: LUNGS: See below. MEDIASTINUM: Unremarkable thoracic aorta. No aneurysm. Normal sized heart. Main pulmonary artery unremarkable. No vascular congestion. No lymphadenopathy. Aortic calcifications. PLEURA: Small right pleural effusion with small right lower lobe infiltrate. Large left pleural effusion with complete atelectasis of the left lower lobe and left upper lobe. BONES: No fracture. No destructive lesion. UPPER ABDOMEN: Grossly unremarkable. OTHER FINDINGS: NG tube in the stomach. IMPRESSION: Small right pleural effusion with small right lower lobe infiltrate. Large left pleural effusion with complete atelectasis of the left lower lobe and left upper lobe.
[2018-08-19] MEDS: Albumin Human 25% (12.5 gm/50 ml) IV SCH (21:46)
[2018-08-19 23:23] LABS: SQUAMOUS EPITHIAL < 1 /hpf (0-5); URINE BACTERIA RARE (<OCC); URINE BILIRUBIN NEGATIVE (NEGATIVE); URINE BLOOD NEGATIVE (NEGATIVE); URINE CLARITY SLIGHTY-CLOUDY (Clear); URINE COLOR YELLOW (YELLOW); URINE GLUCOSE (UA) NEG (Normal); URINE LEUKOCYTE ESTERASE NEG Leu/uL (Negative); URINE PROTEIN 100 mg/dL (NEGATIVE); URINE URIC ACID CRYSTALS RARE /hpf (<OCC); URINE UROBILINOGEN 0.2-1.0 mg/dL (0.2-1.0)
[2018-08-20] MEDS: Albuterol 0.083% Inhal Sol (2.5 mg/3 mL) UD INH SCH ×4 (01:14→19:07)
[2018-08-20] MEDS: Ipratropium 0.02% Inhal Soln (0.5 mg/2.5 ml) UD IH SCH ×4 (01:14→19:07)
[2018-08-20 05:57] LABS: BASO # 0.1 K/uL (0.0-0.2); EOS # 0.1 K/uL (0.0-0.7); EOS % 1.2 % (0.0-4.0); LYMPH # 0.7 K/uL (1.0-4.3); LYMPH % 6.9 % (20.0-40.0); MEAN CELL VOLUME 104.4 fl (81.0-99.0); MEAN CORPUSCULAR HGB CONC 32.5 g/dL (33.0-37.0); MEAN PLATELET VOLUME 10.5 fl (7.2-11.7); MONO # 0.5 K/uL (0.0-0.8); MONO % 5.4 % (0.0-10.0); NEUT # 8.6 K/uL (1.8-7.0); NEUT % 85.5 % (50.0-75.0); NRBC % 0.1 % (0.0-0.0); PLATELET COUNT 202 K/uL (130-400); RBC 3.53 Mil/uL (3.80-5.20); RED CELL DISTRIBUTION WIDTH 15.5 % (11.5-14.5); WHITE BLOOD COUNT 10.1 K/uL (4.8-10.8)
[2018-08-20 06:14] LABS: INR 1.2; PROTHROMBIN TIME 13.8 Seconds (9.8-13.1)
[2018-08-20 06:16] LABS: PARTIAL THROMBOPLASTIN TIME 28.3 Seconds (25.6-37.1)
[2018-08-20 06:24] LABS: ALB/GLOB RATIO 0.9 (1.0-2.1); ALBUMIN 2.7 g/dL (3.5-5.0); CALCIUM 8.3 mg/dL (8.4-10.2)
--- NOTE | 2018-08-20 06:46 | PN ---
DATE: 08/19/2018 SUBJECTIVE: Today, the patient is still somewhat sleepy and weak, but easily arousable and responding to simple questions. No apparent distress. The patient wants to remove his gastric tube. The patient had a mitten put on consequently. PHYSICAL EXAMINATION: VITAL SIGNS: The patient has a blood pressure of 127/47, pulse 77, respirations 18, and temperature 98.5. NECK: Supple. LUNGS: There are some rales bilaterally, more on the left side. HEART: Regular rate and rhythm. ABDOMEN: Soft. Positive bowel sounds. EXTREMITIES: There is no edema. ASSESSMENT AND PLAN: The patient has a gastric tube in place. The plan is that we are going to continue the current treatment. CAT scan is ordered. We are going to follow the result. Consult with and Dr. Christy is appreciated. Slim Marino MD
[2018-08-20] MEDS: Insulin Lispro (humaLOG) 100 Units/ml Inj SC SCH ×4 (06:56→22:01)
[2018-08-20] MEDS: Acetylcysteine 10% 30 ML IH SCH (08:35)
--- NOTE | 2018-08-20 08:39 | PN ---
DATE: 08/18/2018 SUBJECTIVE: Today, the patient is still weak, opens eyes with verbal stimuli. PHYSICAL EXAMINATION GENERAL: The patient does not appear in any distress. VITAL SIGNS: The patient has a blood pressure of 165/63, pulse is , respirations 20, temperature 98.5. NECK: Supple. LUNGS: There are some rales bilaterally. HEART: Regular rate and rhythm. ABDOMEN: Soft with positive epigastric hernia. EXTREMITIES: There is swelling of both upper extremities. PLAN: The patient will have a consult with Dr. Christy, Pulmonary. Also, the patient will continue the NG tube feeding, but also we are going to consider PEG. The case was discussed with family who accepted already the PEG insertion, but also venous Doppler of both upper extremities will be done to rule out DVT. So the patient will . Slim Marino MD
--- NOTE | 2018-08-20 08:43 | PN ---
DATE: 08/17/2018 SUBJECTIVE: Today, the patient is still somewhat lethargic, but easily arousable and no evidence of respiratory distress. PHYSICAL EXAMINATION: VITAL SIGNS: Blood pressure is 138/54, pulse 79, respirations 16, temperature 98.6. NECK: Supple. HEENT: Head is normocephalic. NGT in place. LUNGS: Some rales at the bases and some rhonchi. HEART: Regular rate and rhythm. Positive murmur. ABDOMEN: Soft. Positive bowel sounds. EXTREMITIES: There is no edema. NEUROLOGIC: As I already mentioned, the patient is lethargic, does not follow commands, but opens eyes with verbal command. LABORATORY DATA: WBC 9.8, hemoglobin 12.6, hematocrit 39, and platelets 182. Chemistry: Sodium 141, potassium 4.3, chloride 107, bicarbonate 27, BUN 36, creatinine 1.4, and glucose 132. Total protein is 5.6, albumin 2.5, 0.8, 3.1. ASSESSMENT AND PLAN: The plan is that the patient is on antibiotic ceftriaxone and also going to continue . will be discontinued at this point, and lab will be ordered. We are going to continue to monitor the level of consistence. The case was discussed with Dr. Fuentes, Infectious Disease. Slim Marino MD
[2018-08-20 09:05] LABS: HEPATITIS B SURFACE AG Negative (NEGATIVE)
[2018-08-20 09:23] LABS: HEPATITIS C ANTIBODY NEGATIVE (NEGATIVE)
[2018-08-20] MEDS: levETIRAcetam 100 mg/ml (5ml) Oral Syringe NG SCH ×2 (09:56→17:06)
[2018-08-20] MEDS: Ferrous Sulfate 300 mg/5 mL Liq UD PO SCH (09:56)
[2018-08-20] MEDS: Multi Vitamins 15 mL UD Oral Solution NG SCH (09:57)
[2018-08-20] MEDS: Famotidine 40 MG/5 ML NG SCH (09:57)
[2018-08-20] MEDS: guaiFENesin DM 100 mg-10 mg/5 ml UD PO SCH ×3 (09:58→17:09)
[2018-08-20] MEDS: Albumin Human 25% (12.5 gm/50 ml) IV SCH ×2 (10:15→17:04)
[2018-08-20] MEDS: cefTRIAXone 2 GM in Sodium Chloride 0.9% 100 ML IVPB SCH (10:15)
[2018-08-20 11:23] LABS: ANISOCYTOSIS SLIGHT; BASOPHIL 1 % (0-2); LYMPHOCYTE 8 % (20-50); MONOCYTE 6 % (0-10); NEUTROPHIL 85 % (42-75); PLATELET ESTIMATE NORMAL (NORMAL); TOTAL CELLS COUNTED 100
[2018-08-20 11:27] LABS: OVALOCYTES SLIGHT; SCHISTOCYTES SLIGHT
[2018-08-20] MEDS ORDERED: Lidocaine 1% Inj (20ml) ONE (14:40)
--- NOTE | 2018-08-20 15:04 | PCM.SURG1 ---
Surgeon's Initial Post Op Note - Surgeon's Notes Surgeon: Leeanne Quality Assurance Engineer: None Type of Anesthesia: Local Pre-Operative Diagnosis: large left pleural effusion Operative Findings: large left pleural effusion Post-Operative Diagnosis: large left pleural effusion Operation Performed: left thoracentesis Specimen/Specimens Removed: Approx 750cc of bloody pleural fluid aspirated. Estimated Blood Loss: EBL {In ML}: 1 Date of Surgery/Procedure: 08/20/18 Time of Surgery/Procedure: 15:00
--- NOTE | 2018-08-20 15:05 | CP.PCM.PN ---
Subjective - Date & Time of Evaluation Date of Evaluation: 08/20/18 - Subjective Subjective: F/U PNA awake, non verbal, follows with eyes, no AD, on mittens, Patient's family at [facility] Objective - Vital Signs/Intake and Output Vital Signs (last 24 hours): Temp Pulse Resp BP Pulse Ox 98.3 F 90 18 177/51 H 98 08/20/18 11:55 08/20/18 11:55 08/20/18 13:37 08/20/18 13:38 08/20/18 11:55 - Medications Medications: Current Medications Acetylcysteine (Acetylcysteine 20%) 2 ml INH RBID [facility] Albumin Human (Albumin Human 25% (12.5 Gm/50 Ml)) 12.5 gm IV BID [facility] Stop: 08/21/18 20:01 Last Admin: 08/20/18 10:15 Dose: 12.5 gm Albuterol Sulfate (Albuterol 0.083% Inhal Blessing (2.5 Mg/3 Ml) Ud) 2.5 mg INH RQ6 [facility] Last Admin: 08/20/18 13:35 Dose: 2.5 mg Aspirin (Aspirin Chewable) 81 mg PO DAILY [facility] Last Admin: 08/20/18 09:54 Dose: Not Given Atorvastatin Calcium (Lipitor) 20 mg PO HS [facility] Last Admin: 08/19/18 22:13 Dose: 20 mg Carvedilol (Coreg) 3.125 mg PO Q12 [facility] Last Admin: 08/20/18 09:55 Dose: 3.125 mg Docusate Sodium (Colace Liquid) 100 mg NG BID [facility] Last Admin: 08/20/18 09:55 Dose: Not Given Famotidine (Pepcid) 20 mg NG DAILY [facility] Last Admin: 08/20/18 09:57 Dose: 20 mg Ferrous Sulfate (Feosol Liq) 300 mg PO DAILY [facility] Last Admin: 08/20/18 09:56 Dose: 300 mg Folic Acid (Folic Acid) 1 mg PO DAILY [facility] Last Admin: 08/20/18 09:56 Dose: 1 mg Furosemide (Lasix) 40 mg IVP BID [facility] Last Admin: 08/20/18 10:17 Dose: 40 mg Guaifenesin/Dextromethorphan (Robitussin Dm) 5 ml PO TID [facility] Last Admin: 08/20/18 13:40 Dose: 5 ml Hydralazine HCl (Apresoline) 25 mg PO TID [facility] Last Admin: 08/20/18 13:38 Dose: 25 mg Ceftriaxone Sodium 2 gm/ (Sodium Chloride) 100 mls @ 100 mls/hr IVPB DAILY [facility]; Protocol Last Admin: 08/20/18 10:15 Dose: 100 mls/hr Insulin Human Lispro (Humalog) 0 units SC ACHS [facility]; Protocol Last Admin: 08/20/18 13:39 Dose: 1 unit Ipratropium [place] (Atrovent) 0.5 mg IH RQ6 [facility] Last Admin: 08/20/18 13:35 Dose: 0.5 mg Levetiracetam (Keppra) 500 mg NG BID [facility] Last Admin: 08/20/18 09:56 Dose: 500 mg Modafinil (Provigil) 200 mg GT DAILY [facility] Montelukast Sodium (Singulair) 10 mg PO HS [facility] Last Admin: 08/19/18 22:13 Dose: 10 mg Multivitamins/Vitamin C (Multi-Delyn Liquid) 15 ml NG DAILY [facility] Last Admin: 08/20/18 09:57 Dose: 15 ml - Labs Labs: 08/20/18 04:20 08/20/18 04:20 PT 13.8 Seconds (9.8-13.1) H 08/20/18 04:20 INR 1.2 08/20/18 04:20 APTT 28.3 Seconds (25.6-37.1) 08/20/18 04:20 - Constitutional Appears: Chronically Ill - Head Exam Head Exam: NORMAL INSPECTION - Eye Exam Eye Exam: PERRL (left) Pupil Exam: Irregular (R pupil) - ENT Exam Additional comments: NGT, on high flow O2. - Neck Exam Neck Exam: Normal Inspection - Respiratory Exam Respiratory Exam: Decreased Breath Sounds (L>R), Rhonchi - Cardiovascular Exam Cardiovascular Exam: REGULAR RHYTHM, Murmur (2/6 LSB) - GI/Abdominal Exam GI & Abdominal Exam: Soft, Normal Bowel Sounds Additional comments: Midline healed surgical scar with reducible hernia - Extremities Exam Additional comments: Edema U/E - Back Exam Back Exam: NORMAL INSPECTION - Neurological Exam Additional comments: eyes open, non verbal, not following commands, generalized weakness. - Skin Skin Exam: Warm Assessment and Plan (1) Pneumonia Status: Acute (2) COPD exacerbation Status: Acute (3) Respiratory distress Status: Resolved (4) Opacity of lung on imaging study Assessment & Plan: left Status: Acute (5) CHF (congestive heart failure) Status: Acute (6) Pleural effusion, left Status: Acute - Assessment and Plan (Free Text) Plan: continue Rocephin, Albuterol, Atrovent, Mucomyst, for L Thoracentesis today and PICC line in am
--- NOTE | 2018-08-20 15:29 | RAD ---
Date of service: 08/20/2018 HISTORY: Left thoracentesis COMPARISON: Portable chest 08/18/2018. FINDINGS: LUNGS: Nasogastric tube is identified placed unchanged in position grossly. Markedly improved aeration left hemithorax is appreciated borderline patchy density at the left base and mild right perihilar patchy density identified. PLEURA: No significant pleural effusion identified, no pneumothorax apparent. CARDIOVASCULAR: Calcific atherosclerotic changes are seen related to the thoracic aorta. Cardiomegaly is appreciated. No pulmonary vascular congestion. OSSEOUS STRUCTURES: No significant abnormalities. VISUALIZED UPPER ABDOMEN: Normal. OTHER FINDINGS: None. IMPRESSION: Markedly improved aeration at the left chest with borderline residual patchy density left base. Limited right perihilar patchy airspace disease identified. Stable cardiomegaly.
--- NOTE | 2018-08-20 15:59 | US ---
Date of service: 08/18/2018 PROCEDURE: BILATERAL UPPER EXTREMITY VENOUS DUPLEX DOPPLERS HISTORY: swollen of upper extremities COMPARISON: Bilateral Upper Extremity Venous Duplex Dopplers 03/28/2016. TECHNIQUE: Grayscale and duplex Doppler ultrasonography of the bilateral upper extremity major deep veins was performed including graded compression and augmentation. FINDINGS: Good compressibility, augmentation and normal phasic blood flows been identified at the bilateral internal jugular, subclavian axillary and brachial veins. No evidence to suggest deep venous thrombosis. The basilic veins are also compressible and augmentable bilaterally with normal phasic flow as are the ulnar and radial veins at the right side and radial veins at the left. Bilateral cephalic veins are not identified nor the left ulnar veins. Incidental note is made of subcutaneous soft tissue edema diffusely bilaterally. IMPRESSION: No sonographic evidence of deep venous thrombosis bilateral major deep venous system with the bilateral cephalic and left ulnar veins not identified as discussed above.
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
[2018-08-20] MEDS: Acetylcysteine 20% Inhal Soln (4ml) INH SCH (19:07)
[2018-08-20] MEDS ORDERED: Acetaminophen 650mg/20.3ml solution UD NG PRN (20:38)
[2018-08-21] MEDS: Albuterol 0.083% Inhal Sol (2.5 mg/3 mL) UD INH SCH ×4 (01:00→19:10)
[2018-08-21] MEDS: Ipratropium 0.02% Inhal Soln (0.5 mg/2.5 ml) UD IH SCH ×4 (01:00→19:10)
[2018-08-21] MEDS: Insulin Lispro (humaLOG) 100 Units/ml Inj SC SCH ×4 (07:01→23:24)
[2018-08-21] MEDS: Acetylcysteine 20% Inhal Soln (4ml) INH SCH ×2 (07:26→19:10)
--- NOTE | 2018-08-21 09:41 | PN ---
DATE: 08/20/2018 SUBJECTIVE: Today, the patient is somewhat more awake and alert, here and there, and the patient is seen feeding through the NG tube. PHYSICAL EXAMINATION: VITAL SIGNS: Blood pressure 150/49, pulse is 80, respirations 18, and temperature 97.8. NECK: Supple. LUNGS: Some rales bilaterally and also some decreased breath sounds on the left side. HEART: Regular rate and rhythm, but there is a large murmur. ABDOMEN: Soft, presenting with an epigastric hernia. EXTREMITIES: There is no edema noted at this point. LABORATORY DATA: The patient has blood test that was done, shows that now the WBC is 10.1, hemoglobin 12, hematocrit 35.9, and platelet is 202. Chemistry showed that the sodium 141, potassium 4.9, chloride 106, bicarbonate is 30, BUN 41, creatinine 1.2, glucose 161, calcium 8.3, and total protein 5.7. ASSESSMENT AND PLAN: The plan is that case discussed with Dr. Christy, Pulmonary, and he is going to do a thoracentesis of a large fluid located through the left pleural effusion. Today, chest x-ray has shown that there is marked improved aeration and the left hemithorax is appreciated, at the left base and mid right identified. There is no significant pleural effusion identified at this moment . The plan is that we are going to continue the current medications. Continue and the case is discussed with Dr. Christy. Slim Marino MD
[2018-08-21] MEDS: guaiFENesin DM 100 mg-10 mg/5 ml UD PO SCH ×3 (09:44→17:16)
[2018-08-21] MEDS ORDERED: Lidocaine 1% Inj (20ml) ONE (11:34)
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
--- NOTE | 2018-08-21 12:55 | PCM.SURG1 ---
Surgeon's Initial Post Op Note - Surgeon's Notes Surgeon: Leeanne Soft Sugar Supervisor: None Type of Anesthesia: Local Pre-Operative Diagnosis: IV access Operative Findings: Patent right basilic vein Post-Operative Diagnosis: IV access Operation Performed: Right basilic vein 4F SL 32cm PICC placed with the tip in the RA/SVC junction Specimen/Specimens Removed: None Estimated Blood Loss: EBL {In ML}: 1 Date of Surgery/Procedure: 08/21/18 Time of Surgery/Procedure: 12:30
[2018-08-21] MEDS: Famotidine 40 MG/5 ML NG SCH (13:39)
[2018-08-21] MEDS: Multi Vitamins 15 mL UD Oral Solution NG SCH (13:40)
[2018-08-21] MEDS: levETIRAcetam 100 mg/ml (5ml) Oral Syringe NG SCH ×2 (13:41→17:13)
[2018-08-21] MEDS: Ferrous Sulfate 300 mg/5 mL Liq UD PO SCH (13:43)
[2018-08-21] MEDS: Albumin Human 25% (12.5 gm/50 ml) IV SCH (13:46)
--- NOTE | 2018-08-21 15:04 | CP.PCM.PN ---
Subjective - Date & Time of Evaluation Date of Evaluation: 08/21/18 Time of Evaluation: 10:30 - Subjective Subjective: F/U PNA Pt with open eyes, non verbal, follows with eyes voice of family. Objective - Vital Signs/Intake and Output Vital Signs (last 24 hours): Temp Pulse Resp BP Pulse Ox 97.5 F L 88 20 155/71 H 95 08/21/18 12:00 08/21/18 12:00 08/21/18 12:00 08/21/18 13:40 08/21/18 12:00 - Medications Medications: Current Medications Acetaminophen (Tylenol 650mg/20.3ml Solution Ud) 650 mg NG Q4 PRN PRN Reason: Pain, moderate (4-7) Last Admin: 08/20/18 21:04 Dose: 650 mg Acetylcysteine (Acetylcysteine 20%) 2 ml INH RBID [facility] Last Admin: 08/21/18 07:26 Dose: 2 ml Albuterol Sulfate (Albuterol 0.083% Inhal Blessing (2.5 Mg/3 Ml) Ud) 2.5 mg INH RQ6 [facility] Last Admin: 08/21/18 13:36 Dose: 2.5 mg Aspirin (Aspirin Chewable) 81 mg PO DAILY [facility] Last Admin: 08/21/18 13:42 Dose: Not Given Atorvastatin Calcium (Lipitor) 20 mg PO HS [facility] Last Admin: 08/20/18 21:04 Dose: 20 mg Carvedilol (Coreg) 3.125 mg PO Q12 [facility] Last Admin: 08/21/18 13:43 Dose: 3.125 mg Docusate Sodium (Colace Liquid) 100 mg NG BID [facility] Last Admin: 08/21/18 13:42 Dose: 100 mg Famotidine (Pepcid) 20 mg NG DAILY [facility] Last Admin: 08/21/18 13:39 Dose: 20 mg Ferrous Sulfate (Feosol Liq) 300 mg PO DAILY [facility] Last Admin: 08/21/18 13:43 Dose: 300 mg Folic Acid (Folic Acid) 1 mg PO DAILY [facility] Last Admin: 08/21/18 13:43 Dose: 1 mg Furosemide (Lasix) 40 mg IVP BID [facility] Last Admin: 08/21/18 13:40 Dose: 40 mg Guaifenesin/Dextromethorphan (Robitussin Dm) 5 ml PO TID [facility] Last Admin: 08/21/18 13:45 Dose: 5 ml Hydralazine HCl (Apresoline) 25 mg PO TID [facility] Last Admin: 08/21/18 13:41 Dose: 25 mg Ceftriaxone Sodium 2 gm/ (Sodium Chloride) 100 mls @ 100 mls/hr IVPB DAILY [facility]; Protocol Last Admin: 08/20/18 10:15 Dose: 100 mls/hr Insulin Human Lispro (Humalog) 0 units SC ACHS [facility]; Protocol Last Admin: 08/21/18 13:44 Dose: Not Given Ipratropium [place] (Atrovent) 0.5 mg IH RQ6 [facility] Last Admin: 08/21/18 13:37 Dose: 0.5 mg Levetiracetam (Keppra) 500 mg NG BID [facility] Last Admin: 08/21/18 13:41 Dose: 500 mg Modafinil (Provigil) 200 mg GT DAILY [facility] Last Admin: 08/21/18 13:39 Dose: 200 mg Montelukast Sodium (Singulair) 10 mg PO HS [facility] Last Admin: 08/20/18 21:01 Dose: 10 mg Multivitamins/Vitamin C (Multi-Delyn Liquid) 15 ml NG DAILY [facility] Last Admin: 08/21/18 13:40 Dose: 15 ml - Labs Labs: 08/20/18 04:20 08/20/18 04:20 PT 13.8 Seconds (9.8-13.1) H 08/20/18 04:20 INR 1.2 08/20/18 04:20 APTT 28.3 Seconds (25.6-37.1) 08/20/18 04:20 - Constitutional Appears: Chronically Ill - Head Exam Head Exam: NORMAL INSPECTION - Eye Exam Eye Exam: PERRL (left) Pupil Exam: Irregular (R pupil) - ENT Exam Additional comments: NGT, on High flow O2. - Neck Exam Neck Exam: Normal Inspection - Respiratory Exam Respiratory Exam: Decreased Breath Sounds (L>R), Rhonchi - Cardiovascular Exam Cardiovascular Exam: REGULAR RHYTHM, Murmur (2/6 LSB) - GI/Abdominal Exam GI & Abdominal Exam: Soft, Normal Bowel Sounds Additional comments: Midline healed surgical scar with reducible hernia. - Extremities Exam Additional comments: Edema U/E - Back Exam Back Exam: NORMAL INSPECTION - Neurological Exam Additional comments: Open eyes to verbal stimuli, non verbal, generalized weakness. - Skin Skin Exam: Warm Assessment and Plan (1) Pneumonia Status: Acute (2) COPD exacerbation Status: Acute (3) Opacity of lung on imaging study Status: Acute (4) CHF (congestive heart failure) Status: Acute (5) Pleural effusion, left Status: Acute - Assessment and Plan (Free Text) Plan: For PICC line, yesterday had L thoracentesis with 750 cc pleural fluid. Continue High flow O2, Ceftriaxone and rest of Tx.
[2018-08-21] MEDS: cefTRIAXone 2 GM in Sodium Chloride 0.9% 100 ML IVPB SCH (17:16)
[2018-08-22] MEDS: Albuterol 0.083% Inhal Sol (2.5 mg/3 mL) UD INH SCH ×4 (01:00→19:05)
[2018-08-22] MEDS: Ipratropium 0.02% Inhal Soln (0.5 mg/2.5 ml) UD IH SCH ×4 (01:00→19:05)
[2018-08-22 05:43] LABS: BASO # 0.2 K/uL (0.0-0.2); BASO % 1.5 % (0.0-2.0); EOS # 0.1 K/uL (0.0-0.7); EOS % 1.1 % (0.0-4.0); HEMOGLOBIN 11.5 g/dL (12.0-16.0); LYMPH # 0.8 K/uL (1.0-4.3); LYMPH % 7.8 % (20.0-40.0); MEAN CORPUSCULAR HEMOGLOBIN 34.4 pg (27.0-31.0); MEAN CORPUSCULAR HGB CONC 33.1 g/dL (33.0-37.0); MEAN PLATELET VOLUME 10.4 fl (7.2-11.7); MONO # 0.5 K/uL (0.0-0.8); MONO % 4.5 % (0.0-10.0); NEUT # 8.6 K/uL (1.8-7.0); NEUT % 85.1 % (50.0-75.0); RBC 3.35 Mil/uL (3.80-5.20); RED CELL DISTRIBUTION WIDTH 15.5 % (11.5-14.5); WHITE BLOOD COUNT 10.1 K/uL (4.8-10.8)
[2018-08-22 05:59] LABS: ALB/GLOB RATIO 0.8 (1.0-2.1); ALBUMIN 2.3 g/dL (3.5-5.0); CALCIUM 8.2 mg/dL (8.4-10.2)
[2018-08-22] MEDS: Insulin Lispro (humaLOG) 100 Units/ml Inj SC SCH ×3 (06:41→16:38)
--- NOTE | 2018-08-22 07:11 | PN ---
DATE: 08/21/2018 SUBJECTIVE: Today, the patient is more awake. Denies any shortness of breath at this point. No chest pain. The patient has a PICC line placed. PHYSICAL EXAMINATION: VITAL SIGNS: Blood pressure 174/65, pulse 89, respirations 20, temperature 98.9 degrees Fahrenheit. NECK: Supple. LUNGS: There are some rales at the bases. HEART: Regular rate and rhythm. Positive murmur. ABDOMEN: Soft. Positive bowel sounds. EXTREMITIES: There is no edema. LABORATORY DATA: WBC 10, hemoglobin 12, hematocrit 36.9, platelets 202. PLAN: We are going to continue therapy and continue to monitor the patient's . Continue to monitor mental status. The case was discussed with Dr. Christy and also with the family, mainly with the daughter. Slim Marino MD
[2018-08-22] MEDS: Acetylcysteine 20% Inhal Soln (4ml) INH SCH ×2 (08:42→19:06)
[2018-08-22] MEDS: Ferrous Sulfate 300 mg/5 mL Liq UD PO SCH (08:43)
[2018-08-22] MEDS: levETIRAcetam 100 mg/ml (5ml) Oral Syringe NG SCH ×2 (08:44→16:37)
[2018-08-22] MEDS: Multi Vitamins 15 mL UD Oral Solution NG SCH (08:44)
[2018-08-22] MEDS: guaiFENesin DM 100 mg-10 mg/5 ml UD PO SCH ×3 (08:45→16:37)
[2018-08-22] MEDS: Famotidine 40 MG/5 ML NG SCH (08:45)
[2018-08-22] MEDS: cefTRIAXone 2 GM in Sodium Chloride 0.9% 100 ML IVPB SCH (12:02)
--- NOTE | 2018-08-22 13:36 | CP.PCM.PCO ---
Assessment & Plan - Assessment and Plan (Free Text) Assessment: pt. still with periods of lethargy, pt. currently npo on NGT TF Speech attempted to see pt. but unable to assess 2nd lethargy, notified, Discussed Advanced Directives with patient's daughter Ratna billings and she currently wishes to continue with Full Code satus and would like for pt. to have a PEG inserted consult w/ , plan for PEG cont TF via ngt
--- NOTE | 2018-08-22 13:49 | CP.PCM.PN ---
Subjective - Date & Time of Evaluation Date of Evaluation: 08/22/18 Time of Evaluation: 07:00 - Subjective Subjective: afeb confudsed nad Objective - Vital Signs/Intake and Output Vital Signs (last 24 hours): Temp Pulse Resp BP Pulse Ox 97.6 F 75 18 130/44 L 98 08/22/18 13:00 08/22/18 13:14 08/22/18 13:38 08/22/18 13:14 08/22/18 13:00 Intake and Output: 08/22/18 08/22/18 06:59 18:59 Intake Total 840 Output Total 450 Balance 390 - Medications Medications: Current Medications Acetaminophen (Tylenol 650mg/20.3ml Solution Ud) 650 mg NG Q4 PRN PRN Reason: Pain, moderate (4-7) Last Admin: 08/20/18 21:04 Dose: 650 mg Acetylcysteine (Acetylcysteine 20%) 2 ml INH RBID [facility] Last Admin: 08/22/18 08:42 Dose: 2 ml Albuterol Sulfate (Albuterol 0.083% Inhal Blessing (2.5 Mg/3 Ml) Ud) 2.5 mg INH RQ6 [facility] Last Admin: 08/22/18 13:18 Dose: 2.5 mg Aspirin (Aspirin Chewable) 81 mg PO DAILY [facility] Last Admin: 08/22/18 08:41 Dose: 81 mg Atorvastatin Calcium (Lipitor) 20 mg PO HS [facility] Last Admin: 08/21/18 21:52 Dose: 20 mg Carvedilol (Coreg) 3.125 mg PO Q12 [facility] Last Admin: 08/22/18 08:43 Dose: 3.125 mg Docusate Sodium (Colace Liquid) 100 mg NG BID [facility] Last Admin: 08/22/18 08:42 Dose: 100 mg Famotidine (Pepcid) 20 mg NG DAILY [facility] Last Admin: 08/22/18 08:45 Dose: 20 mg Ferrous Sulfate (Feosol Liq) 300 mg PO DAILY [facility] Last Admin: 08/22/18 08:43 Dose: 300 mg Folic Acid (Folic Acid) 1 mg PO DAILY [facility] Last Admin: 08/22/18 08:41 Dose: 1 mg Furosemide (Lasix) 40 mg IVP BID [facility] Last Admin: 08/22/18 08:44 Dose: 40 mg Guaifenesin/Dextromethorphan (Robitussin Dm) 5 ml PO TID [facility] Last Admin: 08/22/18 08:45 Dose: 5 ml Hydralazine HCl (Apresoline) 25 mg PO TID [facility] Last Admin: 08/22/18 13:14 Dose: 25 mg Ceftriaxone Sodium 2 gm/ (Sodium Chloride) 100 mls @ 100 mls/hr IVPB DAILY [facility]; Protocol Last Admin: 08/22/18 12:02 Dose: 100 mls/hr Insulin Human Lispro (Humalog) 0 units SC ACHS [facility]; Protocol Last Admin: 08/22/18 13:14 Dose: 1 unit Ipratropium [place] (Atrovent) 0.5 mg IH RQ6 [facility] Last Admin: 08/22/18 13:18 Dose: 0.5 mg Levetiracetam (Keppra) 500 mg NG BID [facility] Last Admin: 08/22/18 08:44 Dose: 500 mg Modafinil (Provigil) 200 mg GT DAILY [facility] Last Admin: 08/22/18 10:44 Dose: 200 mg Montelukast Sodium (Singulair) 10 mg PO HS [facility] Last Admin: 08/21/18 21:52 Dose: 10 mg Multivitamins/Vitamin C (Multi-Delyn Liquid) 15 ml NG DAILY [facility] Last Admin: 08/22/18 08:44 Dose: 15 ml - Labs Labs: 08/22/18 05:14 08/22/18 05:14 PT 13.8 Seconds (9.8-13.1) H 08/20/18 04:20 INR 1.2 08/20/18 04:20 APTT 28.3 Seconds (25.6-37.1) 08/20/18 04:20 - Constitutional Appears: Non-toxic, Chronically Ill - Head Exam Head Exam: NORMOCEPHALIC - Eye Exam Eye Exam: absent: Scleral icterus - ENT Exam ENT Exam: Mucous Membranes Dry - Neck Exam Neck Exam: absent: Lymphadenopathy - Respiratory Exam Respiratory Exam: Decreased Breath Sounds - Cardiovascular Exam Cardiovascular Exam: REGULAR RHYTHM - GI/Abdominal Exam GI & Abdominal Exam: Distended Assessment and Plan (1) CHF (congestive heart failure) Status: Acute (2) Dehydration Status: Acute (3) Pneumonia Status: Acute (4) UTI (urinary tract infection) Status: Acute (5) CVA (cerebral vascular accident) Status: Acute - Assessment and Plan (Free Text) Assessment: ok to d/c antibiotics
--- NOTE | 2018-08-22 17:59 | CP.PCM.PN ---
Subjective - Date & Time of Evaluation Date of Evaluation: 08/22/18 Time of Evaluation: 12:00 - Subjective Subjective: F/U PNA Pt non verbal, open eyes to verbal stimuli, generalized weakness, on high flow O2. Objective - Vital Signs/Intake and Output Vital Signs (last 24 hours): Temp Pulse Resp BP Pulse Ox 98.4 F 76 18 132/56 L 98 08/22/18 16:08 08/22/18 16:37 08/22/18 16:08 08/22/18 16:38 08/22/18 16:08 Intake and Output: 08/22/18 08/22/18 06:59 18:59 Intake Total 840 Output Total 450 Balance 390 - Medications Medications: Current Medications Acetaminophen (Tylenol 650mg/20.3ml Solution Ud) 650 mg NG Q4 PRN PRN Reason: Pain, moderate (4-7) Last Admin: 08/20/18 21:04 Dose: 650 mg Acetylcysteine (Acetylcysteine 20%) 2 ml INH RBID [facility] Last Admin: 08/22/18 08:42 Dose: 2 ml Albuterol Sulfate (Albuterol 0.083% Inhal Blessing (2.5 Mg/3 Ml) Ud) 2.5 mg INH RQ6 [facility] Last Admin: 08/22/18 13:18 Dose: 2.5 mg Aspirin (Aspirin Chewable) 81 mg PO DAILY [facility] Last Admin: 08/22/18 08:41 Dose: 81 mg Atorvastatin Calcium (Lipitor) 20 mg PO HS [facility] Last Admin: 08/21/18 21:52 Dose: 20 mg Carvedilol (Coreg) 3.125 mg PO Q12 [facility] Last Admin: 08/22/18 08:43 Dose: 3.125 mg Docusate Sodium (Colace Liquid) 100 mg NG BID [facility] Last Admin: 08/22/18 16:37 Dose: 100 mg Famotidine (Pepcid) 20 mg NG DAILY [facility] Last Admin: 08/22/18 08:45 Dose: 20 mg Ferrous Sulfate (Feosol Liq) 300 mg PO DAILY [facility] Last Admin: 08/22/18 08:43 Dose: 300 mg Folic Acid (Folic Acid) 1 mg PO DAILY [facility] Last Admin: 08/22/18 08:41 Dose: 1 mg Furosemide (Lasix) 40 mg IVP BID [facility] Last Admin: 08/22/18 16:38 Dose: 40 mg Guaifenesin/Dextromethorphan (Robitussin Dm) 5 ml PO TID [facility] Last Admin: 08/22/18 16:37 Dose: 5 ml Hydralazine HCl (Apresoline) 25 mg PO TID [facility] Last Admin: 08/22/18 16:37 Dose: 25 mg Ceftriaxone Sodium 2 gm/ (Sodium Chloride) 100 mls @ 100 mls/hr IVPB DAILY [facility]; Protocol Last Admin: 08/22/18 12:02 Dose: 100 mls/hr Insulin Human Lispro (Humalog) 0 units SC ACHS [facility]; Protocol Last Admin: 08/22/18 16:38 Dose: Not Given Ipratropium [place] (Atrovent) 0.5 mg IH RQ6 [facility] Last Admin: 08/22/18 13:18 Dose: 0.5 mg Levetiracetam (Keppra) 500 mg NG BID [facility] Last Admin: 08/22/18 16:37 Dose: 500 mg Modafinil (Provigil) 200 mg GT DAILY [facility] Last Admin: 08/22/18 10:44 Dose: 200 mg Montelukast Sodium (Singulair) 10 mg PO HS [facility] Last Admin: 08/21/18 21:52 Dose: 10 mg Multivitamins/Vitamin C (Multi-Delyn Liquid) 15 ml NG DAILY [facility] Last Admin: 08/22/18 08:44 Dose: 15 ml - Labs Labs: 08/22/18 05:14 08/22/18 05:14 PT 13.8 Seconds (9.8-13.1) H 08/20/18 04:20 INR 1.2 08/20/18 04:20 APTT 28.3 Seconds (25.6-37.1) 08/20/18 04:20 - Constitutional Appears: Chronically Ill - Head Exam Head Exam: NORMAL INSPECTION - Eye Exam Eye Exam: PERRL (Left) Pupil Exam: Irregular (R pupil) - ENT Exam Additional comments: NGT, high flow O2 - Neck Exam Neck Exam: Normal Inspection - Respiratory Exam Respiratory Exam: Decreased Breath Sounds (L>R) - Cardiovascular Exam Cardiovascular Exam: REGULAR RHYTHM, Murmur (2/6 LSB) - GI/Abdominal Exam GI & Abdominal Exam: Soft, Hernia (reducible), Normal Bowel Sounds - Extremities Exam Additional comments: Edema U/E - Neurological Exam Additional comments: Open eyes to verbal stimuli, non verbal, generalized weakness. - Skin Skin Exam: Warm Assessment and Plan (1) Pneumonia Status: Acute (2) Pleural effusion, left Status: Acute (3) COPD exacerbation Status: Acute (4) Opacity of lung on imaging study Status: Acute (5) CHF (congestive heart failure) Status: Acute - Assessment and Plan (Free Text) Plan: Continue High Flow O2, Ceftriaxone and rest of Tx.
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
[2018-08-23] MEDS: Ipratropium 0.02% Inhal Soln (0.5 mg/2.5 ml) UD IH SCH ×4 (01:04→19:09)
[2018-08-23] MEDS: Albuterol 0.083% Inhal Sol (2.5 mg/3 mL) UD INH SCH ×4 (01:04→19:07)
[2018-08-23 05:33] LABS: MEAN CELL VOLUME 103.5 fl (81.0-99.0); MEAN CORPUSCULAR HEMOGLOBIN 33.9 pg (27.0-31.0); MEAN CORPUSCULAR HGB CONC 32.7 g/dL (33.0-37.0); RBC 3.23 Mil/uL (3.80-5.20); WHITE BLOOD COUNT 9.6 K/uL (4.8-10.8)
[2018-08-23 05:42] LABS: CALCIUM 8.2 mg/dL (8.4-10.2)
--- NOTE | 2018-08-23 06:32 | PN ---
DATE: 08/22/2018 SUBJECTIVE: Today, the patient is awake and no evidence of shortness of breath, but the patient could not give much more information. PHYSICAL EXAMINATION: VITAL SIGNS: The patient has a blood pressure of 125/64, pulse 74, respirations 20, and temperature 98.8, NECK: Supple. LUNGS: There are some rales bilaterally. HEART: Regular rate and rhythm. Positive murmur. ABDOMEN: Soft and nontender. EXTREMITIES: No edema. ASSESSMENT AND PLAN: The patient has shortness of breath. The patient swallowing evaluation. The case was discussed with nurse practitioner to consider percutaneous endoscopic gastrostomy insertion. In the meantime, we are going to continue to monitor the heart and also the respiratory system. Progress note from Dr. Goodwin is also appreciated. Slim Marino MD
[2018-08-23] MEDS: Acetylcysteine 20% Inhal Soln (4ml) INH SCH ×2 (07:43→19:07)
--- NOTE | 2018-08-23 09:54 | CP.PCM.PN ---
Subjective - Date & Time of Evaluation Date of Evaluation: 08/23/18 Time of Evaluation: 09:53 - Subjective Subjective: no overnight events Objective - Vital Signs/Intake and Output Vital Signs (last 24 hours): Temp Pulse Resp BP Pulse Ox 98.1 F 84 20 136/42 L 99 08/23/18 08:00 08/23/18 08:00 08/23/18 08:00 08/23/18 08:00 08/23/18 08:00 Intake and Output: 08/23/18 08/23/18 06:59 18:59 Intake Total 990 Output Total 950 Balance 40 - Medications Medications: Current Medications Acetaminophen (Tylenol 650mg/20.3ml Solution Ud) 650 mg NG Q4 PRN PRN Reason: Pain, moderate (4-7) Last Admin: 08/20/18 21:04 Dose: 650 mg Acetylcysteine (Acetylcysteine 20%) 2 ml INH RBID [facility] Last Admin: 08/23/18 07:43 Dose: 2 ml Albuterol Sulfate (Albuterol 0.083% Inhal Blessing (2.5 Mg/3 Ml) Ud) 2.5 mg INH RQ6 [facility] Last Admin: 08/23/18 07:43 Dose: 2.5 mg Aspirin (Aspirin Chewable) 81 mg PO DAILY [facility] Last Admin: 08/22/18 08:41 Dose: 81 mg Atorvastatin Calcium (Lipitor) 20 mg PO HS [facility] Last Admin: 08/22/18 21:43 Dose: 20 mg Carvedilol (Coreg) 3.125 mg PO Q12 [facility] Last Admin: 08/22/18 21:43 Dose: 3.125 mg Docusate Sodium (Colace Liquid) 100 mg NG BID [facility] Last Admin: 08/22/18 16:37 Dose: 100 mg Famotidine (Pepcid) 20 mg NG DAILY [facility] Last Admin: 08/22/18 08:45 Dose: 20 mg Ferrous Sulfate (Feosol Liq) 300 mg PO DAILY [facility] Last Admin: 08/22/18 08:43 Dose: 300 mg Folic Acid (Folic Acid) 1 mg PO DAILY [facility] Last Admin: 08/22/18 08:41 Dose: 1 mg Guaifenesin/Dextromethorphan (Robitussin Dm) 5 ml PO TID [facility] Last Admin: 08/22/18 16:37 Dose: 5 ml Hydralazine HCl (Apresoline) 25 mg PO TID [facility] Last Admin: 08/22/18 16:37 Dose: 25 mg Ceftriaxone Sodium 2 gm/ (Sodium Chloride) 100 mls @ 100 mls/hr IVPB DAILY [facility]; Protocol Last Admin: 08/22/18 12:02 Dose: 100 mls/hr Insulin Human Lispro (Humalog) 0 units SC ACHS [facility]; Protocol Last Admin: 08/22/18 16:38 Dose: Not Given Ipratropium [place] (Atrovent) 0.5 mg IH RQ6 [facility] Last Admin: 08/23/18 07:43 Dose: 0.5 mg Levetiracetam (Keppra) 500 mg NG BID [facility] Last Admin: 08/22/18 16:37 Dose: 500 mg Modafinil (Provigil) 200 mg GT DAILY [facility] Last Admin: 08/22/18 10:44 Dose: 200 mg Montelukast Sodium (Singulair) 10 mg PO HS [facility] Last Admin: 08/22/18 21:43 Dose: 10 mg Multivitamins/Vitamin C (Multi-Delyn Liquid) 15 ml NG DAILY [facility] Last Admin: 08/22/18 08:44 Dose: 15 ml - Labs Labs: 08/23/18 05:00 08/23/18 05:00 PT 13.8 Seconds (9.8-13.1) H 08/20/18 04:20 INR 1.2 08/20/18 04:20 APTT 28.3 Seconds (25.6-37.1) 08/20/18 04:20 - Head Exam Head Exam: NORMOCEPHALIC - Neck Exam Neck Exam: Normal Inspection - Respiratory Exam Respiratory Exam: Wheezes, NORMAL BREATHING PATTERN Assessment and Plan - Assessment and Plan (Free Text) Assessment: 82 yo female with dysphagia daughter feeding pt risks>>benefits for peg peg pending
--- NOTE | 2018-08-23 11:23 | US ---
Procedure: Ultrasound guided thoracentesis. Clinical History: Left -sided pleural effusion. Technique: The relative risks and indications for the procedure were explained to the patient and informed written consent obtained. Sonography of the left chest was performed in a an upright position. This revealed a moderate amount of pleural fluid. A puncture site was selected in the posterior aspect of the left chest and the area was prepped and draped in the usual sterile fashion. 1% lidocaine was used to anesthetize the skin and soft tissues. A 5 [place] centesis catheter was trochared into the left pleural cavity 750 cc of bloody fluid aspirated. The patient tolerated the procedure well. Postprocedure radiograph demonstrated no evidence of pneumothorax and near complete resolution of the previously identified pleural effusion. Impression: Ultrasound-guided thoracentesis of the left pleural cavity. 750 cc of bloody fluid was aspirated.
--- NOTE | 2018-08-23 11:24 | VASCULAR ---
Procedure: Ultrasound and fluoroscopically placed Right upper extremity PICC. Clinical indication: Long-term IV antibiotics. Technique: The relative risks and indications of the procedure were explained to the patient and written informed consent obtained. The patient was placed supine on the angiographic table and the right arm prepped and draped in the usual sterile fashion. A tourniquet was applied to the right axilla. 1% lidocaine was used to anesthetize the skin and soft tissues at the puncture site above the elbow. The right upper extremity vein was punctured under direct ultrasound guidance with a micropuncture set. A permanent image was stored. A 0.018 guidewire was advanced centrally and used to measure the length to the SVC/RA junction. A 4 [place] single-lumen PICC, size 32 cm, was advanced to the SVC/RA junction under fluoroscopic guidance. The catheter was flushed and secured. The patient tolerated the procedure well. Postprocedure chest image was obtained to ensure location of the catheter tip at the SVC right atrial junction. Impression: Ultrasound and fluoroscopically placed right upper extremity PICC. A 4 [place] single-lumen PICC, size 32 cm was advanced to the SVC/RA junction. PICC ready for use.
[2018-08-23] MEDS: Famotidine 40 MG/5 ML NG SCH (12:52)
[2018-08-23] MEDS: levETIRAcetam 100 mg/ml (5ml) Oral Syringe NG SCH ×2 (12:55→18:20)
[2018-08-23] MEDS: Multi Vitamins 15 mL UD Oral Solution NG SCH (12:56)
[2018-08-23] MEDS: cefTRIAXone 2 GM in Sodium Chloride 0.9% 100 ML IVPB SCH (12:57)
[2018-08-23] MEDS: guaiFENesin DM 100 mg-10 mg/5 ml UD PO SCH ×2 (12:57→18:20)
[2018-08-23] MEDS: Insulin Lispro (humaLOG) 100 Units/ml Inj SC SCH ×4 (13:30→21:23)
--- NOTE | 2018-08-23 15:47 | CP.PCM.PN ---
Subjective - Date & Time of Evaluation Date of Evaluation: 08/23/18 Time of Evaluation: 12:50 - Subjective Subjective: F/U PNA No A/D, smiling, no SOB on O2 NC, occasional dry cough improved. Objective - Vital Signs/Intake and Output Vital Signs (last 24 hours): Temp Pulse Resp BP Pulse Ox 98.1 F 83 21 136/42 L 99 08/23/18 08:00 08/23/18 09:00 08/23/18 15:45 08/23/18 12:53 08/23/18 08:00 Intake and Output: 08/23/18 08/23/18 06:59 18:59 Intake Total 990 Output Total 950 Balance 40 - Medications Medications: Current Medications Acetaminophen (Tylenol 650mg/20.3ml Solution Ud) 650 mg NG Q4 PRN PRN Reason: Pain, moderate (4-7) Last Admin: 08/20/18 21:04 Dose: 650 mg Acetylcysteine (Acetylcysteine 20%) 2 ml INH RBID [facility] Last Admin: 08/23/18 07:43 Dose: 2 ml Albuterol Sulfate (Albuterol 0.083% Inhal Blessing (2.5 Mg/3 Ml) Ud) 2.5 mg INH RQ6 [facility] Last Admin: 08/23/18 13:00 Dose: 2.5 mg Aspirin (Aspirin Chewable) 81 mg NG DAILY [facility] Atorvastatin Calcium (Lipitor) 20 mg NG HS [facility] Carvedilol (Coreg) 3.125 mg NG Q12 [facility] Docusate Sodium (Colace Liquid) 100 mg NG BID [facility] Last Admin: 08/23/18 12:54 Dose: 100 mg Famotidine (Pepcid) 20 mg NG DAILY [facility] Last Admin: 08/23/18 12:52 Dose: 20 mg Ferrous Sulfate (Feosol Liq) 300 mg NG DAILY [facility] Folic Acid (Folic Acid) 1 mg GT DAILY [facility] Guaifenesin/Dextromethorphan (Robitussin Dm) 5 ml PO TID [facility] Last Admin: 08/23/18 12:57 Dose: 5 ml Hydralazine HCl (Apresoline) 25 mg PO TID [facility] Last Admin: 08/23/18 12:53 Dose: 25 mg Ceftriaxone Sodium 2 gm/ (Sodium Chloride) 100 mls @ 100 mls/hr IVPB DAILY [facility]; Protocol Last Admin: 08/23/18 12:57 Dose: 100 mls/hr Insulin Human Lispro (Humalog) 0 units SC ACHS [facility]; Protocol Last Admin: 08/23/18 13:31 Dose: Not Given Ipratropium [place] (Atrovent) 0.5 mg IH RQ6 [facility] Last Admin: 08/23/18 13:00 Dose: 0.5 mg Levetiracetam (Keppra) 500 mg NG BID [facility] Last Admin: 08/23/18 12:55 Dose: 500 mg Modafinil (Provigil) 200 mg GT DAILY [facility] Last Admin: 08/22/18 10:44 Dose: 200 mg Montelukast Sodium (Singulair) 10 mg GT HS [facility] Multivitamins/Vitamin C (Multi-Delyn Liquid) 15 ml NG DAILY [facility] Last Admin: 08/23/18 12:56 Dose: 15 ml - Labs Labs: 08/23/18 05:00 08/23/18 05:00 PT 13.8 Seconds (9.8-13.1) H 08/20/18 04:20 INR 1.2 08/20/18 04:20 APTT 28.3 Seconds (25.6-37.1) 08/20/18 04:20 - Constitutional Appears: Chronically Ill - Head Exam Head Exam: NORMAL INSPECTION - Eye Exam Eye Exam: PERRL (left) Pupil Exam: Irregular (R pupil) - ENT Exam Additional comments: NGT, on High flow O2 - Neck Exam Neck Exam: Normal Inspection - Respiratory Exam Respiratory Exam: Decreased Breath Sounds (L>R), Rhonchi (few at bases) - Cardiovascular Exam Cardiovascular Exam: REGULAR RHYTHM, Murmur (2/6 LSB) - GI/Abdominal Exam GI & Abdominal Exam: Soft, Hernia (reducible), Normal Bowel Sounds - Extremities Exam Additional comments: liane U/E - Back Exam Back Exam: NORMAL INSPECTION - Neurological Exam Additional comments: Open eyes to verbal stimuli, non verbal, generalized weakness. - Skin Skin Exam: Warm Assessment and Plan (1) Pneumonia Status: Acute (2) Pleural effusion, left Status: Acute (3) COPD exacerbation Status: Acute (4) Opacity of lung on imaging study Status: Acute (5) CHF (congestive heart failure) Status: Acute - Assessment and Plan (Free Text) Plan: Continue Ceftriaxone and rest of Tx.
--- NOTE | 2018-08-23 16:20 | RAD ---
Date of service: 08/23/2018 PROCEDURE: CHEST RADIOGRAPH, 1 VIEW HISTORY: f/ up pneumonia COMPARISON: 08/20/2018. single-view chest. 08/19/2018 CT thorax FINDINGS: LUNGS: Stable right lower lobe infiltrate. PLEURA: Bilateral pleural effusions left larger than right. CARDIOVASCULAR: Atherosclerotic calcifications identified primarily aortic arch. No radiographic findings to suggest acute or significant cardiovascular disease. OSSEOUS STRUCTURES: No significant abnormalities. VISUALIZED UPPER ABDOMEN: Normal. OTHER FINDINGS: None. IMPRESSION: No significant interval change compared to the prior examination(s).
--- NOTE | 2018-08-23 16:21 | RAD ---
Date of service: 08/23/2018 HISTORY: abd distention COMPARISON: None available. FINDINGS: BOWEL: Normal. No obstruction. No free air. BONES: Normal. OTHER FINDINGS: Nasogastric tube courses through the distal esophagus, stomach with tip in 4th portion of the duodenum. IMPRESSION: No acute findings related to/accounting for the clinical presentation.
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
[2018-08-24] MEDS: Ipratropium 0.02% Inhal Soln (0.5 mg/2.5 ml) UD IH SCH ×4 (02:57→19:29)
[2018-08-24] MEDS: Albuterol 0.083% Inhal Sol (2.5 mg/3 mL) UD INH SCH ×4 (02:57→19:29)
--- NOTE | 2018-08-24 06:41 | PN ---
DATE: 08/23/2018 SUBJECTIVE: Today, the patient is still somewhat weak but more awake than yesterday. The patient denies any shortness of breath. The patient is on high-flow oxygen. There is no nausea. The patient was able to eat some clear liquid, thick liquid given by daughter. PHYSICAL EXAMINATION: VITAL SIGNS: The patient has a blood pressure of 132/62, pulse is 82, respiration 20, temperature 97.8. LUNGS: He has some rales bilaterally, more on the left side. HEART: Regular rate and rhythm. ABDOMEN: Soft and nontender, but there is a large epigastric hernia, and positive bowel sounds. EXTREMITIES: There is no edema at this point. LABORATORY DATA: The labs show that the WBC is 9.6, hemoglobin 11, hematocrit 32.5, and platelet is 243. Chemistry showed that the sodium is 139, potassium 4.4, chloride 100, BUN is 43, creatinine 1.1, GFR is 57, glucose 131, and calcium 8.2. ASSESSMENT AND PLAN: The plan is that we are going to continue to try to feed the patient. Since family is reluctant to put a percutaneous endoscopic gastrostomy, we are going to continue the oxygen therapy . Slim Marino MD
[2018-08-24] MEDS: Acetylcysteine 20% Inhal Soln (4ml) INH SCH ×2 (08:17→19:29)
[2018-08-24] MEDS: levETIRAcetam 100 mg/ml (5ml) Oral Syringe NG SCH ×2 (09:12→16:27)
[2018-08-24] MEDS: cefTRIAXone 2 GM in Sodium Chloride 0.9% 100 ML IVPB SCH (09:12)
[2018-08-24] MEDS: Ferrous Sulfate 300 mg/5 mL Liq UD NG SCH (09:15)
[2018-08-24] MEDS: Multi Vitamins 15 mL UD Oral Solution NG SCH (09:15)
[2018-08-24] MEDS: Insulin Lispro (humaLOG) 100 Units/ml Inj SC SCH ×4 (09:15→22:41)
[2018-08-24] MEDS: guaiFENesin DM 100 mg-10 mg/5 ml UD PO SCH ×3 (09:16→16:28)
[2018-08-24] MEDS: Famotidine 40 MG/5 ML NG SCH (12:07)
--- NOTE | 2018-08-24 14:19 | CP.PCM.PN ---
Subjective - Date & Time of Evaluation Date of Evaluation: 08/24/18 Time of Evaluation: 11:45 - Subjective Subjective: F/U PNA Pt feels better, attempting to talk with daughter, on puree diet Objective - Vital Signs/Intake and Output Vital Signs (last 24 hours): Temp Pulse Resp BP Pulse Ox 98.1 F 88 20 146/58 L 100 08/24/18 09:00 08/24/18 09:13 08/24/18 14:12 08/24/18 09:13 08/24/18 09:00 Intake and Output: 08/24/18 08/24/18 06:59 18:59 Output Total 180 Balance -180 - Medications Medications: Current Medications Acetaminophen (Tylenol 650mg/20.3ml Solution Ud) 650 mg NG Q4 PRN PRN Reason: Pain, moderate (4-7) Last Admin: 08/20/18 21:04 Dose: 650 mg Acetylcysteine (Acetylcysteine 20%) 2 ml INH RBID [facility] Last Admin: 08/24/18 08:17 Dose: 2 ml Albuterol Sulfate (Albuterol 0.083% Inhal Blessing (2.5 Mg/3 Ml) Ud) 2.5 mg INH RQ6 [facility] Last Admin: 08/24/18 14:14 Dose: 2.5 mg Aspirin (Aspirin Chewable) 81 mg NG DAILY [facility] Last Admin: 08/24/18 09:14 Dose: 81 mg Atorvastatin Calcium (Lipitor) 20 mg NG HS [facility] Last Admin: 08/23/18 21:22 Dose: 20 mg Carvedilol (Coreg) 3.125 mg NG Q12 [facility] Last Admin: 08/24/18 09:13 Dose: 3.125 mg Docusate Sodium (Colace Liquid) 100 mg NG BID [facility] Last Admin: 08/24/18 09:15 Dose: Not Given Famotidine (Pepcid) 20 mg NG DAILY [facility] Last Admin: 08/24/18 12:07 Dose: 20 mg Ferrous Sulfate (Feosol Liq) 300 mg NG DAILY [facility] Last Admin: 08/24/18 09:15 Dose: 300 mg Folic Acid (Folic Acid) 1 mg GT DAILY [facility] Last Admin: 08/24/18 09:14 Dose: 1 mg Guaifenesin/Dextromethorphan (Robitussin Dm) 5 ml PO TID [facility] Last Admin: 08/24/18 12:08 Dose: 5 ml Hydralazine HCl (Apresoline) 25 mg PO TID [facility] Last Admin: 08/24/18 09:13 Dose: 25 mg Ceftriaxone Sodium 2 gm/ (Sodium Chloride) 100 mls @ 100 mls/hr IVPB DAILY [facility]; Protocol Last Admin: 08/24/18 09:12 Dose: 100 mls/hr Insulin Human Lispro (Humalog) 0 units SC ACHS [facility]; Protocol Last Admin: 08/24/18 12:08 Dose: 1 unit Ipratropium [place] (Atrovent) 0.5 mg IH RQ6 [facility] Last Admin: 08/24/18 14:14 Dose: 0.5 mg Levetiracetam (Keppra) 500 mg NG BID [facility] Last Admin: 08/24/18 09:12 Dose: 500 mg Modafinil (Provigil) 200 mg GT DAILY [facility] Last Admin: 08/24/18 12:05 Dose: 200 mg Montelukast Sodium (Singulair) 10 mg GT HS [facility] Last Admin: 08/23/18 21:22 Dose: 10 mg Multivitamins/Vitamin C (Multi-Delyn Liquid) 15 ml NG DAILY [facility] Last Admin: 08/24/18 09:15 Dose: 15 ml - Labs Labs: 08/23/18 05:00 08/23/18 05:00 PT 13.8 Seconds (9.8-13.1) H 08/20/18 04:20 INR 1.2 08/20/18 04:20 APTT 28.3 Seconds (25.6-37.1) 08/20/18 04:20 - Constitutional Appears: Chronically Ill - Head Exam Head Exam: NORMAL INSPECTION - Eye Exam Eye Exam: PERRL (left) Pupil Exam: Irregular (R pupil) - ENT Exam Additional comments: On high flow O2. NGT removed. - Neck Exam Neck Exam: Normal Inspection - Respiratory Exam Respiratory Exam: Decreased Breath Sounds (L>R), Rhonchi - Cardiovascular Exam Cardiovascular Exam: REGULAR RHYTHM, Murmur (2/6 LSB) - GI/Abdominal Exam GI & Abdominal Exam: Soft, Hernia (reducible), Normal Bowel Sounds - Extremities Exam Additional comments: Edema BUE - Back Exam Back Exam: NORMAL INSPECTION - Neurological Exam Neurological Exam: Awake Additional comments: Moving head to verbal stimuli, mumbling sounds, generalized weakness - Skin Skin Exam: Warm Assessment and Plan (1) Pneumonia Status: Acute (2) Pleural effusion, left Status: Acute (3) COPD exacerbation Status: Acute (4) Opacity of lung on imaging study Status: Acute (5) CHF (congestive heart failure) Status: Acute - Assessment and Plan (Free Text) Plan: Trial of O2 NC, continue Ceftriaxone, Atrovent, Albuterol and rest of Tx.
[2018-08-25] MEDS: Ipratropium 0.02% Inhal Soln (0.5 mg/2.5 ml) UD IH SCH ×4 (01:04→19:16)
[2018-08-25] MEDS: Albuterol 0.083% Inhal Sol (2.5 mg/3 mL) UD INH SCH ×4 (01:04→19:16)
[2018-08-25 06:49] LABS: BASO # 0.1 K/uL (0.0-0.2); BASO % 0.9 % (0.0-2.0); EOS # 0.1 K/uL (0.0-0.7); EOS % 1.8 % (0.0-4.0); HEMOGLOBIN 10.8 g/dL (12.0-16.0); LYMPH # 0.8 K/uL (1.0-4.3); MEAN CELL VOLUME 103.7 fl (81.0-99.0); MEAN CORPUSCULAR HGB CONC 32.8 g/dL (33.0-37.0); MEAN PLATELET VOLUME 10.5 fl (7.2-11.7); MONO # 0.5 K/uL (0.0-0.8); MONO % 7.2 % (0.0-10.0); NEUT # 6.1 K/uL (1.8-7.0); NEUT % 80.1 % (50.0-75.0); RBC 3.18 Mil/uL (3.80-5.20); RED CELL DISTRIBUTION WIDTH 14.8 % (11.5-14.5); WHITE BLOOD COUNT 7.6 K/uL (4.8-10.8)
[2018-08-25 07:12] LABS: ALB/GLOB RATIO 0.8 (1.0-2.1); ALBUMIN 2.3 g/dL (3.5-5.0); ALT/SGPT 24 U/L (9-52); AST/SGOT 29 U/L (14-36); BLOOD UREA NITROGEN 39 mg/dl (7-17); CALCIUM 8.2 mg/dL (8.4-10.2); GFR NON-AFRICAN AMERICAN 53
[2018-08-25] MEDS: Acetylcysteine 20% Inhal Soln (4ml) INH SCH ×2 (07:30→19:16)
[2018-08-25] MEDS: cefTRIAXone 2 GM in Sodium Chloride 0.9% 100 ML IVPB SCH (09:11)
[2018-08-25] MEDS: guaiFENesin DM 100 mg-10 mg/5 ml UD PO SCH ×3 (09:12→18:39)
[2018-08-25] MEDS: Multi Vitamins 15 mL UD Oral Solution NG SCH (09:13)
[2018-08-25] MEDS: levETIRAcetam 100 mg/ml (5ml) Oral Syringe NG SCH ×2 (09:13→18:39)
[2018-08-25] MEDS: Famotidine 40 MG/5 ML NG SCH (09:13)
[2018-08-25] MEDS: Ferrous Sulfate 300 mg/5 mL Liq UD NG SCH (09:14)
[2018-08-25] MEDS: Insulin Lispro (humaLOG) 100 Units/ml Inj SC SCH ×4 (09:17→21:55)
--- NOTE | 2018-08-25 15:41 | CP.PCM.PN ---
Subjective - Date & Time of Evaluation Date of Evaluation: 08/25/18 Time of Evaluation: 13:20 - Subjective Subjective: F/U PNA Pt lethargic, open eyes to verbal stimuli, able to talk with single words Objective - Vital Signs/Intake and Output Vital Signs (last 24 hours): Temp Pulse Resp BP Pulse Ox 97.8 F 80 18 122/57 L 99 08/25/18 08:14 08/25/18 13:49 08/25/18 08:14 08/25/18 13:49 08/25/18 08:14 Intake and Output: 08/25/18 08/25/18 06:59 18:59 Intake Total 50 Balance 50 - Medications Medications: Current Medications Acetaminophen (Tylenol 650mg/20.3ml Solution Ud) 650 mg NG Q4 PRN PRN Reason: Pain, moderate (4-7) Last Admin: 08/20/18 21:04 Dose: 650 mg Acetylcysteine (Acetylcysteine 20%) 2 ml INH RBID [facility] Last Admin: 08/25/18 07:30 Dose: 2 ml Albuterol Sulfate (Albuterol 0.083% Inhal Blessing (2.5 Mg/3 Ml) Ud) 2.5 mg INH RQ6 [facility] Last Admin: 08/25/18 13:13 Dose: 2.5 mg Aspirin (Aspirin Chewable) 81 mg NG DAILY [facility] Last Admin: 08/25/18 09:14 Dose: 81 mg Atorvastatin Calcium (Lipitor) 20 mg NG HS [facility] Last Admin: 08/24/18 22:40 Dose: 20 mg Carvedilol (Coreg) 3.125 mg NG Q12 [facility] Last Admin: 08/25/18 09:14 Dose: 3.125 mg Docusate Sodium (Colace Liquid) 100 mg NG BID [facility] Last Admin: 08/25/18 09:14 Dose: Not Given Famotidine (Pepcid) 20 mg NG DAILY [facility] Last Admin: 08/25/18 09:13 Dose: 20 mg Ferrous Sulfate (Feosol Liq) 300 mg NG DAILY [facility] Last Admin: 08/25/18 09:14 Dose: 300 mg Folic Acid (Folic Acid) 1 mg GT DAILY [facility] Last Admin: 08/25/18 09:14 Dose: 1 mg Guaifenesin/Dextromethorphan (Robitussin Dm) 5 ml PO TID [facility] Last Admin: 08/25/18 13:50 Dose: 5 ml Hydralazine HCl (Apresoline) 25 mg PO TID [facility] Last Admin: 08/25/18 13:49 Dose: Not Given Ceftriaxone Sodium 2 gm/ (Sodium Chloride) 100 mls @ 100 mls/hr IVPB DAILY [facility]; Protocol Last Admin: 08/25/18 09:11 Dose: 100 mls/hr Insulin Human Lispro (Humalog) 0 units SC ACHS [facility]; Protocol Last Admin: 08/25/18 13:50 Dose: 2 unit Ipratropium [place] (Atrovent) 0.5 mg IH RQ6 [facility] Last Admin: 08/25/18 13:13 Dose: 0.5 mg Levetiracetam (Keppra) 500 mg NG BID [facility] Last Admin: 08/25/18 09:13 Dose: 500 mg Montelukast Sodium (Singulair) 10 mg GT HS [facility] Last Admin: 08/24/18 22:40 Dose: 10 mg Multivitamins/Vitamin C (Multi-Delyn Liquid) 15 ml NG DAILY [facility] Last Admin: 08/25/18 09:13 Dose: 15 ml - Labs Labs: 08/25/18 05:15 08/25/18 05:15 PT 13.8 Seconds (9.8-13.1) H 08/20/18 04:20 INR 1.2 08/20/18 04:20 APTT 28.3 Seconds (25.6-37.1) 08/20/18 04:20 - Constitutional Appears: Chronically Ill - Head Exam Head Exam: NORMAL INSPECTION - Eye Exam Eye Exam: PERRL (left) Pupil Exam: Irregular (pupil on R eye) - ENT Exam ENT Exam: Normal Exam - Neck Exam Neck Exam: Normal Inspection - Respiratory Exam Respiratory Exam: Decreased Breath Sounds (L>R), Rhonchi (scattered) - Cardiovascular Exam Cardiovascular Exam: REGULAR RHYTHM, Murmur (2/6 LSB) - GI/Abdominal Exam GI & Abdominal Exam: Soft, Hernia (reducible), Normal Bowel Sounds - Extremities Exam Extremities Exam: Normal Inspection - Back Exam Back Exam: NORMAL INSPECTION - Neurological Exam Neurological Exam: Awake Additional comments: moving head to verbal stimuli, mumbling sounds, generalized weakness. - Skin Skin Exam: Warm Assessment and Plan (1) Pneumonia Status: Acute (2) Pleural effusion, left Status: Acute (3) COPD exacerbation Status: Acute (4) Opacity of lung on imaging study Status: Acute (5) CHF (congestive heart failure) Status: Acute - Assessment and Plan (Free Text) Plan: Continue O2 NC, Ceftriaxone, Albuterol, and rest of Tx.
[2018-08-26] MEDS: Albuterol 0.083% Inhal Sol (2.5 mg/3 mL) UD INH SCH ×4 (01:12→19:37)
[2018-08-26] MEDS: Acetylcysteine 20% Inhal Soln (4ml) INH SCH ×2 (07:43→19:37)
[2018-08-26] MEDS: guaiFENesin DM 100 mg-10 mg/5 ml UD PO SCH ×3 (10:35→18:02)
[2018-08-26] MEDS: Multi Vitamins 15 mL UD Oral Solution NG SCH (10:35)
[2018-08-26] MEDS: Insulin Lispro (humaLOG) 100 Units/ml Inj SC SCH ×4 (10:36→22:30)
[2018-08-26] MEDS: cefTRIAXone 2 GM in Sodium Chloride 0.9% 100 ML IVPB SCH (10:36)
[2018-08-26] MEDS: levETIRAcetam 100 mg/ml (5ml) Oral Syringe NG SCH ×2 (10:36→18:02)
[2018-08-26] MEDS: Ferrous Sulfate 300 mg/5 mL Liq UD NG SCH (10:37)
--- NOTE | 2018-08-26 13:37 | CP.PCM.PN ---
Subjective - Date & Time of Evaluation Date of Evaluation: 08/26/18 Time of Evaluation: 10:00 - Subjective Subjective: WEAK BEDRIDDEN CONFUSED S/P CVA AFEB Objective - Vital Signs/Intake and Output Vital Signs (last 24 hours): Temp Pulse Resp BP Pulse Ox 98.4 F 98 H 20 157/54 H 98 08/26/18 08:00 08/26/18 10:35 08/26/18 08:00 08/26/18 10:35 08/26/18 08:00 Intake and Output: 08/26/18 08/26/18 06:59 18:59 Output Total 420 Balance -420 - Medications Medications: Current Medications Acetaminophen (Tylenol 650mg/20.3ml Solution Ud) 650 mg NG Q4 PRN PRN Reason: Pain, moderate (4-7) Last Admin: 08/20/18 21:04 Dose: 650 mg Acetylcysteine (Acetylcysteine 20%) 2 ml INH RBID [facility] Last Admin: 08/26/18 07:43 Dose: 2 ml Albuterol Sulfate (Albuterol 0.083% Inhal Blessing (2.5 Mg/3 Ml) Ud) 2.5 mg INH RQ6 [facility] Last Admin: 08/26/18 07:43 Dose: 2.5 mg Aspirin (Aspirin Chewable) 81 mg NG DAILY [facility] Last Admin: 08/26/18 10:38 Dose: 81 mg Atorvastatin Calcium (Lipitor) 20 mg NG HS [facility] Last Admin: 08/25/18 21:54 Dose: 20 mg Carvedilol (Coreg) 3.125 mg NG Q12 [facility] Last Admin: 08/26/18 10:35 Dose: 3.125 mg Docusate Sodium (Colace Liquid) 100 mg NG BID [facility] Last Admin: 08/26/18 10:40 Dose: Not Given Famotidine (Pepcid) 20 mg NG DAILY [facility] Last Admin: 08/26/18 10:35 Dose: 20 mg Ferrous Sulfate (Feosol Liq) 300 mg NG DAILY [facility] Last Admin: 08/26/18 10:37 Dose: 300 mg Folic Acid (Folic Acid) 1 mg GT DAILY [facility] Last Admin: 08/26/18 10:35 Dose: 1 mg Guaifenesin/Dextromethorphan (Robitussin Dm) 5 ml PO TID [facility] Last Admin: 08/26/18 10:35 Dose: 5 ml Hydralazine HCl (Apresoline) 25 mg PO TID [facility] Last Admin: 08/26/18 10:35 Dose: 25 mg Ceftriaxone Sodium 2 gm/ (Sodium Chloride) 100 mls @ 100 mls/hr IVPB DAILY [facility]; Protocol Last Admin: 08/26/18 10:36 Dose: 100 mls/hr Insulin Human Lispro (Humalog) 0 units SC ACHS [facility]; Protocol Last Admin: 08/26/18 10:36 Dose: Not Given Levetiracetam (Keppra) 500 mg NG BID [facility] Last Admin: 08/26/18 10:36 Dose: 500 mg Montelukast Sodium (Singulair) 10 mg GT HS [facility] Last Admin: 08/25/18 21:54 Dose: 10 mg Multivitamins/Vitamin C (Multi-Delyn Liquid) 15 ml NG DAILY [facility] Last Admin: 08/26/18 10:35 Dose: 15 ml - Labs Labs: 08/25/18 05:15 08/25/18 05:15 PT 13.8 Seconds (9.8-13.1) H 08/20/18 04:20 INR 1.2 08/20/18 04:20 APTT 28.3 Seconds (25.6-37.1) 08/20/18 04:20 - Constitutional Appears: Confused, Cachectic, Chronically Ill - Head Exam Head Exam: absent: NORMOCEPHALIC - Eye Exam Eye Exam: absent: Scleral icterus - ENT Exam ENT Exam: Mucous Membranes Dry - Neck Exam Neck Exam: Lymphadenopathy - Respiratory Exam Respiratory Exam: Decreased Breath Sounds - Cardiovascular Exam Cardiovascular Exam: REGULAR RHYTHM - GI/Abdominal Exam GI & Abdominal Exam: Distended, Soft - Rectal Exam Rectal Exam: Deferred - Exam Exam: NORMAL INSPECTION Assessment and Plan (1) CHF (congestive heart failure) Status: Acute (2) Dehydration Status: Acute (3) Pneumonia Status: Acute (4) UTI (urinary tract infection) Status: Acute (5) CVA (cerebral vascular accident) Status: Acute - Assessment and Plan (Free Text) Assessment: POOR PROGNOSIS CONT SUPPORTIVE CARE MAY BENEFIT FROM HOSPICE
--- NOTE | 2018-08-26 14:29 | CP.PCM.PN ---
Subjective - Date & Time of Evaluation Date of Evaluation: 08/26/18 Time of Evaluation: 14:10 - Subjective Subjective: F/U PNA Eyes open, follows with eyes verbal stimuli, attempting to talk with single words. Objective - Vital Signs/Intake and Output Vital Signs (last 24 hours): Temp Pulse Resp BP Pulse Ox 98.9 F 98 H 16 144/57 L 94 L 08/26/18 13:00 08/26/18 13:38 08/26/18 13:00 08/26/18 13:38 08/26/18 13:00 Intake and Output: 08/26/18 08/26/18 06:59 18:59 Output Total 420 Balance -420 - Medications Medications: Current Medications Acetaminophen (Tylenol 650mg/20.3ml Solution Ud) 650 mg NG Q4 PRN PRN Reason: Pain, moderate (4-7) Last Admin: 08/20/18 21:04 Dose: 650 mg Acetylcysteine (Acetylcysteine 20%) 2 ml INH RBID [facility] Last Admin: 08/26/18 07:43 Dose: 2 ml Albuterol Sulfate (Albuterol 0.083% Inhal Blessing (2.5 Mg/3 Ml) Ud) 2.5 mg INH RQ6 [facility] Last Admin: 08/26/18 07:43 Dose: 2.5 mg Aspirin (Aspirin Chewable) 81 mg NG DAILY [facility] Last Admin: 08/26/18 10:38 Dose: 81 mg Atorvastatin Calcium (Lipitor) 20 mg NG HS [facility] Last Admin: 08/25/18 21:54 Dose: 20 mg Carvedilol (Coreg) 3.125 mg NG Q12 [facility] Last Admin: 08/26/18 10:35 Dose: 3.125 mg Docusate Sodium (Colace Liquid) 100 mg NG BID [facility] Last Admin: 08/26/18 10:40 Dose: Not Given Famotidine (Pepcid) 20 mg NG DAILY [facility] Last Admin: 08/26/18 10:35 Dose: 20 mg Ferrous Sulfate (Feosol Liq) 300 mg NG DAILY [facility] Last Admin: 08/26/18 10:37 Dose: 300 mg Folic Acid (Folic Acid) 1 mg GT DAILY [facility] Last Admin: 08/26/18 10:35 Dose: 1 mg Guaifenesin/Dextromethorphan (Robitussin Dm) 5 ml PO TID [facility] Last Admin: 08/26/18 13:39 Dose: 5 ml Hydralazine HCl (Apresoline) 25 mg PO TID [facility] Last Admin: 08/26/18 13:38 Dose: Not Given Ceftriaxone Sodium 2 gm/ (Sodium Chloride) 100 mls @ 100 mls/hr IVPB DAILY [facility]; Protocol Last Admin: 08/26/18 10:36 Dose: 100 mls/hr Insulin Human Lispro (Humalog) 0 units SC ACHS [facility]; Protocol Last Admin: 08/26/18 13:37 Dose: Not Given Levetiracetam (Keppra) 500 mg NG BID [facility] Last Admin: 08/26/18 10:36 Dose: 500 mg Montelukast Sodium (Singulair) 10 mg GT HS [facility] Last Admin: 08/25/18 21:54 Dose: 10 mg Multivitamins/Vitamin C (Multi-Delyn Liquid) 15 ml NG DAILY [facility] Last Admin: 08/26/18 10:35 Dose: 15 ml - Labs Labs: 08/25/18 05:15 08/25/18 05:15 PT 13.8 Seconds (9.8-13.1) H 08/20/18 04:20 INR 1.2 08/20/18 04:20 APTT 28.3 Seconds (25.6-37.1) 08/20/18 04:20 - Constitutional Appears: Chronically Ill - Head Exam Head Exam: NORMAL INSPECTION - Eye Exam Eye Exam: PERRL (Left) Pupil Exam: Irregular (pupil on R ) - ENT Exam ENT Exam: Normal Exam - Neck Exam Neck Exam: Normal Inspection - Respiratory Exam Respiratory Exam: Decreased Breath Sounds (L>R), Rhonchi (scattered) - Cardiovascular Exam Cardiovascular Exam: REGULAR RHYTHM, Murmur (2/6 LSB) - GI/Abdominal Exam GI & Abdominal Exam: Soft, Hernia (reducible), Normal Bowel Sounds - Extremities Exam Extremities Exam: Normal Inspection - Back Exam Back Exam: NORMAL INSPECTION - Neurological Exam Neurological Exam: Awake Additional comments: Moving head to verbal stimuli, mumbling sounds at times, generalized weakness. - Skin Skin Exam: Warm Assessment and Plan (1) Pneumonia Status: Acute (2) Pleural effusion, left Status: Acute (3) COPD exacerbation Status: Acute (4) Opacity of lung on imaging study Status: Acute (5) CHF (congestive heart failure) Status: Acute - Assessment and Plan (Free Text) Plan: Continue High flow O2, ceftriaxone and rest of tx.
[2018-08-27] MEDS: Albuterol 0.083% Inhal Sol (2.5 mg/3 mL) UD INH SCH ×4 (02:48→19:10)
[2018-08-27] MEDS: Acetylcysteine 20% Inhal Soln (4ml) INH SCH (07:48)
--- NOTE | 2018-08-27 09:11 | PN ---
DATE: 08/26/2018 SUBJECTIVE: The patient today does not appear to be in any acute distress, but however, the patient is somewhat sleepy, but easily arousable and able to while awake. Denied any chest pain. PHYSICAL EXAMINATION: VITAL SIGNS: The patient's blood pressure is 142/51, pulse 92, respirations 17, and temperature 98.8. LUNGS: There are some rales bilaterally. HEART: Regular rate and rhythm, but there is a loud murmur on the area of the heart. ABDOMEN: Soft. Positive for epigastric hernia. EXTREMITY: There is no edema. ASSESSMENT AND PLAN: Plan is that to continue physical therapy, continue the nebulizer treatments and encouraged the patient to eat orally. The patient was mini assisted with daughter. We will current medications as indicated. Case was discussed with the nurse who is attending the patient. Slim Marino MD
--- NOTE | 2018-08-27 09:47 | PN ---
DATE: 08/24/2018 SUBJECTIVE: Today, the patient is more awake. The patient has a clot in the NG tube this morning; however, the patient did not answer any questions, but the patient apparently is in no distress. PHYSICAL EXAMINATION: VITAL SIGNS: Blood pressure 130/51, pulse 80, respirations 20, and temperature 98.3. NECK: Supple. LUNGS: He has some rales bilaterally heard at the bases. HEART: Regular rate and rhythm. ABDOMEN: Soft. There is a large epigastric hernia. EXTREMITIES: There is no edema. LABORATORY DATA: Chest x-ray showed that stable right lower lobe infiltrate. There is bilateral pleural effusion, left larger than the right. ASSESSMENT AND PLAN: The plan is that we are going to continue the treatment for respiratory problems. We are going to start the patient on clear liquids and asked to be assisted by daughter . We are going to continue the present treatment. Slim Marino MD
[2018-08-27] MEDS: Insulin Lispro (humaLOG) 100 Units/ml Inj SC SCH ×4 (10:33→21:37)
[2018-08-27] MEDS: Ferrous Sulfate 300 mg/5 mL Liq UD NG SCH (10:37)
[2018-08-27] MEDS: guaiFENesin DM 100 mg-10 mg/5 ml UD PO SCH (10:41)
[2018-08-27] MEDS: cefTRIAXone 2 GM in Sodium Chloride 0.9% 100 ML IVPB SCH (10:42)
[2018-08-27 11:52] LABS: HEMOGLOBIN 10.7 g/dL (12.0-16.0); MEAN CELL VOLUME 105.5 fl (81.0-99.0); MEAN CORPUSCULAR HEMOGLOBIN 33.8 pg (27.0-31.0); RBC 3.16 Mil/uL (3.80-5.20); RED CELL DISTRIBUTION WIDTH 15.3 % (11.5-14.5); WHITE BLOOD COUNT 8.1 K/uL (4.8-10.8)
[2018-08-27 11:54] LABS: ABG ALLEN TEST YES; ARTERIAL BLOOD GAS HCO3 29.9 mmol/L (21-28); ARTERIAL BLOOD GAS HEMOGLOBIN 10.2 g/dL (11.7-17.4); ARTERIAL BLOOD GAS O2 CAPACITY 13.7 mL/dL (16-24); ARTERIAL BLOOD GAS O2 CONTENT 13.5 ML/dL (15-23); ARTERIAL BLOOD GAS O2 SAT 98.7 % (95-98); ARTERIAL BLOOD GAS PCO2 41 mm/Hg (35-45); ARTERIAL BLOOD GAS PH 7.48 (7.35-7.45); ARTERIAL BLOOD GAS PO2 61 mm/Hg (80-100); ARTERIAL BLOOD GAS TCO2 31.8 mmol/L (22-28)
--- NOTE | 2018-08-27 11:56 | PN ---
DATE: 08/25/2018 SUBJECTIVE: Today, the patient is . The patient was found to be more awake and even is talking. No apparent distress; however, the patient is somewhat trying to remove the mittens and pull out the tubes, the nasal canula. The patient had pulled out the feeding tube yesterday, able to eat a certain portion of his overall food, and the patient denied any chest pain. No palpitation. No abdominal pain except the patient has been having some generalized weakness. PHYSICAL EXAMINATION: VITAL SIGNS: The patient has a blood pressure of 139/57, pulse is 87, respirations is 16, temperature is 98.3. NECK: The neck is slightly stiff. LUNGS: He has some rales bilaterally, more on the left side. HEART: Regular rate and rhythm. There is no murmur. ABDOMEN: Soft. Mild tenderness in the epigastric area. EXTREMITIES: There is no edema. LABORATORY DATA: Labs showed that WBC 7.6, hemoglobin 10.8, hematocrit 33, and platelets 274. Chemistry showed that the sodium is 141, potassium is 4, chloride 102, bicarb is 34, BUN is 9, creatinine is 1, and blood glucose is 86. The plan is that we are going to continue to feed the patient orally without any feeding tube, and also on Monday, we are going to repeat the chest x-ray, that is in two days. Slim Marino MD
[2018-08-27 12:00] LABS: CALCIUM 8.8 mg/dL (8.4-10.2)
[2018-08-27] MEDS: levETIRAcetam 100 mg/ml (5ml) Oral Syringe NG SCH ×2 (14:09→17:21)
--- NOTE | 2018-08-27 16:03 | CP.PCM.PN ---
Subjective - Date & Time of Evaluation Date of Evaluation: 08/27/18 Time of Evaluation: 14:00 - Subjective Subjective: f/u PNA Eyes open, follow with the head verbal stimuli, patient is nonverbal, not following commands, no acute distress Objective - Vital Signs/Intake and Output Vital Signs (last 24 hours): Temp Pulse Resp BP Pulse Ox 98.1 F 90 20 150/54 L 99 08/27/18 15:55 08/27/18 15:55 08/27/18 15:55 08/27/18 15:55 08/27/18 15:55 Intake and Output: 08/27/18 08/27/18 06:59 18:59 Intake Total 720 Output Total 300 Balance 420 - Medications Medications: Current Medications Acetaminophen (Tylenol 650mg/20.3ml Solution Ud) 650 mg NG Q4 PRN PRN Reason: Pain, moderate (4-7) Last Admin: 08/20/18 21:04 Dose: 650 mg Acetylcysteine (Acetylcysteine 20%) 2 ml INH RBID [facility] Last Admin: 08/27/18 07:48 Dose: 2 ml Albuterol Sulfate (Albuterol 0.083% Inhal Blessing (2.5 Mg/3 Ml) Ud) 2.5 mg INH RQ6 [facility] Last Admin: 08/27/18 13:01 Dose: 2.5 mg Aspirin (Aspirin Chewable) 81 mg NG DAILY [facility] Last Admin: 08/27/18 10:36 Dose: 81 mg Atorvastatin Calcium (Lipitor) 20 mg NG HS [facility] Last Admin: 08/26/18 21:43 Dose: 20 mg Carvedilol (Coreg) 3.125 mg NG Q12 [facility] Last Admin: 08/27/18 10:37 Dose: 3.125 mg Docusate Sodium (Colace Liquid) 100 mg NG BID [facility] Last Admin: 08/27/18 10:36 Dose: 100 mg Famotidine (Pepcid) 20 mg NG DAILY [facility] Last Admin: 08/26/18 10:35 Dose: 20 mg Ferrous Sulfate (Feosol Liq) 300 mg NG DAILY [facility] Last Admin: 08/27/18 10:37 Dose: 300 mg Folic Acid (Folic Acid) 1 mg GT DAILY [facility] Last Admin: 08/27/18 10:37 Dose: 1 mg Ceftriaxone Sodium 2 gm/ (Sodium Chloride) 100 mls @ 100 mls/hr IVPB DAILY [facility]; Protocol Last Admin: 08/27/18 10:42 Dose: 100 mls/hr Insulin Human Lispro (Humalog) 0 units SC ACHS [facility]; Protocol Last Admin: 08/27/18 14:07 Dose: Not Given Levetiracetam (Keppra) 500 mg NG BID [facility] Last Admin: 08/27/18 14:09 Dose: 500 mg Montelukast Sodium (Singulair) 10 mg GT HS [facility] Last Admin: 08/26/18 21:43 Dose: 10 mg Multivitamins/Vitamin C (Multi-Delyn Liquid) 15 ml NG DAILY [facility] Last Admin: 08/26/18 10:35 Dose: 15 ml - Labs Labs: 08/27/18 11:30 08/27/18 11:30 PT 13.8 Seconds (9.8-13.1) H 08/20/18 04:20 INR 1.2 08/20/18 04:20 APTT 28.3 Seconds (25.6-37.1) 08/20/18 04:20 - Constitutional Appears: Chronically Ill - Head Exam Head Exam: NORMAL INSPECTION - Eye Exam Eye Exam: PERRL (L eye) Pupil Exam: Irregular (pupil R eye) - ENT Exam ENT Exam: Normal Exam - Neck Exam Neck Exam: Normal Inspection - Respiratory Exam Respiratory Exam: Decreased Breath Sounds (L>R), Rhonchi (scattered) - Cardiovascular Exam Cardiovascular Exam: REGULAR RHYTHM, Murmur (2/6 LSB) - GI/Abdominal Exam GI & Abdominal Exam: Soft, Hernia (reducible), Normal Bowel Sounds - Extremities Exam Extremities Exam: Normal Inspection - Back Exam Back Exam: NORMAL INSPECTION - Neurological Exam Neurological Exam: Awake Additional comments: Moving head to verbal stimuli, generalized weakness. - Skin Skin Exam: Warm Assessment and Plan (1) Pneumonia Status: Acute (2) Pleural effusion, left Status: Acute (3) COPD exacerbation Status: Acute (4) Opacity of lung on imaging study Status: Acute (5) CHF (congestive heart failure) Status: Acute - Assessment and Plan (Free Text) Plan: Chest x-ray complete opacification of the left lung, increase bronchial toilette, repeat chest x-ray in the evening, if left lung opacification persists, CT of the chest in a.m., follow-up bronchoscopy, continue DuoNeb, Mucomyst, patient on Rocephin for UTI
--- NOTE | 2018-08-27 16:43 | RAD ---
Date of service: 08/27/2018 PROCEDURE: CHEST RADIOGRAPH, 1 VIEW HISTORY: follow up pneumonia COMPARISON: 08/23/2018. FINDINGS: LUNGS: Complete collapse of the left lung. No visible, aerated left lung identified, a progressive finding compared to the prior study. Interval improvement in perihilar infiltrate right lung. PLEURA: No significant interval change compared to the prior examination(s). CARDIOVASCULAR: Atherosclerotic calcifications identified primarily aortic arch. OSSEOUS STRUCTURES: No significant abnormalities. VISUALIZED UPPER ABDOMEN: Normal. OTHER FINDINGS: None. IMPRESSION: Complete collapse radiographically of the left lung.
[2018-08-27] MEDS: Multi Vitamins 15 mL UD Oral Solution NG SCH (17:21)
--- NOTE | 2018-08-27 23:58 | CP.PCM.CON ---
History of Present Illness - History of Present Illness History of Present Illness: PMD: Dr Gordon Reason for Consult: Evaluation for transfer to ICU Chief Complaint: Complete collapse of the left lung The patient was seen and examined on the Telemetry Unit HPI: The hx was obtained from review of the medical records. 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 I was consulted to evaluate the patient for ICU transfer. The patient is in bed, asleep but easily awakened, non verbal. Moving the upper extremities, breathing calmly with no sign of distress. PMH: Alzheimer's Disease, Anemia, Arthritis, Asthma, CAD (stents x7), CHF, Depression, Diabetes, HTN, HLD, Peripheral Edema, Pneumonia, PE, CKD, Seizures PSH: Appendectomy, Cholecystectomy, Coronary Stent (7 stents as per the daughter) SH: Former smoker, No illegal drug use; No Alcohol FH: States: Unknown Family Hx Allergies: NKDA Medication: Reviewed Review of Systems - Review of Systems Review of Systems: review of systems is limited because of the patient's dementia and being non verbal. Past Patient History - Infectious Disease Hx of Infectious Diseases: None - Tetanus Immunizations Tetanus Immunization: Unknown - Past Medical History & Family History Past Medical History?: Yes - Past Social History Smoking Status: Former Smoker Chewing Tobacco Use: No Cigar Use: No Alcohol: None Drugs: Denies Home Situation {Lives}: With Family - CARDIAC Hx Cardiac Disorders: Yes Hx Congestive Heart Failure: Yes Hx Hypercholesterolemia: Yes Hx Hypertension: Yes Hx Peripheral Edema: Yes - PULMONARY Hx Respiratory Disorders: Yes Hx Asthma: Yes Hx Pneumonia: Yes Hx Pulmonary Embolism: Yes - NEUROLOGICAL Hx Neurological Disorder: Yes Hx Alzheimer's Disease: Yes Hx Dementia: Yes Hx Seizures: Yes - HEENT Hx HEENT Problems: No - RENAL Hx Chronic Kidney Disease: Yes - ENDOCRINE/METABOLIC Hx Endocrine Disorders: Yes Hx Diabetes Mellitus Type 2: Yes - HEMATOLOGICAL/ONCOLOGICAL Hx Blood Disorders: Yes Hx Anemia: Yes Hx Human Immunodeficiency Virus (HIV): No - INTEGUMENTARY Hx Dermatological Problems: No - MUSCULOSKELETAL/RHEUMATOLOGICAL Hx Musculoskeletal Disorders: Yes Hx Arthritis: Yes Hx Falls: Yes - GASTROINTESTINAL Hx Gastrointestinal Disorders: Yes 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, 2006 and 2007) Hx Constipation: Yes Other/Comment: Ventral hernia - GENITOURINARY/GYNECOLOGICAL Hx Genitourinary Disorders: No - PSYCHIATRIC Hx Psychophysiologic Disorder: Yes Hx Depression: Yes Hx Substance Use: No - SURGICAL HISTORY Hx Surgeries: Yes Hx Appendectomy: Yes Hx Cholecystectomy: Yes Hx Coronary Stent: Yes (7 stents as per the daughter) Other/Comment: Laparotomy (ischemic bowel), Glaucoma operetion R eye - ANESTHESIA Hx Anesthesia: Yes Hx Anesthesia Reactions: Yes (hard to wake up) Hx Malignant Hyperthermia: No Meds Allergies/Adverse Reactions: Allergies Allergy/AdvReac Type Severity Reaction Status Date / Time No Known Allergies Allergy Verified 08/09/18 15:22 - Medications Medications: Current Medications Acetaminophen (Tylenol 650mg/20.3ml Solution Ud) 650 mg NG Q4 PRN PRN Reason: Pain, moderate (4-7) Last Admin: 08/20/18 21:04 Dose: 650 mg Albuterol Sulfate (Albuterol 0.083% Inhal Blessing (2.5 Mg/3 Ml) Ud) 2.5 mg INH RQ4 [facility] Last Admin: 08/27/18 19:10 Dose: 2.5 mg Aspirin (Aspirin Chewable) 81 mg NG DAILY [facility] Last Admin: 08/27/18 10:36 Dose: 81 mg Atorvastatin Calcium (Lipitor) 20 mg NG HS [facility] Last Admin: 08/27/18 21:37 Dose: 20 mg Carvedilol (Coreg) 3.125 mg NG Q12 [facility] Last Admin: 08/27/18 21:37 Dose: 3.125 mg Docusate Sodium (Colace Liquid) 100 mg NG BID [facility] Last Admin: 08/27/18 17:19 Dose: Not Given Famotidine (Pepcid) 20 mg NG DAILY [facility] Last Admin: 08/27/18 17:21 Dose: Not Given Ferrous Sulfate (Feosol Liq) 300 mg NG DAILY [facility] Last Admin: 08/27/18 10:37 Dose: 300 mg Folic Acid (Folic Acid) 1 mg GT DAILY [facility] Last Admin: 08/27/18 10:37 Dose: 1 mg Ceftriaxone Sodium 2 gm/ (Sodium Chloride) 100 mls @ 100 mls/hr IVPB DAILY [facility]; Protocol Last Admin: 08/27/18 10:42 Dose: 100 mls/hr Insulin Human Lispro (Humalog) 0 units SC ACHS [facility]; Protocol Last Admin: 08/27/18 21:37 Dose: Not Given Levetiracetam (Keppra) 500 mg NG BID [facility] Last Admin: 08/27/18 17:21 Dose: 500 mg Montelukast Sodium (Singulair) 10 mg GT HS [facility] Last Admin: 08/27/18 21:37 Dose: 10 mg Multivitamins/Vitamin C (Multi-Delyn Liquid) 15 ml NG DAILY [facility] Last Admin: 08/27/18 17:21 Dose: Not Given Physical Exam - Constitutional Appears: No Acute Distress - Head Exam Head Exam: ATRAUMATIC, NORMAL INSPECTION, NORMOCEPHALIC - Eye Exam Eye Exam: EOMI Pupil Exam: PERRL - ENT Exam ENT Exam: Mucous Membranes Dry, Normal Exam, Normal External Ear Exam - Neck Exam Neck exam: Positive for: Full Rom, Normal Inspection - Respiratory Exam Additional comments: Absent breath sounds at the left lung and clear breath sounds at the right lung. - Cardiovascular Exam Cardiovascular Exam: REGULAR RHYTHM, +S1, +S2 - GI/Abdominal Exam GI & Abdominal Exam: Normal Bowel Sounds, Soft - Rectal Exam Rectal Exam: Deferred - Extremities Exam Extremities exam: Positive for: calf tenderness. Negative for: pedal edema - Back Exam Back exam: NORMAL INSPECTION. absent: CVA tenderness (L), CVA tenderness (R) - Neurological Exam Additional comments: Asleep but easily awakened. no facial droop, Non verbal, moves both upper extremities, the right more than the left. - Psychiatric Exam Psychiatric exam: Flat Affect - Skin Skin Exam: Dry, Normal Color, Warm Results - Vital Signs Recent Vital Signs: Last Vital Signs Temp 97.9 F 08/27/18 20:00 Pulse 85 08/27/18 21:37 Resp 18 08/27/18 20:00 BP 132/57 L 08/27/18 21:37 Pulse Ox 100 08/27/18 20:00 - Labs Result Diagrams: 08/27/18 11:30 08/27/18 11:30 Labs: Laboratory Results - last 24 hr 08/25/18 08/25/18 08/25/18 11:11 16:16 21:28 WBC RBC Hgb Hct MCV MCH MCHC RDW Plt Count pCO2 pO2 HCO3 ABG pH ABG Total CO2 ABG O2 Saturation ABG O2 Content ABG Base Excess ABG Hemoglobin ABG Carboxyhemoglobin POC ABG HHb (Measured) ABG Methemoglobin ABG O2 Capacity Asher Test A-a O2 Difference Hgb O2 Saturation FiO2 Blood Gas Comments Crit Value Read Back Sodium Potassium Chloride Carbon Dioxide Anion Gap BUN Creatinine Est GFR ( Amer) Est GFR (Non-Af Amer) POC Glucose (mg/dL) 229 H 172 H 124 H Random Glucose Calcium 08/26/18 08/26/18 08/26/18 05:02 11:21 17:28 WBC RBC Hgb Hct MCV MCH MCHC RDW Plt Count pCO2 pO2 HCO3 ABG pH ABG Total CO2 ABG O2 Saturation ABG O2 Content ABG Base Excess ABG Hemoglobin ABG Carboxyhemoglobin POC ABG HHb (Measured) ABG Methemoglobin ABG O2 Capacity Asher Test A-a O2 Difference Hgb O2 Saturation FiO2 Blood Gas Comments Crit Value Read Back Sodium Potassium Chloride Carbon Dioxide Anion Gap BUN Creatinine Est GFR ( Amer) Est GFR (Non-Af Amer) POC Glucose (mg/dL) 104 134 H 140 H Random Glucose Calcium 08/26/18 08/27/18 08/27/18 22:15 05:12 11:03 WBC RBC Hgb Hct MCV MCH MCHC RDW Plt Count pCO2 41 pO2 61 L HCO3 29.9 H ABG pH 7.48 H ABG Total CO2 31.8 H ABG O2 Saturation 98.7 H ABG O2 Content 13.5 L ABG Base Excess 6.4 H ABG Hemoglobin 10.2 L ABG Carboxyhemoglobin 3.3 H POC ABG HHb (Measured) 1.2 ABG Methemoglobin 1.6 ABG O2 Capacity 13.7 L Asher Test Yes A-a O2 Difference 109.0 Hgb O2 Saturation 93.8 L FiO2 31.0 Blood Gas Comments 3l/m nc.rr Crit Value Read Back N Sodium Potassium Chloride Carbon Dioxide Anion Gap BUN Creatinine Est GFR ( Amer) Est GFR (Non-Af Amer) POC Glucose (mg/dL) 137 H 104 Random Glucose Calcium 08/27/18 08/27/18 08/27/18 11:30 11:30 11:30 WBC 8.1 RBC 3.16 L Hgb 10.7 L Hct 33.3 L MCV 105.5 H MCH 33.8 H MCHC 32.0 L RDW 15.3 H Plt Count 281 pCO2 pO2 HCO3 ABG pH ABG Total CO2 ABG O2 Saturation ABG O2 Content ABG Base Excess ABG Hemoglobin ABG Carboxyhemoglobin POC ABG HHb (Measured) ABG Methemoglobin ABG O2 Capacity Asher Test A-a O2 Difference Hgb O2 Saturation FiO2 Blood Gas Comments Crit Value Read Back Sodium 142 Potassium 4.5 Chloride 103 Carbon Dioxide 33 H Anion Gap 11 BUN 38 H Creatinine 1.3 H Est GFR ( Amer) 47 Est GFR (Non-Af Amer) 39 POC Glucose (mg/dL) 158 H Random Glucose 155 H Calcium 8.8 08/27/18 08/27/18 14:06 16:13 WBC RBC Hgb Hct MCV MCH MCHC RDW Plt Count pCO2 pO2 HCO3 ABG pH ABG Total CO2 ABG O2 Saturation ABG O2 Content ABG Base Excess ABG Hemoglobin ABG Carboxyhemoglobin POC ABG HHb (Measured) ABG Methemoglobin ABG O2 Capacity Asher Test A-a O2 Difference Hgb O2 Saturation FiO2 Blood Gas Comments Crit Value Read Back Sodium Potassium Chloride Carbon Dioxide Anion Gap BUN Creatinine Est GFR ( Amer) Est GFR (Non-Af Amer) POC Glucose (mg/dL) 216 H 169 H Random Glucose Calcium Assessment & Plan - Assessment and Plan (Free Text) Plan: 82 years old female who is demented at base line and walks minimally with cane, has hx of Alzheimer's Disease, CAD DM and CHF who was admitted 0n 08/09/18 and diagnosed with Acute on chronic CHF with bilateral Pleural effusion, embolic CVA with Intracraneal conversion hemorrhage and Pneumonia.Today 08/27/18 CXR showed complete collapse of the left lung. I was consulted to evaluate the patient for ICU transfer. #. Atelectasis with complete collapse of the left lung - Dr Christy Pulmonary on consult. The patient is due for bronchoscopy on 08/28/18 #. Pneumonia - Continue with Ceftriaxone #. Acute on Choric CHF with bilateral Pleural effusion. EF 30-40% - Coreg #. DM with hyperglycemia - Lispro sliding scale according to Accu Check #. Seizure - Keppra #. Alzheimer's Disease - #. Azotemia - follow renal labs At present this patient is not in respiratory distress, breathing calm with SpO2 97 on Nasal Cannula Oxygen - There is no immediate need for BIPAP nor Intubation - No need for ICU transfer at present. - Date & Time Date: 08/27/18 Time: 23:58
[2018-08-28] MEDS: Albuterol 0.083% Inhal Sol (2.5 mg/3 mL) UD INH SCH ×4 (00:08→11:20)
[2018-08-28] MEDS ORDERED: Acetylcysteine 20% Inhal Soln (4ml) INH SCH (01:00)
--- NOTE | 2018-08-28 07:20 | PN ---
DATE: 08/27/2018 SUBJECTIVE: This patient today is awake, this was revealed only by opening eyes to verbal stimuli with a small low tone voice; and the patient did not tolerate p.o. today even given by her daughter, and the patient is in no apparent distress. PHYSICAL EXAMINATION: VITAL SIGNS: Blood pressure 122/57, pulse 85, respirations 15, temperature 97.9. NECK: Supple. LUNGS: There are some rales at the bases. HEART: Regular rate and rhythm. Positive murmur. ABDOMEN: Soft. Positive for epigastric hernia. EXTREMITIES: There is no edema. NEUROLOGIC: The patient is very weak, and at this point is bedridden and confused. LABORATORY DATA: WBC 8.1, hemoglobin 10.2, hematocrit 32.3, and platelets 281. Chemistries showed sodium 142, potassium 4.5, chloride 103, bicarb 33, BUN 38, creatinine 1.3, and glucose is 155, calcium 8.8. Chest x-ray was done today and showed a complete collapse of the left lung progressive in compared to the prior study. The plan is that we put an NG tube, and also we are going to call for ICU evaluation due to the collapse of the lung, and now at this point. Slim Marino MD
[2018-08-28] MEDS: Ferrous Sulfate 300 mg/5 mL Liq UD NG SCH (08:12)
[2018-08-28] MEDS: Multi Vitamins 15 mL UD Oral Solution NG SCH (08:13)
[2018-08-28] MEDS: cefTRIAXone 2 GM in Sodium Chloride 0.9% 100 ML IVPB SCH (08:13)
[2018-08-28] MEDS: Insulin Lispro (humaLOG) 100 Units/ml Inj SC SCH ×4 (08:14→21:40)
--- NOTE | 2018-08-28 08:34 | RAD ---
Date of service: 08/27/2018 PROCEDURE: CHEST RADIOGRAPH, 1 VIEW HISTORY: compare. COMPARISON: 08/27/2018 FINDINGS: The right PICC line terminates in the SVC. LUNGS: The right lung is well inflated. There is redemonstration of confluent airspace disease in the right perihilar region. There is near complete opacification of the left hemithorax. PLEURA: No pneumothorax or pleural effusion. CARDIOVASCULAR: Extensive aortic atherosclerotic calcifications present. OSSEOUS STRUCTURES: Within normal limits for the patient's age. VISUALIZED UPPER ABDOMEN: Normal. OTHER FINDINGS: None. IMPRESSION: Little interval change in near complete opacification of the left hemithorax which may be related to pleural effusion, atelectasis/consolidation. Little interval change in right perihilar airspace disease.
[2018-08-28] MEDS: levETIRAcetam 100 mg/ml (5ml) Oral Syringe NG SCH ×2 (09:00→17:09)
--- NOTE | 2018-08-28 13:05 | CP.PCM.PN ---
Subjective - Date & Time of Evaluation Date of Evaluation: 08/28/18 Time of Evaluation: 10:50 - Subjective Subjective: F/U PNA, Pleural effusion. Pt with eyes open, follows with head verbal stimuli, non following commands. Objective - Vital Signs/Intake and Output Vital Signs (last 24 hours): Temp Pulse Resp BP Pulse Ox 97.3 F L 90 20 195/48 H 96 08/28/18 12:09 08/28/18 12:43 08/28/18 12:09 08/28/18 12:43 08/28/18 12:09 Intake and Output: 08/28/18 08/28/18 06:59 18:59 Intake Total 200 Output Total 150 Balance 50 - Medications Medications: Current Medications Acetaminophen (Tylenol 650mg/20.3ml Solution Ud) 650 mg NG Q4 PRN PRN Reason: Pain, moderate (4-7) Last Admin: 08/20/18 21:04 Dose: 650 mg Acetylcysteine (Mucomyst 10% 30 Ml) 3 ml IH RTID [facility] Albuterol/Ipratropium (Duoneb 3 Mg/0.5 Mg (3 Ml) Ud) 3 ml INH RQ4 PRN PRN Reason: Shortness of Breath Aspirin (Aspirin Chewable) 81 mg NG DAILY [facility] Last Admin: 08/28/18 08:12 Dose: Not Given Atorvastatin Calcium (Lipitor) 20 mg NG HS [facility] Last Admin: 08/27/18 21:37 Dose: 20 mg Carvedilol (Coreg) 3.125 mg NG Q12 [facility] Last Admin: 08/28/18 08:12 Dose: Not Given Docusate Sodium (Colace Liquid) 100 mg NG BID [facility] Last Admin: 08/28/18 08:12 Dose: Not Given Famotidine (Pepcid) 20 mg NG DAILY [facility] Last Admin: 08/28/18 08:13 Dose: Not Given Ferrous Sulfate (Feosol Liq) 300 mg NG DAILY [facility] Last Admin: 08/28/18 08:12 Dose: Not Given Folic Acid (Folic Acid) 1 mg GT DAILY [facility] Last Admin: 08/28/18 08:12 Dose: Not Given Hydralazine HCl (Apresoline) 10 mg IV Q6 PRN PRN Reason: SBP more than 150 Last Admin: 08/28/18 12:43 Dose: 10 mg Ceftriaxone Sodium 2 gm/ (Sodium Chloride) 100 mls @ 100 mls/hr IVPB DAILY [facility]; Protocol Last Admin: 08/28/18 08:13 Dose: 100 mls/hr Insulin Human Lispro (Humalog) 0 units SC ACHS [facility]; Protocol Last Admin: 08/28/18 08:14 Dose: Not Given Levetiracetam (Keppra) 500 mg NG BID [facility] Last Admin: 08/28/18 09:00 Dose: Not Given Montelukast Sodium (Singulair) 10 mg GT HS [facility] Last Admin: 08/27/18 21:37 Dose: 10 mg Multivitamins/Vitamin C (Multi-Delyn Liquid) 15 ml NG DAILY [facility] Last Admin: 08/28/18 08:13 Dose: Not Given - Labs Labs: 08/27/18 11:30 08/27/18 11:30 PT 13.8 Seconds (9.8-13.1) H 08/20/18 04:20 INR 1.2 08/20/18 04:20 APTT 28.3 Seconds (25.6-37.1) 08/20/18 04:20 - Constitutional Appears: Chronically Ill - Head Exam Head Exam: NORMAL INSPECTION - Eye Exam Eye Exam: PERRL (Leye) Pupil Exam: Irregular (pupil R eye) - ENT Exam ENT Exam: Normal Exam - Neck Exam Neck Exam: Normal Inspection - Respiratory Exam Respiratory Exam: Decreased Breath Sounds (L>R), Rhonchi (scattered) - Cardiovascular Exam Cardiovascular Exam: REGULAR RHYTHM, Murmur (2/6 LSB) - GI/Abdominal Exam GI & Abdominal Exam: Soft, Hernia (reducible), Normal Bowel Sounds - Extremities Exam Extremities Exam: Normal Inspection - Back Exam Back Exam: NORMAL INSPECTION - Neurological Exam Neurological Exam: Awake Additional comments: Moving head to verbal stimuli. - Skin Skin Exam: Warm Assessment and Plan (1) Pneumonia Status: Acute (2) Pleural effusion, left Status: Acute (3) COPD exacerbation Status: Acute (4) Opacity of lung on imaging study Status: Acute (5) CHF (congestive heart failure) Status: Acute - Assessment and Plan (Free Text) Plan: F/U CT Chest today,to evaluate L lung field and need for Bronchoscopy. Addemdum : CT evaluated at early evening, large L Pleural effusion with L lung collapse, to have L Thoracentesis by IR in am, evaluate L lung field after Thoracentesis if collapse persist f/u Bronchoscopy.
[2018-08-28] MEDS ORDERED: Acetylcysteine 10% 30 ML IH SCH (14:00)
--- NOTE | 2018-08-28 15:25 | CT ---
Date of service: 08/28/2018 PROCEDURE: CT Chest without contrast HISTORY: sob COMPARISON: 08/19/2018 TECHNIQUE: Contiguous axial images were obtained through the chest without intravenous contrast enhancement. Sagittal and coronal reconstructions were performed. Radiation dose: Total exam DLP = 795.96 mGy-cm. This CT exam was performed using one or more of the following dose reduction techniques: Automated exposure control, adjustment of the mA and/or kV according to patient size, and/or use of iterative reconstruction technique. FINDINGS: LUNGS: Complete collapse of the left lung. Associated left pleural effusion stable. 5 mm pulmonary nodule right upper lobe. MEDIASTINUM: Densely calcified thoracic aorta. 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 Cardiomegaly without pericardial effusion. Dilated main pulmonary artery 4 cm consistent with pulmonary arterial hypertension. No lymphadenopathy. PICC line in satisfactory position Extensive aortic atherosclerotic calcification. PLEURA: In addition to the large left pleural effusion with compressive atelectasis there is a smaller right pleural effusion with components tracking along both major and minor fissures. These assume a somewhat lobulated appearance and should not be mistaken for pulmonary masses. BONES: No fracture. No destructive lesion. UPPER ABDOMEN: Grossly unremarkable. OTHER FINDINGS: Removal of support apparatus since the prior study: Nasogastric tube IMPRESSION: Stable findings left abdelrahman thorax including complete collapse of the left lung and left pleural effusion. Partially loculated right pleural effusion. Incidental 5 mm pulmonary nodule in the apex of the right lung. Additional benign and/or incidental findings described above.
[2018-08-28] MEDS ORDERED: Lidocaine 1% Inj (20ml) ONE (16:03)
[2018-08-28] MEDS ORDERED: Lidocaine 2% Jelly (5 ml) TOP ONE (16:03)
[2018-08-28] MEDS ORDERED: EPINEPHrine 1 mg/ml (1:1000) Inj ONE (16:03)
[2018-08-28] MEDS ORDERED: Etomidate 20 mg/10ml Inj IV ONE (16:04)
[2018-08-28] MEDS ORDERED: Succinylcholine 200 mg/10 ml Inj IV ONE (16:04)
[2018-08-28] MEDS ORDERED: Lidocaine 4% (Laryng-O-Jet) Kit MM ONE (16:06)
[2018-08-28] MEDS: Albuterol-Ipratrop 3 mg / 0.5 (3 ml) UD INH PRN (20:13)
[2018-08-28] MEDS: Acetylcysteine 10% 4 ML IH SCH (20:13)
[2018-08-29] MEDS: Acetylcysteine 10% 4 ML IH SCH ×3 (07:13→19:22)
[2018-08-29] MEDS: Albuterol-Ipratrop 3 mg / 0.5 (3 ml) UD INH PRN ×3 (07:15→19:22)
[2018-08-29] MEDS: Insulin Lispro (humaLOG) 100 Units/ml Inj SC SCH ×4 (09:32→23:04)
[2018-08-29] MEDS: cefTRIAXone 2 GM in Sodium Chloride 0.9% 100 ML IVPB SCH (09:33)
--- NOTE | 2018-08-29 09:50 | PN ---
DATE: 08/28/2018 SUBJECTIVE: The patient is very weak, opens eyes with verbal stimuli, but there is no apparent shortness of breath. PHYSICAL EXAMINATION: VITAL SIGNS: The blood pressure this morning was 195/48, now the blood pressure is 162/61, pulse 91, respirations 20, temperature 98.5. HEENT: Mouth is moist. NECK: Supple. LUNGS: Show rales bilaterally. HEART: Regular rate and rhythm, but murmur. ABDOMEN: Soft, nontender with epigastric hernia. EXTREMITIES: There is no edema. No tenderness. LABORATORY DATA: Lab shows WBC 8.1, hemoglobin 10.7, hematocrit 33.3, and platelets 281. The patient had a CT of the chest that showed complete collapse of the left lung associated left pleural effusion, stable. pulmonary nodules in the right upper lobe, and the pleura showed large left pleural effusion with complete atelectasis. There is small right pleural effusion with component tracking along both major and minor tissues. ASSESSMENT AND PLAN: The patient requested a consult. Intensive care unit consult was ordered yesterday. The patient remained in Telemetry. A flexible bronchoscopy will be done today. The plan is also bronchoscopy. We are going to control the blood pressure with hydralazine intravenously since the patient is taking anything orally, but also we will continue the nasogastric tube feeding with 30 mL of Glucerna. The case was discussed with the registered nurse. Slim Marino MD
[2018-08-29] MEDS ORDERED: Lidocaine 1% Inj (20ml) ONE (10:04)
--- NOTE | 2018-08-29 10:39 | PCM.SURG1 ---
Surgeon's Initial Post Op Note - Surgeon's Notes Surgeon: Murtaza Torre MD Hunting Guide: NONE Type of Anesthesia: Local Pre-Operative Diagnosis: Left pleural effusion Operative Findings: US showed moderate left pleural effusion Post-Operative Diagnosis: Left pleural effusion Operation Performed: US guided left thoracentesis Specimen/Specimens Removed: 500 cc of janes colored fluid Estimated Blood Loss: EBL {In ML}: 1 Blood Products Given: N/A Drains Used: No Drains Post-Op Condition: Fair Date of Surgery/Procedure: 08/29/18 Time of Surgery/Procedure: 10:35
[2018-08-29] MEDS: levETIRAcetam 100 mg/ml (5ml) Oral Syringe NG SCH ×2 (11:21→17:09)
[2018-08-29] MEDS: Ferrous Sulfate 300 mg/5 mL Liq UD NG SCH (11:21)
[2018-08-29] MEDS: Multi Vitamins 15 mL UD Oral Solution NG SCH (11:22)
--- NOTE | 2018-08-29 11:58 | CP.PCM.PN ---
Subjective - Date & Time of Evaluation Date of Evaluation: 08/27/18 Time of Evaluation: 08:15 - Subjective Subjective: no overnight events Objective - Vital Signs/Intake and Output Vital Signs (last 24 hours): Temp Pulse Resp BP Pulse Ox 97.5 F L 79 20 172/51 H 99 08/29/18 11:54 08/29/18 11:54 08/29/18 11:54 08/29/18 11:54 08/29/18 11:54 Intake and Output: 08/29/18 08/29/18 06:59 18:59 Intake Total 700 Output Total 150 Balance 550 - Medications Medications: Current Medications Acetaminophen (Tylenol 650mg/20.3ml Solution Ud) 650 mg NG Q4 PRN PRN Reason: Pain, moderate (4-7) Last Admin: 08/20/18 21:04 Dose: 650 mg Acetylcysteine (Mucomyst 10% 4ml) 3 ml IH RTID [facility] Last Admin: 08/29/18 07:13 Dose: 3 ml Albuterol/Ipratropium (Duoneb 3 Mg/0.5 Mg (3 Ml) Ud) 3 ml INH RQ4 PRN PRN Reason: Shortness of Breath Last Admin: 08/29/18 07:15 Dose: 3 ml Aspirin (Aspirin Chewable) 81 mg NG DAILY [facility] Last Admin: 08/29/18 11:21 Dose: Not Given Atorvastatin Calcium (Lipitor) 20 mg NG HS [facility] Last Admin: 08/28/18 21:42 Dose: 20 mg Carvedilol (Coreg) 3.125 mg NG Q12 [facility] Last Admin: 08/29/18 11:21 Dose: Not Given Docusate Sodium (Colace Liquid) 100 mg NG BID [facility] Last Admin: 08/29/18 11:21 Dose: Not Given Famotidine (Pepcid) 20 mg NG DAILY [facility] Last Admin: 08/29/18 11:22 Dose: Not Given Ferrous Sulfate (Feosol Liq) 300 mg NG DAILY [facility] Last Admin: 08/29/18 11:21 Dose: Not Given Folic Acid (Folic Acid) 1 mg GT DAILY [facility] Last Admin: 08/29/18 11:21 Dose: Not Given Hydralazine HCl (Apresoline) 10 mg IV Q6 PRN PRN Reason: SBP more than 150 Last Admin: 08/28/18 12:43 Dose: 10 mg Ceftriaxone Sodium 2 gm/ (Sodium Chloride) 100 mls @ 100 mls/hr IVPB DAILY [facility]; Protocol Last Admin: 08/29/18 09:33 Dose: 100 mls/hr Dextrose/Sodium Chloride (Dextrose 5%-0.45% Ns 500 Ml) 500 mls @ 50 mls/hr IV .Q10H [facility] Stop: 08/29/18 16:17 Last Admin: 08/29/18 03:15 Dose: 50 mls/hr Insulin Human Lispro (Humalog) 0 units SC ACHS [facility]; Protocol Last Admin: 08/29/18 09:32 Dose: Not Given Levetiracetam (Keppra) 500 mg NG BID [facility] Last Admin: 08/29/18 11:21 Dose: Not Given Montelukast Sodium (Singulair) 10 mg GT HS [facility] Last Admin: 08/28/18 21:42 Dose: 10 mg Multivitamins/Vitamin C (Multi-Delyn Liquid) 15 ml NG DAILY [facility] Last Admin: 08/29/18 11:22 Dose: Not Given - Labs Labs: 08/27/18 11:30 08/27/18 11:30 PT 13.8 Seconds (9.8-13.1) H 08/20/18 04:20 INR 1.2 08/20/18 04:20 APTT 28.3 Seconds (25.6-37.1) 08/20/18 04:20 - Head Exam Head Exam: NORMOCEPHALIC - Neck Exam Neck Exam: Normal Inspection - Respiratory Exam Respiratory Exam: Decreased Breath Sounds, Rhonchi - Cardiovascular Exam Cardiovascular Exam: REGULAR RHYTHM - GI/Abdominal Exam GI & Abdominal Exam: Soft, Normal Bowel Sounds Assessment and Plan - Assessment and Plan (Free Text) Assessment: 83 yo female with FTT pulm input PEG tube on hold
--- NOTE | 2018-08-29 11:59 | RAD ---
Date of service: 08/29/2018 PROCEDURE: CHEST RADIOGRAPH, 1 VIEW HISTORY: MD COMPARISON: 08/27/2018 FINDINGS: LUNGS: There is interval significant improved aeration in the left lung with residual airspace disease in the lower lobe. The right lung is well inflated and clear. PLEURA: No pneumothorax or pleural effusion. CARDIOVASCULAR: Persistent moderate cardiomegaly. There is persistent prominence of the right hilum with dilated descending pulmonary artery. There are advanced atherosclerotic aortic calcifications present. OSSEOUS STRUCTURES: Within normal limits for the patient's age. VISUALIZED UPPER ABDOMEN: Normal. OTHER FINDINGS: None. IMPRESSION: Interval significant improved aeration in the left lung with residual left lower lobe atelectasis. No other significant interval change.
[2018-08-29 12:06] LABS: ABG ALLEN TEST YES; ARTERIAL BLOOD GAS HCO3 30.3 mmol/L (21-28); ARTERIAL BLOOD GAS O2 SAT 98.8 % (95-98); ARTERIAL BLOOD GAS PCO2 43 mm/Hg (35-45); ARTERIAL BLOOD GAS PH 7.47 (7.35-7.45); ARTERIAL BLOOD GAS PO2 140 mm/Hg (80-100); ARTERIAL BLOOD GAS TCO2 32.6 mmol/L (22-28)
--- NOTE | 2018-08-29 13:06 | CP.PCM.PN ---
Subjective - Date & Time of Evaluation Date of Evaluation: 08/29/18 Time of Evaluation: 12:00 - Subjective Subjective: F/U PNA, S/P Thoracentesis for L Pleural effusion. Pt with eyes open, trying to talk with few words, confused, no A/D. Objective - Vital Signs/Intake and Output Vital Signs (last 24 hours): Temp Pulse Resp BP Pulse Ox 97.5 F L 79 20 172/51 H 99 08/29/18 11:54 08/29/18 11:54 08/29/18 11:54 08/29/18 11:54 08/29/18 11:54 Intake and Output: 08/29/18 08/29/18 06:59 18:59 Intake Total 700 Output Total 150 Balance 550 - Medications Medications: Current Medications Acetaminophen (Tylenol 650mg/20.3ml Solution Ud) 650 mg NG Q4 PRN PRN Reason: Pain, moderate (4-7) Last Admin: 08/20/18 21:04 Dose: 650 mg Acetylcysteine (Mucomyst 10% 4ml) 3 ml IH RTID [facility] Last Admin: 08/29/18 07:13 Dose: 3 ml Albuterol/Ipratropium (Duoneb 3 Mg/0.5 Mg (3 Ml) Ud) 3 ml INH RQ4 PRN PRN Reason: Shortness of Breath Last Admin: 08/29/18 07:15 Dose: 3 ml Aspirin (Aspirin Chewable) 81 mg NG DAILY [facility] Last Admin: 08/29/18 11:21 Dose: Not Given Atorvastatin Calcium (Lipitor) 20 mg NG HS [facility] Last Admin: 08/28/18 21:42 Dose: 20 mg Carvedilol (Coreg) 3.125 mg NG Q12 [facility] Last Admin: 08/29/18 11:21 Dose: Not Given Docusate Sodium (Colace Liquid) 100 mg NG BID [facility] Last Admin: 08/29/18 11:21 Dose: Not Given Famotidine (Pepcid) 20 mg NG DAILY [facility] Last Admin: 08/29/18 11:22 Dose: Not Given Ferrous Sulfate (Feosol Liq) 300 mg NG DAILY [facility] Last Admin: 08/29/18 11:21 Dose: Not Given Folic Acid (Folic Acid) 1 mg GT DAILY [facility] Last Admin: 08/29/18 11:21 Dose: Not Given Hydralazine HCl (Apresoline) 10 mg IV Q6 PRN PRN Reason: SBP more than 150 Last Admin: 08/28/18 12:43 Dose: 10 mg Ceftriaxone Sodium 2 gm/ (Sodium Chloride) 100 mls @ 100 mls/hr IVPB DAILY [facility]; Protocol Last Admin: 08/29/18 09:33 Dose: 100 mls/hr Dextrose/Sodium Chloride (Dextrose 5%-0.45% Ns 500 Ml) 500 mls @ 50 mls/hr IV .Q10H [facility] Stop: 08/29/18 16:17 Last Admin: 08/29/18 03:15 Dose: 50 mls/hr Insulin Human Lispro (Humalog) 0 units SC ACHS [facility]; Protocol Last Admin: 08/29/18 09:32 Dose: Not Given Levetiracetam (Keppra) 500 mg NG BID [facility] Last Admin: 08/29/18 11:21 Dose: Not Given Montelukast Sodium (Singulair) 10 mg GT HS [facility] Last Admin: 08/28/18 21:42 Dose: 10 mg Multivitamins/Vitamin C (Multi-Delyn Liquid) 15 ml NG DAILY [facility] Last Admin: 08/29/18 11:22 Dose: Not Given - Labs Labs: 08/27/18 11:30 08/27/18 11:30 PT 13.8 Seconds (9.8-13.1) H 08/20/18 04:20 INR 1.2 08/20/18 04:20 APTT 28.3 Seconds (25.6-37.1) 08/20/18 04:20 - Constitutional Appears: Chronically Ill - Head Exam Head Exam: NORMAL INSPECTION - Eye Exam Eye Exam: PERRL (Leye) Pupil Exam: Irregular (pupil R eye) - ENT Exam ENT Exam: Normal Exam - Neck Exam Neck Exam: Normal Inspection - Respiratory Exam Respiratory Exam: Decreased Breath Sounds (L>R) - Cardiovascular Exam Cardiovascular Exam: REGULAR RHYTHM, Murmur (2/6 LSB) - GI/Abdominal Exam GI & Abdominal Exam: Soft, Hernia (reducible.), Normal Bowel Sounds - Extremities Exam Extremities Exam: Normal Inspection - Back Exam Back Exam: NORMAL INSPECTION - Neurological Exam Neurological Exam: Awake Additional comments: Confused, trying to talk with few words, generalized weakness. - Skin Skin Exam: Warm Assessment and Plan (1) Pneumonia Status: Acute (2) Pleural effusion, left Status: Acute (3) COPD exacerbation Status: Acute (4) Opacity of lung on imaging study Status: Acute (5) CHF (congestive heart failure) Status: Chronic - Assessment and Plan (Free Text) Plan: Pt had Thoracentesis for L pleural effusion with 500cc fluid removed today in AM, CXR: Left pleural effusion resolved, Improved L lung PNA, cleared For Peg Tube.
--- NOTE | 2018-08-29 14:11 | CP.PCM.PN ---
Subjective - Date & Time of Evaluation Date of Evaluation: 08/29/18 Time of Evaluation: 08:00 - Subjective Subjective: confused at baseline afeb Objective - Vital Signs/Intake and Output Vital Signs (last 24 hours): Temp Pulse Resp BP Pulse Ox 97.5 F L 79 20 172/51 H 99 08/29/18 11:54 08/29/18 11:54 08/29/18 11:54 08/29/18 11:54 08/29/18 11:54 Intake and Output: 08/29/18 08/29/18 06:59 18:59 Intake Total 700 Output Total 150 Balance 550 - Medications Medications: Current Medications Acetaminophen (Tylenol 650mg/20.3ml Solution Ud) 650 mg NG Q4 PRN PRN Reason: Pain, moderate (4-7) Last Admin: 08/20/18 21:04 Dose: 650 mg Acetylcysteine (Mucomyst 10% 4ml) 3 ml IH RTID [facility] Last Admin: 08/29/18 13:26 Dose: 3 ml Albuterol/Ipratropium (Duoneb 3 Mg/0.5 Mg (3 Ml) Ud) 3 ml INH RQ4 PRN PRN Reason: Shortness of Breath Last Admin: 08/29/18 13:26 Dose: 3 ml Aspirin (Aspirin Chewable) 81 mg NG DAILY [facility] Last Admin: 08/29/18 11:21 Dose: Not Given Atorvastatin Calcium (Lipitor) 20 mg NG HS [facility] Last Admin: 08/28/18 21:42 Dose: 20 mg Carvedilol (Coreg) 3.125 mg NG Q12 [facility] Last Admin: 08/29/18 11:21 Dose: Not Given Docusate Sodium (Colace Liquid) 100 mg NG BID [facility] Last Admin: 08/29/18 11:21 Dose: Not Given Famotidine (Pepcid) 20 mg NG DAILY [facility] Last Admin: 08/29/18 11:22 Dose: Not Given Ferrous Sulfate (Feosol Liq) 300 mg NG DAILY [facility] Last Admin: 08/29/18 11:21 Dose: Not Given Folic Acid (Folic Acid) 1 mg GT DAILY [facility] Last Admin: 08/29/18 11:21 Dose: Not Given Hydralazine HCl (Apresoline) 10 mg IV Q6 PRN PRN Reason: SBP more than 150 Last Admin: 08/28/18 12:43 Dose: 10 mg Ceftriaxone Sodium 2 gm/ (Sodium Chloride) 100 mls @ 100 mls/hr IVPB DAILY [facility]; Protocol Last Admin: 08/29/18 09:33 Dose: 100 mls/hr Dextrose/Sodium Chloride (Dextrose 5%-0.45% Ns 500 Ml) 500 mls @ 50 mls/hr IV .Q10H [facility] Stop: 08/29/18 16:17 Last Admin: 08/29/18 03:15 Dose: 50 mls/hr Insulin Human Lispro (Humalog) 0 units SC ACHS [facility]; Protocol Last Admin: 08/29/18 09:32 Dose: Not Given Levetiracetam (Keppra) 500 mg NG BID [facility] Last Admin: 08/29/18 11:21 Dose: Not Given Montelukast Sodium (Singulair) 10 mg GT HS [facility] Last Admin: 08/28/18 21:42 Dose: 10 mg Multivitamins/Vitamin C (Multi-Delyn Liquid) 15 ml NG DAILY [facility] Last Admin: 08/29/18 11:22 Dose: Not Given - Labs Labs: 08/27/18 11:30 08/27/18 11:30 PT 13.8 Seconds (9.8-13.1) H 08/20/18 04:20 INR 1.2 08/20/18 04:20 APTT 28.3 Seconds (25.6-37.1) 08/20/18 04:20 - Constitutional Appears: Non-toxic, Cachectic, Chronically Ill - Eye Exam Eye Exam: absent: Scleral icterus - ENT Exam ENT Exam: Mucous Membranes Dry - Neck Exam Neck Exam: absent: Lymphadenopathy - Respiratory Exam Respiratory Exam: Decreased Breath Sounds - Cardiovascular Exam Cardiovascular Exam: REGULAR RHYTHM - GI/Abdominal Exam GI & Abdominal Exam: Distended, Soft Assessment and Plan (1) CHF (congestive heart failure) Status: Acute (2) Dehydration Status: Acute (3) Pneumonia Status: Acute (4) UTI (urinary tract infection) Status: Acute (5) CVA (cerebral vascular accident) Status: Acute - Assessment and Plan (Free Text) Assessment: ok to d/c antibiotics reculture prn
[2018-08-29] MEDS ORDERED: guaiFENesin DM 100 mg-10 mg/5 ml UD PO PRN (23:11)
[2018-08-30 05:57] LABS: BASO # 0.1 K/uL (0.0-0.2); BASO % 1.4 % (0.0-2.0); EOS # 0.2 K/uL (0.0-0.7); EOS % 2.6 % (0.0-4.0); HEMOGLOBIN 9.8 g/dL (12.0-16.0); LYMPH # 0.7 K/uL (1.0-4.3); MEAN CELL VOLUME 104.3 fl (81.0-99.0); MEAN CORPUSCULAR HEMOGLOBIN 33.2 pg (27.0-31.0); MEAN CORPUSCULAR HGB CONC 31.9 g/dL (33.0-37.0); MEAN PLATELET VOLUME 11.1 fl (7.2-11.7); MONO # 0.5 K/uL (0.0-0.8); MONO % 8.5 % (0.0-10.0); NEUT # 4.7 K/uL (1.8-7.0); NEUT % 76.5 % (50.0-75.0); NRBC % 0.6 % (0.0-0.0); RBC 2.94 Mil/uL (3.80-5.20); RED CELL DISTRIBUTION WIDTH 14.8 % (11.5-14.5); WHITE BLOOD COUNT 6.1 K/uL (4.8-10.8)
[2018-08-30 06:13] LABS: ALB/GLOB RATIO 0.8 (1.0-2.1); ALBUMIN 2.6 g/dL (3.5-5.0); CALCIUM 8.4 mg/dL (8.4-10.2)
[2018-08-30] MEDS: Insulin Lispro (humaLOG) 100 Units/ml Inj SC SCH ×4 (06:41→22:39)
--- NOTE | 2018-08-30 06:43 | PN ---
DATE: 08/29/2018 SUBJECTIVE: Today, the patient is somewhat awake and able to have a small amount of food p.o. No shortness of breath. PHYSICAL EXAMINATION: VITAL SIGNS: The patient has a blood pressure of 152/54, pulse 57, respirations 20, temperature 98.6. NECK: Supple. No JVD. LUNGS: Rales bilaterally. HEART: Regular rate and rhythm. Positive murmur. ABDOMEN: Soft. Positive bowel sounds. Epigastric hernia. EXTREMITIES: There is no edema. ASSESSMENT AND PLAN: The plan is that we are going to start the patient on puree diet, but the patient will not pull his intravenous. Continue antibiotic intravenously. The patient also had pleural effusion. The patient had thoracentesis done due to pleural effusion. Slim Marino MD
[2018-08-30] MEDS: Albuterol-Ipratrop 3 mg / 0.5 (3 ml) UD INH PRN ×2 (07:39→19:56)
[2018-08-30] MEDS: Acetylcysteine 10% 4 ML IH SCH ×2 (07:39→19:56)
[2018-08-30] MEDS: levETIRAcetam 100 mg/ml (5ml) Oral Syringe PO SCH ×2 (09:11→17:16)
[2018-08-30] MEDS: Ferrous Sulfate 300 mg/5 mL Liq UD PO SCH (09:13)
[2018-08-30] MEDS: Multi Vitamins 15 mL UD Oral Solution PO SCH (09:14)
[2018-08-30] MEDS: cefTRIAXone 2 GM in Sodium Chloride 0.9% 100 ML IVPB SCH (10:20)
--- NOTE | 2018-08-30 13:54 | US ---
PROCEDURE: Date of procedure: 08/29/2018 Procedure: 1. Ultrasound-guided left thoracentesis, CPT 65137 Medications: 5cc 1% Lidocaine HISTORY: Left pleural effusion, shortness of breath TECHNIQUE: Following informed consent ,the Patients' left chest was marked. Procedure time-out was called, and the patient was placed in the sitting position and limited ultrasound showed a small left effusion. The patient's left back was prepped and draped in the usual sterile fashion. After the skin was anesthetized with lidocaine, a drainage catheter was advanced under ultrasound guidance into the pleural space. Ultrasound-guided thoracentesis was performed. A total of 500cubic centimeters of straw-colored fluid removed without complication. A Xeroform dressing was applied. IMPRESSION: Ultrasound guided left thoracentesis. There were no immediate complications.
--- NOTE | 2018-08-30 14:14 | CP.PCM.PN ---
Subjective - Date & Time of Evaluation Date of Evaluation: 08/30/18 Time of Evaluation: 11:30 - Subjective Subjective: F/U PNA, Pleural effusion/ S/P Thoracentesis. Pt with eyes open, response to verbal stimuli, trying to talk, follows simple commands. Objective - Vital Signs/Intake and Output Vital Signs (last 24 hours): Temp Pulse Resp BP Pulse Ox 98.5 F 79 20 146/64 100 08/30/18 11:54 08/30/18 11:54 08/30/18 11:54 08/30/18 11:54 08/30/18 11:54 Intake and Output: 08/30/18 08/30/18 06:59 18:59 Output Total 200 Balance -200 - Medications Medications: Current Medications Acetaminophen (Tylenol 325mg Tab) 650 mg PO Q4 PRN PRN Reason: Pain, moderate (4-7) Acetylcysteine (Mucomyst 10% 4ml) 3 ml IH RTID [facility] Last Admin: 08/30/18 07:39 Dose: 3 ml Albuterol/Ipratropium (Duoneb 3 Mg/0.5 Mg (3 Ml) Ud) 3 ml INH RQ4 PRN PRN Reason: Shortness of Breath Last Admin: 08/30/18 07:39 Dose: 3 ml Aspirin (Aspirin Chewable) 81 mg PO DAILY [facility] Last Admin: 08/30/18 09:13 Dose: 81 mg Atorvastatin Calcium (Lipitor) 20 mg PO DAILY [facility] Last Admin: 08/30/18 09:13 Dose: 20 mg Carvedilol (Coreg) 3.125 mg PO Q12 [facility] Last Admin: 08/30/18 09:11 Dose: 3.125 mg Docusate Sodium (Colace Liquid) 100 mg PO TID [facility] Last Admin: 08/30/18 09:13 Dose: 100 mg Famotidine (Pepcid) 20 mg PO DAILY [facility] Last Admin: 08/30/18 09:11 Dose: 20 mg Ferrous Sulfate (Feosol Liq) 300 mg PO DAILY [facility] Last Admin: 08/30/18 09:13 Dose: 300 mg Folic Acid (Folic Acid) 1 mg PO DAILY [facility] Last Admin: 08/30/18 09:11 Dose: 1 mg Guaifenesin/Dextromethorphan (Robitussin Dm) 5 ml PO Q6 PRN PRN Reason: Cough Hydralazine HCl (Apresoline) 10 mg IV Q6 PRN PRN Reason: SBP more than 150 Last Admin: 08/29/18 17:26 Dose: 10 mg Hydralazine HCl (Apresoline) 25 mg PO BID [facility] Last Admin: 08/30/18 10:18 Dose: 25 mg Ceftriaxone Sodium 2 gm/ (Sodium Chloride) 100 mls @ 100 mls/hr IVPB DAILY [facility]; Protocol Last Admin: 08/30/18 10:20 Dose: 100 mls/hr Insulin Human Lispro (Humalog) 0 units SC ACHS [facility]; Protocol Last Admin: 08/30/18 06:41 Dose: Not Given Levetiracetam (Keppra) 500 mg PO BID [facility] Last Admin: 08/30/18 09:11 Dose: 500 mg Montelukast Sodium (Singulair) 10 mg PO HS [facility] Multivitamins/Vitamin C (Multi-Delyn Liquid) 15 ml PO DAILY [facility] Last Admin: 08/30/18 09:14 Dose: 15 ml - Labs Labs: 08/30/18 04:25 08/30/18 04:25 PT 13.8 Seconds (9.8-13.1) H 08/20/18 04:20 INR 1.2 08/20/18 04:20 APTT 28.3 Seconds (25.6-37.1) 08/20/18 04:20 - Constitutional Appears: Chronically Ill - Head Exam Head Exam: NORMAL INSPECTION - Eye Exam Eye Exam: PERRL (L eye) Pupil Exam: Irregular (pupil R eye) - ENT Exam ENT Exam: Normal Exam - Neck Exam Neck Exam: Normal Inspection - Respiratory Exam Respiratory Exam: Decreased Breath Sounds (at bases) - Cardiovascular Exam Cardiovascular Exam: REGULAR RHYTHM, Murmur (2/6 LSB) - GI/Abdominal Exam GI & Abdominal Exam: Soft, Hernia (reducible), Normal Bowel Sounds Additional comments: Peg tube - Extremities Exam Extremities Exam: Normal Inspection - Back Exam Back Exam: NORMAL INSPECTION - Neurological Exam Neurological Exam: Awake Additional comments: Confused, generalized weakness. - Skin Skin Exam: Warm Assessment and Plan (1) Pneumonia Status: Acute (2) Pleural effusion, left Status: Acute (3) COPD exacerbation Status: Acute (4) Opacity of lung on imaging study Status: Acute (5) CHF (congestive heart failure) Status: Chronic - Assessment and Plan (Free Text) Plan: Pulmonary cleared for EGD, awaiting for Cardiology clearance, previous Echo low ejection fracture, echo to be repeated, f/u Cardiology, continue
[2018-08-31] MEDS: Insulin Lispro (humaLOG) 100 Units/ml Inj SC SCH ×4 (06:53→21:57)
[2018-08-31] MEDS: Albuterol-Ipratrop 3 mg / 0.5 (3 ml) UD INH PRN ×3 (07:53→19:30)
[2018-08-31] MEDS: Acetylcysteine 10% 4 ML IH SCH ×3 (07:54→19:30)
[2018-08-31] MEDS: cefTRIAXone 2 GM in Sodium Chloride 0.9% 100 ML IVPB SCH (08:45)
--- NOTE | 2018-08-31 11:45 | CP.PCM.PN ---
Subjective - Date & Time of Evaluation Date of Evaluation: 08/28/18 Time of Evaluation: 19:00 - Subjective Subjective: no overnight events Objective - Vital Signs/Intake and Output Vital Signs (last 24 hours): Temp Pulse Resp BP Pulse Ox 97.6 F 80 18 167/50 H 97 08/31/18 07:57 08/31/18 08:41 08/31/18 07:57 08/31/18 08:41 08/31/18 07:57 Intake and Output: 08/31/18 08/31/18 06:59 18:59 Intake Total 120 Output Total 300 Balance -180 - Medications Medications: Current Medications Acetaminophen (Tylenol 325mg Tab) 650 mg PO Q4 PRN PRN Reason: Pain, moderate (4-7) Acetylcysteine (Mucomyst 10% 4ml) 3 ml IH RTID [facility] Last Admin: 08/31/18 07:54 Dose: 3 ml Albuterol/Ipratropium (Duoneb 3 Mg/0.5 Mg (3 Ml) Ud) 3 ml INH RQ4 PRN PRN Reason: Shortness of Breath Last Admin: 08/31/18 07:53 Dose: 3 ml Aspirin (Aspirin Chewable) 81 mg PO DAILY [facility] Last Admin: 08/30/18 09:13 Dose: 81 mg Atorvastatin Calcium (Lipitor) 20 mg PO DAILY [facility] Last Admin: 08/30/18 09:13 Dose: 20 mg Carvedilol (Coreg) 3.125 mg PO Q12 [facility] Last Admin: 08/31/18 08:42 Dose: Not Given Docusate Sodium (Colace Liquid) 100 mg PO TID [facility] Last Admin: 08/31/18 08:42 Dose: Not Given Famotidine (Pepcid) 20 mg PO DAILY [facility] Last Admin: 08/30/18 09:11 Dose: 20 mg Ferrous Sulfate (Feosol Liq) 300 mg PO DAILY [facility] Last Admin: 08/30/18 09:13 Dose: 300 mg Folic Acid (Folic Acid) 1 mg PO DAILY [facility] Last Admin: 08/30/18 09:11 Dose: 1 mg Guaifenesin/Dextromethorphan (Robitussin Dm) 5 ml PO Q6 PRN PRN Reason: Cough Hydralazine HCl (Apresoline) 10 mg IV Q6 PRN PRN Reason: SBP more than 150 Last Admin: 08/29/18 17:26 Dose: 10 mg Hydralazine HCl (Apresoline) 25 mg PO BID [facility] Last Admin: 08/31/18 08:41 Dose: Not Given Ceftriaxone Sodium 2 gm/ (Sodium Chloride) 100 mls @ 100 mls/hr IVPB DAILY [facility]; Protocol Last Admin: 08/31/18 08:45 Dose: 100 mls/hr Insulin Human Lispro (Humalog) 0 units SC ACHS [facility]; Protocol Last Admin: 08/31/18 06:53 Dose: Not Given Levetiracetam (Keppra) 500 mg PO BID [facility] Last Admin: 08/30/18 17:16 Dose: Not Given Montelukast Sodium (Singulair) 10 mg PO HS [facility] Last Admin: 08/30/18 22:43 Dose: 10 mg Multivitamins/Vitamin C (Multi-Delyn Liquid) 15 ml PO DAILY [facility] Last Admin: 08/30/18 09:14 Dose: 15 ml - Labs Labs: 08/30/18 04:25 08/30/18 04:25 PT 13.8 Seconds (9.8-13.1) H 08/20/18 04:20 INR 1.2 08/20/18 04:20 APTT 28.3 Seconds (25.6-37.1) 08/20/18 04:20 - Neck Exam Neck Exam: Normal Inspection - Respiratory Exam Respiratory Exam: Rhonchi, Wheezes - Cardiovascular Exam Cardiovascular Exam: REGULAR RHYTHM - GI/Abdominal Exam GI & Abdominal Exam: Soft, Normal Bowel Sounds Assessment and Plan - Assessment and Plan (Free Text) Assessment: 83 yo female with FTT peg on hold for now pulm input
--- NOTE | 2018-08-31 11:46 | CP.PCM.PN ---
Subjective - Date & Time of Evaluation Date of Evaluation: 08/30/18 Time of Evaluation: 18:00 - Subjective Subjective: no overnight events Objective - Vital Signs/Intake and Output Vital Signs (last 24 hours): Temp Pulse Resp BP Pulse Ox 97.6 F 80 18 167/50 H 97 08/31/18 07:57 08/31/18 08:41 08/31/18 07:57 08/31/18 08:41 08/31/18 07:57 Intake and Output: 08/31/18 08/31/18 06:59 18:59 Intake Total 120 Output Total 300 Balance -180 - Medications Medications: Current Medications Acetaminophen (Tylenol 325mg Tab) 650 mg PO Q4 PRN PRN Reason: Pain, moderate (4-7) Acetylcysteine (Mucomyst 10% 4ml) 3 ml IH RTID [facility] Last Admin: 08/31/18 07:54 Dose: 3 ml Albuterol/Ipratropium (Duoneb 3 Mg/0.5 Mg (3 Ml) Ud) 3 ml INH RQ4 PRN PRN Reason: Shortness of Breath Last Admin: 08/31/18 07:53 Dose: 3 ml Aspirin (Aspirin Chewable) 81 mg PO DAILY [facility] Last Admin: 08/30/18 09:13 Dose: 81 mg Atorvastatin Calcium (Lipitor) 20 mg PO DAILY [facility] Last Admin: 08/30/18 09:13 Dose: 20 mg Carvedilol (Coreg) 3.125 mg PO Q12 [facility] Last Admin: 08/31/18 08:42 Dose: Not Given Docusate Sodium (Colace Liquid) 100 mg PO TID [facility] Last Admin: 08/31/18 08:42 Dose: Not Given Famotidine (Pepcid) 20 mg PO DAILY [facility] Last Admin: 08/30/18 09:11 Dose: 20 mg Ferrous Sulfate (Feosol Liq) 300 mg PO DAILY [facility] Last Admin: 08/30/18 09:13 Dose: 300 mg Folic Acid (Folic Acid) 1 mg PO DAILY [facility] Last Admin: 08/30/18 09:11 Dose: 1 mg Guaifenesin/Dextromethorphan (Robitussin Dm) 5 ml PO Q6 PRN PRN Reason: Cough Hydralazine HCl (Apresoline) 10 mg IV Q6 PRN PRN Reason: SBP more than 150 Last Admin: 08/29/18 17:26 Dose: 10 mg Hydralazine HCl (Apresoline) 25 mg PO BID [facility] Last Admin: 08/31/18 08:41 Dose: Not Given Ceftriaxone Sodium 2 gm/ (Sodium Chloride) 100 mls @ 100 mls/hr IVPB DAILY [facility]; Protocol Last Admin: 08/31/18 08:45 Dose: 100 mls/hr Insulin Human Lispro (Humalog) 0 units SC ACHS [facility]; Protocol Last Admin: 08/31/18 06:53 Dose: Not Given Levetiracetam (Keppra) 500 mg PO BID [facility] Last Admin: 08/30/18 17:16 Dose: Not Given Montelukast Sodium (Singulair) 10 mg PO HS [facility] Last Admin: 08/30/18 22:43 Dose: 10 mg Multivitamins/Vitamin C (Multi-Delyn Liquid) 15 ml PO DAILY [facility] Last Admin: 08/30/18 09:14 Dose: 15 ml - Labs Labs: 08/30/18 04:25 08/30/18 04:25 PT 13.8 Seconds (9.8-13.1) H 08/20/18 04:20 INR 1.2 08/20/18 04:20 APTT 28.3 Seconds (25.6-37.1) 08/20/18 04:20 - Head Exam Head Exam: NORMOCEPHALIC - Neck Exam Neck Exam: Normal Inspection - Respiratory Exam Respiratory Exam: Rhonchi, Wheezes - Cardiovascular Exam Cardiovascular Exam: REGULAR RHYTHM - GI/Abdominal Exam GI & Abdominal Exam: Soft, Normal Bowel Sounds Assessment and Plan - Assessment and Plan (Free Text) Assessment: 83 yo female with FTT peg on hold for now pulm input cardio and pulm clearance for PEG
[2018-08-31] MEDS: levETIRAcetam 100 mg/ml (5ml) Oral Syringe PO SCH ×2 (12:09→18:06)
[2018-08-31] MEDS: Ferrous Sulfate 300 mg/5 mL Liq UD PO SCH (12:10)
[2018-08-31] MEDS: Multi Vitamins 15 mL UD Oral Solution PO SCH (12:10)
--- NOTE | 2018-08-31 12:13 | CP.PCM.PN ---
Subjective - Date & Time of Evaluation Date of Evaluation: 08/31/18 Time of Evaluation: 12:13 - Subjective Subjective: no overnight events Objective - Vital Signs/Intake and Output Vital Signs (last 24 hours): Temp Pulse Resp BP Pulse Ox 97.6 F 72 18 185/53 H 97 08/31/18 07:57 08/31/18 12:04 08/31/18 07:57 08/31/18 12:04 08/31/18 07:57 Intake and Output: 08/31/18 08/31/18 06:59 18:59 Intake Total 120 Output Total 300 Balance -180 - Medications Medications: Current Medications Acetaminophen (Tylenol 325mg Tab) 650 mg PO Q4 PRN PRN Reason: Pain, moderate (4-7) Acetylcysteine (Mucomyst 10% 4ml) 3 ml IH RTID [facility] Last Admin: 08/31/18 07:54 Dose: 3 ml Albuterol/Ipratropium (Duoneb 3 Mg/0.5 Mg (3 Ml) Ud) 3 ml INH RQ4 PRN PRN Reason: Shortness of Breath Last Admin: 08/31/18 07:53 Dose: 3 ml Aspirin (Aspirin Chewable) 81 mg PO DAILY [facility] Last Admin: 08/31/18 12:08 Dose: 81 mg Atorvastatin Calcium (Lipitor) 20 mg PO DAILY [facility] Last Admin: 08/31/18 12:10 Dose: 20 mg Carvedilol (Coreg) 3.125 mg PO Q12 [facility] Last Admin: 08/31/18 08:42 Dose: Not Given Docusate Sodium (Colace Liquid) 100 mg PO TID [facility] Last Admin: 08/31/18 12:08 Dose: 100 mg Famotidine (Pepcid) 20 mg PO DAILY [facility] Last Admin: 08/31/18 12:11 Dose: 20 mg Ferrous Sulfate (Feosol Liq) 300 mg PO DAILY [facility] Last Admin: 08/31/18 12:10 Dose: 300 mg Folic Acid (Folic Acid) 1 mg PO DAILY [facility] Last Admin: 08/31/18 12:10 Dose: 1 mg Guaifenesin/Dextromethorphan (Robitussin Dm) 5 ml PO Q6 PRN PRN Reason: Cough Hydralazine HCl (Apresoline) 10 mg IV Q6 PRN PRN Reason: SBP more than 150 Last Admin: 08/31/18 12:04 Dose: 10 mg Hydralazine HCl (Apresoline) 25 mg PO BID [facility] Last Admin: 08/31/18 08:41 Dose: Not Given Ceftriaxone Sodium 2 gm/ (Sodium Chloride) 100 mls @ 100 mls/hr IVPB DAILY [facility]; Protocol Last Admin: 08/31/18 08:45 Dose: 100 mls/hr Insulin Human Lispro (Humalog) 0 units SC ACHS [facility]; Protocol Last Admin: 08/31/18 06:53 Dose: Not Given Levetiracetam (Keppra) 500 mg PO BID [facility] Last Admin: 08/31/18 12:09 Dose: 500 mg Montelukast Sodium (Singulair) 10 mg PO HS [facility] Last Admin: 08/30/18 22:43 Dose: 10 mg Multivitamins/Vitamin C (Multi-Delyn Liquid) 15 ml PO DAILY [facility] Last Admin: 08/31/18 12:10 Dose: 15 ml - Labs Labs: 08/30/18 04:25 08/30/18 04:25 PT 13.8 Seconds (9.8-13.1) H 08/20/18 04:20 INR 1.2 08/20/18 04:20 APTT 28.3 Seconds (25.6-37.1) 08/20/18 04:20 - Head Exam Head Exam: NORMOCEPHALIC - Neck Exam Neck Exam: Normal Inspection - Respiratory Exam Respiratory Exam: Rhonchi, Wheezes - Cardiovascular Exam Cardiovascular Exam: REGULAR RHYTHM - GI/Abdominal Exam GI & Abdominal Exam: Soft, Normal Bowel Sounds Assessment and Plan - Assessment and Plan (Free Text) Assessment: 83 yo female with FTT clearance pending for PEG
--- NOTE | 2018-08-31 13:24 | CP.PCM.PN ---
Subjective - Date & Time of Evaluation Date of Evaluation: 08/31/18 Time of Evaluation: 13:50 - Subjective Subjective: F/U PNA, S/P Thoracentesis for L pleural effusion. eyes open, follows with eyes verbal stimulation, attempt to talk , Pt's daughter at bedside, according to her She is consuming 50% of the meals, Pt is on calory count Objective - Vital Signs/Intake and Output Vital Signs (last 24 hours): Temp Pulse Resp BP Pulse Ox 98 F 72 18 185/53 H 100 08/31/18 12:13 08/31/18 12:13 08/31/18 12:13 08/31/18 12:13 08/31/18 12:13 Intake and Output: 08/31/18 08/31/18 06:59 18:59 Intake Total 120 Output Total 300 Balance -180 - Medications Medications: Current Medications Acetaminophen (Tylenol 325mg Tab) 650 mg PO Q4 PRN PRN Reason: Pain, moderate (4-7) Acetylcysteine (Mucomyst 10% 4ml) 3 ml IH RTID [facility] Last Admin: 08/31/18 07:54 Dose: 3 ml Albuterol/Ipratropium (Duoneb 3 Mg/0.5 Mg (3 Ml) Ud) 3 ml INH RQ4 PRN PRN Reason: Shortness of Breath Last Admin: 08/31/18 07:53 Dose: 3 ml Aspirin (Aspirin Chewable) 81 mg PO DAILY [facility] Last Admin: 08/31/18 12:08 Dose: 81 mg Atorvastatin Calcium (Lipitor) 20 mg PO DAILY [facility] Last Admin: 08/31/18 12:10 Dose: 20 mg Carvedilol (Coreg) 3.125 mg PO Q12 [facility] Last Admin: 08/31/18 08:42 Dose: Not Given Docusate Sodium (Colace Liquid) 100 mg PO TID [facility] Last Admin: 08/31/18 12:08 Dose: 100 mg Famotidine (Pepcid) 20 mg PO DAILY [facility] Last Admin: 08/31/18 12:11 Dose: 20 mg Ferrous Sulfate (Feosol Liq) 300 mg PO DAILY [facility] Last Admin: 08/31/18 12:10 Dose: 300 mg Folic Acid (Folic Acid) 1 mg PO DAILY [facility] Last Admin: 08/31/18 12:10 Dose: 1 mg Guaifenesin/Dextromethorphan (Robitussin Dm) 5 ml PO Q6 PRN PRN Reason: Cough Hydralazine HCl (Apresoline) 10 mg IV Q6 PRN PRN Reason: SBP more than 150 Last Admin: 08/31/18 12:04 Dose: 10 mg Hydralazine HCl (Apresoline) 25 mg PO BID [facility] Last Admin: 08/31/18 08:41 Dose: Not Given Ceftriaxone Sodium 2 gm/ (Sodium Chloride) 100 mls @ 100 mls/hr IVPB DAILY [facility]; Protocol Last Admin: 08/31/18 08:45 Dose: 100 mls/hr Insulin Human Lispro (Humalog) 0 units SC ACHS [facility]; Protocol Last Admin: 08/31/18 12:12 Dose: Not Given Levetiracetam (Keppra) 500 mg PO BID [facility] Last Admin: 08/31/18 12:09 Dose: 500 mg Montelukast Sodium (Singulair) 10 mg PO HS [facility] Last Admin: 08/30/18 22:43 Dose: 10 mg Multivitamins/Vitamin C (Multi-Delyn Liquid) 15 ml PO DAILY [facility] Last Admin: 08/31/18 12:10 Dose: 15 ml - Labs Labs: 08/30/18 04:25 08/30/18 04:25 PT 13.8 Seconds (9.8-13.1) H 08/20/18 04:20 INR 1.2 08/20/18 04:20 APTT 28.3 Seconds (25.6-37.1) 08/20/18 04:20 - Constitutional Appears: Chronically Ill - Head Exam Head Exam: NORMAL INSPECTION - Eye Exam Eye Exam: PERRL (L eye) Pupil Exam: Irregular (pupil in R eye) - ENT Exam ENT Exam: Normal Exam - Neck Exam Neck Exam: Normal Inspection - Respiratory Exam Respiratory Exam: Decreased Breath Sounds, Rhonchi (scattered) - Cardiovascular Exam Cardiovascular Exam: REGULAR RHYTHM, Murmur (2/6 LSB) - GI/Abdominal Exam GI & Abdominal Exam: Soft, Hernia (reducible), Normal Bowel Sounds - Extremities Exam Extremities Exam: Normal Inspection - Back Exam Back Exam: NORMAL INSPECTION - Neurological Exam Neurological Exam: Awake Additional comments: generalized weakness - Skin Skin Exam: Warm Assessment and Plan (1) Pneumonia Assessment & Plan: improved Status: Acute (2) Pleural effusion, left Assessment & Plan: improved post-thoracentesis Status: Acute (3) COPD exacerbation Assessment & Plan: resolved Status: Resolved (4) CHF (congestive heart failure) Status: Chronic - Assessment and Plan (Free Text) Plan: Patient is on calory count, Pt may not need PEG, on Rocephin for Tx of UTI, continue DuoNeb
--- NOTE | 2018-08-31 14:45 | CP.PCM.PN ---
Subjective - Date & Time of Evaluation Date of Evaluation: 08/31/18 Time of Evaluation: 08:00 - Subjective Subjective: AFEB OFF ANTIBIOTICS Objective - Vital Signs/Intake and Output Vital Signs (last 24 hours): Temp Pulse Resp BP Pulse Ox 98 F 72 18 185/53 H 100 08/31/18 12:13 08/31/18 12:13 08/31/18 12:13 08/31/18 12:13 08/31/18 12:13 Intake and Output: 08/31/18 08/31/18 06:59 18:59 Intake Total 120 Output Total 300 Balance -180 - Medications Medications: Current Medications Acetaminophen (Tylenol 325mg Tab) 650 mg PO Q4 PRN PRN Reason: Pain, moderate (4-7) Acetylcysteine (Mucomyst 10% 4ml) 3 ml IH RTID [facility] Last Admin: 08/31/18 13:42 Dose: 3 ml Albuterol/Ipratropium (Duoneb 3 Mg/0.5 Mg (3 Ml) Ud) 3 ml INH RQ4 PRN PRN Reason: Shortness of Breath Last Admin: 08/31/18 13:42 Dose: 3 ml Aspirin (Aspirin Chewable) 81 mg PO DAILY [facility] Last Admin: 08/31/18 12:08 Dose: 81 mg Atorvastatin Calcium (Lipitor) 20 mg PO DAILY [facility] Last Admin: 08/31/18 12:10 Dose: 20 mg Carvedilol (Coreg) 3.125 mg PO Q12 [facility] Last Admin: 08/31/18 08:42 Dose: Not Given Docusate Sodium (Colace Liquid) 100 mg PO TID [facility] Last Admin: 08/31/18 12:08 Dose: 100 mg Famotidine (Pepcid) 20 mg PO DAILY [facility] Last Admin: 08/31/18 12:11 Dose: 20 mg Ferrous Sulfate (Feosol Liq) 300 mg PO DAILY [facility] Last Admin: 08/31/18 12:10 Dose: 300 mg Folic Acid (Folic Acid) 1 mg PO DAILY [facility] Last Admin: 08/31/18 12:10 Dose: 1 mg Guaifenesin/Dextromethorphan (Robitussin Dm) 5 ml PO Q6 PRN PRN Reason: Cough Hydralazine HCl (Apresoline) 10 mg IV Q6 PRN PRN Reason: SBP more than 150 Last Admin: 08/31/18 12:04 Dose: 10 mg Hydralazine HCl (Apresoline) 25 mg PO BID [facility] Last Admin: 08/31/18 08:41 Dose: Not Given Ceftriaxone Sodium 2 gm/ (Sodium Chloride) 100 mls @ 100 mls/hr IVPB DAILY [facility]; Protocol Last Admin: 08/31/18 08:45 Dose: 100 mls/hr Insulin Human Lispro (Humalog) 0 units SC ACHS [facility]; Protocol Last Admin: 08/31/18 12:12 Dose: Not Given Levetiracetam (Keppra) 500 mg PO BID [facility] Last Admin: 08/31/18 12:09 Dose: 500 mg Montelukast Sodium (Singulair) 10 mg PO HS [facility] Last Admin: 08/30/18 22:43 Dose: 10 mg Multivitamins/Vitamin C (Multi-Delyn Liquid) 15 ml PO DAILY [facility] Last Admin: 08/31/18 12:10 Dose: 15 ml - Labs Labs: 08/30/18 04:25 08/30/18 04:25 PT 13.8 Seconds (9.8-13.1) H 08/20/18 04:20 INR 1.2 08/20/18 04:20 APTT 28.3 Seconds (25.6-37.1) 08/20/18 04:20 - Constitutional Appears: Non-toxic, Confused, Cachectic, Chronically Ill - Head Exam Head Exam: NORMOCEPHALIC - Eye Exam Eye Exam: absent: Scleral icterus - ENT Exam ENT Exam: Mucous Membranes Dry - Neck Exam Neck Exam: absent: Lymphadenopathy, Thyromegaly - Respiratory Exam Respiratory Exam: Decreased Breath Sounds - Cardiovascular Exam Cardiovascular Exam: REGULAR RHYTHM - GI/Abdominal Exam GI & Abdominal Exam: Distended Assessment and Plan (1) CHF (congestive heart failure) Status: Acute (2) Dehydration Status: Acute (3) Pneumonia Status: Acute (4) UTI (urinary tract infection) Status: Acute (5) CVA (cerebral vascular accident) Status: Acute - Assessment and Plan (Free Text) Assessment: HOLD ANTIBIOTICS RECULTURE PRN
--- NOTE | 2018-08-31 20:05 | CARD ---
APPROVED REPORT Date of service: 08/31/2018 EXAM: Two-dimensional and M-mode echocardiogram with Doppler and color Doppler. Other Information Quality : GoodRhythm : NSR INDICATION Pre-Op 2D DIMENSIONS IVSd1.17 (0.7-1.1cm)LVDd4.93 (3.9-5.9cm) LVOT Diameter2.29 (1.8-2.4cm)PWd1.08 (0.7-1.1cm) IVSs1.45 (0.8-1.2cm)LVDs4.20 (2.5-4.0cm) FS (%) 14.8 %PWs0.95 (0.8-1.2cm) M-Mode DIMENSIONS Left Atrium (MM)6.45 (2.5-4.0cm)IVSd1.06 (0.7-1.1cm) Aortic Root3.01 (2.2-3.7cm)LVDd4.96 (4.0-5.6cm) PWd0.96 (0.7-1.1cm)IVSs1.62 cm FS (%) 22 %LVDs3.87 (2.0-3.8cm) PWs0.99 cm Aortic Valve AoV Peak Trhlxarv804.8cm/sAoV VTI68.3cmAO Peak GR.52mmHg LVOT Peak Czjhnzpz24.2cm/sLVOT VTI17.32cmAO Mean GR.28mmHg DEVIN (VMAX)0.92dl1LXA (VTI)0.50gy6VD P 1/2 Gxby220xb Mitral Valve MV E Weeuzvub845.2cm/sMV DECEL QTVT188dgMU A Vfjkcczt99.8cm/s MV WQE63hzM/A ratio1.6MVA (PHT)4.63cm2 TDI E/Lateral E'0.0E/Medial E'0.0 Tricuspid Valve TR Peak Bdfsevtf919vf/sRAP OGLSAEOW59qjEgJV Peak Gr.71mmHg EDCR88odVd LEFT VENTRICLE The Left Ventricle is moderately dilated. There is borderline to mild concentric left ventricular hypertrophy. The systolic function is moderate to severely impaired. The estimated ejection fraction is 35-40% There is global hypokinesis of the left ventricle. Transmitral Doppler flow pattern is Grade II-pseudonormal filling dynamics. No left ventricle thrombus noted on this study. There is no ventricular septal defect visualized. There is no left ventricular aneurysm. There is no mass noted in the left ventricle. RIGHT VENTRICLE The right ventricle is normal size. There is normal right ventricular wall thickness. The right ventricular systolic function is normal. ATRIA The left atrium is severely dilated. The right atrium size is dilated. The interatrial septum is intact with no evidence for an atrial septal defect. AORTIC VALVE The aortic valve is normal in structure. Severe aortic regurgitation is present. There is moderate to severe aortic valvular stenosis. Peak aortic velocity is 3.6 m/s with mean gradient of 30 mm Hg and calculated DEVIN of 0.95 cm2. There is no aortic valvular vegetation. MITRAL VALVE The mitral valve is normal in structure. There is no evidence of mitral valve prolapse. There is no mitral valve stenosis. There is moderate mitral valve regurgitation noted. TRICUSPID VALVE The tricuspid valve is normal in structure. There is severe tricuspid valve regurgitation noted. RVSP is calculated at 78 mm Hg, consistent with severe pulmonary HTN. There is no tricuspid valve prolapse or vegetation. There is no tricuspid valve stenosis. PULMONIC VALVE The pulmonary valve is normal in structure. There is mild pulmonic valvular regurgitation. There is no pulmonic valvular stenosis. GREAT VESSELS The aortic root is normal in size. The ascending aorta is normal in size. The pulmonary artery is normal. The IVC is normal in size and collapses >50% with inspiration. PERICARDIAL EFFUSION There is no pericardial effusion. There is large left sided pleural effusion. <Conclusion> There is borderline to mild concentric left ventricular hypertrophy. The systolic function is moderate to severely impaired. The estimated ejection fraction is 35-40% Transmitral Doppler flow pattern is Grade II-pseudonormal filling dynamics. The left atrium is severely dilated. Severe aortic regurgitation is present. There is moderate to severe aortic valvular stenosis. Peak aortic velocity is 3.6 m/s with mean gradient of 30 mm Hg and calculated DEVIN of 0.95 cm2. There is moderate mitral valve regurgitation noted. There is severe tricuspid valve regurgitation noted. RVSP is calculated at 78 mm Hg, consistent with severe pulmonary HTN. There is large left sided pleural effusion.
[2018-09-01] MEDS: Acetylcysteine 10% 4 ML IH SCH ×3 (07:22→19:12)
[2018-09-01] MEDS: Albuterol-Ipratrop 3 mg / 0.5 (3 ml) UD INH PRN ×3 (07:23→19:12)
[2018-09-01 09:01] LABS: HEMOGLOBIN 10.3 g/dL (12.0-16.0); MEAN CELL VOLUME 104.8 fl (81.0-99.0); MEAN CORPUSCULAR HEMOGLOBIN 33.6 pg (27.0-31.0); MEAN CORPUSCULAR HGB CONC 32.1 g/dL (33.0-37.0); RBC 3.05 Mil/uL (3.80-5.20); RED CELL DISTRIBUTION WIDTH 14.7 % (11.5-14.5); WHITE BLOOD COUNT 6.4 K/uL (4.8-10.8)
[2018-09-01 09:10] LABS: ALB/GLOB RATIO 0.8 (1.0-2.1); ALBUMIN 2.7 g/dL (3.5-5.0); CALCIUM 8.8 mg/dL (8.4-10.2)
[2018-09-01] MEDS: Ferrous Sulfate 300 mg/5 mL Liq UD PO SCH (09:48)
[2018-09-01] MEDS: Insulin Lispro (humaLOG) 100 Units/ml Inj SC SCH ×4 (09:50→21:00)
[2018-09-01] MEDS: levETIRAcetam 100 mg/ml (5ml) Oral Syringe PO SCH ×2 (09:51→16:37)
[2018-09-01] MEDS: Multi Vitamins 15 mL UD Oral Solution PO SCH (09:52)
[2018-09-01] MEDS: cefTRIAXone 2 GM in Sodium Chloride 0.9% 100 ML IVPB SCH (09:54)
--- NOTE | 2018-09-01 16:19 | CP.PCM.PN ---
Subjective - Date & Time of Evaluation Date of Evaluation: 09/01/18 Time of Evaluation: 13:40 - Subjective Subjective: awake,no A/D, more alert , able to talk with few words, eating well on calory count as per nurses Objective - Vital Signs/Intake and Output Vital Signs (last 24 hours): Temp Pulse Resp BP Pulse Ox 98.3 F 71 18 150/54 L 100 09/01/18 16:04 09/01/18 16:04 09/01/18 16:04 09/01/18 16:04 09/01/18 16:04 Intake and Output: 09/01/18 09/01/18 06:59 18:59 Intake Total 100 Output Total 375 Balance -275 - Medications Medications: Current Medications Acetaminophen (Tylenol 325mg Tab) 650 mg PO Q4 PRN PRN Reason: Pain, moderate (4-7) Acetylcysteine (Mucomyst 10% 4ml) 3 ml IH RTID [facility] Last Admin: 09/01/18 13:08 Dose: 3 ml Albuterol/Ipratropium (Duoneb 3 Mg/0.5 Mg (3 Ml) Ud) 3 ml INH RQ4 PRN PRN Reason: Shortness of Breath Last Admin: 09/01/18 13:08 Dose: 3 ml Aspirin (Aspirin Chewable) 81 mg PO DAILY [facility] Last Admin: 09/01/18 09:47 Dose: 81 mg Atorvastatin Calcium (Lipitor) 20 mg PO DAILY [facility] Last Admin: 09/01/18 09:51 Dose: 20 mg Carvedilol (Coreg) 3.125 mg PO Q12 [facility] Last Admin: 09/01/18 09:48 Dose: 3.125 mg Docusate Sodium (Colace Liquid) 100 mg PO TID [facility] Last Admin: 09/01/18 13:44 Dose: 100 mg Famotidine (Pepcid) 20 mg PO DAILY [facility] Last Admin: 09/01/18 09:52 Dose: 20 mg Ferrous Sulfate (Feosol Liq) 300 mg PO DAILY [facility] Last Admin: 09/01/18 09:48 Dose: 300 mg Folic Acid (Folic Acid) 1 mg PO DAILY [facility] Last Admin: 09/01/18 09:50 Dose: 1 mg Guaifenesin/Dextromethorphan (Robitussin Dm) 5 ml PO Q6 PRN PRN Reason: Cough Hydralazine HCl (Apresoline) 10 mg IV Q6 PRN PRN Reason: SBP more than 150 Last Admin: 08/31/18 12:04 Dose: 10 mg Hydralazine HCl (Apresoline) 25 mg PO BID [facility] Last Admin: 09/01/18 09:46 Dose: 25 mg Ceftriaxone Sodium 2 gm/ (Sodium Chloride) 100 mls @ 100 mls/hr IVPB DAILY [facility]; Protocol Last Admin: 09/01/18 09:54 Dose: 100 mls/hr Insulin Human Lispro (Humalog) 0 units SC ACHS [facility]; Protocol Last Admin: 09/01/18 11:49 Dose: 2 unit Levetiracetam (Keppra) 500 mg PO BID [facility] Last Admin: 09/01/18 09:51 Dose: 500 mg Montelukast Sodium (Singulair) 10 mg PO HS [facility] Last Admin: 08/31/18 21:52 Dose: 10 mg Multivitamins/Vitamin C (Multi-Delyn Liquid) 15 ml PO DAILY [facility] Last Admin: 09/01/18 09:52 Dose: 15 ml - Labs Labs: 09/01/18 08:45 09/01/18 08:45 PT 13.8 Seconds (9.8-13.1) H 08/20/18 04:20 INR 1.2 08/20/18 04:20 APTT 28.3 Seconds (25.6-37.1) 08/20/18 04:20 - Constitutional Appears: Chronically Ill - Head Exam Head Exam: NORMAL INSPECTION - Eye Exam Eye Exam: PERRL - ENT Exam ENT Exam: Normal Exam - Neck Exam Neck Exam: Normal Inspection - Respiratory Exam Respiratory Exam: Decreased Breath Sounds (at bases) - Cardiovascular Exam Cardiovascular Exam: REGULAR RHYTHM, Murmur - GI/Abdominal Exam GI & Abdominal Exam: Soft, Hernia, Normal Bowel Sounds - Extremities Exam Extremities Exam: Normal Inspection - Neurological Exam Additional comments: awake, able to talk with few words,generalized weakness Assessment and Plan (1) Pneumonia Assessment & Plan: improved Status: Acute (2) Pleural effusion, left Assessment & Plan: improved Status: Acute (3) COPD exacerbation Assessment & Plan: improved Status: Resolved (4) CHF (congestive heart failure) Assessment & Plan: ,AR Status: Chronic (5) Pulmonary HTN Status: Acute - Assessment and Plan (Free Text) Plan: doing well on calory count, Pt may not need PEG, continue DuoNeb, ECHO LVEF 35- 40%, LAD,,severe AR , mod to severe , RVSP 78mm, severe Pulmonary Hypertension, suggest Cardiac consult
[2018-09-02] MEDS: Albuterol-Ipratrop 3 mg / 0.5 (3 ml) UD INH PRN ×2 (07:04→13:02)
[2018-09-02] MEDS: Acetylcysteine 10% 4 ML IH SCH ×3 (07:05→19:30)
[2018-09-02] MEDS: levETIRAcetam 100 mg/ml (5ml) Oral Syringe PO SCH ×2 (09:13→17:03)
[2018-09-02] MEDS: cefTRIAXone 2 GM in Sodium Chloride 0.9% 100 ML IVPB SCH (09:14)
[2018-09-02] MEDS: Ferrous Sulfate 300 mg/5 mL Liq UD PO SCH (09:36)
[2018-09-02] MEDS: Multi Vitamins 15 mL UD Oral Solution PO SCH (09:36)
[2018-09-02] MEDS: Insulin Lispro (humaLOG) 100 Units/ml Inj SC SCH ×4 (11:30→22:10)
--- NOTE | 2018-09-02 12:00 | CP.PCM.CON ---
History of Present Illness - History of Present Illness History of Present Illness: I was asked to see patient by the primary team. Patient is normally followed by Dr Huff. patient seen 09/02/18 at 11:50 Patient is a 83 year old female with HTN hyperchoelsterolemia, renal insufficiency and valvular heart disease who requires PEG placement. The patient has altered mental status and cannot give a history. She appears comfortable. Review of Systems - Review of Systems Systems not reviewed;Unavailable: Dementia, Altered Mental Status Past Patient History - Infectious Disease Hx of Infectious Diseases: None - Tetanus Immunizations Tetanus Immunization: Unknown - Past Medical History & Family History Past Medical History?: Yes - Past Social History Smoking Status: Former Smoker Chewing Tobacco Use: No Cigar Use: No Alcohol: None Drugs: Denies Home Situation {Lives}: With Family - CARDIAC Hx Cardiac Disorders: Yes Hx Congestive Heart Failure: Yes Hx Hypercholesterolemia: Yes Hx Hypertension: Yes Hx Peripheral Edema: Yes - PULMONARY Hx Respiratory Disorders: Yes Hx Asthma: Yes Hx Pneumonia: Yes Hx Pulmonary Embolism: Yes - NEUROLOGICAL Hx Neurological Disorder: Yes Hx Alzheimer's Disease: Yes Hx Dementia: Yes Hx Seizures: Yes - HEENT Hx HEENT Problems: No - RENAL Hx Chronic Kidney Disease: Yes - ENDOCRINE/METABOLIC Hx Endocrine Disorders: Yes Hx Diabetes Mellitus Type 2: Yes - HEMATOLOGICAL/ONCOLOGICAL Hx Blood Disorders: Yes Hx Anemia: Yes Hx Human Immunodeficiency Virus (HIV): No - INTEGUMENTARY Hx Dermatological Problems: No - MUSCULOSKELETAL/RHEUMATOLOGICAL Hx Musculoskeletal Disorders: Yes Hx Arthritis: Yes Hx Falls: Yes - GASTROINTESTINAL Hx Gastrointestinal Disorders: Yes 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, 2006 and 2007) Hx Constipation: Yes Other/Comment: Ventral hernia - GENITOURINARY/GYNECOLOGICAL Hx Genitourinary Disorders: No - PSYCHIATRIC Hx Psychophysiologic Disorder: Yes Hx Depression: Yes Hx Substance Use: No - SURGICAL HISTORY Hx Surgeries: Yes Hx Appendectomy: Yes Hx Cholecystectomy: Yes Hx Coronary Stent: Yes (7 stents as per the daughter) Other/Comment: Laparotomy (ischemic bowel), Glaucoma operetion R eye - ANESTHESIA Hx Anesthesia: Yes Hx Anesthesia Reactions: Yes (hard to wake up) Hx Malignant Hyperthermia: No Meds Allergies/Adverse Reactions: Allergies Allergy/AdvReac Type Severity Reaction Status Date / Time No Known Allergies Allergy Verified 08/09/18 15:22 - Medications Medications: Current Medications Acetaminophen (Tylenol 325mg Tab) 650 mg PO Q4 PRN PRN Reason: Pain, moderate (4-7) Acetylcysteine (Mucomyst 10% 4ml) 3 ml IH RTID [facility] Last Admin: 09/02/18 07:05 Dose: 3 ml Albuterol/Ipratropium (Duoneb 3 Mg/0.5 Mg (3 Ml) Ud) 3 ml INH RQ4 PRN PRN Reason: Shortness of Breath Last Admin: 09/02/18 07:04 Dose: 3 ml Aspirin (Aspirin Chewable) 81 mg PO DAILY [facility] Last Admin: 09/02/18 09:12 Dose: 81 mg Atorvastatin Calcium (Lipitor) 20 mg PO DAILY [facility] Last Admin: 09/02/18 09:13 Dose: 20 mg Carvedilol (Coreg) 3.125 mg PO Q12 [facility] Last Admin: 09/02/18 09:13 Dose: 3.125 mg Docusate Sodium (Colace Liquid) 100 mg PO TID [facility] Last Admin: 09/02/18 09:12 Dose: Not Given Famotidine (Pepcid) 20 mg PO DAILY [facility] Last Admin: 09/02/18 09:37 Dose: Not Given Ferrous Sulfate (Feosol Liq) 300 mg PO DAILY [facility] Last Admin: 09/02/18 09:36 Dose: Not Given Folic Acid (Folic Acid) 1 mg PO DAILY [facility] Last Admin: 09/02/18 09:36 Dose: Not Given Guaifenesin/Dextromethorphan (Robitussin Dm) 5 ml PO Q6 PRN PRN Reason: Cough Hydralazine HCl (Apresoline) 10 mg IV Q6 PRN PRN Reason: SBP more than 150 Last Admin: 08/31/18 12:04 Dose: 10 mg Hydralazine HCl (Apresoline) 25 mg PO BID [facility] Last Admin: 09/02/18 09:12 Dose: 25 mg Insulin Human Lispro (Humalog) 0 units SC [facility]; Protocol Last Admin: 09/01/18 16:36 Dose: 1 unit Levetiracetam (Keppra) 500 mg PO BID [facility] Last Admin: 09/02/18 09:13 Dose: 500 mg Montelukast Sodium (Singulair) 10 mg PO HS [facility] Last Admin: 09/01/18 21:25 Dose: 10 mg Multivitamins/Vitamin C (Multi-Delyn Liquid) 15 ml PO DAILY [facility] Last Admin: 09/02/18 09:36 Dose: Not Given Physical Exam - Constitutional Appears: Chronically Ill - Head Exam Head Exam: NORMAL INSPECTION - Eye Exam Eye Exam: Normal appearance - ENT Exam ENT Exam: Mucous Membranes Dry - Neck Exam Neck exam: Negative for: Lymphadenopathy, Thyromegaly - Respiratory Exam Respiratory Exam: Decreased Breath Sounds - Cardiovascular Exam Cardiovascular Exam: Diastolic murmur, REGULAR RHYTHM, RRR, Systolic Murmur - GI/Abdominal Exam GI & Abdominal Exam: Normal Bowel Sounds - Rectal Exam Rectal Exam: Deferred - Extremities Exam Extremities exam: Positive for: pedal edema - Back Exam Back exam: NORMAL INSPECTION - Skin Skin Exam: Normal Color Results - Vital Signs Recent Vital Signs: Last Vital Signs Temp 97.4 F L 09/02/18 08:15 Pulse 87 09/02/18 08:15 Resp 18 09/02/18 08:15 BP 171/54 H 09/02/18 08:15 Pulse Ox 95 09/02/18 08:15 - Labs Result Diagrams: 09/01/18 08:45 09/01/18 08:45 Labs: Laboratory Results - last 24 hr 09/01/18 09/01/18 09/02/18 16:08 21:02 05:16 POC Glucose (mg/dL) 199 H 150 H 156 H 09/02/18 10:57 POC Glucose (mg/dL) 231 H - EKG Data EKG Interpreted by: Myself EKG shows normal: Sinus rhythm Assessment & Plan (1) Dehydration Assessment and Plan: Patient has poor oral intake and requires PEG placement. Gnerally speaking this is a low risk procedure, hwoever the patient has signficant comorbidities, with severe LV dysfunction and severe valvular dysfunction. Her cardaic status is at it best, and cannot be improved. I recommend proceeding for PEG if necessary, keeping in mind that patient is at high risk but there is no alternative. Use the minimum sedation possible. Status: Acute (2) Aortic valve disease Assessment and Plan: severe and severe AI. avoid hypotension Status: Acute (3) Cardiomyopathy Assessment and Plan: beta bailey therapy. increase Coreg. Status: Acute
--- NOTE | 2018-09-02 13:53 | CP.PCM.PN ---
Subjective - Date & Time of Evaluation Date of Evaluation: 09/02/18 Time of Evaluation: 09:00 - Subjective Subjective: afeb confused NAD for PEG placement failed swallowing eval Objective - Vital Signs/Intake and Output Vital Signs (last 24 hours): Temp Pulse Resp BP Pulse Ox 98.9 F 77 18 152/51 H 100 09/02/18 12:12 09/02/18 12:12 09/02/18 12:12 09/02/18 12:12 09/02/18 12:12 - Medications Medications: Current Medications Acetaminophen (Tylenol 325mg Tab) 650 mg PO Q4 PRN PRN Reason: Pain, moderate (4-7) Acetylcysteine (Mucomyst 10% 4ml) 3 ml IH RTID [facility] Last Admin: 09/02/18 13:02 Dose: 3 ml Albuterol/Ipratropium (Duoneb 3 Mg/0.5 Mg (3 Ml) Ud) 3 ml INH RQ4 PRN PRN Reason: Shortness of Breath Last Admin: 09/02/18 13:02 Dose: 3 ml Aspirin (Aspirin Chewable) 81 mg PO DAILY [facility] Last Admin: 09/02/18 09:12 Dose: 81 mg Atorvastatin Calcium (Lipitor) 20 mg PO DAILY [facility] Last Admin: 09/02/18 09:13 Dose: 20 mg Carvedilol (Coreg) 3.125 mg PO Q12 [facility] Last Admin: 09/02/18 09:13 Dose: 3.125 mg Docusate Sodium (Colace Liquid) 100 mg PO TID [facility] Last Admin: 09/02/18 09:12 Dose: Not Given Famotidine (Pepcid) 20 mg PO DAILY [facility] Last Admin: 09/02/18 09:37 Dose: Not Given Ferrous Sulfate (Feosol Liq) 300 mg PO DAILY [facility] Last Admin: 09/02/18 09:36 Dose: Not Given Folic Acid (Folic Acid) 1 mg PO DAILY [facility] Last Admin: 09/02/18 09:36 Dose: Not Given Guaifenesin/Dextromethorphan (Robitussin Dm) 5 ml PO Q6 PRN PRN Reason: Cough Hydralazine HCl (Apresoline) 10 mg IV Q6 PRN PRN Reason: SBP more than 150 Last Admin: 08/31/18 12:04 Dose: 10 mg Hydralazine HCl (Apresoline) 25 mg PO BID [facility] Last Admin: 09/02/18 09:12 Dose: 25 mg Insulin Human Lispro (Humalog) 0 units SC ACHS [facility]; Protocol Last Admin: 09/01/18 16:36 Dose: 1 unit Levetiracetam (Keppra) 500 mg PO BID [facility] Last Admin: 09/02/18 09:13 Dose: 500 mg Montelukast Sodium (Singulair) 10 mg PO HS [facility] Last Admin: 09/01/18 21:25 Dose: 10 mg Multivitamins/Vitamin C (Multi-Delyn Liquid) 15 ml PO DAILY [facility] Last Admin: 09/02/18 09:36 Dose: Not Given - Labs Labs: 09/01/18 08:45 09/01/18 08:45 PT 13.8 Seconds (9.8-13.1) H 08/20/18 04:20 INR 1.2 08/20/18 04:20 APTT 28.3 Seconds (25.6-37.1) 08/20/18 04:20 - Constitutional Appears: Non-toxic, Confused, Cachectic, Chronically Ill - Head Exam Head Exam: NORMOCEPHALIC - Eye Exam Eye Exam: absent: Scleral icterus - ENT Exam ENT Exam: Mucous Membranes Dry - Neck Exam Neck Exam: absent: Lymphadenopathy - Respiratory Exam Respiratory Exam: Decreased Breath Sounds, Rhonchi. absent: Accessory Muscle Use, Chest Wall Tenderness, Respiratory Distress - Cardiovascular Exam Cardiovascular Exam: REGULAR RHYTHM, +S1. absent: Clicks - GI/Abdominal Exam GI & Abdominal Exam: Distended, Soft. absent: Tenderness, Organomegaly, Rebound - Rectal Exam Rectal Exam: Deferred - Exam Exam: NORMAL INSPECTION - Extremities Exam Extremities Exam: absent: Calf Tenderness, Pedal Edema, Tenderness - Back Exam Back Exam: absent: CVA tenderness (L), CVA tenderness (R), paraspinal tenderness - Neurological Exam Neurological Exam: Altered, CN II-XII Intact. absent: Normal Gait - Psychiatric Exam Psychiatric exam: Depressed - Skin Skin Exam: Dry Assessment and Plan (1) CHF (congestive heart failure) Status: Chronic (2) Dehydration Status: Acute (3) Pneumonia Status: Acute (4) UTI (urinary tract infection) Status: Acute (5) CVA (cerebral vascular accident) Status: Acute - Assessment and Plan (Free Text) Assessment: s/p UTI/ sepsis/ CVA for PEG antibiotics on hold
--- NOTE | 2018-09-02 14:55 | CP.PCM.PN ---
Subjective - Date & Time of Evaluation Date of Evaluation: 09/02/18 Time of Evaluation: 14:00 - Subjective Subjective: Patient is not eating since yesterday, not taking medications, aggresive at times as per daughter at bedside Objective - Vital Signs/Intake and Output Vital Signs (last 24 hours): Temp Pulse Resp BP Pulse Ox 98.9 F 77 18 152/51 H 100 09/02/18 12:12 09/02/18 12:12 09/02/18 12:12 09/02/18 12:12 09/02/18 12:12 - Medications Medications: Current Medications Acetaminophen (Tylenol 325mg Tab) 650 mg PO Q4 PRN PRN Reason: Pain, moderate (4-7) Acetylcysteine (Mucomyst 10% 4ml) 3 ml IH RTID [facility] Last Admin: 09/02/18 13:02 Dose: 3 ml Albuterol/Ipratropium (Duoneb 3 Mg/0.5 Mg (3 Ml) Ud) 3 ml INH RQ4 PRN PRN Reason: Shortness of Breath Last Admin: 09/02/18 13:02 Dose: 3 ml Aspirin (Aspirin Chewable) 81 mg PO DAILY [facility] Last Admin: 09/02/18 09:12 Dose: 81 mg Atorvastatin Calcium (Lipitor) 20 mg PO DAILY [facility] Last Admin: 09/02/18 09:13 Dose: 20 mg Carvedilol (Coreg) 3.125 mg PO Q12 [facility] Last Admin: 09/02/18 09:13 Dose: 3.125 mg Docusate Sodium (Colace Liquid) 100 mg PO TID [facility] Last Admin: 09/02/18 09:12 Dose: Not Given Famotidine (Pepcid) 20 mg PO DAILY [facility] Last Admin: 09/02/18 09:37 Dose: Not Given Ferrous Sulfate (Feosol Liq) 300 mg PO DAILY [facility] Last Admin: 09/02/18 09:36 Dose: Not Given Folic Acid (Folic Acid) 1 mg PO DAILY [facility] Last Admin: 09/02/18 09:36 Dose: Not Given Guaifenesin/Dextromethorphan (Robitussin Dm) 5 ml PO Q6 PRN PRN Reason: Cough Hydralazine HCl (Apresoline) 10 mg IV Q6 PRN PRN Reason: SBP more than 150 Last Admin: 08/31/18 12:04 Dose: 10 mg Hydralazine HCl (Apresoline) 25 mg PO BID [facility] Last Admin: 09/02/18 09:12 Dose: 25 mg Cefazolin Sodium/Dextrose (Ancef Iv 1 Gm Duplex) 1 gm in 50 mls @ 50 mls/hr IVPB ONCE ONE; Protocol Stop: 09/03/18 15:15 Insulin Human Lispro (Humalog) 0 units SC ACHS [facility]; Protocol Last Admin: 09/01/18 16:36 Dose: 1 unit Levetiracetam (Keppra) 500 mg PO BID [facility] Last Admin: 09/02/18 09:13 Dose: 500 mg Montelukast Sodium (Singulair) 10 mg PO HS [facility] Last Admin: 09/01/18 21:25 Dose: 10 mg Multivitamins/Vitamin C (Multi-Delyn Liquid) 15 ml PO DAILY [facility] Last Admin: 09/02/18 09:36 Dose: Not Given - Labs Labs: 09/01/18 08:45 09/01/18 08:45 PT 13.8 Seconds (9.8-13.1) H 08/20/18 04:20 INR 1.2 08/20/18 04:20 APTT 28.3 Seconds (25.6-37.1) 08/20/18 04:20 - Constitutional Appears: Chronically Ill - Head Exam Head Exam: NORMAL INSPECTION - Eye Exam Eye Exam: PERRL - ENT Exam ENT Exam: Normal Exam - Neck Exam Neck Exam: Normal Inspection - Respiratory Exam Respiratory Exam: Decreased Breath Sounds (at bases) - Cardiovascular Exam Cardiovascular Exam: REGULAR RHYTHM, Murmur - GI/Abdominal Exam GI & Abdominal Exam: Soft, Hernia, Normal Bowel Sounds - Back Exam Back Exam: NORMAL INSPECTION - Neurological Exam Neurological Exam: Awake Additional comments: confused, generalized weakness - Psychiatric Exam Additional comments: confused - Skin Skin Exam: Warm Assessment and Plan (1) Pneumonia Assessment & Plan: improved Status: Acute (2) Pleural effusion, left Assessment & Plan: improved Status: Acute (3) COPD exacerbation Assessment & Plan: improved Status: Resolved (4) CHF (congestive heart failure) Status: Chronic (5) Pulmonary HTN Status: Acute - Assessment and Plan (Free Text) Plan: for PEG tube, inside solar 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
--- NOTE | 2018-09-02 17:33 | RAD ---
Date of service: 09/02/2018 HISTORY: Pleural effusion COMPARISON: None available. FINDINGS: Likely diminishing right loculated pleural effusion with underlying airspace disease difficult to completely exclude the perihilar region. Increased opacity seen the left base reflecting pleural effusion and/or airspace disease. Right PICC unchanged in position. CARDIOVASCULAR: Calcific atherosclerotic changes are seen related to the thoracic aorta. Cardiomegaly is reiterated. No pulmonary vascular congestion. OSSEOUS STRUCTURES: No significant abnormalities. VISUALIZED UPPER ABDOMEN: Normal. OTHER FINDINGS: None. IMPRESSION: Increasing left basilar pleural effusion/airspace disease. Diminishing loculated right pleural effusion with underlying perihilar airspace disease not excluded. Stable cardiomegaly. No definite pulmonary vascular congestion.
--- NOTE | 2018-09-02 20:10 | PN ---
DATE: 09/02/2018 SUBJECTIVE: Today, the patient is still drowsy but easily arousable, was found to verbal stimuli with opened eyes, but the patient yesterday and today. The patient is in no apparent distress. PHYSICAL EXAMINATION VITAL SIGNS: Blood pressure 152/51, pulse 77, respirations 18, temperature 98.9. NECK: Supple. LUNGS: There are some rales at the bases but clearing up. HEART: Regular rate and rhythm. Positive murmur. ABDOMEN: Soft. There is a large epigastric hernia. Positive bowel sounds. EXTREMITIES: There is rash to the folds of the perineal area and the groin. LABORATORY DATA: Yesterday showed WBC 6.4, hemoglobin 10.2, hematocrit 31.9 and platelets 231. Chemistries showed that sodium is 146, potassium 4.2, chloride 108, BUN 42, creatinine 1.4, glucose 112. AST 57, ALT 109, alkaline phosphatase 111. PLAN: We are going to put a PEG. The patient is cleared by Dr. Rahul Herrera. The case was discussed with Dr. Christy of Pulmonary. The patient's family and daughter are at the bedside. We are going to repeat the blood work in the morning. Slim Marino MD
[2018-09-03 06:04] LABS: INR 1.6
[2018-09-03 06:07] LABS: PARTIAL THROMBOPLASTIN TIME 27.7 Seconds (25.6-37.1)
[2018-09-03 06:15] LABS: BASO # 0.1 K/uL (0.0-0.2); BASO % 1.2 % (0.0-2.0); EOS # 0.1 K/uL (0.0-0.7); EOS % 1.3 % (0.0-4.0); HEMOGLOBIN 10.5 g/dL (12.0-16.0); LYMPH % 14.3 % (20.0-40.0); MEAN CELL VOLUME 104.6 fl (81.0-99.0); MEAN CORPUSCULAR HEMOGLOBIN 33.7 pg (27.0-31.0); MEAN CORPUSCULAR HGB CONC 32.2 g/dL (33.0-37.0); MEAN PLATELET VOLUME 10.9 fl (7.2-11.7); MONO # 0.7 K/uL (0.0-0.8); MONO % 10.2 % (0.0-10.0); NEUT # 5.2 K/uL (1.8-7.0); NRBC % 2.4 % (0.0-0.0); RBC 3.11 Mil/uL (3.80-5.20); RED CELL DISTRIBUTION WIDTH 15.4 % (11.5-14.5); WHITE BLOOD COUNT 7.1 K/uL (4.8-10.8)
[2018-09-03 06:19] LABS: ALBUMIN 2.9 g/dL (3.5-5.0); CALCIUM 8.8 mg/dL (8.4-10.2)
[2018-09-03 06:20] LABS: ALB/GLOB RATIO 0.8 (1.0-2.1)
[2018-09-03] MEDS: Acetylcysteine 10% 4 ML IH SCH ×3 (07:38→19:28)
--- NOTE | 2018-09-03 08:32 | PN ---
DATE: 08/31/2018 SUBJECTIVE: Today, the patient is more alert and awake. The patient is able to speak a few words and smile. The patient is in no apparent distress. PHYSICAL EXAMINATION VITAL SIGNS: The patient has a blood pressure of 159/65, pulse 80, respirations 16, temperature 98.2. GENERAL: The patient is awake. NECK: Supple. LUNGS: He has some rales bilaterally. HEART: Regular rate and rhythm, but positive murmur. ABDOMEN: Soft. Positive epigastric hernia. No tenderness to the abdomen. EXTREMITIES: There is no edema. PLAN: The plan was to put the PEG; however, the daughter is some kind of reluctant because still the patient is eating 50% of the food, so we are going to order a calorie count to evaluate the patient's nutrition. In the meantime, we are going to continue and continue preliminary treatment with the help of daughter, and we are going to continue to monitor this patient on telemetry. Slim Marino MD
--- NOTE | 2018-09-03 08:34 | PN ---
DATE: 09/01/2018 SUBJECTIVE: Today, the patient is somewhat sleepy but easily arousable. No shortness of breath, no chest pain, no dizziness. No apparent respiratory distress. PHYSICAL EXAMINATION: VITAL SIGNS: The patient has a blood pressure today of 186/68 before taking medications, pulse 87, respirations 18, temperature 98.5. NECK: Supple. LUNGS: Rales bilaterally. HEART: Regular rate and rhythm. Positive murmur. ABDOMEN: Soft. Nontender. Positive epigastric hernia. EXTREMITIES: There is no edema. LABORATORY DATA: The labs that was done showed that WBC of 6.4, hemoglobin 10.3, hematocrit 31.9, and platelets 231. Chemistry showed that the sodium 146, potassium 4.2, chloride 108, bicarb is 42, creatinine 1.4 and glucose 112. PLAN: The plan is that we are going to continue current medications and continue calorie counts consider to have a PEG if the patient does not get adequate calories. Case was reviewed with the nurse. Slim Marino MD
[2018-09-03] MEDS: levETIRAcetam 100 mg/ml (5ml) Oral Syringe PO SCH ×2 (09:44→17:04)
[2018-09-03] MEDS: Ferrous Sulfate 300 mg/5 mL Liq UD PO SCH (09:44)
[2018-09-03] MEDS: Multi Vitamins 15 mL UD Oral Solution PO SCH (09:45)
[2018-09-03] MEDS: Insulin Lispro (humaLOG) 100 Units/ml Inj SC SCH ×3 (11:55→21:43)
[2018-09-03] MEDS ORDERED: Sodium Chloride 0.9% 250 ML IV ONE (12:40)
[2018-09-03] MEDS ORDERED: Lactated Ringer's 500 ML IV ONE (12:40)
--- NOTE | 2018-09-03 12:43 | CP.PCM.PN ---
Subjective - Date & Time of Evaluation Date of Evaluation: 09/03/18 Time of Evaluation: 10:30 - Subjective Subjective: eyes open, non verbal, not following commands Objective - Vital Signs/Intake and Output Vital Signs (last 24 hours): Temp Pulse Resp BP Pulse Ox 97.8 F 77 20 168/48 H 99 09/03/18 12:13 09/03/18 12:13 09/03/18 12:13 09/03/18 12:13 09/03/18 12:13 Intake and Output: 09/03/18 09/03/18 06:59 18:59 Intake Total 250 Output Total 250 Balance 0 - Medications Medications: Current Medications Acetaminophen (Tylenol 325mg Tab) 650 mg PO Q4 PRN PRN Reason: Pain, moderate (4-7) Acetylcysteine (Mucomyst 10% 4ml) 3 ml IH RTID [facility] Last Admin: 09/03/18 07:38 Dose: 3 ml Albuterol/Ipratropium (Duoneb 3 Mg/0.5 Mg (3 Ml) Ud) 3 ml INH RQ4 PRN PRN Reason: Shortness of Breath Last Admin: 09/02/18 13:02 Dose: 3 ml Aspirin (Aspirin Chewable) 81 mg PO DAILY [facility] Last Admin: 09/03/18 09:44 Dose: Not Given Atorvastatin Calcium (Lipitor) 20 mg PO DAILY [facility] Last Admin: 09/03/18 09:45 Dose: Not Given Carvedilol (Coreg) 3.125 mg PO Q12 [facility] Last Admin: 09/03/18 09:44 Dose: Not Given Docusate Sodium (Colace Liquid) 100 mg PO TID [facility] Last Admin: 09/03/18 09:44 Dose: Not Given Famotidine (Pepcid) 20 mg PO DAILY [facility] Last Admin: 09/03/18 09:45 Dose: Not Given Ferrous Sulfate (Feosol Liq) 300 mg PO DAILY [facility] Last Admin: 09/03/18 09:44 Dose: Not Given Folic Acid (Folic Acid) 1 mg PO DAILY [facility] Last Admin: 09/03/18 09:44 Dose: Not Given Guaifenesin/Dextromethorphan (Robitussin Dm) 5 ml PO Q6 PRN PRN Reason: Cough Hydralazine HCl (Apresoline) 10 mg IV Q6 PRN PRN Reason: SBP more than 150 Last Admin: 09/03/18 09:50 Dose: 10 mg Hydralazine HCl (Apresoline) 25 mg PO BID [facility] Last Admin: 09/03/18 09:51 Dose: Not Given Cefazolin Sodium/Dextrose (Ancef Iv 1 Gm Duplex) 1 gm in 50 mls @ 50 mls/hr IVPB ONCE ONE; Protocol Stop: 09/03/18 15:15 Dextrose/Sodium Chloride (Dextrose 5%-0.45% Ns 500 Ml) 500 mls @ 60 mls/hr IV .Q8H20M [facility] Stop: 09/04/18 12:07 Insulin Human Lispro (Humalog) 0 units SC ACHS [facility]; Protocol Last Admin: 09/03/18 11:55 Dose: Not Given Levetiracetam (Keppra) 500 mg PO BID [facility] Last Admin: 09/03/18 09:44 Dose: Not Given Montelukast Sodium (Singulair) 10 mg PO HS [facility] Last Admin: 09/02/18 22:11 Dose: 10 mg Multivitamins/Vitamin C (Multi-Delyn Liquid) 15 ml PO DAILY [facility] Last Admin: 09/03/18 09:45 Dose: Not Given - Labs Labs: 09/03/18 04:30 09/03/18 04:30 PT 18.0 Seconds (9.8-13.1) H 09/03/18 04:30 INR 1.6 09/03/18 04:30 APTT 27.7 Seconds (25.6-37.1) 09/03/18 04:30 - Constitutional Appears: Chronically Ill - Head Exam Head Exam: NORMAL INSPECTION - Eye Exam Eye Exam: PERRL - ENT Exam ENT Exam: Normal Exam - Neck Exam Neck Exam: Normal Inspection - Respiratory Exam Respiratory Exam: Decreased Breath Sounds (at bases) - Cardiovascular Exam Cardiovascular Exam: REGULAR RHYTHM, Murmur - GI/Abdominal Exam GI & Abdominal Exam: Soft, Hernia (reducible), Normal Bowel Sounds - Back Exam Back Exam: NORMAL INSPECTION - Neurological Exam Neurological Exam: Awake, CN II-XII Intact Additional comments: Confused, generalized weakness - Skin Skin Exam: Warm Assessment and Plan (1) Pneumonia Assessment & Plan: improved Status: Acute (2) Pleural effusion, left Assessment & Plan: improved Status: Acute (3) COPD exacerbation Status: Resolved (4) CHF (congestive heart failure) Status: Chronic (5) Pulmonary HTN Status: Acute - Assessment and Plan (Free Text) Plan: CXR today, for PEG tube today, continue rest of treatment
[2018-09-03] MEDS ORDERED: Etomidate 20 mg/10ml Inj IV ONE (13:07)
[2018-09-03] MEDS ORDERED: ceFAZolin IV 1 gm in Dextrose 1 GM/50 ML BAG IVPB ONE (14:16)
[2018-09-03] MEDS: Bacitracin OINT 15GM TOP SCH (17:07)
[2018-09-03] MEDS: Albuterol-Ipratrop 3 mg / 0.5 (3 ml) UD INH PRN (19:28)
--- NOTE | 2018-09-03 19:29 | OP ---
PROCEDURE DATE: 09/03/2018 This is an unfortunate 82-year-old woman who required percutaneous endoscopic gastrostomy tube insertion for malnutrition and dysphagia. After obtaining informed consent by phone from her daughter and which was documented, I explained to the daughter all the risks and benefits of the PEG, including the risk of perforation, of bleeding, of infection, and even of . She was placed in a supine position and using the Olympus gastroscope, the endoscopy was performed. We did have Anesthesia at the bedside, Dr. Toledo of Anesthesia. Scope was done and a complete upper endoscopy was performed, first passing the scope all the way down to third portion of the duodenum which was unremarkable. Upon withdrawal back into the stomach, she did have a mild degree of gastritis. On retroflexion, a small hiatal hernia was noted. I did identify along the greater curvature of the stomach an appropriate spot for PEG insertion and using the usual pull technique and sterile technique, a PEG was inserted with a tract of about 2.5 cm. She tolerated the procedure very well. Great care was taken to avoid a very large ventral hernia that was there, that she has anatomically; however, I feel that I was very careful in avoiding that area. The PEG looked like it was placed in good position. She tolerated the procedure well. Postop orders were written. We will start the feedings tomorrow and we will follow along with you. Jered Carney MD
--- NOTE | 2018-09-03 23:40 | PN ---
DATE: 09/03/2018 SUBJECTIVE: The patient was seen earlier this morning. The patient was somewhat weak, opened eyes with verbal stimuli, but in no apparent residual distress. PHYSICAL EXAMINATION: VITAL SIGNS: The patient has a blood pressure of 171/52, pulse of 78, respirations 18, temperature 97.9. NECK: Supple. LUNGS: Poor respiratory effort, but there are some rales bilaterally at the bases. HEART: Regular rate and rhythm, but there is a positive murmur. ABDOMEN: Soft. Positive bowel sounds. Positive epigastric hernia. EXTREMITIES: There is no edema. LABORATORY DATA: Labs done on this patient showed WBC is 7.1, hemoglobin 10.5, hematocrit 32.6, and platelets 225. The chemistry showed that the sodium is 146, potassium 4.5, 31, BUN 38, creatinine 1.4, and glucose 172. ASSESSMENT AND PLAN: The plan is that the patient is going to have a percutaneous endoscopic gastrostomy today which this evening. The case was discussed with Dr. Christy, the Pulmonary. The plan is that again we are going to continue antibiotic therapy and start feeding via the percutaneous endoscopic gastrostomy. Labs will be ordered tomorrow. Slim Marino MD
[2018-09-04 06:10] LABS: BASO # 0.1 K/uL (0.0-0.2); BASO % 1.4 % (0.0-2.0); EOS # 0.1 K/uL (0.0-0.7); EOS % 0.8 % (0.0-4.0); HEMOGLOBIN 10.5 g/dL (12.0-16.0); LYMPH % 12.5 % (20.0-40.0); MEAN CELL VOLUME 105.2 fl (81.0-99.0); MEAN CORPUSCULAR HEMOGLOBIN 33.3 pg (27.0-31.0); MEAN CORPUSCULAR HGB CONC 31.7 g/dL (33.0-37.0); MEAN PLATELET VOLUME 10.8 fl (7.2-11.7); MONO # 0.7 K/uL (0.0-0.8); MONO % 8.9 % (0.0-10.0); NEUT # 6.2 K/uL (1.8-7.0); NEUT % 76.4 % (50.0-75.0); NRBC % 2.5 % (0.0-0.0); RBC 3.16 Mil/uL (3.80-5.20); RED CELL DISTRIBUTION WIDTH 15.6 % (11.5-14.5); WHITE BLOOD COUNT 8.1 K/uL (4.8-10.8)
[2018-09-04 06:39] LABS: ALB/GLOB RATIO 0.8 (1.0-2.1); ALBUMIN 2.9 g/dL (3.5-5.0); CALCIUM 8.9 mg/dL (8.4-10.2)
[2018-09-04] MEDS: Insulin Lispro (humaLOG) 100 Units/ml Inj SC SCH ×5 (07:01→22:15)
[2018-09-04] MEDS: Albuterol-Ipratrop 3 mg / 0.5 (3 ml) UD INH PRN ×3 (07:47→19:21)
[2018-09-04] MEDS: Acetylcysteine 10% 4 ML IH SCH ×3 (07:47→19:21)
[2018-09-04] MEDS: guaiFENesin DM 100 mg-10 mg/5 ml UD PO PRN ×2 (10:21→21:28)
[2018-09-04] MEDS: Bacitracin OINT 15GM TOP SCH (10:21)
[2018-09-04] MEDS: Multi Vitamins 15 mL UD Oral Solution PO SCH (10:22)
[2018-09-04] MEDS: Ferrous Sulfate 300 mg/5 mL Liq UD PO SCH (10:23)
[2018-09-04] MEDS: levETIRAcetam 100 mg/ml (5ml) Oral Syringe PO SCH ×2 (10:24→17:46)
--- NOTE | 2018-09-04 12:59 | RAD ---
Date of service: 09/04/2018 HISTORY: congestion COMPARISON: 08/23/2018 FINDINGS: LUNGS: The right lung is well inflated and clear. There is interval complete opacification of the left hemithorax PLEURA: No pleural effusions or pneumothorax. CARDIOVASCULAR: Cannot be evaluated due to opaque left hemithorax. There are advanced atherosclerotic aortic calcifications. OSSEOUS STRUCTURES: Within normal limits for the patient's age. VISUALIZED UPPER ABDOMEN: Normal. OTHER FINDINGS: None. IMPRESSION: Interval near complete opacification of the left hemithorax likely related to lung collapse in the absence of mediastinal shift.
--- NOTE | 2018-09-04 13:05 | CP.PCM.PN ---
Subjective - Date & Time of Evaluation Date of Evaluation: 09/04/18 Time of Evaluation: 10:20 - Subjective Subjective: F/u PNA, L Plural effusion. eyes open,no AD, non verbal, not following commands Objective - Vital Signs/Intake and Output Vital Signs (last 24 hours): Temp Pulse Resp BP Pulse Ox 97.8 F 85 20 177/55 H 100 09/04/18 12:45 09/04/18 12:45 09/04/18 12:45 09/04/18 12:45 09/04/18 12:45 - Medications Medications: Current Medications Acetaminophen (Tylenol 325mg Tab) 650 mg PO Q4 PRN PRN Reason: Pain, moderate (4-7) Acetylcysteine (Mucomyst 10% 4ml) 3 ml IH RTID [facility] Last Admin: 09/04/18 07:47 Dose: 3 ml Albuterol/Ipratropium (Duoneb 3 Mg/0.5 Mg (3 Ml) Ud) 3 ml INH RQ4 PRN PRN Reason: Shortness of Breath Last Admin: 09/04/18 07:47 Dose: 3 ml Aspirin (Aspirin Chewable) 81 mg PO DAILY [facility] Last Admin: 09/04/18 10:21 Dose: 81 mg Atorvastatin Calcium (Lipitor) 20 mg PO DAILY [facility] Last Admin: 09/04/18 10:22 Dose: 20 mg Bacitracin (Bacitracin Oint) 1 applic TOP BID [facility] Last Admin: 09/04/18 10:21 Dose: 1 applic Carvedilol (Coreg) 3.125 mg PO Q12 [facility] Last Admin: 09/04/18 10:23 Dose: 3.125 mg Docusate Sodium (Colace Liquid) 100 mg PO TID [facility] Last Admin: 09/04/18 10:24 Dose: 100 mg Famotidine (Pepcid) 20 mg PO DAILY [facility] Last Admin: 09/04/18 10:22 Dose: 20 mg Ferrous Sulfate (Feosol Liq) 300 mg PO DAILY [facility] Last Admin: 09/04/18 10:23 Dose: 300 mg Folic Acid (Folic Acid) 1 mg PO DAILY [facility] Last Admin: 09/04/18 10:22 Dose: 1 mg Guaifenesin/Dextromethorphan (Robitussin Dm) 5 ml PO Q6 PRN PRN Reason: Cough Last Admin: 09/04/18 10:21 Dose: 5 ml Hydralazine HCl (Apresoline) 10 mg IV Q6 PRN PRN Reason: SBP more than 150 Last Admin: 09/04/18 06:14 Dose: 10 mg Hydralazine HCl (Apresoline) 25 mg PO BID [facility] Last Admin: 09/04/18 10:20 Dose: 25 mg Insulin Human Lispro (Humalog) 0 units SC ACHS [facility]; Protocol Last Admin: 09/04/18 10:23 Dose: Not Given Levetiracetam (Keppra) 500 mg PO BID [facility] Last Admin: 09/04/18 10:24 Dose: 500 mg Montelukast Sodium (Singulair) 10 mg PO HS [facility] Last Admin: 09/03/18 21:47 Dose: Not Given Multivitamins/Vitamin C (Multi-Delyn Liquid) 15 ml PO DAILY [facility] Last Admin: 09/04/18 10:22 Dose: 15 ml - Labs Labs: 09/04/18 06:00 09/04/18 06:00 PT 18.0 Seconds (9.8-13.1) H 09/03/18 04:30 INR 1.6 09/03/18 04:30 APTT 27.7 Seconds (25.6-37.1) 09/03/18 04:30 - Constitutional Appears: Chronically Ill - Head Exam Head Exam: NORMAL INSPECTION - Eye Exam Eye Exam: PERRL (L eye) Pupil Exam: Irregular (pupil on R eye) - ENT Exam ENT Exam: Normal Exam - Neck Exam Neck Exam: Normal Inspection - Respiratory Exam Respiratory Exam: Decreased Breath Sounds (Left lung field, R base) - Cardiovascular Exam Cardiovascular Exam: REGULAR RHYTHM, Murmur (2/6 LSB) - GI/Abdominal Exam GI & Abdominal Exam: Soft, Hernia (reducible), Normal Bowel Sounds - Extremities Exam Extremities Exam: Normal Inspection - Neurological Exam Neurological Exam: Awake, CN II-XII Intact Additional comments: eyes open,not followng commands, generalized weakness. - Skin Skin Exam: Warm Assessment and Plan (1) Pneumonia Status: Acute (2) Pleural effusion, left Assessment & Plan: improved Status: Acute (3) COPD exacerbation Assessment & Plan: improved Status: Resolved (4) Collapse of left lung Assessment & Plan: CXR today, f/u CT Chest Status: Acute (5) CHF (congestive heart failure) Status: Chronic (6) Pulmonary HTN Status: Acute - Assessment and Plan (Free Text) Plan: CXR collapse L lung, CT Chest to asses L lung field for FOB
--- NOTE | 2018-09-04 16:47 | CT ---
Date of service: 09/04/2018 PROCEDURE: CT Chest without contrast HISTORY: compare to cxr COMPARISON: 08/28/2018 TECHNIQUE: Contiguous axial images were obtained through the chest without intravenous contrast enhancement. Sagittal and coronal reconstructions were performed. Radiation dose (DLP): 402.31 mGy-cm. This CT exam was performed using one or more of the following dose reduction techniques: Automated exposure control, adjustment of the mA and/or kV according to patient size, and/or use of iterative reconstruction technique. FINDINGS: LUNGS: Complete atelectasis of left lung. There is soft tissue density material in the left mainstem bronchus extending into the left lower lobe bronchus and lingular bronchus. Possible mucous plug. Left-sided volume loss. Mild shift of the heart and mediastinum towards the left side. No right-sided pulmonary infiltrate. Minimal subsegmental atelectasis in right lower lobe. 5 mm nodule in right lung apex for which no follow-up is advised as per Fleischner society criteria. MEDIASTINUM: Extensive atherosclerotic calcification of the thoracic aorta. No aneurysmal dilatation. Cardiomegaly. Coronary arterial calcification. A right PICC catheter is noted terminating in the superior vena cava. Dilation of main pulmonary artery up to 3.8 cm diameter. This may be associated with pulmonary arterial hypertension. No lymphadenopathy. PLEURA: Moderate left pleural effusion. There is very small right pleural effusion. There is fluid seen within the right major fissure. These findings are unchanged when compared to the prior examination. BONES: No fracture. No destructive lesion. UPPER ABDOMEN: Grossly unremarkable. OTHER FINDINGS: None. IMPRESSION: Complete atelectasis of left lung. Soft tissue density in left mainstem bronchus, left lower lobe and lingular bronchi, possibly representing mucous plug. Left pleural effusion. Small right pleural effusion with fluid in right major fissure. Marked cardiomegaly. Marked dilatation of main pulmonary artery.
[2018-09-05] MEDS: Albuterol-Ipratrop 3 mg / 0.5 (3 ml) UD INH PRN ×2 (00:17→13:03)
[2018-09-05] MEDS: Albuterol-Ipratrop 3 mg / 0.5 (3 ml) UD INH SCH ×6 (04:22→23:44)
[2018-09-05 05:26] LABS: HEMOGLOBIN 10.4 g/dL (12.0-16.0); MEAN CELL VOLUME 105.9 fl (81.0-99.0); MEAN CORPUSCULAR HEMOGLOBIN 33.3 pg (27.0-31.0); MEAN CORPUSCULAR HGB CONC 31.5 g/dL (33.0-37.0); RBC 3.11 Mil/uL (3.80-5.20); RED CELL DISTRIBUTION WIDTH 16.1 % (11.5-14.5); WHITE BLOOD COUNT 8.9 K/uL (4.8-10.8)
[2018-09-05 05:45] LABS: CALCIUM 8.9 mg/dL (8.4-10.2)
[2018-09-05] MEDS: Insulin Lispro (humaLOG) 100 Units/ml Inj SC SCH ×4 (06:40→21:37)
[2018-09-05] MEDS: Acetylcysteine 10% 4 ML IH SCH ×3 (07:22→19:36)
--- NOTE | 2018-09-05 08:12 | PN ---
Joya,ATE: 09/04/2018 SUBJECTIVE: Today, the patient is still weak, opens eyes only to verbal stimuli. No shortness of breath apparently. The patient has PEG inserted yesterday. PHYSICAL EXAMINATION: VITAL SIGNS: The patient has blood pressure of 169/62, pulse 81, respirations 16, and temperature 98.2. NECK: Supple. LUNGS: Some rales bilaterally. HEART: Regular rate and rhythm without murmur. ABDOMEN: Soft. There is PEG present. EXTREMITIES: There is no edema. LABORATORY DATA: The patient's blood work showed WBC 8.1, hemoglobin 10.5, hematocrit 33.2, and platelets 234. Her chemistry showed sodium 145, potassium 4.4, chloride 110, bicarb 29, BUN 38, creatinine 1.3, glucose 182, calcium 8.9, 2.5, total bilirubin 0.5. PLAN: Feeding the patient via NG tube, and we are going to continue the current medication. Slim Marino MD
[2018-09-05] MEDS: Multi Vitamins 15 mL UD Oral Solution PO SCH (08:34)
[2018-09-05] MEDS: Ferrous Sulfate 300 mg/5 mL Liq UD PO SCH (08:34)
[2018-09-05] MEDS: levETIRAcetam 100 mg/ml (5ml) Oral Syringe PO SCH ×2 (08:34→17:29)
[2018-09-05] MEDS: Bacitracin OINT 15GM TOP SCH ×2 (08:35→17:29)
[2018-09-05 11:29] LABS: INR 1.5; PROTHROMBIN TIME 17.6 Seconds (9.8-13.1)
--- NOTE | 2018-09-05 11:57 | CP.PCM.PN ---
Subjective - Date & Time of Evaluation Date of Evaluation: 09/05/18 Time of Evaluation: 11:00 - Subjective Subjective: F/U PNA, Pleural effusion no A/D, eyes open, follows with eyes verbal stimulation, non verbal Objective - Vital Signs/Intake and Output Vital Signs (last 24 hours): Temp Pulse Resp BP Pulse Ox 97.4 F L 80 18 158/52 H 95 09/05/18 11:53 09/05/18 11:53 09/05/18 11:53 09/05/18 11:53 09/05/18 11:53 - Medications Medications: Current Medications Acetaminophen (Tylenol 325mg Tab) 650 mg PO Q4 PRN PRN Reason: Pain, moderate (4-7) Acetylcysteine (Mucomyst 10% 4ml) 3 ml IH RTID ON LICENSE OF [facility] Last Admin: 09/05/18 07:22 Dose: 3 ml Albuterol/Ipratropium (Duoneb 3 Mg/0.5 Mg (3 Ml) Ud) 3 ml INH RQ4 PRN PRN Reason: Shortness of Breath Last Admin: 09/05/18 00:17 Dose: 3 ml Albuterol/Ipratropium (Duoneb 3 Mg/0.5 Mg (3 Ml) Ud) 3 ml INH RQ4 ON [facility] Last Admin: 09/05/18 11:04 Dose: 3 ml Aspirin (Aspirin Chewable) 81 mg PO DAILY [facility] Last Admin: 09/05/18 08:35 Dose: Not Given Atorvastatin Calcium (Lipitor) 20 mg PO DAILY [facility] Last Admin: 09/04/18 10:22 Dose: 20 mg Bacitracin (Bacitracin Oint) 1 applic TOP BID ON [facility] Last Admin: 09/05/18 08:35 Dose: 1 applic Carvedilol (Coreg) 3.125 mg PO Q12 ON [facility] OF [facility] Last Admin: 09/05/18 08:34 Dose: Not Given Docusate Sodium (Colace Liquid) 100 mg PO TID ON [facility] Last Admin: 09/05/18 08:35 Dose: Not Given Famotidine (Pepcid) 20 mg PO DAILY [facility] Last Admin: 09/05/18 08:34 Dose: Not Given Ferrous Sulfate (Feosol Liq) 300 mg PO DAILY [facility] Last Admin: 09/05/18 08:34 Dose: Not Given Folic Acid (Folic Acid) 1 mg PO DAILY [facility] Last Admin: 09/05/18 08:34 Dose: Not Given Guaifenesin/Dextromethorphan (Robitussin Dm) 5 ml PO Q6 PRN PRN Reason: Cough Last Admin: 09/04/18 21:28 Dose: 5 ml Hydralazine HCl (Apresoline) 10 mg IV Q6 PRN PRN Reason: SBP more than 150 Last Admin: 09/04/18 06:14 Dose: 10 mg Hydralazine HCl (Apresoline) 25 mg PO BID [facility] Last Admin: 09/05/18 08:34 Dose: Not Given Ceftriaxone Sodium 1 gm/ (Sodium Chloride) 100 mls @ 100 mls/hr IVPB DAILY [facility]; Protocol Last Admin: 09/05/18 08:29 Dose: 100 mls/hr Insulin Human Lispro (Humalog) 0 units SC ACHS [facility]; Protocol Last Admin: 09/05/18 06:40 Dose: Not Given Levetiracetam (Keppra) 500 mg PO BID [facility] Last Admin: 09/05/18 08:34 Dose: Not Given Montelukast Sodium (Singulair) 10 mg PO HS [facility] Last Admin: 09/04/18 21:27 Dose: 10 mg Multivitamins/Vitamin C (Multi-Delyn Liquid) 15 ml PO DAILY [facility] Last Admin: 09/05/18 08:34 Dose: Not Given - Labs Labs: 09/05/18 04:25 09/05/18 04:25 PT 17.6 Seconds (9.8-13.1) H 09/05/18 11:00 INR 1.5 09/05/18 11:00 APTT 27.7 Seconds (25.6-37.1) 09/03/18 04:30 - Constitutional Appears: Chronically Ill - Head Exam Head Exam: NORMAL INSPECTION - Eye Exam Eye Exam: PERRL - ENT Exam ENT Exam: Normal Exam - Neck Exam Neck Exam: Normal Inspection - Respiratory Exam Respiratory Exam: Decreased Breath Sounds (Left Lung , decreased BS R base, few scattered rhonchi ), Clear to Ausculation Bilateral - Cardiovascular Exam Cardiovascular Exam: REGULAR RHYTHM, Murmur - GI/Abdominal Exam GI & Abdominal Exam: Soft, Hernia, Normal Bowel Sounds - Back Exam Back Exam: NORMAL INSPECTION - Neurological Exam Additional comments: eyes open , generaslized weakness, not following commands - Skin Skin Exam: Warm Assessment and Plan (1) Pneumonia Status: Acute (2) Pleural effusion, left Status: Resolved (3) COPD exacerbation Status: Resolved (4) Collapse of left lung Status: Resolved (5) CHF (congestive heart failure) Status: Chronic (6) Pulmonary HTN Status: Chronic - Assessment and Plan (Free Text) Plan: CXR today collapse L lung, no change from previous CT Chest yesterday, to have Bronchoscopy today
--- NOTE | 2018-09-05 13:22 | RAD ---
Date of service: 09/05/2018 HISTORY: CHF, Pneumonia COMPARISON: 09/04/2018. FINDINGS: LUNGS: There is airspace disease in the right perihilar region. No change in complete opacification of the left hemithorax. PLEURA: No pleural effusions or pneumothorax. CARDIOVASCULAR: The heart is normal in size. Advanced aortic atherosclerotic calcifications present. OSSEOUS STRUCTURES: Within normal limits for the patient's age. VISUALIZED UPPER ABDOMEN: Normal. OTHER FINDINGS: None. IMPRESSION: No significant interval change. Persistent complete opacification of the left hemithorax which could be related to collapse/effusion. Airspace disease in the right perihilar region which may represent pneumonia. Follow-up is advised.
--- NOTE | 2018-09-05 13:42 | CP.PCM.PN ---
Subjective - Date & Time of Evaluation Date of Evaluation: 09/05/18 Time of Evaluation: 09:00 - Subjective Subjective: awake alert afebrile s/p PEG Objective - Vital Signs/Intake and Output Vital Signs (last 24 hours): Temp Pulse Resp BP Pulse Ox 97.4 F L 80 18 158/52 H 95 09/05/18 11:53 09/05/18 12:07 09/05/18 11:53 09/05/18 12:07 09/05/18 11:53 - Medications Medications: Current Medications Acetaminophen (Tylenol 325mg Tab) 650 mg PO Q4 PRN PRN Reason: Pain, moderate (4-7) Acetylcysteine (Mucomyst 10% 4ml) 3 ml IH RTID [facility] Last Admin: 09/05/18 13:03 Dose: 3 ml Albuterol/Ipratropium (Duoneb 3 Mg/0.5 Mg (3 Ml) Ud) 3 ml INH RQ4 PRN PRN Reason: Shortness of Breath Last Admin: 09/05/18 13:03 Dose: 3 ml Albuterol/Ipratropium (Duoneb 3 Mg/0.5 Mg (3 Ml) Ud) 3 ml INH RQ4 [facility] Last Admin: 09/05/18 11:04 Dose: 3 ml Aspirin (Aspirin Chewable) 81 mg PO DAILY [facility] Last Admin: 09/05/18 08:35 Dose: Not Given Atorvastatin Calcium (Lipitor) 20 mg PO DAILY [facility] Last Admin: 09/05/18 12:01 Dose: Not Given Bacitracin (Bacitracin Oint) 1 applic TOP BID [facility] Last Admin: 09/05/18 08:35 Dose: 1 applic Carvedilol (Coreg) 3.125 mg PO Q12 [facility] Last Admin: 09/05/18 08:34 Dose: Not Given Docusate Sodium (Colace Liquid) 100 mg PO TID [facility] Last Admin: 09/05/18 12:08 Dose: Not Given Famotidine (Pepcid) 20 mg PO DAILY [facility] Last Admin: 09/05/18 08:34 Dose: Not Given Ferrous Sulfate (Feosol Liq) 300 mg PO DAILY [facility] Last Admin: 09/05/18 08:34 Dose: Not Given Folic Acid (Folic Acid) 1 mg PO DAILY [facility] Last Admin: 09/05/18 08:34 Dose: Not Given Guaifenesin/Dextromethorphan (Robitussin Dm) 5 ml PO Q6 PRN PRN Reason: Cough Last Admin: 09/04/18 21:28 Dose: 5 ml Hydralazine HCl (Apresoline) 10 mg IV Q6 PRN PRN Reason: SBP more than 150 Last Admin: 09/05/18 12:07 Dose: 10 mg Hydralazine HCl (Apresoline) 25 mg PO BID [facility] Last Admin: 09/05/18 08:34 Dose: Not Given Ceftriaxone Sodium 1 gm/ (Sodium Chloride) 100 mls @ 100 mls/hr IVPB DAILY [facility]; Protocol Last Admin: 09/05/18 08:29 Dose: 100 mls/hr Insulin Human Lispro (Humalog) 0 units SC ACHS [facility]; Protocol Last Admin: 09/05/18 12:12 Dose: Not Given Levetiracetam (Keppra) 500 mg PO BID [facility] Last Admin: 09/05/18 08:34 Dose: Not Given Montelukast Sodium (Singulair) 10 mg PO HS [facility] Last Admin: 09/04/18 21:27 Dose: 10 mg Multivitamins/Vitamin C (Multi-Delyn Liquid) 15 ml PO DAILY [facility] Last Admin: 09/05/18 08:34 Dose: Not Given - Labs Labs: 09/05/18 04:25 09/05/18 04:25 PT 17.6 Seconds (9.8-13.1) H 09/05/18 11:00 INR 1.5 09/05/18 11:00 APTT 27.7 Seconds (25.6-37.1) 09/03/18 04:30 - Constitutional Appears: Non-toxic, Cachectic, Chronically Ill - Head Exam Head Exam: NORMOCEPHALIC - Eye Exam Eye Exam: absent: Scleral icterus - ENT Exam ENT Exam: Mucous Membranes Dry - Neck Exam Neck Exam: absent: Lymphadenopathy - Respiratory Exam Respiratory Exam: Decreased Breath Sounds - Cardiovascular Exam Cardiovascular Exam: REGULAR RHYTHM - GI/Abdominal Exam GI & Abdominal Exam: Distended, Soft - Rectal Exam Rectal Exam: Deferred - Exam Exam: NORMAL INSPECTION - Extremities Exam Extremities Exam: Pedal Edema - Back Exam Back Exam: absent: CVA tenderness (L), CVA tenderness (R) - Neurological Exam Neurological Exam: Altered Assessment and Plan (1) CHF (congestive heart failure) Status: Chronic (2) Dehydration Status: Acute (3) Pneumonia Status: Acute (4) UTI (urinary tract infection) Status: Acute (5) CVA (cerebral vascular accident) Status: Acute - Assessment and Plan (Free Text) Assessment: consider d/c antibiotics
[2018-09-05] MEDS ORDERED: Lidocaine 1% Inj (20ml) ONE (14:03)
[2018-09-05] MEDS ORDERED: EPINEPHrine 1 mg/ml (1:1000) Inj ONE (14:03)
[2018-09-05] MEDS ORDERED: Lidocaine 2% Jelly (5 ml) TOP ONE ×2 (14:04→15:58)
--- NOTE | 2018-09-05 14:25 | CP.PCM.PN ---
Subjective - Date & Time of Evaluation Date of Evaluation: 09/05/18 Time of Evaluation: 14:23 - Subjective Subjective: clinically stable tolerating feeds via PEG PE: vss afebrile abd - soft with + BS PEG site clean/dry without discharge or erythema imp/plan : continue with PEG care as ordered advance feeds to desired rate f/u PRN Objective - Vital Signs/Intake and Output Vital Signs (last 24 hours): Temp Pulse Resp BP Pulse Ox 97.4 F L 80 18 158/52 H 95 09/05/18 11:53 09/05/18 12:07 09/05/18 11:53 09/05/18 12:07 09/05/18 11:53 - Medications Medications: Current Medications Acetaminophen (Tylenol 325mg Tab) 650 mg PO Q4 PRN PRN Reason: Pain, moderate (4-7) Acetylcysteine (Mucomyst 10% 4ml) 3 ml IH RTID [facility] Last Admin: 09/05/18 13:03 Dose: 3 ml Albuterol/Ipratropium (Duoneb 3 Mg/0.5 Mg (3 Ml) Ud) 3 ml INH RQ4 PRN PRN Reason: Shortness of Breath Last Admin: 09/05/18 13:03 Dose: 3 ml Albuterol/Ipratropium (Duoneb 3 Mg/0.5 Mg (3 Ml) Ud) 3 ml INH RQ4 [facility] Last Admin: 09/05/18 11:04 Dose: 3 ml Aspirin (Aspirin Chewable) 81 mg PO DAILY [facility] Last Admin: 09/05/18 08:35 Dose: Not Given Atorvastatin Calcium (Lipitor) 20 mg PO DAILY [facility] Last Admin: 09/05/18 12:01 Dose: Not Given Bacitracin (Bacitracin Oint) 1 applic TOP BID [facility] Last Admin: 09/05/18 08:35 Dose: 1 applic Carvedilol (Coreg) 3.125 mg PO Q12 [facility] Last Admin: 09/05/18 08:34 Dose: Not Given Docusate Sodium (Colace Liquid) 100 mg PO TID [facility] Last Admin: 09/05/18 12:08 Dose: Not Given Famotidine (Pepcid) 20 mg PO DAILY [facility] Last Admin: 09/05/18 08:34 Dose: Not Given Ferrous Sulfate (Feosol Liq) 300 mg PO DAILY [facility] Last Admin: 09/05/18 08:34 Dose: Not Given Folic Acid (Folic Acid) 1 mg PO DAILY [facility] Last Admin: 09/05/18 08:34 Dose: Not Given Guaifenesin/Dextromethorphan (Robitussin Dm) 5 ml PO Q6 PRN PRN Reason: Cough Last Admin: 09/04/18 21:28 Dose: 5 ml Hydralazine HCl (Apresoline) 10 mg IV Q6 PRN PRN Reason: SBP more than 150 Last Admin: 09/05/18 12:07 Dose: 10 mg Hydralazine HCl (Apresoline) 25 mg PO BID [facility] Last Admin: 09/05/18 08:34 Dose: Not Given Ceftriaxone Sodium 1 gm/ (Sodium Chloride) 100 mls @ 100 mls/hr IVPB DAILY [facility]; Protocol Last Admin: 09/05/18 08:29 Dose: 100 mls/hr Insulin Human Lispro (Humalog) 0 units SC ACHS [facility]; Protocol Last Admin: 09/05/18 12:12 Dose: Not Given Levetiracetam (Keppra) 500 mg PO BID [facility] Last Admin: 09/05/18 08:34 Dose: Not Given Montelukast Sodium (Singulair) 10 mg PO HS [facility] Last Admin: 09/04/18 21:27 Dose: 10 mg Multivitamins/Vitamin C (Multi-Delyn Liquid) 15 ml PO DAILY [facility] Last Admin: 09/05/18 08:34 Dose: Not Given - Labs Labs: 09/05/18 04:25 09/05/18 04:25 PT 17.6 Seconds (9.8-13.1) H 09/05/18 11:00 INR 1.5 09/05/18 11:00 APTT 27.7 Seconds (25.6-37.1) 09/03/18 04:30
[2018-09-05] MEDS ORDERED: Sodium Chloride 0.9% 500 ML IV ONE (15:50)
[2018-09-05] MEDS ORDERED: Midazolam 2 MG/2 ML VIAL ONE (15:51)
[2018-09-05] MEDS ORDERED: Chlorhexidine Gluconate 1 APPL/PKT TP ONE (20:36)
[2018-09-06] MEDS ORDERED: DOPamine 400mg/250ml D5W 400 MG/250 ML BAG IV ONE (03:51)
[2018-09-06 04:13] LABS: BASO # 0.2 K/uL (0.0-0.2); BASO % 0.8 % (0.0-2.0); HEMOGLOBIN 10.1 g/dL (12.0-16.0); LYMPH # 2.7 K/uL (1.0-4.3); LYMPH % 10.6 % (20.0-40.0); MEAN CELL VOLUME 109.8 fl (81.0-99.0); MEAN PLATELET VOLUME 10.9 fl (7.2-11.7); MONO # 0.7 K/uL (0.0-0.8); MONO % 2.7 % (0.0-10.0); NEUT # 21.9 K/uL (1.8-7.0); NEUT % 85.9 % (50.0-75.0); NRBC % 1.9 % (0.0-0.0); RBC 3.07 Mil/uL (3.80-5.20); WHITE BLOOD COUNT 25.5 K/uL (4.8-10.8)
[2018-09-06 04:23] LABS: ABG ALLEN TEST YES; ARTERIAL BLOOD GAS HCO3 17.7 mmol/L (21-28); ARTERIAL BLOOD GAS O2 SAT 100.6 % (95-98); ARTERIAL BLOOD GAS PCO2 44 mm/Hg (35-45); ARTERIAL BLOOD GAS PH 7.22 (7.35-7.45); ARTERIAL BLOOD GAS PO2 242 mm/Hg (80-100); ARTERIAL BLOOD GAS TCO2 19.4 mmol/L (22-28)
[2018-09-06 04:24] LABS: INR 1.8; PROTHROMBIN TIME 19.9 Seconds (9.8-13.1)
[2018-09-06 04:26] LABS: PARTIAL THROMBOPLASTIN TIME 22.7 Seconds (25.6-37.1)
[2018-09-06 04:37] LABS: ALB/GLOB RATIO 0.8 (1.0-2.1); ALBUMIN 2.5 g/dL (3.5-5.0)
[2018-09-06] MEDS ORDERED: Albuterol 0.083% Inhal Sol (2.5 mg/3 mL) UD INH ONE (04:37)
[2018-09-06] MEDS: Albuterol-Ipratrop 3 mg / 0.5 (3 ml) UD INH SCH ×6 (04:44→23:44)
[2018-09-06] MEDS: Sodium Bicarbonate 8.4% 150 MEQ in Dextrose 5% In Water 1,000 ML IV SCH ×3 (05:01→23:26)
--- NOTE | 2018-09-06 05:21 | CP.PCM.PN ---
<Symone Perez - Last Filed: 09/06/18 05:22> Subjective - Date & Time of Evaluation Date of Evaluation: 09/06/18 Time of Evaluation: 05:01 - Subjective Subjective: Code Blue Note Code pelon Location: 403-2 Time:3:15 am Code pelon was called after 83 yo F patient was found bradycardic HR 30, the pt then arrested, ACLS protocol was initiated. Chest compressions were initiated, Pt was intubated successfully during resuscitation and air way was maintained with bag ventilation. Pt regained a pulse and was transferred to [facility] ICU to be closely monitored. CXR confirmed the NG tube was in place no evidence of pneumothorax, lungs were expanded. Patient then coded 2 times in ICU 3:40am- 3:50am and again 04:08am-4:17am. Epinephrine, Calcium chloride, Bicarb x3, Dopamine drip, Bicarb drip, zosyn, and vanc initiated, pt resuscitated successfully. Will contact primary attending Attempted to notify the family - called 6 times and left messages Code Attending: Dr. Adolfo Champion Code Residents: Dr. Vilma West PGY2, Dr. Symone Perez PGY1 Objective - Vital Signs/Intake and Output Vital Signs (last 24 hours): Temp Pulse Resp BP Pulse Ox 97.8 F 125 H 18 193/77 H 91 L 09/06/18 00:23 09/06/18 03:06 09/06/18 01:38 09/06/18 03:06 09/06/18 03:06 Intake and Output: 09/05/18 09/06/18 18:59 06:59 Intake Total 275 Output Total 150 Balance 125 - Medications Medications: Current Medications Acetaminophen (Tylenol 325mg Tab) 650 mg PO Q4 PRN PRN Reason: Pain, moderate (4-7) Acetylcysteine (Mucomyst 10% 4ml) 3 ml IH RTID [facility] Last Admin: 09/05/18 19:36 Dose: 3 ml Albuterol/Ipratropium (Duoneb 3 Mg/0.5 Mg (3 Ml) Ud) 3 ml INH RQ4 PRN PRN Reason: Shortness of Breath Last Admin: 09/05/18 13:03 Dose: 3 ml Albuterol/Ipratropium (Duoneb 3 Mg/0.5 Mg (3 Ml) Ud) 3 ml INH RQ4 [facility] Last Admin: 09/06/18 04:44 Dose: Not Given Aspirin (Aspirin Chewable) 81 mg PO DAILY [facility] Last Admin: 09/05/18 08:35 Dose: Not Given Atorvastatin Calcium (Lipitor) 20 mg PO DAILY [facility] Last Admin: 09/05/18 12:01 Dose: Not Given Bacitracin (Bacitracin Oint) 1 applic TOP BID [facility] Last Admin: 09/05/18 17:29 Dose: 1 applic Carvedilol (Coreg) 3.125 mg PO Q12 [facility] Last Admin: 09/05/18 21:11 Dose: 3.125 mg Docusate Sodium (Colace Liquid) 100 mg PO TID [facility] Last Admin: 09/05/18 17:25 Dose: Not Given Famotidine (Pepcid) 20 mg PO DAILY [facility] Last Admin: 09/05/18 08:34 Dose: Not Given Ferrous Sulfate (Feosol Liq) 300 mg PO DAILY [facility] Last Admin: 09/05/18 08:34 Dose: Not Given Folic Acid (Folic Acid) 1 mg PO DAILY [facility] Last Admin: 09/05/18 08:34 Dose: Not Given Guaifenesin/Dextromethorphan (Robitussin Dm) 5 ml PO Q6 PRN PRN Reason: Cough Last Admin: 09/04/18 21:28 Dose: 5 ml Hydralazine HCl (Apresoline) 10 mg IV Q6 PRN PRN Reason: SBP more than 150 Last Admin: 09/06/18 01:49 Dose: 10 mg Hydralazine HCl (Apresoline) 25 mg PO BID [facility] Last Admin: 09/05/18 17:30 Dose: 25 mg Ceftriaxone Sodium 1 gm/ (Sodium Chloride) 100 mls @ 100 mls/hr IVPB DAILY [facility]; Protocol Last Admin: 09/05/18 08:29 Dose: 100 mls/hr Dopamine HCl/Dextrose (Dopamine 400mg/250ml D5w) 400 mg in 250 mls @ 3.96 mls/hr IV .Q24H ONE; Protocol Stop: 09/07/18 03:50 Last Admin: 09/06/18 03:55 Dose: 5 mcg/kg/min, 9.9 mls/hr Sodium Bicarbonate 150 meq/ (Dextrose) 1,150 mls @ 125 mls/hr IV .Q9H12M [facility] Stop: 09/07/18 04:30 Vancomycin HCl 1,000 mg/ (Sodium Chloride) 250 mls @ 250 mls/hr IVPB ONCE ONE; Protocol Stop: 09/06/18 05:52 Piperacillin Sod/Tazobactam (Sod 2.25 gm/ Sodium Chloride) 100 mls @ 100 mls/hr IVPB Q6 [facility]; Protocol Insulin Human Lispro (Humalog) 0 units SC ACHS [facility]; Protocol Last Admin: 09/05/18 21:37 Dose: Not Given Levetiracetam (Keppra) 500 mg PO BID [facility] Last Admin: 09/05/18 17:29 Dose: 500 mg Montelukast Sodium (Singulair) 10 mg PO HS [facility] Last Admin: 09/05/18 21:11 Dose: 10 mg Multivitamins/Vitamin C (Multi-Delyn Liquid) 15 ml PO DAILY [facility] Last Admin: 09/05/18 08:34 Dose: Not Given - Labs Labs: 09/06/18 04:00 09/06/18 04:00 PT 19.9 Seconds (9.8-13.1) H 09/06/18 04:00 INR 1.8 09/06/18 04:00 APTT 22.7 Seconds (25.6-37.1) L 09/06/18 04:00 <Akira Mata P - Last Filed: 09/06/18 07:35> Objective - Vital Signs/Intake and Output Vital Signs (last 24 hours): Temp Pulse Resp BP Pulse Ox 97.8 F 90 15 118/48 L 100 09/06/18 00:23 09/06/18 06:00 09/06/18 06:00 09/06/18 06:00 09/06/18 06:00 - Medications Medications: Current Medications Acetaminophen (Tylenol 325mg Tab) 650 mg PO Q4 PRN PRN Reason: Pain, moderate (4-7) Acetylcysteine (Mucomyst 10% 4ml) 3 ml IH RTID [facility] Last Admin: 09/05/18 19:36 Dose: 3 ml Albuterol/Ipratropium (Duoneb 3 Mg/0.5 Mg (3 Ml) Ud) 3 ml INH RQ4 PRN PRN Reason: Shortness of Breath Last Admin: 09/05/18 13:03 Dose: 3 ml Albuterol/Ipratropium (Duoneb 3 Mg/0.5 Mg (3 Ml) Ud) 3 ml INH RQ4 [facility] Last Admin: 09/06/18 04:44 Dose: Not Given Aspirin (Aspirin Chewable) 81 mg PO DAILY [facility] Last Admin: 09/05/18 08:35 Dose: Not Given Atorvastatin Calcium (Lipitor) 20 mg PO DAILY [facility] Last Admin: 09/05/18 12:01 Dose: Not Given Bacitracin (Bacitracin Oint) 1 applic TOP BID [facility] Last Admin: 09/05/18 17:29 Dose: 1 applic Carvedilol (Coreg) 3.125 mg PO Q12 [facility] Last Admin: 09/05/18 21:11 Dose: 3.125 mg Docusate Sodium (Colace Liquid) 100 mg PO TID [facility] Last Admin: 09/05/18 17:25 Dose: Not Given Famotidine (Pepcid) 20 mg PO DAILY [facility] Last Admin: 09/05/18 08:34 Dose: Not Given Ferrous Sulfate (Feosol Liq) 300 mg PO DAILY [facility] Last Admin: 09/05/18 08:34 Dose: Not Given Folic Acid (Folic Acid) 1 mg PO DAILY [facility] Last Admin: 09/05/18 08:34 Dose: Not Given Guaifenesin/Dextromethorphan (Robitussin Dm) 5 ml PO Q6 PRN PRN Reason: Cough Last Admin: 09/04/18 21:28 Dose: 5 ml Hydralazine HCl (Apresoline) 10 mg IV Q6 PRN PRN Reason: SBP more than 150 Last Admin: 09/06/18 01:49 Dose: 10 mg Hydralazine HCl (Apresoline) 25 mg PO BID [facility] Last Admin: 09/05/18 17:30 Dose: 25 mg Ceftriaxone Sodium 1 gm/ (Sodium Chloride) 100 mls @ 100 mls/hr IVPB DAILY [facility]; Protocol Last Admin: 09/05/18 08:29 Dose: 100 mls/hr Dopamine HCl/Dextrose (Dopamine 400mg/250ml D5w) 400 mg in 250 mls @ 3.96 mls/hr IV .Q24H ONE; Protocol Stop: 09/07/18 03:50 Last Admin: 09/06/18 03:55 Dose: 5 mcg/kg/min, 9.9 mls/hr Sodium Bicarbonate 150 meq/ (Dextrose) 1,150 mls @ 125 mls/hr IV .Q9H12M [facility] Stop: 09/07/18 04:30 Last Admin: 09/06/18 05:01 Dose: 125 mls/hr Piperacillin Sod/Tazobactam (Sod 2.25 gm/ Sodium Chloride) 100 mls @ 100 mls/hr IVPB Q6 [facility]; Protocol Insulin Human Lispro (Humalog) 0 units SC ACHS [facility]; Protocol Last Admin: 09/05/18 21:37 Dose: Not Given Levetiracetam (Keppra) 500 mg PO BID [facility] Last Admin: 09/05/18 17:29 Dose: 500 mg Montelukast Sodium (Singulair) 10 mg PO HS [facility] Last Admin: 09/05/18 21:11 Dose: 10 mg Multivitamins/Vitamin C (Multi-Delyn Liquid) 15 ml PO DAILY [facility] Last Admin: 09/05/18 08:34 Dose: Not Given - Labs Labs: 09/06/18 06:53 09/06/18 04:00 PT 19.9 Seconds (9.8-13.1) H 09/06/18 04:00 INR 1.8 09/06/18 04:00 APTT 22.7 Seconds (25.6-37.1) L 09/06/18 04:00 Attending/Attestation - Attestation I have personally seen and examined this patient.: Yes I have fully participated in the care of the patient.: Yes I have reviewed all pertinent clinical information, including history, physical exam and plan: Yes Notes (Text): 09/06/18 07:23 83 F h/o poor intake, needed PEG done this hospitalization, h/o /AI, H/o severe pulm htn, CHF, htn, recent right lung collapse s/p bronch yesterday, patient noticed to be bradycardic on the tele and asystole. We responded to code blue, patient was intubated pulse regained, brought to ICU, arrested twice again both the times as the effect of epi lowered, became bradycardic and arrest. Metabolic acidosis form cardiac arrest, secondary hyperkalemia noticed. Patient's v/s stabilized after 3rd arrest with bicarb drip, albuterol neb. Tried to reach patients daughter my self and staff without success. Patient would benefit with marcelo CT for diagnostic evaluation but has been unstable. Therapeutic hypothermia could not be started untill internal bleeding ruled out. 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 Assessment Cardiac arrest x3 unclear etiology Secondary metabolic acidosis, lactic acidosis, hyperkalemia H/o left lung collapse, s/p bronch with improvement S/p PEG this admission Abd distension H/o AI/, severe pulm htn, low ef Poor prognosis, with the presentation, significant co morbidities and severe recent events Unable to reach NOK yet. Plan Vent, O2, electrolyte, acid base support Dopamine drip Emperic abx MARCELO CT when stable Therapeutic hypothermia if internal bleeding ruled out GI/DVT prophylaxis See orders for detail. Critical care time 90 mins.
[2018-09-06 06:58] LABS: BASO # 0.1 K/uL (0.0-0.2); BASO % 0.5 % (0.0-2.0); EOS # 0.1 K/uL (0.0-0.7); EOS % 0.4 % (0.0-4.0); HEMOGLOBIN 10.3 g/dL (12.0-16.0); LYMPH # 0.5 K/uL (1.0-4.3); LYMPH % 1.9 % (20.0-40.0); MEAN CELL VOLUME 108.4 fl (81.0-99.0); MEAN CORPUSCULAR HEMOGLOBIN 33.6 pg (27.0-31.0); MEAN PLATELET VOLUME 10.9 fl (7.2-11.7); MONO # 0.6 K/uL (0.0-0.8); MONO % 2.4 % (0.0-10.0); NEUT # 22.6 K/uL (1.8-7.0); NEUT % 94.8 % (50.0-75.0); NRBC % 2.2 % (0.0-0.0); PLATELET COUNT 149 K/uL (130-400); RBC 3.05 Mil/uL (3.80-5.20); RED CELL DISTRIBUTION WIDTH 15.9 % (11.5-14.5); WHITE BLOOD COUNT 23.8 K/uL (4.8-10.8)
--- NOTE | 2018-09-06 07:22 | PCM.PROC ---
Procedures Attestation:: I certify that I have explained the specified Operation(s) or Procedure(s), risks, benefits and reasonable alternatives to the Patient and/or other person responsible. The opportunity was given to ask questions and all questions answered - Intubation Time Out Performed: No (cardiac arrest situation) Sedative: None Laryngoscope: Philip (4) Assist Device Used: Other (stylet) ET Tube Size: 7.5 ET Tube Uncuffed: No ET Tube Secured at Depth: 24 ET Tube Secured Locarion: Lips ET Tube Placement Confirmation: Visualized Passing Through Cords, Breath Sounds Equal Bilaterally, No Breath Sounds Over Epigastrum, Confirmation w/Capnometry Patient Tolerated Procedure: No Complications (CXR showed ET tip just above shaun, the ET pulled up 2cm) Additional comments: Patient was intubated when responded to code blue, single attempt.
[2018-09-06 07:57] LABS: ERYTHROCYTE SEDIMENTATION RATE 36 mm/hr (0-30)
[2018-09-06] MEDS: Acetylcysteine 10% 4 ML IH SCH ×3 (08:05→19:15)
[2018-09-06] MEDS: Insulin Lispro (humaLOG) 100 Units/ml Inj SC SCH ×4 (08:15→22:56)
[2018-09-06 08:19] LABS: ABG ALLEN TEST YES; ARTERIAL BLOOD GAS HCO3 28.1 mmol/L (21-28); ARTERIAL BLOOD GAS PCO2 30 mm/Hg (35-45); ARTERIAL BLOOD GAS PH 7.55 (7.35-7.45); ARTERIAL BLOOD GAS PO2 232 mm/Hg (80-100); ARTERIAL BLOOD GAS TCO2 27.1 mmol/L (22-28)
--- NOTE | 2018-09-06 09:22 | CARD ---
APPROVED REPORT Date of service: 09/06/2018 EKG Measurement Heart [id number] NM [id number] <Conclusion> Normal sinus rhythm T wave abnormality, consider lateral ischemia Abnormal ECG
--- NOTE | 2018-09-06 09:38 | CP.CCUPN ---
CCU Subjective - Physician Review Subjective (Free Text): Events overnight noted, returned to ICU post Chase-asystole / Cardiac Arrest event. s/p FOB yesterday for left lung collapse / left Hemithorax opacification. Resuscitated from Code Blue x3 overnight, remains comatose, will partially open eyes to tactile and pain stimuli, does not follow commands nor otherwise interactive, no purposeful movements observed nor any abnormal posturing seen. On Dopamine drip for HR and BP maintenance. She does trigger the vent, opens eyes to ETT suctioning. No fevers overnight, temps mostly 97 -98F, normotensive, Spo2 100% on 10% and after fio2 reduction to 60%, HR 94, BP 130/70s. Other vitals and I/O's reviewed. ROS: No other pertinent negs or positives on 10+ system review obtainable due to coma. PMSFH: All other Nursing and physician documentation reviewed to date; no new pertinent info noted relevant to current medical problems. EXAM- HEENT: no icterus, no gaze preference, Pupils irregular on R with no reactivity, Left pupil opacified from cataract, absent gag. NECK: No JVD visible, supple, carotids equal upstroke bilat/no bruit, R-EJ IV line CHEST: decreased bi-basilar BS , no wheezes audible HEART: regular, distant S1S2, no rubs ABD: soft, no focal tenderness, no guarding, no organomegaly, BS hypoactive. PEG intact EXT: no calf tenderness or palpable cords, distal pulses intact and symmetrical. RUE PICC NEURO: minimally withdraws limbs to pain stimuli, GCS= 3 ( E1V1M1 T) SKIN: no rashes, warm and dry LABS: WBC= 23.8 HGB= 10.3 PLTs= 149K Na= 151 K= 5.6 NO=143 HCO3=20 BUN/Cr= 36/1.6 BS= 166 ECHO: 35-40% EF, DDysfx grade II, Increased LA size, Mod-severe AR/, +MR/TR CXR: ETT position OK above shaun, complete aeration restored in Left lung, no gross consolidation (my interp). EKG: Sinus 85/min, inferolateral T inversions (my Interp) IMPRESSION / MAJOR PROBLEMS NOW: 1. Cardiac Arrest 2. Acute Hypoxemic Resp Failure 2 Left Lung Collapse 3. s/p Embolic CVA with ICH conversion 4. Hypernatremia /Hyperkalemia with Azotemia 2 Pre-Renal etiology vs Car diomyopathy 5. s/p Pulm Edema, 2 Neurogenic etiology post CVA, Cardiomyopathy PLAN: 1. Exclusion criteria for therapeutic hypothermia noted with recent CVA. Ongoing Neurochecks, Seizure precautions, HOB elevation. 2. Hemodynamic support- on Dopamine, wean as tolerated. Lactates improving. 3. Fio2 reduced to 60% and avoid excessive hyperventilation. No MV weans anticipated at this time. 4. Free water administration. Hold diuretics. 5. Given new additional co-morbidities, need to discuss with family regarding Advance Directives. Time spent with this patient did not overlap with any other provider's medical or critical care time. Additionally the code selected for the services rendered in this note includes the time spent: talking to the patients family, associated physicians and reviewing hospital data/results not listed here which extended to a total of 40 minutes of critical care.
[2018-09-06] MEDS: Bacitracin OINT 15GM TOP SCH ×2 (09:39→16:15)
[2018-09-06] MEDS: Ferrous Sulfate 300 mg/5 mL Liq UD PO SCH (09:39)
[2018-09-06] MEDS: Multi Vitamins 15 mL UD Oral Solution PO SCH (09:41)
[2018-09-06] MEDS: levETIRAcetam 100 mg/ml (5ml) Oral Syringe PO SCH ×2 (09:41→16:16)
[2018-09-06 11:39] LABS: BANDS 4 % (0-2); LYMPHOCYTE 3 % (20-50); MONOCYTE 6 % (0-10); NEUTROPHIL 86 % (42-75); NUCLEATED RED BLOOD CELL 2 % (0-0); REACTIVE LYMPHOCYTES 1 % (0-0); TOTAL CELLS COUNTED 100
[2018-09-06 11:40] LABS: ANISOCYTOSIS SLIGHT; HYPOCHROMIC SLIGHT; OVALOCYTES SLIGHT; PLATELET ESTIMATE NORMAL (NORMAL); SCHISTOCYTES SLIGHT
[2018-09-06 11:41] LABS: TOXIC GRANULATION PRESENT
--- NOTE | 2018-09-06 12:40 | RAD ---
Date of service: 09/06/2018 HISTORY: CAN [facility]MAN COMPARISON: 09/05/2018 FINDINGS: LUNGS: Complete re-expansion of the left lung. Perihilar lower lobe infiltrates are more prominent on the current study which may represent asymmetric pulmonary edema related to rapid expansion of the left lung. PLEURA: No significant pleural effusion identified, no pneumothorax apparent. CARDIOVASCULAR: Atherosclerotic calcifications identified primarily aortic arch. No radiographic findings to suggest acute or significant cardiovascular disease. OSSEOUS STRUCTURES: No significant abnormalities. VISUALIZED UPPER ABDOMEN: Normal. OTHER FINDINGS: PICC line inserted right-sided approach has its tip in the subclavian vein near the junction with the internal jugular vein. Satisfactory position of nasogastric tube. Endotracheal tube tip within 1 cm of the shaun. IMPRESSION: Marked improvement with respect aeration of the left lung. Perihilar, lower lobe pulmonary parenchymal findings likely asymmetrical edema. PICC line tip at the junction of the subclavian vein and internal jugular vein. Satisfactory position of nasogastric tube. Low lying endotracheal tube.
--- NOTE | 2018-09-06 15:26 | CP.PCM.PN ---
Objective - Vital Signs/Intake and Output Vital Signs (last 24 hours): Temp Pulse Resp BP Pulse Ox 98.5 F 94 H 15 136/49 L 100 09/06/18 12:00 09/06/18 14:00 09/06/18 14:00 09/06/18 14:00 09/06/18 14:00 Intake and Output: 09/06/18 09/06/18 06:59 18:59 Intake Total 1230 Balance 1230 - Medications Medications: Current Medications Acetaminophen (Tylenol 325mg Tab) 650 mg PO Q4 PRN PRN Reason: Pain, moderate (4-7) Acetylcysteine (Mucomyst 10% 4ml) 3 ml IH RTID [facility] Last Admin: 09/06/18 08:05 Dose: 3 ml Albuterol/Ipratropium (Duoneb 3 Mg/0.5 Mg (3 Ml) Ud) 3 ml INH RQ4 PRN PRN Reason: Shortness of Breath Last Admin: 09/05/18 13:03 Dose: 3 ml Albuterol/Ipratropium (Duoneb 3 Mg/0.5 Mg (3 Ml) Ud) 3 ml INH RQ4 [facility] Last Admin: 09/06/18 11:36 Dose: 3 ml Aspirin (Aspirin Chewable) 81 mg PO DAILY [facility] Last Admin: 09/06/18 09:39 Dose: Not Given Atorvastatin Calcium (Lipitor) 20 mg PO DAILY [facility] Last Admin: 09/06/18 09:41 Dose: Not Given Bacitracin (Bacitracin Oint) 1 applic TOP BID [facility] Last Admin: 09/06/18 09:39 Dose: 1 applic Carvedilol (Coreg) 3.125 mg PO Q12 [facility] Last Admin: 09/06/18 09:39 Dose: Not Given Docusate Sodium (Colace Liquid) 100 mg PO TID [facility] Last Admin: 09/06/18 12:30 Dose: Not Given Famotidine (Pepcid) 20 mg PO DAILY [facility] Last Admin: 09/06/18 09:41 Dose: Not Given Ferrous Sulfate (Feosol Liq) 300 mg PO DAILY [facility] Last Admin: 09/06/18 09:39 Dose: Not Given Folic Acid (Folic Acid) 1 mg PO DAILY [facility] Last Admin: 09/06/18 09:40 Dose: Not Given Guaifenesin/Dextromethorphan (Robitussin Dm) 5 ml PO Q6 PRN PRN Reason: Cough Last Admin: 09/04/18 21:28 Dose: 5 ml Hydralazine HCl (Apresoline) 10 mg IV Q6 PRN PRN Reason: SBP more than 150 Last Admin: 09/06/18 01:49 Dose: 10 mg Hydralazine HCl (Apresoline) 25 mg PO BID [facility] Last Admin: 09/06/18 09:39 Dose: Not Given Ceftriaxone Sodium 1 gm/ (Sodium Chloride) 100 mls @ 100 mls/hr IVPB DAILY [facility]; Protocol Last Admin: 09/06/18 10:15 Dose: 100 mls/hr Dopamine HCl/Dextrose (Dopamine 400mg/250ml D5w) 400 mg in 250 mls @ 3.96 mls/hr IV .Q24H ONE; Protocol Stop: 09/07/18 03:50 Last Admin: 09/06/18 03:55 Dose: 5 mcg/kg/min, 9.9 mls/hr Sodium Bicarbonate 150 meq/ (Dextrose) 1,150 mls @ 125 mls/hr IV .Q9H12M [facility] Stop: 09/07/18 04:30 Last Admin: 09/06/18 14:07 Dose: 125 mls/hr Piperacillin Sod/Tazobactam (Sod 2.25 gm/ Sodium Chloride) 100 mls @ 100 mls/hr IVPB Q6 [facility]; Protocol Last Admin: 09/06/18 09:50 Dose: 100 mls/hr Insulin Human Lispro (Humalog) 0 units SC ACHS [facility]; Protocol Last Admin: 09/06/18 12:32 Dose: 3 unit Levetiracetam (Keppra) 500 mg PO BID [facility] Last Admin: 09/06/18 09:41 Dose: Not Given Montelukast Sodium (Singulair) 10 mg PO HS [facility] Last Admin: 09/05/18 21:11 Dose: 10 mg Multivitamins/Vitamin C (Multi-Delyn Liquid) 15 ml PO DAILY [facility] Last Admin: 09/06/18 09:41 Dose: Not Given - Labs Labs: 09/06/18 06:53 09/06/18 04:00 PT 19.9 Seconds (9.8-13.1) H 09/06/18 04:00 INR 1.8 09/06/18 04:00 APTT 22.7 Seconds (25.6-37.1) L 09/06/18 04:00 Assessment and Plan (1) Pneumonia Status: Acute (2) Pleural effusion, left Status: Acute (3) COPD exacerbation Status: Resolved (4) Collapse of left lung Status: Acute (5) CHF (congestive heart failure) Status: Chronic (6) Pulmonary HTN Status: Acute
--- NOTE | 2018-09-06 15:31 | PCM.OP ---
Operative Report - Operative Report Date of Surgery/Procedure: 09/05/18 Time of Surgery/Procedure: 15:50 Surgeon: Linus Christy Anesthesia/Sedation: oLis Block MD Pre-Operative Diagnosis: Left Lung Collapse Post-Operative Diagnosis: Left Lung collapse 2nd to secretions occluding distal Trachea and Left Main Stem bronchi Indication for Surgery: Left Lung collapse Operative Findings: Bronchoscopy was done in the Endoscopy room, after topical anesthesia the bronchoscope was introduced in the right nasal cavity then advanced to to the Oropharynx, the Epiglottis were mobile, the Vocal Cords were mobile with no pathology, then the bronchoscope was advanced the Subglotic area was normal, the Tracheal mucosa with increased hyperemia, the distal trachea was occluded with secretions that were aspirated also secretions occluding the left main bronchi that were aspirated. The shaun was sharp, the bronchoscope was advanced to the Left upper lobe, in al segments the mucosa with increased hyperemia, vessel engorgement, then the bronchoscope was withdrawn and advanced to the Left lower lobe, there were secretions in all basal segments that were aspirated, the mucosa in all segments with increased hyperemia, vessel engorgement. No endobronchial lesions in the left airways, then the bronchoscope was withdrawn. The bronchoscope was advanced to the right main stem bronchi and then into the Right upper lobe, withdrawn and advanced through the bronchus intermedius to the Right middle lobe and then withdrawn and advanced to the Right lower, the mucosa in all the segments with increased hyperemia vessel engorgement. No endobronchial lesions in the right airways, then the bronchoscope was withdrawn Procedure/Operation Description: Bronchoscopy Estimated Blood Loss: none Complications: none Specimen: Bronchial washings Discharge & Condition: Stable
--- NOTE | 2018-09-06 15:32 | CP.PCM.PN ---
Subjective - Date & Time of Evaluation Date of Evaluation: 09/06/18 Time of Evaluation: 12:00 - Subjective Subjective: F/U respiratory failure. s/p Code Blue, intubated Objective - Vital Signs/Intake and Output Vital Signs (last 24 hours): Temp Pulse Resp BP Pulse Ox 98.5 F 94 H 15 136/49 L 100 09/06/18 12:00 09/06/18 14:00 09/06/18 14:00 09/06/18 14:00 09/06/18 14:00 Intake and Output: 09/06/18 09/06/18 06:59 18:59 Intake Total 1230 Balance 1230 - Medications Medications: Current Medications Acetaminophen (Tylenol 325mg Tab) 650 mg PO Q4 PRN PRN Reason: Pain, moderate (4-7) Acetylcysteine (Mucomyst 10% 4ml) 3 ml IH RTID [facility] Last Admin: 09/06/18 08:05 Dose: 3 ml Albuterol/Ipratropium (Duoneb 3 Mg/0.5 Mg (3 Ml) Ud) 3 ml INH RQ4 PRN PRN Reason: Shortness of Breath Last Admin: 09/05/18 13:03 Dose: 3 ml Albuterol/Ipratropium (Duoneb 3 Mg/0.5 Mg (3 Ml) Ud) 3 ml INH RQ4 [facility] Last Admin: 09/06/18 11:36 Dose: 3 ml Aspirin (Aspirin Chewable) 81 mg PO DAILY [facility] Last Admin: 09/06/18 09:39 Dose: Not Given Atorvastatin Calcium (Lipitor) 20 mg PO DAILY [facility] Last Admin: 09/06/18 09:41 Dose: Not Given Bacitracin (Bacitracin Oint) 1 applic TOP BID [facility] Last Admin: 09/06/18 09:39 Dose: 1 applic Carvedilol (Coreg) 3.125 mg PO Q12 [facility] Last Admin: 09/06/18 09:39 Dose: Not Given Docusate Sodium (Colace Liquid) 100 mg PO TID [facility] Last Admin: 09/06/18 12:30 Dose: Not Given Famotidine (Pepcid) 20 mg PO DAILY [facility] Last Admin: 09/06/18 09:41 Dose: Not Given Ferrous Sulfate (Feosol Liq) 300 mg PO DAILY [facility] Last Admin: 09/06/18 09:39 Dose: Not Given Folic Acid (Folic Acid) 1 mg PO DAILY [facility] Last Admin: 09/06/18 09:40 Dose: Not Given Guaifenesin/Dextromethorphan (Robitussin Dm) 5 ml PO Q6 PRN PRN Reason: Cough Last Admin: 09/04/18 21:28 Dose: 5 ml Hydralazine HCl (Apresoline) 10 mg IV Q6 PRN PRN Reason: SBP more than 150 Last Admin: 09/06/18 01:49 Dose: 10 mg Hydralazine HCl (Apresoline) 25 mg PO BID [facility] Last Admin: 09/06/18 09:39 Dose: Not Given Ceftriaxone Sodium 1 gm/ (Sodium Chloride) 100 mls @ 100 mls/hr IVPB DAILY [facility]; Protocol Last Admin: 09/06/18 10:15 Dose: 100 mls/hr Dopamine HCl/Dextrose (Dopamine 400mg/250ml D5w) 400 mg in 250 mls @ 3.96 mls/hr IV .Q24H [facility]; Protocol Stop: 09/07/18 03:50 Last Admin: 09/06/18 03:55 Dose: 5 mcg/kg/min, 9.9 mls/hr Sodium Bicarbonate 150 meq/ (Dextrose) 1,150 mls @ 125 mls/hr IV .Q9H12M [facility] Stop: 09/07/18 04:30 Last Admin: 09/06/18 14:07 Dose: 125 mls/hr Piperacillin Sod/Tazobactam (Sod 2.25 gm/ Sodium Chloride) 100 mls @ 100 mls/hr IVPB Q6 [facility]; Protocol Last Admin: 09/06/18 09:50 Dose: 100 mls/hr Insulin Human Lispro (Humalog) 0 units SC ACHS [facility]; Protocol Last Admin: 09/06/18 12:32 Dose: 3 unit Levetiracetam (Keppra) 500 mg PO BID [facility] Last Admin: 09/06/18 09:41 Dose: Not Given Montelukast Sodium (Singulair) 10 mg PO HS [facility] Last Admin: 09/05/18 21:11 Dose: 10 mg Multivitamins/Vitamin C (Multi-Delyn Liquid) 15 ml PO DAILY [facility] Last Admin: 09/06/18 09:41 Dose: Not Given - Labs Labs: 09/06/18 06:53 09/06/18 04:00 PT 19.9 Seconds (9.8-13.1) H 09/06/18 04:00 INR 1.8 09/06/18 04:00 APTT 22.7 Seconds (25.6-37.1) L 09/06/18 04:00 - Constitutional Appears: Chronically Ill - Head Exam Head Exam: NORMAL INSPECTION - ENT Exam Additional comments: intubated - Neck Exam Neck Exam: Normal Inspection - Respiratory Exam Respiratory Exam: Decreased Breath Sounds, Rhonchi Additional comments: Intubated - Cardiovascular Exam Cardiovascular Exam: REGULAR RHYTHM, Murmur - GI/Abdominal Exam GI & Abdominal Exam: Soft, Normal Bowel Sounds - Extremities Exam Extremities Exam: Normal Inspection - Neurological Exam Additional comments: intubated minimal response to tactil stimuli - Skin Skin Exam: Warm Assessment and Plan (1) Cardiac arrest Status: Acute (2) Respiratory failure Status: Acute (3) Full code status Status: Acute (4) Pneumonia Status: Acute (5) Pleural effusion, left Status: Acute (6) COPD exacerbation Status: Acute (7) Collapse of left lung Status: Resolved (8) CHF (congestive heart failure) Status: Chronic (9) Pulmonary HTN Status: Chronic - Assessment and Plan (Free Text) Plan: s/p Code Blue x 3 , CXR R lung expanded post Bronchoscopy , R PNA, continue ventilatory support, Ceftriaxone , Zosyn , Duo Neb, Mucomyst, f/u Bronchial washing C-S Critical care time: 33 min.
--- NOTE | 2018-09-06 18:36 | PN ---
DATE: 09/06/2018 SUBJECTIVE: The patient was coded x3 last night, went into asystole, and the patient was resuscitated and transferred to ICU. The patient was intubated. Now, the patient is unresponsive and receiving 50% FiO2. PHYSICAL EXAMINATION VITAL SIGNS: Blood pressure is 131/50, pulse is 102, respirations 20. The patient is on mechanical ventilation. LUNGS: Rales bilaterally. HEART: Irregular rate and rhythm. ABDOMEN: Soft. PEG in place. EXTREMITIES: No edema. LABORATORY DATA: Today showed WBC 23, hemoglobin 10.3, hematocrit 32.1 and platelets 149. Chemistry showed that the sodium is 151, potassium 5.6, chloride 109, bicarb 20, BUN 36, creatinine 1.6, calcium is 14. Lactic acid is 15.1. ASSESSMENT AND PLAN: The patient is intubated in intensive care unit and monitored also by the coal chute worker. The patient now is on dopamine and also on bicarb. The patient is also on therapy. We are going to continue in the intensive care unit, but the patient is very critical at this point and we have to consider DNR if the family agrees. Examination was witnessed by son and a friend. We discussed the case with daughter, Ratna. Slim Marino MD
[2018-09-07] MEDS: Albuterol-Ipratrop 3 mg / 0.5 (3 ml) UD INH SCH ×6 (03:26→23:56)
[2018-09-07] MEDS ORDERED: DOPamine 400mg/250ml D5W 400 MG/250 ML BAG IV ONE (04:11)
[2018-09-07] MEDS ORDERED: Sodium Bicarbonate 8.4% 150 MEQ in Dextrose 5% In Water 1,000 ML IV SCH (04:30)
[2018-09-07] MEDS ORDERED: DEXTROSE 10% IV SCH (05:00)
[2018-09-07] MEDS ORDERED: WATER IV SCH (05:00)
[2018-09-07] MEDS ORDERED: SODIUM BICARBONATE IV SCH (05:00)
[2018-09-07 05:21] LABS: ABG ALLEN TEST YES; ARTERIAL BLOOD GAS HCO3 39.1 mmol/L (21-28); ARTERIAL BLOOD GAS HEMOGLOBIN 9.9 g/dL (11.7-17.4); ARTERIAL BLOOD GAS O2 CAPACITY 14.1 mL/dL (16-24); ARTERIAL BLOOD GAS O2 CONTENT 14.2 ML/dL (15-23); ARTERIAL BLOOD GAS O2 SAT 100.5 % (95-98); ARTERIAL BLOOD GAS PCO2 46 mm/Hg (35-45); ARTERIAL BLOOD GAS PH 7.57 (7.35-7.45); ARTERIAL BLOOD GAS PO2 247 mm/Hg (80-100); ARTERIAL BLOOD GAS TCO2 43.5 mmol/L (22-28)
[2018-09-07] MEDS: Insulin Lispro (humaLOG) 100 Units/ml Inj SC SCH ×4 (06:38→21:46)
[2018-09-07 06:39] LABS: HEMOGLOBIN 9.8 g/dL (12.0-16.0); MEAN CELL VOLUME 105.4 fl (81.0-99.0); MEAN CORPUSCULAR HEMOGLOBIN 33.8 pg (27.0-31.0); MEAN CORPUSCULAR HGB CONC 32.1 g/dL (33.0-37.0); RBC 2.91 Mil/uL (3.80-5.20); RED CELL DISTRIBUTION WIDTH 15.2 % (11.5-14.5); WHITE BLOOD COUNT 22.4 K/uL (4.8-10.8)
[2018-09-07 06:48] LABS: ALB/GLOB RATIO 0.8 (1.0-2.1); ALBUMIN 2.4 g/dL (3.5-5.0); CALCIUM 8.3 mg/dL (8.4-10.2)
[2018-09-07] MEDS ORDERED: Potassium Chloride 20 mEq/15 ml LIQ UD PEG ONE (07:26)
[2018-09-07] MEDS: Lactated Ringer's 1,000 ML IV SCH ×2 (07:37→18:30)
[2018-09-07] MEDS: Acetylcysteine 10% 4 ML IH SCH ×2 (07:55→19:13)
[2018-09-07] MEDS: Bacitracin OINT 15GM TOP SCH ×2 (08:32→16:30)
[2018-09-07] MEDS: levETIRAcetam 100 mg/ml (5ml) Oral Syringe PO SCH ×2 (08:33→16:30)
[2018-09-07] MEDS: Ferrous Sulfate 300 mg/5 mL Liq UD PO SCH (08:33)
[2018-09-07] MEDS: Multi Vitamins 15 mL UD Oral Solution PO SCH (08:34)
--- NOTE | 2018-09-07 08:44 | PN ---
DATE: 09/05/2018 SUBJECTIVE: Today, the patient is still awake, but not responding verbally to question, but opens eyes with verbal stimuli. The patient does not appear to be in any respiratory distress. PHYSICAL EXAMINATION: VITAL SIGNS: The patient has a blood pressure of 158/52, pulse is 80, respirations 18, temperature 97.4. NECK: Supple. LUNGS: There are some rales bilaterally. HEART: Regular rate and rhythm. Positive murmur. ABDOMEN: Soft, nontender. No palpable mass. Positive epigastric hernia. EXTREMITIES: There is no edema. LABORATORY DATA: The patient has a blood work done which showed WBC 8.9, hemoglobin 10.4, hematocrit 32.9, and platelets 199. Chemistry: Sodium 144, potassium 4.5, chloride 109, bicarb is 27, BUN 38, creatinine 1.4, glucose 170, and calcium 8.9. ASSESSMENT AND PLAN: The patient today has bronchoscopy done by Dr. Christy. The plan is that we are going to continue to feed the patient via gastrostomy tube 30 mL per hour. We are going to continue current medications. Slim Marino MD
[2018-09-07] MEDS ORDERED: Calcium Chloride 1000 mg/10 ml Syringe ONE (09:00)
[2018-09-07] MEDS ORDERED: Sodium Bicarbonate 7.5% (0.9 MEQ/ML) 50ML INJ IV ONE (09:00)
--- NOTE | 2018-09-07 11:01 | RAD ---
Date of service: 09/07/2018 HISTORY: ETT placement COMPARISON: Frontal chest radiograph 09/06/2018. FINDINGS: LUNGS: Endotracheal and nasogastric tubes do not appear significantly changed as well as right PICC insertion. Patchy infiltrate at the right infrahilar space persists, borderline diminished. Remaining lung khan are otherwise clear. PLEURA: No significant pleural effusion identified, no pneumothorax apparent. CARDIOVASCULAR: Calcific atherosclerotic changes are seen related to the thoracic aorta. Prominent appearing cardiac silhouette unchanged. No definite pulmonary vascular congestion. OSSEOUS STRUCTURES: No significant abnormalities. VISUALIZED UPPER ABDOMEN: Normal. OTHER FINDINGS: None. IMPRESSION: No signal change in limited patchy airspace disease at the right infrahilar space. Cardiac silhouette stable. No definitive pulmonary vascular congestion.
--- NOTE | 2018-09-07 13:07 | CP.PCM.PN ---
Subjective - Date & Time of Evaluation Date of Evaluation: 09/07/18 Time of Evaluation: 08:00 - Subjective Subjective: s/p cardiac arrest intubated confused Objective - Vital Signs/Intake and Output Vital Signs (last 24 hours): Temp Pulse Resp BP Pulse Ox 98.7 F 98 H 12 143/67 99 09/07/18 12:00 09/07/18 12:00 09/07/18 12:00 09/07/18 12:00 09/07/18 12:00 Intake and Output: 09/07/18 09/07/18 06:59 18:59 Intake Total 1820 525 Output Total 175 Balance 1645 525 - Medications Medications: Current Medications Acetaminophen (Tylenol 325mg Tab) 650 mg PO Q4 PRN PRN Reason: Pain, moderate (4-7) Acetylcysteine (Mucomyst 10% 4ml) 3 ml IH RTID [facility] Last Admin: 09/07/18 07:55 Dose: 3 ml Albuterol/Ipratropium (Duoneb 3 Mg/0.5 Mg (3 Ml) Ud) 3 ml INH RQ4 PRN PRN Reason: Shortness of Breath Last Admin: 09/05/18 13:03 Dose: 3 ml Albuterol/Ipratropium (Duoneb 3 Mg/0.5 Mg (3 Ml) Ud) 3 ml INH RQ4 [facility] Last Admin: 09/07/18 11:32 Dose: 3 ml Aspirin (Aspirin Chewable) 81 mg PO DAILY [facility] Last Admin: 09/07/18 08:37 Dose: 81 mg Atorvastatin Calcium (Lipitor) 20 mg PO DAILY [facility] Last Admin: 09/06/18 09:41 Dose: Not Given Bacitracin (Bacitracin Oint) 1 applic TOP BID [facility] Last Admin: 09/07/18 08:32 Dose: 1 applic Carvedilol (Coreg) 3.125 mg PO Q12 [facility] Last Admin: 09/07/18 09:23 Dose: 3.125 mg Docusate Sodium (Colace Liquid) 100 mg PO TID [facility] Last Admin: 09/07/18 08:49 Dose: Not Given Famotidine (Pepcid) 20 mg PO DAILY [facility] Last Admin: 09/07/18 08:37 Dose: 20 mg Ferrous Sulfate (Feosol Liq) 300 mg PO DAILY [facility] Last Admin: 09/07/18 08:33 Dose: 300 mg Folic Acid (Folic Acid) 1 mg PO DAILY [facility] Last Admin: 09/07/18 08:34 Dose: 1 mg Guaifenesin/Dextromethorphan (Robitussin Dm) 5 ml PO Q6 PRN PRN Reason: Cough Last Admin: 09/04/18 21:28 Dose: 5 ml Hydralazine HCl (Apresoline) 10 mg IV Q6 PRN PRN Reason: SBP more than 150 Last Admin: 09/06/18 01:49 Dose: 10 mg Hydralazine HCl (Apresoline) 25 mg PO BID [facility] Last Admin: 09/07/18 08:33 Dose: 25 mg Ceftriaxone Sodium 1 gm/ (Sodium Chloride) 100 mls @ 100 mls/hr IVPB DAILY [facility]; Protocol Last Admin: 09/07/18 08:35 Dose: 100 mls/hr Piperacillin Sod/Tazobactam (Sod 2.25 gm/ Sodium Chloride) 100 mls @ 100 mls/hr IVPB Q6 [facility]; Protocol Last Admin: 09/07/18 09:21 Dose: 100 mls/hr Lactated Ringer's (Lactated Ringer's) 1,000 mls @ 100 mls/hr IV .Q10H [facility] Last Admin: 09/07/18 07:37 Dose: 100 mls/hr Insulin Human Lispro (Humalog) 0 units SC ACHS [facility]; Protocol Last Admin: 09/07/18 11:26 Dose: 1 unit Levetiracetam (Keppra) 500 mg PO BID [facility] Last Admin: 09/07/18 08:33 Dose: 500 mg Montelukast Sodium (Singulair) 10 mg PO HS [facility] Last Admin: 09/06/18 22:55 Dose: Not Given Multivitamins/Vitamin C (Multi-Delyn Liquid) 15 ml PO DAILY [facility] Last Admin: 09/07/18 08:34 Dose: 15 ml - Labs Labs: 09/07/18 04:20 09/07/18 04:20 PT 19.9 Seconds (9.8-13.1) H 09/06/18 04:00 INR 1.8 09/06/18 04:00 APTT 22.7 Seconds (25.6-37.1) L 09/06/18 04:00 - Constitutional Appears: Confused - Head Exam Head Exam: absent: NORMOCEPHALIC - Eye Exam Eye Exam: absent: Scleral icterus - ENT Exam ENT Exam: Mucous Membranes Dry - Neck Exam Neck Exam: absent: Lymphadenopathy - Respiratory Exam Respiratory Exam: Decreased Breath Sounds, Prolonged Expiratory Phase, Rhonchi - Cardiovascular Exam Cardiovascular Exam: REGULAR RHYTHM, +S1, +S2 - GI/Abdominal Exam GI & Abdominal Exam: Distended, Soft. absent: Tenderness - Rectal Exam Rectal Exam: Deferred - Exam Exam: NORMAL INSPECTION - Extremities Exam Extremities Exam: absent: Pedal Edema - Back Exam Back Exam: absent: CVA tenderness (L), CVA tenderness (R) - Neurological Exam Neurological Exam: Altered - Psychiatric Exam Psychiatric exam: Depressed - Skin Skin Exam: Dry Assessment and Plan (1) CHF (congestive heart failure) Status: Chronic (2) Dehydration Status: Acute (3) Pneumonia Status: Acute (4) UTI (urinary tract infection) Status: Acute (5) CVA (cerebral vascular accident) Status: Acute (6) Cardiac arrest Status: Acute - Assessment and Plan (Free Text) Assessment: may need PPM cardio eval recultured poor prognosis cont rx as per Dr Christy
--- NOTE | 2018-09-07 15:09 | CP.PCM.PN ---
Subjective - Date & Time of Evaluation Date of Evaluation: 09/07/18 Time of Evaluation: 11:40 - Subjective Subjective: F/U Respiratory Failure Unresponsive to verbal and tactile stimuli Objective - Vital Signs/Intake and Output Vital Signs (last 24 hours): Temp Pulse Resp BP Pulse Ox 98.7 F 99 H 18 156/55 H 100 09/07/18 12:00 09/07/18 13:00 09/07/18 13:00 09/07/18 13:00 09/07/18 13:00 Intake and Output: 09/07/18 09/07/18 06:59 18:59 Intake Total 1820 725 Output Total 175 Balance 1645 725 - Medications Medications: Current Medications Acetaminophen (Tylenol 325mg Tab) 650 mg PO Q4 PRN PRN Reason: Pain, moderate (4-7) Acetylcysteine (Mucomyst 10% 4ml) 3 ml IH RTID [facility] Last Admin: 09/07/18 07:55 Dose: 3 ml Albuterol/Ipratropium (Duoneb 3 Mg/0.5 Mg (3 Ml) Ud) 3 ml INH RQ4 PRN PRN Reason: Shortness of Breath Last Admin: 09/05/18 13:03 Dose: 3 ml Albuterol/Ipratropium (Duoneb 3 Mg/0.5 Mg (3 Ml) Ud) 3 ml INH RQ4 [facility] Last Admin: 09/07/18 11:32 Dose: 3 ml Aspirin (Aspirin Chewable) 81 mg PO DAILY [facility] Last Admin: 09/07/18 08:37 Dose: 81 mg Atorvastatin Calcium (Lipitor) 20 mg PO DAILY [facility] Last Admin: 09/06/18 09:41 Dose: Not Given Bacitracin (Bacitracin Oint) 1 applic TOP BID [facility] Last Admin: 09/07/18 08:32 Dose: 1 applic Carvedilol (Coreg) 3.125 mg PO Q12 [facility] Last Admin: 09/07/18 09:23 Dose: 3.125 mg Docusate Sodium (Colace Liquid) 100 mg PO TID [facility] Last Admin: 09/07/18 08:49 Dose: Not Given Famotidine (Pepcid) 20 mg PO DAILY [facility] Last Admin: 09/07/18 08:37 Dose: 20 mg Ferrous Sulfate (Feosol Liq) 300 mg PO DAILY [facility] Last Admin: 09/07/18 08:33 Dose: 300 mg Folic Acid (Folic Acid) 1 mg PO DAILY [facility] Last Admin: 09/07/18 08:34 Dose: 1 mg Guaifenesin/Dextromethorphan (Robitussin Dm) 5 ml PO Q6 PRN PRN Reason: Cough Last Admin: 09/04/18 21:28 Dose: 5 ml Hydralazine HCl (Apresoline) 10 mg IV Q6 PRN PRN Reason: SBP more than 150 Last Admin: 09/06/18 01:49 Dose: 10 mg Hydralazine HCl (Apresoline) 25 mg PO BID [facility] Last Admin: 09/07/18 08:33 Dose: 25 mg Piperacillin Sod/Tazobactam (Sod 2.25 gm/ Sodium Chloride) 100 mls @ 100 mls/hr IVPB Q6 [facility]; Protocol Last Admin: 09/07/18 09:21 Dose: 100 mls/hr Lactated Ringer's (Lactated Ringer's) 1,000 mls @ 100 mls/hr IV .Q10H [facility] Last Admin: 09/07/18 07:37 Dose: 100 mls/hr Insulin Human Lispro (Humalog) 0 units SC ACHS [facility]; Protocol Last Admin: 09/07/18 11:26 Dose: 1 unit Levetiracetam (Keppra) 500 mg PO BID [facility] Last Admin: 09/07/18 08:33 Dose: 500 mg Montelukast Sodium (Singulair) 10 mg PO HS [facility] Last Admin: 09/06/18 22:55 Dose: Not Given Multivitamins/Vitamin C (Multi-Delyn Liquid) 15 ml PO DAILY [facility] Last Admin: 09/07/18 08:34 Dose: 15 ml - Labs Labs: 09/07/18 04:20 09/07/18 04:20 PT 19.9 Seconds (9.8-13.1) H 09/06/18 04:00 INR 1.8 09/06/18 04:00 APTT 22.7 Seconds (25.6-37.1) L 09/06/18 04:00 - Constitutional Appears: Chronically Ill - Head Exam Head Exam: NORMOCEPHALIC - Eye Exam Pupil Exam: Irregular (R pupil) Additional comments: Left pupil mid size - ENT Exam Additional comments: intubated - Neck Exam Neck Exam: Normal Inspection - Respiratory Exam Respiratory Exam: Decreased Breath Sounds (at bases) Additional comments: Intubated - Cardiovascular Exam Cardiovascular Exam: REGULAR RHYTHM - GI/Abdominal Exam GI & Abdominal Exam: Soft, Normal Bowel Sounds - Extremities Exam Extremities Exam: Normal Inspection - Neurological Exam Additional comments: unresponsive to verbal and tactil stimuli - Skin Skin Exam: Warm Assessment and Plan (1) Cardiac arrest Status: Acute (2) Respiratory failure Status: Acute (3) Full code status Status: Acute (4) Pneumonia Status: Acute (5) Pleural effusion, left Status: Acute (6) COPD exacerbation Status: Acute (7) Collapse of left lung Status: Resolved (8) CHF (congestive heart failure) Status: Chronic (9) Pulmonary HTN Status: Chronic - Assessment and Plan (Free Text) Plan: CXR L lung expanded, R PNA, continue ventilatory support, DuoNeb, Mucomyst and rest of treatment Critical care time: 35 min.
--- NOTE | 2018-09-07 17:39 | CP.CCUPN ---
CCU Subjective - Physician Review Subjective (Free Text): Except for grimacing to painful stimuli, no other purposeful interaction, essentially remains comatose on MV support. No fevers overnight, temps mostly 97 -98F, normotensive with non-sustained intermittent elevations in SBP to 150-170s, Spo2 100% on 40% oxygen. Other vitals and I/O's reviewed. ROS: No other pertinent negs or positives on 10+ system review obtainable due to coma. PMSFH: All other Nursing and physician documentation reviewed to date; no new pertinent info noted relevant to current medical problems. EXAM- HEENT: no icterus, no gaze preference, Pupils irregular on R with no reactivity, Left pupil opacified from cataract, absent gag. NECK: No JVD visible, supple, carotids equal upstroke bilat/no bruit, R-EJ IV line CHEST: decreased bi-basilar BS , no wheezes audible HEART: regular, distant S1S2, no rubs ABD: soft, no focal tenderness, no guarding, no organomegaly, BS hypoactive. PEG intact EXT: no calf tenderness or palpable cords, distal pulses intact and symmetrical. RUE PICC NEURO: minimally withdraws limbs to pain stimuli, GCS= 3T ( E1V1M1 T) SKIN: no rashes, warm and dry LABS: WBC= 22.4 HGB= 9.8 PLTs= 185K Na= 145 K= 3.3 WU=448 HCO3= 38 BUN/Cr= 41/1.7 BS= 268 7.57/ 46/247 AST= 665, ALT= 309, AP= 159 CXR: ETT position OK above shaun, R-Hilar and RLL interstitial changes (my interp). IMPRESSION / MAJOR PROBLEMS NOW: 1. s/p Cardiac Arrest 2. Acute Hypoxemic Resp Failure 2 Left Lung Collapse- Lung collapse resolved after oral intubation. 3. s/p Embolic CVA with ICH conversion 4. Hypernatremia /Hyperkalemia with Azotemia 2 Pre-Renal etiology vs Cardiomyopathy 5. s/p Pulm Edema, 2 Neurogenic etiology post CVA, Cardiomyopathy PLAN: 1. No MV weans anticipated at this time. 2. Shock liver evident post resuscitation yesterday. 3. Stop alkalinized fluids. 4. Stop Dopamine. 5. IVF changed to LR for now. 6. Remove OGT, use PEG for tube feeds. Time spent with this patient did not overlap with any other provider's medical or critical care time. Additionally the code selected for the services rendered in this note includes the time spent: talking to the patients family, associated physicians and reviewing hospital data/results not listed here which extended to a total of 30 minutes of critical care.
[2018-09-08] MEDS: Albuterol-Ipratrop 3 mg / 0.5 (3 ml) UD INH SCH ×4 (03:49→20:18)
[2018-09-08 04:12] LABS: ABG ALLEN TEST YES; ARTERIAL BLOOD GAS HCO3 37.4 mmol/L (21-28); ARTERIAL BLOOD GAS HEMOGLOBIN 10.1 g/dL (11.7-17.4); ARTERIAL BLOOD GAS O2 CAPACITY 13.7 mL/dL (16-24); ARTERIAL BLOOD GAS O2 CONTENT 13.5 ML/dL (15-23); ARTERIAL BLOOD GAS O2 SAT 98.4 % (95-98); ARTERIAL BLOOD GAS PCO2 41 mm/Hg (35-45); ARTERIAL BLOOD GAS PH 7.59 (7.35-7.45); ARTERIAL BLOOD GAS PO2 78 mm/Hg (80-100); ARTERIAL BLOOD GAS TCO2 40.6 mmol/L (22-28)
[2018-09-08 05:34] LABS: BASO % 0.2 % (0.0-2.0); EOS % 0.2 % (0.0-4.0); HEMOGLOBIN 9.5 g/dL (12.0-16.0); LYMPH # 0.9 K/uL (1.0-4.3); LYMPH % 3.9 % (20.0-40.0); MEAN CORPUSCULAR HEMOGLOBIN 33.9 pg (27.0-31.0); MEAN CORPUSCULAR HGB CONC 32.9 g/dL (33.0-37.0); MEAN PLATELET VOLUME 11.3 fl (7.2-11.7); MONO # 0.6 K/uL (0.0-0.8); MONO % 2.7 % (0.0-10.0); NEUT # 20.7 K/uL (1.8-7.0); NRBC % 0.8 % (0.0-0.0); PLATELET COUNT 158 K/uL (130-400); RBC 2.82 Mil/uL (3.80-5.20); RED CELL DISTRIBUTION WIDTH 15.7 % (11.5-14.5); WHITE BLOOD COUNT 22.3 K/uL (4.8-10.8)
[2018-09-08 06:00] LABS: ALB/GLOB RATIO 0.7 (1.0-2.1); ALBUMIN 2.2 g/dL (3.5-5.0); CALCIUM 7.9 mg/dL (8.4-10.2)
[2018-09-08] MEDS: Lactated Ringer's 1,000 ML IV SCH ×2 (06:36→16:43)
[2018-09-08] MEDS: Insulin Lispro (humaLOG) 100 Units/ml Inj SC SCH ×3 (07:51→16:26)
[2018-09-08] MEDS: Acetylcysteine 10% 4 ML IH SCH ×2 (08:19→20:19)
--- NOTE | 2018-09-08 08:44 | CP.CCUPN ---
CCU Subjective - Physician Review Events Since Last Encounter (Free Text): Patient on ventilator, on PRVC TV 400, RR 12, FIO2 40%, no pressors, no fever, no response to verbal stimuli, events reviewed CCU Objective - Vital Signs / Intake & Output Vital Signs (Last 4 hours): Vital Signs Temp Pulse Resp BP Pulse Ox 09/08/18 08:00 99.9 F H 103 H 10 L 143/49 L 99 09/08/18 06:00 103 H 12 136/59 L 100 09/08/18 05:00 97 H 12 134/47 L 98 Intake and Output (Last 8hrs): Intake & Output 09/07/18 09/08/18 09/08/18 22:59 06:59 14:59 Intake Total 1210 1410 Output Total 1000 950 Balance 210 460 Intake: IV 800 700 Intake, Piggyback 200 100 Tube Feeding 60 310 Free Water Flush 150 300 Output: Urine 1000 950 Urethral ([place]) 1000 950 - Physical Exam Head: Positive for: Atraumatic, Normocephalic. Negative for: Tenderness, Contusion Pupils: Positive for: PERRL Conjunctiva: Positive for: Normal. Negative for: Injected, Icteric Ears: Positive for: Normal Mouth: Positive for: Moist Mucous Membranes Neck: Positive for: Normal Range of Motion, Trachea Midline. Negative for: JVD, Lymphadenopathy Respiratory/Chest: Positive for: Rhonchi Cardiovascular: Positive for: Regular Rate and Rhythm, Normal S1, S2, Peripheal Pulses Present. Negative for: Murmurs Abdomen: Positive for: Normal Bowel Sounds. Negative for: Tenderness, Distention Upper Extremity: Positive for: Edema (RUE, no erythema, no tenderness ) Lower Extremity: Positive for: NORMAL PULSES Neurological: Positive for: Other (on ventilator, no response to verbal stimuli) - Medications Active Medications: Active Medications Generic Name Dose Route Start Last Admin Trade Name Freq PRN Reason Stop Dose Admin Acetaminophen 650 mg 08/29/18 22:33 Tylenol 325mg Tab PO Q4 PRN Pain, moderate (4-7) Acetylcysteine 3 ml 08/28/18 20:15 09/08/18 08:19 Mucomyst 10% 4ml IH 3 ml RTID NICKOLAS Administration Albuterol/Ipratropium 3 ml 08/28/18 12:00 09/05/18 13:03 Duoneb 3 Mg/0.5 Mg (3 Ml) Ud INH 3 ml RQ4 PRN Administration Shortness of Breath Albuterol/Ipratropium 3 ml 09/05/18 04:00 09/08/18 08:19 Duoneb 3 Mg/0.5 Mg (3 Ml) Ud INH 3 ml RQ4 [facility] Administration Aspirin 81 mg 08/30/18 09:00 09/07/18 08:37 Aspirin Chewable PO 81 mg DAILY N[facility]AS Administration Atorvastatin Calcium 20 mg 08/30/18 09:00 09/07/18 18:20 Lipitor PO Not Given DAILY NICKOLAS Bacitracin 1 applic 09/03/18 17:00 09/07/18 16:30 Bacitracin Oint TOP 1 applic BID N[facility]AS Administration Carvedilol 3.125 mg 08/30/18 09:00 09/07/18 21:14 Coreg PO 3.125 mg Q12 N[facility] Administration Docusate Sodium 100 mg 08/30/18 09:00 09/07/18 16:33 Colace Liquid PO 100 mg TID N[facility]AS Administration Famotidine 20 mg 08/30/18 09:00 09/07/18 08:37 Pepcid PO 20 mg DAILY N[facility] Administration Ferrous Sulfate 300 mg 08/30/18 09:00 09/07/18 08:33 Feosol Liq PO 300 mg DAILY N[facility] Administration Folic Acid 1 mg 08/30/18 09:00 09/07/18 08:34 Folic Acid PO 1 mg DAILY [facility] Administration Furosemide 20 mg 09/07/18 21:00 09/07/18 21:50 Lasix IVP 20 mg Q12 [facility] Administration Hydralazine HCl 10 mg 08/28/18 12:10 09/06/18 01:49 Apresoline IV 10 mg Q6 PRN Administration SBP more than 150 Hydralazine HCl 25 mg 08/30/18 09:15 09/07/18 16:32 Apresoline PO 25 mg BID N[facility] Administration Piperacillin Sod/Tazobactam 100 mls @ 100 mls/hr 09/06/18 10:00 09/08/18 04:05 Sod 2.25 gm/ Sodium Chloride IVPB 100 mls/hr Q6 [facility] Administration Protocol Lactated Ringer's 1,000 mls @ 100 mls/hr 09/07/18 07:30 09/08/18 06:36 Lactated Ringer's IV 100 mls/hr .Q10H [facility] Administration Insulin Human Lispro 0 units 08/12/18 07:30 09/08/18 07:51 Humalog SC 2 unit ACHS [facility] Administration Protocol Levetiracetam 500 mg 08/30/18 09:00 09/07/18 16:30 Keppra PO 500 mg BID [facility] Administration Montelukast Sodium 10 mg 08/30/18 22:00 09/07/18 21:14 Singulair PO 10 mg HS [facility] Administration Multivitamins/Vitamin C 15 ml 08/30/18 09:00 09/07/18 08:34 Multi-Delyn Liquid PO 15 ml DAILY [facility] Administration - Patient Studies Lab Studies: Microbiology Studies 09/06/18 06:35 Blood Culture - Preliminary Blood-Thru Central Line NO GROWTH AFTER 48 HOURS 09/06/18 06:40 Blood Culture - Preliminary Blood-Thru Central Line NO GROWTH AFTER 48 HOURS Lab Studies 09/08/18 09/08/18 09/08/18 Range/Units 05:54 04:20 04:20 WBC (4.8-10.8) K/uL RBC (3.80-5.20) Mil/uL Hgb (12.0-16.0) g/dL Hct (34.0-47.0) % MCV (81.0-99.0) fl MCH (27.0-31.0) pg MCHC (33.0-37.0) g/dL RDW (11.5-14.5) % Plt Count (130-400) K/uL MPV (7.2-11.7) fl Neut % (Auto) (50.0-75.0) % Lymph % (Auto) (20.0-40.0) % [place] % (Auto) (0.0-10.0) % Eos % (Auto) (0.0-4.0) % Baso % (Auto) (0.0-2.0) % Neut # (Auto) (1.8-7.0) K/uL Lymph # (Auto) (1.0-4.3) K/uL [place] # (Auto) (0.0-0.8) K/uL Eos # (Auto) (0.0-0.7) K/uL Baso # (Auto) (0.0-0.2) K/uL pCO2 (35-45) mm/Hg pO2 (80-100) mm/Hg HCO3 (21-28) mmol/L ABG pH (7.35-7.45) ABG Total CO2 (22-28) mmol/L ABG O2 Saturation (95-98) % ABG O2 Content (15-23) ML/dL ABG Base Excess (-2.0-3.0) mmol/L ABG Hemoglobin (11.7-17.4) g/dL ABG Carboxyhemoglobin (0.5-1.5) % POC ABG HHb (Measured) (0.0-5.0) % ABG Methemoglobin (0.0-3.0) % ABG O2 Capacity (16-24) mL/dL Asher Test A-a O2 Difference mm/Hg Hgb O2 Saturation (95.0-98.0) % Vent Mode Mechanical Rate FiO2 % Tidal Volume PEEP Sodium (132-148) mmol/l Potassium (3.6-5.0) MMOL/L Chloride (98-107) mmol/L Carbon Dioxide (22-30) mmol/L Anion Gap (10-20) BUN (7-17) mg/dl Creatinine (0.7-1.2) mg/dl Est GFR ( Amer) Est GFR (Non-Af Amer) POC Glucose (mg/dL) 200 H (65-110) mg/dL Random Glucose (65-105) mg/dL Lactic Acid 1.7 (0.7-2.1) MMOL/L Calcium (8.4-10.2) mg/dL Phosphorus (2.5-4.5) mg/dl Magnesium (1.6-2.3) MG/DL Total Bilirubin (0.2-1.3) mg/dl AST (14-36) U/L ALT (9-52) U/L Alkaline Phosphatase (38-126) U/L Ammonia < 9 L (11-51) umo/L Total Protein (6.3-8.2) G/DL Albumin (3.5-5.0) g/dL Globulin (2.2-3.9) gm/dL Albumin/Globulin Ratio (1.0-2.1) 09/08/18 09/08/18 09/08/18 Range/Units 04:20 04:20 04:00 WBC 22.3 H (4.8-10.8) K/uL RBC 2.82 L (3.80-5.20) Mil/uL Hgb 9.5 L (12.0-16.0) g/dL Hct 29.0 L (34.0-47.0) % MCV 103.0 H D (81.0-99.0) fl MCH 33.9 H (27.0-31.0) pg MCHC 32.9 L (33.0-37.0) g/dL RDW 15.7 H (11.5-14.5) % Plt Count 158 (130-400) K/uL MPV 11.3 (7.2-11.7) fl Neut % (Auto) 93.0 H (50.0-75.0) % Lymph % (Auto) 3.9 L (20.0-40.0) % [place] % (Auto) 2.7 (0.0-10.0) % Eos % (Auto) 0.2 (0.0-4.0) % Baso % (Auto) 0.2 (0.0-2.0) % Neut # (Auto) 20.7 H (1.8-7.0) K/uL Lymph # (Auto) 0.9 L (1.0-4.3) K/uL [place] # (Auto) 0.6 (0.0-0.8) K/uL Eos # (Auto) 0.0 (0.0-0.7) K/uL Baso # (Auto) 0.0 (0.0-0.2) K/uL pCO2 41 (35-45) mm/Hg pO2 78 L (80-100) mm/Hg HCO3 37.4 H (21-28) mmol/L ABG pH 7.59 H (7.35-7.45) ABG Total CO2 40.6 H (22-28) mmol/L ABG O2 Saturation 98.4 H (95-98) % ABG O2 Content 13.5 L (15-23) ML/dL ABG Base Excess 16.1 H (-2.0-3.0) mmol/L ABG Hemoglobin 10.1 L (11.7-17.4) g/dL ABG Carboxyhemoglobin 2.2 H (0.5-1.5) % POC ABG HHb (Measured) 1.5 (0.0-5.0) % ABG Methemoglobin 1.6 (0.0-3.0) % ABG O2 Capacity 13.7 L (16-24) mL/dL Asher Test Yes A-a O2 Difference 156.0 mm/Hg Hgb O2 Saturation 94.6 L (95.0-98.0) % Vent Mode A/c Mechanical Rate 12 FiO2 40.0 % Tidal Volume 400 PEEP 5 Sodium 143 (132-148) mmol/l Potassium 3.6 (3.6-5.0) MMOL/L Chloride 99 (98-107) mmol/L Carbon Dioxide 37 H (22-30) mmol/L Anion Gap 11 (10-20) BUN 37 H (7-17) mg/dl Creatinine 1.8 H (0.7-1.2) mg/dl Est GFR ( Amer) 32 Est GFR (Non-Af Amer) 27 POC Glucose (mg/dL) (65-110) mg/dL Random Glucose 188 H (65-105) mg/dL Lactic Acid (0.7-2.1) MMOL/L Calcium 7.9 L (8.4-10.2) mg/dL Phosphorus 2.4 L (2.5-4.5) mg/dl Magnesium 1.8 (1.6-2.3) MG/DL Total Bilirubin 0.9 (0.2-1.3) mg/dl AST 182 H D (14-36) U/L ALT 177 H D (9-52) U/L Alkaline Phosphatase 137 H (38-126) U/L Ammonia (11-51) umo/L Total Protein 5.1 L (6.3-8.2) G/DL Albumin 2.2 L (3.5-5.0) g/dL Globulin 2.9 (2.2-3.9) gm/dL Albumin/Globulin Ratio 0.7 L (1.0-2.1) 09/07/18 09/07/18 09/07/18 Range/Units 21:31 17:17 11:16 WBC (4.8-10.8) K/uL RBC (3.80-5.20) Mil/uL Hgb (12.0-16.0) g/dL Hct (34.0-47.0) % MCV (81.0-99.0) fl MCH (27.0-31.0) pg MCHC (33.0-37.0) g/dL RDW (11.5-14.5) % Plt Count (130-400) K/uL MPV (7.2-11.7) fl Neut % (Auto) (50.0-75.0) % Lymph % (Auto) (20.0-40.0) % [place] % (Auto) (0.0-10.0) % Eos % (Auto) (0.0-4.0) % Baso % (Auto) (0.0-2.0) % Neut # (Auto) (1.8-7.0) K/uL Lymph # (Auto) (1.0-4.3) K/uL [place] # (Auto) (0.0-0.8) K/uL Eos # (Auto) (0.0-0.7) K/uL Baso # (Auto) (0.0-0.2) K/uL pCO2 (35-45) mm/Hg pO2 (80-100) mm/Hg HCO3 (21-28) mmol/L ABG pH (7.35-7.45) ABG Total CO2 (22-28) mmol/L ABG O2 Saturation (95-98) % ABG O2 Content (15-23) ML/dL ABG Base Excess (-2.0-3.0) mmol/L ABG Hemoglobin (11.7-17.4) g/dL ABG Carboxyhemoglobin (0.5-1.5) % POC ABG HHb (Measured) (0.0-5.0) % ABG Methemoglobin (0.0-3.0) % ABG O2 Capacity (16-24) mL/dL Asher Test A-a O2 Difference mm/Hg Hgb O2 Saturation (95.0-98.0) % Vent Mode Mechanical Rate FiO2 % Tidal Volume PEEP Sodium (132-148) mmol/l Potassium (3.6-5.0) MMOL/L Chloride (98-107) mmol/L Carbon Dioxide (22-30) mmol/L Anion Gap (10-20) BUN (7-17) mg/dl Creatinine (0.7-1.2) mg/dl Est GFR ( Amer) Est GFR (Non-Af Amer) POC Glucose (mg/dL) 111 H 161 H 196 H (65-110) mg/dL Random Glucose (65-105) mg/dL Lactic Acid (0.7-2.1) MMOL/L Calcium (8.4-10.2) mg/dL Phosphorus (2.5-4.5) mg/dl Magnesium (1.6-2.3) MG/DL Total Bilirubin (0.2-1.3) mg/dl AST (14-36) U/L ALT (9-52) U/L Alkaline Phosphatase (38-126) U/L Ammonia (11-51) umo/L Total Protein (6.3-8.2) G/DL Albumin (3.5-5.0) g/dL Globulin (2.2-3.9) gm/dL Albumin/Globulin Ratio (1.0-2.1) Laboratory Results - last 24 hr 09/07/18 09/07/18 09/07/18 11:16 17:17 21:31 WBC RBC Hgb Hct MCV MCH MCHC RDW Plt Count MPV Neut % (Auto) Lymph % (Auto) [place] % (Auto) Eos % (Auto) Baso % (Auto) Neut # (Auto) Lymph # (Auto) [place] # (Auto) Eos # (Auto) Baso # (Auto) pCO2 pO2 HCO3 ABG pH ABG Total CO2 ABG O2 Saturation ABG O2 Content ABG Base Excess ABG Hemoglobin ABG Carboxyhemoglobin POC ABG HHb (Measured) ABG Methemoglobin ABG O2 Capacity Asher Test A-a O2 Difference Hgb O2 Saturation Vent Mode Mechanical Rate FiO2 Tidal Volume PEEP Sodium Potassium Chloride Carbon Dioxide Anion Gap BUN Creatinine Est GFR ( Amer) Est GFR (Non-Af Amer) POC Glucose (mg/dL) 196 H 161 H 111 H Random Glucose Lactic Acid Calcium Phosphorus Magnesium Total Bilirubin AST ALT Alkaline Phosphatase Ammonia Total Protein Albumin Globulin Albumin/Globulin Ratio 09/08/18 09/08/18 09/08/18 04:00 04:20 04:20 WBC 22.3 H RBC 2.82 L Hgb 9.5 L Hct 29.0 L MCV 103.0 H D MCH 33.9 H MCHC 32.9 L RDW 15.7 H Plt Count 158 MPV 11.3 Neut % (Auto) 93.0 H Lymph % (Auto) 3.9 L [place] % (Auto) 2.7 Eos % (Auto) 0.2 Baso % (Auto) 0.2 Neut # (Auto) 20.7 H Lymph # (Auto) 0.9 L [place] # (Auto) 0.6 Eos # (Auto) 0.0 Baso # (Auto) 0.0 pCO2 41 pO2 78 L HCO3 37.4 H ABG pH 7.59 H ABG Total CO2 40.6 H ABG O2 Saturation 98.4 H ABG O2 Content 13.5 L ABG Base Excess 16.1 H ABG Hemoglobin 10.1 L ABG Carboxyhemoglobin 2.2 H POC ABG HHb (Measured) 1.5 ABG Methemoglobin 1.6 ABG O2 Capacity 13.7 L Asher Test Yes A-a O2 Difference 156.0 Hgb O2 Saturation 94.6 L Vent Mode A/c Mechanical Rate 12 FiO2 40.0 Tidal Volume 400 PEEP 5 Sodium 143 Potassium 3.6 Chloride 99 Carbon Dioxide 37 H Anion Gap 11 BUN 37 H Creatinine 1.8 H Est GFR ( Amer) 32 Est GFR (Non-Af Amer) 27 POC Glucose (mg/dL) Random Glucose 188 H Lactic Acid Calcium 7.9 L Phosphorus 2.4 L Magnesium 1.8 Total Bilirubin 0.9 AST 182 H D ALT 177 H D Alkaline Phosphatase 137 H Ammonia Total Protein 5.1 L Albumin 2.2 L Globulin 2.9 Albumin/Globulin Ratio 0.7 L 09/08/18 09/08/18 09/08/18 04:20 04:20 05:54 WBC RBC Hgb Hct MCV MCH MCHC RDW Plt Count MPV Neut % (Auto) Lymph % (Auto) [place] % (Auto) Eos % (Auto) Baso % (Auto) Neut # (Auto) Lymph # (Auto) [place] # (Auto) Eos # (Auto) Baso # (Auto) pCO2 pO2 HCO3 ABG pH ABG Total CO2 ABG O2 Saturation ABG O2 Content ABG Base Excess ABG Hemoglobin ABG Carboxyhemoglobin POC ABG HHb (Measured) ABG Methemoglobin ABG O2 Capacity Asher Test A-a O2 Difference Hgb O2 Saturation Vent Mode Mechanical Rate FiO2 Tidal Volume PEEP Sodium Potassium Chloride Carbon Dioxide Anion Gap BUN Creatinine Est GFR ( Amer) Est GFR (Non-Af Amer) POC Glucose (mg/dL) 200 H Random Glucose Lactic Acid 1.7 Calcium Phosphorus Magnesium Total Bilirubin AST ALT Alkaline Phosphatase Ammonia < 9 L Total Protein Albumin Globulin Albumin/Globulin Ratio Fingerstick Blood Sugar Results: 200 Critical Care Progress Note - Nutrition Nutrition: Nutrition Category Date Time Status NPO Diet [DIET] Diets 09/02/18 Dinner Active Assessment/Plan - Assessment and Plan (Free Text) Assessment: A/P Cardiac arrest s/p resuscitation, respiratory failure, CVA, IC, hypernatremia, hyperkalemia, pulmonary edema, cardiomyopathy, elevated LFTs - Ventilatory support - Continue meds - Pulmonary toilets - Cardiology follow up - Poor prognosis Critical care 35 min
[2018-09-08 08:55] LABS: BANDS 1 % (0-2); LYMPHOCYTE 6 % (20-50); MONOCYTE 3 % (0-10); NEUTROPHIL 90 % (42-75); PLATELET ESTIMATE NORMAL (NORMAL); TOTAL CELLS COUNTED 100
[2018-09-08 08:56] LABS: ANISOCYTOSIS SLIGHT; LARGE PLATELETS PRESENT; OVALOCYTES SLIGHT; SCHISTOCYTES SLIGHT
[2018-09-08] MEDS: Bacitracin OINT 15GM TOP SCH ×2 (09:17→16:28)
[2018-09-08] MEDS: levETIRAcetam 100 mg/ml (5ml) Oral Syringe PO SCH (09:19)
[2018-09-08] MEDS: Ferrous Sulfate 300 mg/5 mL Liq UD PO SCH (09:19)
[2018-09-08] MEDS: Multi Vitamins 15 mL UD Oral Solution PO SCH (09:20)
--- NOTE | 2018-09-08 10:27 | RAD ---
Date of service: 09/08/2018 HISTORY: Patient is intubated COMPARISON: Comparison chest dated 09/07/2018. FINDINGS: In situ endotracheal tube tip of which lies approximately 1.6 cm above shaun.. Interval removal NGT. LUNGS: Persistent mild but improved pulmonary venous congestive changes. Mild bibasilar atelectasis. PLEURA: No significant pleural effusion identified, no pneumothorax apparent. CARDIOVASCULAR: Moderate aortic atherosclerotic calcification present. Heart is enlarged. No pulmonary vascular congestion. OSSEOUS STRUCTURES: No significant abnormalities. VISUALIZED UPPER ABDOMEN: Normal. OTHER FINDINGS: None. IMPRESSION: ETT as above. Interval removal NGT Persistent mild but improved pulmonary venous congestion. Mild bibasilar atelectasis cardiomegaly.
--- NOTE | 2018-09-08 13:24 | CP.PCM.PN ---
Subjective - Date & Time of Evaluation Date of Evaluation: 09/08/18 Time of Evaluation: 07:00 - Subjective Subjective: remains comatose in ICU on vent family refused palliative measures low grade temps noted CXR unchanged IV antibiotics in progress poor prognosis Objective - Vital Signs/Intake and Output Vital Signs (last 24 hours): Temp Pulse Resp BP Pulse Ox 100.1 F H 98 H 13 129/39 L 98 09/08/18 12:00 09/08/18 12:00 09/08/18 12:00 09/08/18 12:00 09/08/18 12:00 Intake and Output: 09/08/18 09/08/18 06:59 18:59 Intake Total 2120 Output Total 950 Balance 1170 - Medications Medications: Current Medications Acetaminophen (Tylenol 325mg Tab) 650 mg PO Q4 PRN PRN Reason: Pain, moderate (4-7) Acetylcysteine (Mucomyst 10% 4ml) 3 ml IH RTID [facility] Last Admin: 09/08/18 08:19 Dose: 3 ml Albuterol/Ipratropium (Duoneb 3 Mg/0.5 Mg (3 Ml) Ud) 3 ml INH RQ4 PRN PRN Reason: Shortness of Breath Last Admin: 09/05/18 13:03 Dose: 3 ml Albuterol/Ipratropium (Duoneb 3 Mg/0.5 Mg (3 Ml) Ud) 3 ml INH RQ4 [facility] Last Admin: 09/08/18 08:19 Dose: 3 ml Aspirin (Aspirin Chewable) 81 mg PO DAILY [facility] Last Admin: 09/08/18 12:54 Dose: 81 mg Atorvastatin Calcium (Lipitor) 20 mg PO DAILY [facility] Last Admin: 09/08/18 09:20 Dose: 20 mg Bacitracin (Bacitracin Oint) 1 applic TOP BID [facility] Last Admin: 09/08/18 09:17 Dose: 1 applic Carvedilol (Coreg) 3.125 mg PO Q12 [facility] Last Admin: 09/08/18 09:18 Dose: 3.125 mg Docusate Sodium (Colace Liquid) 100 mg PO TID [facility] Last Admin: 09/08/18 12:53 Dose: 100 mg Famotidine (Pepcid) 20 mg PO DAILY [facility] Last Admin: 09/08/18 09:20 Dose: 20 mg Ferrous Sulfate (Feosol Liq) 300 mg PO DAILY [facility] Last Admin: 09/08/18 09:19 Dose: 300 mg Folic Acid (Folic Acid) 1 mg PO DAILY [facility] Last Admin: 09/08/18 09:19 Dose: 1 mg Furosemide (Lasix) 20 mg IVP Q12 [facility] Last Admin: 09/08/18 09:19 Dose: 20 mg Hydralazine HCl (Apresoline) 10 mg IV Q6 PRN PRN Reason: SBP more than 150 Last Admin: 09/06/18 01:49 Dose: 10 mg Hydralazine HCl (Apresoline) 25 mg PO BID [facility] Last Admin: 09/08/18 09:16 Dose: 25 mg Piperacillin Sod/Tazobactam (Sod 2.25 gm/ Sodium Chloride) 100 mls @ 100 mls/hr IVPB Q6 [facility]; Protocol Last Admin: 09/08/18 09:21 Dose: 100 mls/hr Lactated Ringer's (Lactated Ringer's) 1,000 mls @ 100 mls/hr IV .Q10H [facility] Last Admin: 09/08/18 06:36 Dose: 100 mls/hr Vancomycin HCl 1,000 mg/ (Sodium Chloride) 250 mls @ 250 mls/hr IVPB ONCE ONE; Protocol Stop: 09/08/18 14:20 Insulin Human Lispro (Humalog) 0 units SC ACHS [facility]; Protocol Last Admin: 09/08/18 12:53 Dose: 3 unit Levetiracetam (Keppra) 500 mg PO BID [facility] Last Admin: 09/08/18 09:19 Dose: 500 mg Montelukast Sodium (Singulair) 10 mg PO HS [facility] Last Admin: 09/07/18 21:14 Dose: 10 mg Multivitamins/Vitamin C (Multi-Delyn Liquid) 15 ml PO DAILY [facility] Last Admin: 09/08/18 09:20 Dose: 15 ml - Labs Labs: 09/08/18 04:20 09/08/18 04:20 PT 19.9 Seconds (9.8-13.1) H 09/06/18 04:00 INR 1.8 09/06/18 04:00 APTT 22.7 Seconds (25.6-37.1) L 09/06/18 04:00 - Constitutional Appears: Confused, Cachectic, Chronically Ill - Head Exam Head Exam: NORMOCEPHALIC - Eye Exam Eye Exam: absent: Scleral icterus - ENT Exam ENT Exam: Mucous Membranes Dry - Neck Exam Neck Exam: absent: Lymphadenopathy - Respiratory Exam Respiratory Exam: Decreased Breath Sounds - Cardiovascular Exam Cardiovascular Exam: REGULAR RHYTHM - GI/Abdominal Exam GI & Abdominal Exam: Distended, Soft - Rectal Exam Rectal Exam: Deferred - Exam Exam: NORMAL INSPECTION - Extremities Exam Extremities Exam: absent: Pedal Edema Assessment and Plan (1) CHF (congestive heart failure) Status: Chronic (2) Dehydration Status: Acute (3) Pneumonia Status: Acute (4) UTI (urinary tract infection) Status: Acute (5) CVA (cerebral vascular accident) Status: Acute (6) Cardiac arrest Status: Acute - Assessment and Plan (Free Text) Assessment: remains comatose in ICU on vent s/p cardiac arrest- hx of multiple strokes / recurrent UTI's blood cultures remain negative family refused palliative measures low grade temps noted CXR unchanged IV antibiotics in progress poor prognosis
[2018-09-08] MEDS ORDERED: Acetaminophen 650mg/20.3ml solution UD PO PRN (15:50)
--- NOTE | 2018-09-08 18:35 | CP.CCUPN ---
CCU Subjective - Physician Review Events Since Last Encounter (Free Text): Patient family daughter and son request DNR and terminal extubation, patient with multiorgan failure, extremely poor prognosis, order written CCU Objective - Vital Signs / Intake & Output Vital Signs (Last 4 hours): Vital Signs Temp Pulse Resp BP Pulse Ox 09/08/18 18:00 97 H 8 L 123/52 L 100 09/08/18 16:21 101.2 F H 94 H 104/37 L 09/08/18 16:00 101.2 F H 96 H 12 117/39 L 100 Intake and Output (Last 8hrs): Intake & Output 09/08/18 09/08/18 09/08/18 06:59 14:59 22:59 Intake Total 5376 028 8764 Output Total 950 400 Balance 460 400 700 Intake: IV 700 Intake, Piggyback 100 100 350 Tube Feeding 310 600 Free Water Flush 300 300 150 Output: Urine 950 400 Urethral ([place]) 950 400 Other: # Bowel Movements 0 - Medications Active Medications: Active Medications Generic Name Dose Route Start Last Admin Trade Name Freq PRN Reason Stop Dose Admin Acetaminophen 650 mg 08/29/18 22:33 Tylenol 325mg Tab PO Q4 PRN Pain, moderate (4-7) Acetaminophen 650 mg 09/08/18 15:50 09/08/18 16:21 Tylenol 650mg/20.3ml Solution Ud PO 650 mg Q4 PRN Administration Temperature Acetylcysteine 3 ml 08/28/18 20:15 09/08/18 08:19 Mucomyst 10% 4ml IH 3 ml RTID NICKOLAS Administration Albuterol/Ipratropium 3 ml 08/28/18 12:00 09/05/18 13:03 Duoneb 3 Mg/0.5 Mg (3 Ml) Ud INH 3 ml RQ4 PRN Administration Shortness of Breath Albuterol/Ipratropium 3 ml 09/05/18 04:00 09/08/18 16:13 Duoneb 3 Mg/0.5 Mg (3 Ml) Ud INH 3 ml RQ4 [facility] Administration Aspirin 81 mg 08/30/18 09:00 09/08/18 12:54 Aspirin Chewable PO 81 mg DAILY [facility] Administration Atorvastatin Calcium 20 mg 08/30/18 09:00 09/08/18 09:20 Lipitor PO 20 mg DAILY [facility] Administration Bacitracin 1 applic 09/03/18 17:00 09/08/18 16:28 Bacitracin Oint TOP 1 applic BID [facility] Administration Carvedilol 3.125 mg 08/30/18 09:00 09/08/18 09:18 Coreg PO 3.125 mg Q12 [facility] Administration Docusate Sodium 100 mg 08/30/18 09:00 09/08/18 16:29 Colace Liquid PO 100 mg TID [facility] Administration Famotidine 20 mg 08/30/18 09:00 09/08/18 09:20 Pepcid PO 20 mg DAILY [facility] Administration Ferrous Sulfate 300 mg 08/30/18 09:00 09/08/18 09:19 Feosol Liq PO 300 mg DAILY [facility] Administration Folic Acid 1 mg 08/30/18 09:00 09/08/18 09:19 Folic Acid PO 1 mg DAILY [facility] Administration Furosemide 20 mg 09/07/18 21:00 09/08/18 09:19 Lasix IVP 20 mg Q12 [facility] Administration Hydralazine HCl 10 mg 08/28/18 12:10 09/06/18 01:49 Apresoline IV 10 mg Q6 PRN Administration SBP more than 150 Hydralazine HCl 25 mg 08/30/18 09:15 09/08/18 16:21 Apresoline PO Not Given BID [facility] Piperacillin Sod/Tazobactam 100 mls @ 100 mls/hr 09/06/18 10:00 09/08/18 16:23 Sod 2.25 gm/ Sodium Chloride IVPB 100 mls/hr Q6 [facility] Administration Protocol Lactated Ringer's 1,000 mls @ 100 mls/hr 09/07/18 07:30 09/08/18 16:43 Lactated Ringer's IV 100 mls/hr .Q10H [facility] Administration Insulin Human Lispro 0 units 08/12/18 07:30 09/08/18 16:26 Humalog SC 2 unit ACHS [facility] Administration Protocol Levetiracetam 500 mg 08/30/18 09:00 09/08/18 09:19 Keppra PO 500 mg BID [facility] Administration Montelukast Sodium 10 mg 08/30/18 22:00 09/07/18 21:14 Singulair PO 10 mg HS [facility] Administration Multivitamins/Vitamin C 15 ml 08/30/18 09:00 09/08/18 09:20 Multi-Delyn Liquid PO 15 ml DAILY [facility] Administration - Patient Studies Lab Studies: Microbiology Studies 09/05/18 11:09 Mycobacterial Culture - Preliminary Other: Please Indicate 09/06/18 09:50 MRSA Culture (Admit) - Final [facility] MRSA NOT DETECTED 09/06/18 06:35 Blood Culture - Preliminary Blood-Thru Central Line NO GROWTH AFTER 48 HOURS 09/06/18 06:40 Blood Culture - Preliminary Blood-Thru Central Line NO GROWTH AFTER 48 HOURS Lab Studies 09/08/18 09/08/18 09/08/18 Range/Units 16:16 11:54 05:54 WBC (4.8-10.8) K/uL RBC (3.80-5.20) Mil/uL Hgb (12.0-16.0) g/dL Hct (34.0-47.0) % MCV (81.0-99.0) fl MCH (27.0-31.0) pg MCHC (33.0-37.0) g/dL RDW (11.5-14.5) % Plt Count (130-400) K/uL MPV (7.2-11.7) fl Neut % (Auto) (50.0-75.0) % Lymph % (Auto) (20.0-40.0) % [place] % (Auto) (0.0-10.0) % Eos % (Auto) (0.0-4.0) % Baso % (Auto) (0.0-2.0) % Neut # (Auto) (1.8-7.0) K/uL Lymph # (Auto) (1.0-4.3) K/uL [place] # (Auto) (0.0-0.8) K/uL Eos # (Auto) (0.0-0.7) K/uL Baso # (Auto) (0.0-0.2) K/uL Neutrophils % (Manual) (42-75) % Band Neutrophils % (0-2) % Lymphocytes % (Manual) (20-50) % Monocytes % (Manual) (0-10) % Platelet Estimate (NORMAL) Large Platelets Anisocytosis (manual) Macrocytosis (manual) Ovalocytes Schistocytes pCO2 (35-45) mm/Hg pO2 (80-100) mm/Hg HCO3 (21-28) mmol/L ABG pH (7.35-7.45) ABG Total CO2 (22-28) mmol/L ABG O2 Saturation (95-98) % ABG O2 Content (15-23) ML/dL ABG Base Excess (-2.0-3.0) mmol/L ABG Hemoglobin (11.7-17.4) g/dL ABG Carboxyhemoglobin (0.5-1.5) % POC ABG HHb (Measured) (0.0-5.0) % ABG Methemoglobin (0.0-3.0) % ABG O2 Capacity (16-24) mL/dL Asher Test A-a O2 Difference mm/Hg Hgb O2 Saturation (95.0-98.0) % Vent Mode Mechanical Rate FiO2 % Tidal Volume PEEP Sodium (132-148) mmol/l Potassium (3.6-5.0) MMOL/L Chloride (98-107) mmol/L Carbon Dioxide (22-30) mmol/L Anion Gap (10-20) BUN (7-17) mg/dl Creatinine (0.7-1.2) mg/dl Est GFR ( Amer) Est GFR (Non-Af Amer) POC Glucose (mg/dL) 230 H 274 H 200 H (65-110) mg/dL Random Glucose (65-105) mg/dL Lactic Acid (0.7-2.1) MMOL/L Calcium (8.4-10.2) mg/dL Phosphorus (2.5-4.5) mg/dl Magnesium (1.6-2.3) MG/DL Total Bilirubin (0.2-1.3) mg/dl AST (14-36) U/L ALT (9-52) U/L Alkaline Phosphatase (38-126) U/L Ammonia (11-51) umo/L Total Protein (6.3-8.2) G/DL Albumin (3.5-5.0) g/dL Globulin (2.2-3.9) gm/dL Albumin/Globulin Ratio (1.0-2.1) 09/08/18 09/08/18 09/08/18 Range/Units 04:20 04:20 04:20 WBC (4.8-10.8) K/uL RBC (3.80-5.20) Mil/uL Hgb (12.0-16.0) g/dL Hct (34.0-47.0) % MCV (81.0-99.0) fl MCH (27.0-31.0) pg MCHC (33.0-37.0) g/dL RDW (11.5-14.5) % Plt Count (130-400) K/uL MPV (7.2-11.7) fl Neut % (Auto) (50.0-75.0) % Lymph % (Auto) (20.0-40.0) % [place] % (Auto) (0.0-10.0) % Eos % (Auto) (0.0-4.0) % Baso % (Auto) (0.0-2.0) % Neut # (Auto) (1.8-7.0) K/uL Lymph # (Auto) (1.0-4.3) K/uL [place] # (Auto) (0.0-0.8) K/uL Eos # (Auto) (0.0-0.7) K/uL Baso # (Auto) (0.0-0.2) K/uL Neutrophils % (Manual) (42-75) % Band Neutrophils % (0-2) % Lymphocytes % (Manual) (20-50) % Monocytes % (Manual) (0-10) % Platelet Estimate (NORMAL) Large Platelets Anisocytosis (manual) Macrocytosis (manual) Ovalocytes Schistocytes pCO2 (35-45) mm/Hg pO2 (80-100) mm/Hg HCO3 (21-28) mmol/L ABG pH (7.35-7.45) ABG Total CO2 (22-28) mmol/L ABG O2 Saturation (95-98) % ABG O2 Content (15-23) ML/dL ABG Base Excess (-2.0-3.0) mmol/L ABG Hemoglobin (11.7-17.4) g/dL ABG Carboxyhemoglobin (0.5-1.5) % POC ABG HHb (Measured) (0.0-5.0) % ABG Methemoglobin (0.0-3.0) % ABG O2 Capacity (16-24) mL/dL Asher Test A-a O2 Difference mm/Hg Hgb O2 Saturation (95.0-98.0) % Vent Mode Mechanical Rate FiO2 % Tidal Volume PEEP Sodium 143 (132-148) mmol/l Potassium 3.6 (3.6-5.0) MMOL/L Chloride 99 (98-107) mmol/L Carbon Dioxide 37 H (22-30) mmol/L Anion Gap 11 (10-20) BUN 37 H (7-17) mg/dl Creatinine 1.8 H (0.7-1.2) mg/dl Est GFR ( Amer) 32 Est GFR (Non-Af Amer) 27 POC Glucose (mg/dL) (65-110) mg/dL Random Glucose 188 H (65-105) mg/dL Lactic Acid 1.7 (0.7-2.1) MMOL/L Calcium 7.9 L (8.4-10.2) mg/dL Phosphorus 2.4 L (2.5-4.5) mg/dl Magnesium 1.8 (1.6-2.3) MG/DL Total Bilirubin 0.9 (0.2-1.3) mg/dl AST 182 H D (14-36) U/L ALT 177 H D (9-52) U/L Alkaline Phosphatase 137 H (38-126) U/L Ammonia < 9 L (11-51) umo/L Total Protein 5.1 L (6.3-8.2) G/DL Albumin 2.2 L (3.5-5.0) g/dL Globulin 2.9 (2.2-3.9) gm/dL Albumin/Globulin Ratio 0.7 L (1.0-2.1) 09/08/18 09/08/18 09/07/18 Range/Units 04:20 04:00 21:31 WBC 22.3 H (4.8-10.8) K/uL RBC 2.82 L (3.80-5.20) Mil/uL Hgb 9.5 L (12.0-16.0) g/dL Hct 29.0 L (34.0-47.0) % MCV 103.0 H D (81.0-99.0) fl MCH 33.9 H (27.0-31.0) pg MCHC 32.9 L (33.0-37.0) g/dL RDW 15.7 H (11.5-14.5) % Plt Count 158 (130-400) K/uL MPV 11.3 (7.2-11.7) fl Neut % (Auto) 93.0 H (50.0-75.0) % Lymph % (Auto) 3.9 L (20.0-40.0) % [place] % (Auto) 2.7 (0.0-10.0) % Eos % (Auto) 0.2 (0.0-4.0) % Baso % (Auto) 0.2 (0.0-2.0) % Neut # (Auto) 20.7 H (1.8-7.0) K/uL Lymph # (Auto) 0.9 L (1.0-4.3) K/uL [place] # (Auto) 0.6 (0.0-0.8) K/uL Eos # (Auto) 0.0 (0.0-0.7) K/uL Baso # (Auto) 0.0 (0.0-0.2) K/uL Neutrophils % (Manual) 90 H (42-75) % Band Neutrophils % 1 (0-2) % Lymphocytes % (Manual) 6 L (20-50) % Monocytes % (Manual) 3 (0-10) % Platelet Estimate Normal (NORMAL) Large Platelets Present Anisocytosis (manual) Slight Macrocytosis (manual) Slight Ovalocytes Slight Schistocytes Slight pCO2 41 (35-45) mm/Hg pO2 78 L (80-100) mm/Hg HCO3 37.4 H (21-28) mmol/L ABG pH 7.59 H (7.35-7.45) ABG Total CO2 40.6 H (22-28) mmol/L ABG O2 Saturation 98.4 H (95-98) % ABG O2 Content 13.5 L (15-23) ML/dL ABG Base Excess 16.1 H (-2.0-3.0) mmol/L ABG Hemoglobin 10.1 L (11.7-17.4) g/dL ABG Carboxyhemoglobin 2.2 H (0.5-1.5) % POC ABG HHb (Measured) 1.5 (0.0-5.0) % ABG Methemoglobin 1.6 (0.0-3.0) % ABG O2 Capacity 13.7 L (16-24) mL/dL Asher Test Yes A-a O2 Difference 156.0 mm/Hg Hgb O2 Saturation 94.6 L (95.0-98.0) % Vent Mode A/c Mechanical Rate 12 FiO2 40.0 % Tidal Volume 400 PEEP 5 Sodium (132-148) mmol/l Potassium (3.6-5.0) MMOL/L Chloride (98-107) mmol/L Carbon Dioxide (22-30) mmol/L Anion Gap (10-20) BUN (7-17) mg/dl Creatinine (0.7-1.2) mg/dl Est GFR ( Amer) Est GFR (Non-Af Amer) POC Glucose (mg/dL) 111 H (65-110) mg/dL Random Glucose (65-105) mg/dL Lactic Acid (0.7-2.1) MMOL/L Calcium (8.4-10.2) mg/dL Phosphorus (2.5-4.5) mg/dl Magnesium (1.6-2.3) MG/DL Total Bilirubin (0.2-1.3) mg/dl AST (14-36) U/L ALT (9-52) U/L Alkaline Phosphatase (38-126) U/L Ammonia (11-51) umo/L Total Protein (6.3-8.2) G/DL Albumin (3.5-5.0) g/dL Globulin (2.2-3.9) gm/dL Albumin/Globulin Ratio (1.0-2.1) 09/07/18 Range/Units 17:17 WBC (4.8-10.8) K/uL RBC (3.80-5.20) Mil/uL Hgb (12.0-16.0) g/dL Hct (34.0-47.0) % MCV (81.0-99.0) fl MCH (27.0-31.0) pg MCHC (33.0-37.0) g/dL RDW (11.5-14.5) % Plt Count (130-400) K/uL MPV (7.2-11.7) fl Neut % (Auto) (50.0-75.0) % Lymph % (Auto) (20.0-40.0) % [place] % (Auto) (0.0-10.0) % Eos % (Auto) (0.0-4.0) % Baso % (Auto) (0.0-2.0) % Neut # (Auto) (1.8-7.0) K/uL Lymph # (Auto) (1.0-4.3) K/uL [place] # (Auto) (0.0-0.8) K/uL Eos # (Auto) (0.0-0.7) K/uL Baso # (Auto) (0.0-0.2) K/uL Neutrophils % (Manual) (42-75) % Band Neutrophils % (0-2) % Lymphocytes % (Manual) (20-50) % Monocytes % (Manual) (0-10) % Platelet Estimate (NORMAL) Large Platelets Anisocytosis (manual) Macrocytosis (manual) Ovalocytes Schistocytes pCO2 (35-45) mm/Hg pO2 (80-100) mm/Hg HCO3 (21-28) mmol/L ABG pH (7.35-7.45) ABG Total CO2 (22-28) mmol/L ABG O2 Saturation (95-98) % ABG O2 Content (15-23) ML/dL ABG Base Excess (-2.0-3.0) mmol/L ABG Hemoglobin (11.7-17.4) g/dL ABG Carboxyhemoglobin (0.5-1.5) % POC ABG HHb (Measured) (0.0-5.0) % ABG Methemoglobin (0.0-3.0) % ABG O2 Capacity (16-24) mL/dL Asher Test A-a O2 Difference mm/Hg Hgb O2 Saturation (95.0-98.0) % Vent Mode Mechanical Rate FiO2 % Tidal Volume PEEP Sodium (132-148) mmol/l Potassium (3.6-5.0) MMOL/L Chloride (98-107) mmol/L Carbon Dioxide (22-30) mmol/L Anion Gap (10-20) BUN (7-17) mg/dl Creatinine (0.7-1.2) mg/dl Est GFR ( Amer) Est GFR (Non-Af Amer) POC Glucose (mg/dL) 161 H (65-110) mg/dL Random Glucose (65-105) mg/dL Lactic Acid (0.7-2.1) MMOL/L Calcium (8.4-10.2) mg/dL Phosphorus (2.5-4.5) mg/dl Magnesium (1.6-2.3) MG/DL Total Bilirubin (0.2-1.3) mg/dl AST (14-36) U/L ALT (9-52) U/L Alkaline Phosphatase (38-126) U/L Ammonia (11-51) umo/L Total Protein (6.3-8.2) G/DL Albumin (3.5-5.0) g/dL Globulin (2.2-3.9) gm/dL Albumin/Globulin Ratio (1.0-2.1) Laboratory Results - last 24 hr 09/07/18 09/07/18 09/08/18 17:17 21:31 04:00 WBC RBC Hgb Hct MCV MCH MCHC RDW Plt Count MPV Neut % (Auto) Lymph % (Auto) [place] % (Auto) Eos % (Auto) Baso % (Auto) Neut # (Auto) Lymph # (Auto) [place] # (Auto) Eos # (Auto) Baso # (Auto) Neutrophils % (Manual) Band Neutrophils % Lymphocytes % (Manual) Monocytes % (Manual) Platelet Estimate Large Platelets Anisocytosis (manual) Macrocytosis (manual) Ovalocytes Schistocytes pCO2 41 pO2 78 L HCO3 37.4 H ABG pH 7.59 H ABG Total CO2 40.6 H ABG O2 Saturation 98.4 H ABG O2 Content 13.5 L ABG Base Excess 16.1 H ABG Hemoglobin 10.1 L ABG Carboxyhemoglobin 2.2 H POC ABG HHb (Measured) 1.5 ABG Methemoglobin 1.6 ABG O2 Capacity 13.7 L Asher Test Yes A-a O2 Difference 156.0 Hgb O2 Saturation 94.6 L Vent Mode A/c Mechanical Rate 12 FiO2 40.0 Tidal Volume 400 PEEP 5 Sodium Potassium Chloride Carbon Dioxide Anion Gap BUN Creatinine Est GFR ( Amer) Est GFR (Non-Af Amer) POC Glucose (mg/dL) 161 H 111 H Random Glucose Lactic Acid Calcium Phosphorus Magnesium Total Bilirubin AST ALT Alkaline Phosphatase Ammonia Total Protein Albumin Globulin Albumin/Globulin Ratio 09/08/18 09/08/18 09/08/18 04:20 04:20 04:20 WBC 22.3 H RBC 2.82 L Hgb 9.5 L Hct 29.0 L MCV 103.0 H D MCH 33.9 H MCHC 32.9 L RDW 15.7 H Plt Count 158 MPV 11.3 Neut % (Auto) 93.0 H Lymph % (Auto) 3.9 L [place] % (Auto) 2.7 Eos % (Auto) 0.2 Baso % (Auto) 0.2 Neut # (Auto) 20.7 H Lymph # (Auto) 0.9 L [place] # (Auto) 0.6 Eos # (Auto) 0.0 Baso # (Auto) 0.0 Neutrophils % (Manual) 90 H Band Neutrophils % 1 Lymphocytes % (Manual) 6 L Monocytes % (Manual) 3 Platelet Estimate Normal Large Platelets Present Anisocytosis (manual) Slight Macrocytosis (manual) Slight Ovalocytes Slight Schistocytes Slight pCO2 pO2 HCO3 ABG pH ABG Total CO2 ABG O2 Saturation ABG O2 Content ABG Base Excess ABG Hemoglobin ABG Carboxyhemoglobin POC ABG HHb (Measured) ABG Methemoglobin ABG O2 Capacity Asher Test A-a O2 Difference Hgb O2 Saturation Vent Mode Mechanical Rate FiO2 Tidal Volume PEEP Sodium 143 Potassium 3.6 Chloride 99 Carbon Dioxide 37 H Anion Gap 11 BUN 37 H Creatinine 1.8 H Est GFR ( Amer) 32 Est GFR (Non-Af Amer) 27 POC Glucose (mg/dL) Random Glucose 188 H Lactic Acid 1.7 Calcium 7.9 L Phosphorus 2.4 L Magnesium 1.8 Total Bilirubin 0.9 AST 182 H D ALT 177 H D Alkaline Phosphatase 137 H Ammonia Total Protein 5.1 L Albumin 2.2 L Globulin 2.9 Albumin/Globulin Ratio 0.7 L 09/08/18 09/08/18 09/08/18 04:20 05:54 11:54 WBC RBC Hgb Hct MCV MCH MCHC RDW Plt Count MPV Neut % (Auto) Lymph % (Auto) [place] % (Auto) Eos % (Auto) Baso % (Auto) Neut # (Auto) Lymph # (Auto) [place] # (Auto) Eos # (Auto) Baso # (Auto) Neutrophils % (Manual) Band Neutrophils % Lymphocytes % (Manual) Monocytes % (Manual) Platelet Estimate Large Platelets Anisocytosis (manual) Macrocytosis (manual) Ovalocytes Schistocytes pCO2 pO2 HCO3 ABG pH ABG Total CO2 ABG O2 Saturation ABG O2 Content ABG Base Excess ABG Hemoglobin ABG Carboxyhemoglobin POC ABG HHb (Measured) ABG Methemoglobin ABG O2 Capacity Asher Test A-a O2 Difference Hgb O2 Saturation Vent Mode Mechanical Rate FiO2 Tidal Volume PEEP Sodium Potassium Chloride Carbon Dioxide Anion Gap BUN Creatinine Est GFR ( Amer) Est GFR (Non-Af Amer) POC Glucose (mg/dL) 200 H 274 H Random Glucose Lactic Acid Calcium Phosphorus Magnesium Total Bilirubin AST ALT Alkaline Phosphatase Ammonia < 9 L Total Protein Albumin Globulin Albumin/Globulin Ratio 09/08/18 16:16 WBC RBC Hgb Hct MCV MCH MCHC RDW Plt Count MPV Neut % (Auto) Lymph % (Auto) [place] % (Auto) Eos % (Auto) Baso % (Auto) Neut # (Auto) Lymph # (Auto) [place] # (Auto) Eos # (Auto) Baso # (Auto) Neutrophils % (Manual) Band Neutrophils % Lymphocytes % (Manual) Monocytes % (Manual) Platelet Estimate Large Platelets Anisocytosis (manual) Macrocytosis (manual) Ovalocytes Schistocytes pCO2 pO2 HCO3 ABG pH ABG Total CO2 ABG O2 Saturation ABG O2 Content ABG Base Excess ABG Hemoglobin ABG Carboxyhemoglobin POC ABG HHb (Measured) ABG Methemoglobin ABG O2 Capacity Asher Test A-a O2 Difference Hgb O2 Saturation Vent Mode Mechanical Rate FiO2 Tidal Volume PEEP Sodium Potassium Chloride Carbon Dioxide Anion Gap BUN Creatinine Est GFR ( Amer) Est GFR (Non-Af Amer) POC Glucose (mg/dL) 230 H Random Glucose Lactic Acid Calcium Phosphorus Magnesium Total Bilirubin AST ALT Alkaline Phosphatase Ammonia Total Protein Albumin Globulin Albumin/Globulin Ratio Fingerstick Blood Sugar Results: 230 Critical Care Progress Note - Nutrition Nutrition: Nutrition Category Date Time Status NPO Diet [DIET] Diets 09/02/18 Dinner Active
--- NOTE | 2018-09-08 18:57 | CP.PCM.PN ---
Subjective - Date & Time of Evaluation Date of Evaluation: 09/08/18 Time of Evaluation: 14:00 - Subjective Subjective: F/U Respiratory failure. Pt intubated, no responding to verbal or tactile stimuli. Objective - Vital Signs/Intake and Output Vital Signs (last 24 hours): Temp Pulse Resp BP Pulse Ox 101.2 F H 97 H 8 L 123/52 L 100 09/08/18 16:21 09/08/18 18:00 09/08/18 18:00 09/08/18 18:00 09/08/18 18:00 Intake and Output: 09/08/18 09/08/18 06:59 18:59 Intake Total 2120 1500 Output Total 950 400 Balance 1170 1100 - Medications Medications: Current Medications Acetaminophen (Tylenol 325mg Tab) 650 mg PO Q4 PRN PRN Reason: Pain, moderate (4-7) Acetaminophen (Tylenol 650mg/20.3ml Solution Ud) 650 mg PO Q4 PRN PRN Reason: Temperature Last Admin: 09/08/18 16:21 Dose: 650 mg Acetylcysteine (Mucomyst 10% 4ml) 3 ml IH RTID [facility] Last Admin: 09/08/18 08:19 Dose: 3 ml Albuterol/Ipratropium (Duoneb 3 Mg/0.5 Mg (3 Ml) Ud) 3 ml INH RQ4 PRN PRN Reason: Shortness of Breath Last Admin: 09/05/18 13:03 Dose: 3 ml Albuterol/Ipratropium (Duoneb 3 Mg/0.5 Mg (3 Ml) Ud) 3 ml INH RQ4 [facility] Last Admin: 09/08/18 16:13 Dose: 3 ml Aspirin (Aspirin Chewable) 81 mg PO DAILY [facility] Last Admin: 09/08/18 12:54 Dose: 81 mg Atorvastatin Calcium (Lipitor) 20 mg PO DAILY [facility] Last Admin: 09/08/18 09:20 Dose: 20 mg Bacitracin (Bacitracin Oint) 1 applic TOP BID [facility] Last Admin: 09/08/18 16:28 Dose: 1 applic Carvedilol (Coreg) 3.125 mg PO Q12 [facility] Last Admin: 09/08/18 09:18 Dose: 3.125 mg Docusate Sodium (Colace Liquid) 100 mg PO TID [facility] Last Admin: 11/24/18 16:29 Dose: 100 mg Famotidine (Pepcid) 20 mg PO DAILY [facility] Last Admin: 09/08/18 09:20 Dose: 20 mg Ferrous Sulfate (Feosol Liq) 300 mg PO DAILY [facility] Last Admin: 09/08/18 09:19 Dose: 300 mg Folic Acid (Folic Acid) 1 mg PO DAILY [facility] Last Admin: 09/08/18 09:19 Dose: 1 mg Furosemide (Lasix) 20 mg IVP Q12 [facility] Last Admin: 09/08/18 09:19 Dose: 20 mg Hydralazine HCl (Apresoline) 10 mg IV Q6 PRN PRN Reason: SBP more than 150 Last Admin: 09/06/18 01:49 Dose: 10 mg Hydralazine HCl (Apresoline) 25 mg PO BID [facility] Last Admin: 09/08/18 16:21 Dose: Not Given Piperacillin Sod/Tazobactam (Sod 2.25 gm/ Sodium Chloride) 100 mls @ 100 mls/hr IVPB Q6 [facility]; Protocol Last Admin: 09/08/18 16:23 Dose: 100 mls/hr Lactated Ringer's (Lactated Ringer's) 1,000 mls @ 100 mls/hr IV .Q10H [facility] Last Admin: 09/08/18 16:43 Dose: 100 mls/hr Insulin Human Lispro (Humalog) 0 units SC ACHS [facility]; Protocol Last Admin: 09/08/18 16:26 Dose: 2 unit Levetiracetam (Keppra) 500 mg PO BID [facility] Last Admin: 09/08/18 09:19 Dose: 500 mg Montelukast Sodium (Singulair) 10 mg PO HS [facility] Last Admin: 09/07/18 21:14 Dose: 10 mg Multivitamins/Vitamin C (Multi-Delyn Liquid) 15 ml PO DAILY [facility] Last Admin: 09/08/18 09:20 Dose: 15 ml - Labs Labs: 09/08/18 04:20 09/08/18 04:20 PT 19.9 Seconds (9.8-13.1) H 09/06/18 04:00 INR 1.8 09/06/18 04:00 APTT 22.7 Seconds (25.6-37.1) L 09/06/18 04:00 - Constitutional Appears: Chronically Ill - Head Exam Head Exam: NORMOCEPHALIC - Eye Exam Pupil Exam: Irregular (R pupil) Additional comments: Left pupil mid size - ENT Exam Additional comments: Intubated - Neck Exam Neck Exam: Normal Inspection - Respiratory Exam Respiratory Exam: Decreased Breath Sounds (at bases) - Cardiovascular Exam Cardiovascular Exam: REGULAR RHYTHM - GI/Abdominal Exam GI & Abdominal Exam: Soft, Normal Bowel Sounds - Extremities Exam Extremities Exam: Normal Inspection - Neurological Exam Additional comments: Unresponsive - Skin Skin Exam: Warm Assessment and Plan (1) Cardiac arrest Status: Acute (2) Respiratory failure Status: Acute (3) Full code status Status: Acute (4) Pneumonia Status: Acute (5) Pleural effusion, left Status: Acute (6) COPD exacerbation Status: Acute (7) Collapse of left lung Status: Resolved (8) CHF (congestive heart failure) Status: Chronic (9) Pulmonary HTN Status: Chronic - Assessment and Plan (Free Text) Plan: Poor prognosis, continue ventilatory support, Zosyn, duoneb, Apresoline and rest of Tx. Critical care time: 32 min.
[2018-09-08 19:46] VITALS: RESP 27; TEMP 101.6
[2018-09-08 21:16] VITALS: BP 106/47; PULSE 109; O2SAT 85
--- NOTE | 2018-09-08 21:37 | CP.PCM.PRO ---
Pronouncement of Note - Clinical Findings Physical Exam: No Response Verbal/Painful Stimuli, Absent Peripheral Puls es{Carotid & Femoral}, Absent Heart & Breath Sounds, No Pupillary Light Reflex, No Corneal Reflex, Pupils Fixed & Dilated, Absence of Vital Signs - Pronouncement Time Time of Pronouncement of : 21:20 - Notifications Pronouncement Notifications: Family Notified, Atending Notified Tube Sizer And Cutter Operator Notified: No - Autopsy Autopsy Requested: No - [place] [id number]
--- NOTE | 2018-09-09 00:04 | PN ---
DATE: 09/08/2018 SUBJECTIVE: The patient was seen earlier this afternoon . The patient was intubated, unresponsive, and not triggering the respirator. PHYSICAL EXAMINATION: VITAL SIGNS: Blood pressure was 104/37, pulse 94, and respiration was 12 . LUNGS: She has some rales bilaterally. HEART: Has regular rate and rhythm, but there is some systolic murmur. ABDOMEN: Soft. PEG is in place. ASSESSMENT AND PLAN: The plan is that the case was discussed with the family regarding Do Not Resuscitate. Also, the family wanted to wait one more day before ordering Do Not Resuscitate. We will continue the current medication and current treatment, and the nurse this afternoon was informed. Slim Marino MD
--- NOTE | 2018-09-10 08:39 | PN ---
DATE: 09/07/2018 SUBJECTIVE: Today, the patient is still in ICU, intubated, not responsive, and is just . PHYSICAL EXAMINATION: VITAL SIGNS: Blood pressures are 169/60 and 166/63, pulse is 101, temperature is 98.6, respirations 12, and O2 saturation 100%. The patient is on mechanical ventilation. The patient is somewhat left upper extremity and said she is somewhat . LUNGS: Showed some rales bilaterally. HEART: Regular rate and rhythm, but there is a systolic murmur. ABDOMEN: Soft. No reaction to abdomen (PEG in place). EXTREMITIES: Edematous of the extremity. LABORATORY DATA: Labs showed WBC , hemoglobin 9.8, hematocrit 30.7, and platelets 185. Chemistry: Sodium 145, potassium 3.3, chloride 100, bicarb 38, BUN 41, creatinine 1.7, and glucose 266. Liver enzymes elevated, AST 65, ALT 209, alkaline phosphatase 169. ASSESSMENT AND PLAN: The case was discussed with the family condition of the patient and may consider now some time this weekend . We are going to start Lasix 20 mg intravenously every 12 hours and Ringer's lactate will be changed to normal saline, and we are going to have the rest of the treatment and continue potassium was given. Slim Marino MD
== END 2018-09-09 00:05 | DRG 64 ==
LOC: H.ER 15:16 → H.ERHOLD 19:06 → H.TEL 22:46 → H.ICU/CCU 08-12 00:25 → H.TEL 08-16 17:25 → H.ICU/CCU 09-06 03:54
PROVIDERS: ADMIT Specialist; ATTEND Specialist
PROC: 0W9B3ZZ Drainage of Left Pleural Cavity, Percutaneous Approach (ICD-10-PCS; 2018-08-20)
PROC: 02HV33Z Insertion of Infusion Device into Superior Vena Cava, Percutaneous Approach (ICD-10-PCS; 2018-08-20)
PROC: B518ZZA Fluoroscopy of Superior Vena Cava, Guidance (ICD-10-PCS; 2018-08-20)
PROC: B548ZZA Ultrasonography of Superior Vena Cava, Guidance (ICD-10-PCS; 2018-08-20)
PROC: 0W9B3ZZ Drainage of Left Pleural Cavity, Percutaneous Approach (ICD-10-PCS; 2018-08-29)
PROC: 0DH68UZ Insertion of Feeding Device into Stomach, Via Natural or Artificial Opening Endoscopic (ICD-10-PCS; principal; 2018-09-03 13:45)
PROC: 0BJ08ZZ Inspection of Tracheobronchial Tree, Via Natural or Artificial Opening Endoscopic (ICD-10-PCS; 2018-09-05)
PROC: 0BH17EZ Insertion of Endotracheal Airway into Trachea, Via Natural or Artificial Opening (ICD-10-PCS; 2018-09-06)
PROC: 5A1945Z Respiratory Ventilation, 24-96 Consecutive Hours (ICD-10-PCS; 2018-09-06)
DX: I63.40 Cerebral infarction due to embolism of unspecified cerebral artery (principal); J18.9 Pneumonia, unspecified organism; I50.23 Acute on chronic systolic (congestive) heart failure; G93.6 Cerebral edema; I61.9 Nontraumatic intracerebral hemorrhage, unspecified; J96.90 Respiratory failure, unspecified, unspecified whether with hypoxia or hypercapnia; R40.20 Unspecified coma; I13.0 Hypertensive heart and chronic kidney disease with heart failure and stage 1 through stage 4 chronic kidney disease, or unspecified chronic kidney disease; N39.0 Urinary tract infection, site not specified; E87.0 Hyperosmolality and hypernatremia; E87.4 Mixed disorder of acid-base balance; I42.9 Cardiomyopathy, unspecified; I50.22 Chronic systolic (congestive) heart failure; J44.0 Chronic obstructive pulmonary disease with (acute) lower respiratory infection; J44.1 Chronic obstructive pulmonary disease with (acute) exacerbation; N17.9 Acute kidney failure, unspecified; J98.19 Other pulmonary collapse; E46 Unspecified protein-calorie malnutrition; E86.0 Dehydration; E11.22 Type 2 diabetes mellitus with diabetic chronic kidney disease; G40.909 Epilepsy, unspecified, not intractable, without status epilepticus; D63.1 Anemia in chronic kidney disease; E11.51 Type 2 diabetes mellitus with diabetic peripheral angiopathy without gangrene; E78.00 Pure hypercholesterolemia, unspecified; E78.5 Hyperlipidemia, unspecified; E87.5 Hyperkalemia; F02.80 Dementia in other diseases classified elsewhere, unspecified severity, without behavioral disturbance, psychotic disturbance, mood disturbance, and anxiety; G30.9 Alzheimer's disease, unspecified; H40.9 Unspecified glaucoma; I25.10 Atherosclerotic heart disease of native coronary artery without angina pectoris; I27.20 Pulmonary hypertension, unspecified; I35.0 Nonrheumatic aortic (valve) stenosis; I46.9 Cardiac arrest, cause unspecified; J45.20 Mild intermittent asthma, uncomplicated; M19.90 Unspecified osteoarthritis, unspecified site; N18.3 Chronic kidney disease, stage 3 (moderate); R62.7 Adult failure to thrive; Z66 Do not resuscitate; Z74.01 Bed confinement status; Z79.02 Long term (current) use of antithrombotics/antiplatelets; Z86.711 Personal history of pulmonary embolism; Z87.01 Personal history of pneumonia (recurrent); Z87.440 Personal history of urinary (tract) infections; Z87.891 Personal history of nicotine dependence; Z90.49 Acquired absence of other specified parts of digestive tract; Z93.1 Gastrostomy status; Z95.5 Presence of coronary angioplasty implant and graft; F32.9 Major depressive disorder, single episode, unspecified; K43.9 Ventral hernia without obstruction or gangrene; K59.00 Constipation, unspecified; I69.328 Other speech and language deficits following cerebral infarction; Z79.899 Other long term (current) drug therapy; R00.1 Bradycardia, unspecified; R74.8 Abnormal levels of other serum enzymes; B96.20 Unspecified Escherichia coli [E. coli] as the cause of diseases classified elsewhere; I69.391 Dysphagia following cerebral infarction; I69.320 Aphasia following cerebral infarction; Z68.28 Body mass index [BMI] 28.0-28.9, adult